=== PATIENT | male | born 1945 | race Caucasian/White ===

== ENCOUNTER 2016-08-31 07:41 | Day surgery (SDC) | payer MEDICARE, MEDICAID ==
[~2016-08-31 07:41] MED LIST: ADVAIR 250/5028 PUFF IN; CELEBREX 200MG200 MG PO; FLEXERIL10 MG PO; FLOMAX 0.4MG C0.4 MG PO; GABAPENTIN300 M1 PO; LISINOPRIL20 MG PO; LORTAB 5/500 501 TAB PO; SPIRIVA HA1 PUFF/INH IH; TRICOR 145 MG145 MG NG; ULTRAM 50 MG TA50 MG PO
[2016-08-31 08:18] LABS: HEMOGLOBIN 15.9 g/dL (14.1-18.0); LYMPH # 2.3 K/mm3 (0.7-4.5); LYMPH % 33.4 % (10-50)
[2016-08-31 08:21] LABS: BUN 31 mg/dL (7-18); GFR (ESTIMATED) 54 ML/MIN (>60)
[2016-08-31 14:17] VITALS: BP 125/64
--- NOTE | 2016-09-03 10:39 | RADIOLOGY REPORT PS360 ---
CARDIAC CATHETERIZATION DATE OF CATHETERIZATION:08/31/2016 10:27 AM PROCEDURES: 1. Left heart catheterization 2. Left ventriculogram 3. Selective coronary angiogram 4. Drug-eluting stent deployment to the mid large circumflex artery INDICATION FOR TEST: 1. Coronary artery disease 2. Abnormal Myoview inferior lateral ischemia 3. Angina pectoris class III and IV Informed consent was obtained prior to the procedure. COMPLICATIONS: None ESTIMATED BLOOD LOSS: Less than 10 ml. TECHNIQUE: One percent lidocaine was used to anesthetize the right groin. The right anterior aspect of the right wrist. The right radial artery was accessed via the central technique and a 6 [place] hydrophilic sheath was placed in the right radial artery. An arterial cocktail using verapamil and nitroglycerin and heparin was administered. Over a 3 J-wire a dexterity catheter was used to perform left heart catheterization left ventriculogram and selective coronary angiography. At the end of the diagnostic angiogram and additional dose of heparin was administered intravenously. An [facility] 3.5 guide catheter was used intubate the left main artery. 60 mg of Effient and 325 mg of aspirin was administered. A BMW wire was used to traverse the stenosis in the circumflex artery and a 2.75 x 26 mm resolute [place] stent was deployed at 20 edith reducing the severe stenosis to 0%. There are excellent angiographic results with BRADEN-3 flow down the vessel before and after the procedure. At the end of the procedure the sheath was removed good hemostasis was achieved using TR band in patient transferred the postop holding area in stable condition. ACT was 255 seconds ANGIOGRAPHIC RESULTS: 1. The left main artery normal 2. The left anterior descending artery has a proximal 10-20% stenosis with mid vessel 30% stenoses. There is a large first diagonal artery which is 2.5 mm in diameter and has proximal eccentric sequential 50% stenoses 3. The ramus intermedius is a large branch and has a mid vessel 60% eccentric stenosis 4. The circumflex artery is a nondominant yet still large vessel and has a 90% stenosis in the proximal large first obtuse marginal artery 5. The right coronary artery is a dominant vessel and has proximal 20% mid vessel 30% stenoses. The very large posterior descending artery has a proximal concentric 40-50% followed by mid vessel 40% stenosis 6. The ALVAREZ ventriculogram reveals normal 65% 7. The left ventricular end-diastolic pressure 10 mmHg IMPRESSION: 1. Severe disease in the first obtuse marginal artery which likely accounts for patient's angina and abnormal Myoview 2. Successful stenting the first obtuse marginal artery severe disease reduced to 0% with 1 drug-eluting stent 3. Persistent moderate to severe disease in a large ramus intermedius and first diagonal artery 4. Normal ejection fraction 5. Normal left ventricular end-diastolic pressure PLAN: 1. Effient and aspirin 2. LDL less than 55 3. Risk factor modification 4. Continue antianginal medications 5. Avoidance of tobacco products 6. Cardiac rehabilitation 7. In 6 weeks I would like patient undergo exercise Myoview to make sure all inducible ischemia has been treated
== END 2016-08-31 14:00 | disposition home or self-care (01) ==
LOC: CATHLAB 07:41
PROVIDERS: Internal Medicine; Internal Medicine Cardiovascular Disease
PROC: B2111ZZ Fluoroscopy of Multiple Coronary Arteries using Low Osmolar Contrast (ICD-10-PCS; 2016-08-31)
PROC: B2151ZZ Fluoroscopy of Left Heart using Low Osmolar Contrast (ICD-10-PCS; 2016-08-31)
PROC: 027034Z Dilation of Coronary Artery, One Artery with Drug-eluting Intraluminal Device, Percutaneous Approach (ICD-10-PCS; 2016-08-31)
PROC: 4A023N7 Measurement of Cardiac Sampling and Pressure, Left Heart, Percutaneous Approach (ICD-10-PCS; principal; 2016-08-31 08:30)
DX: I25.119 Atherosclerotic heart disease of native coronary artery with unspecified angina pectoris (principal); Z72.0 Tobacco use; R94.39 Abnormal result of other cardiovascular function study
CPT/HCPCS: C1725; C1769; C1876; C1894; J1644; Q9967

== ENCOUNTER → 2016-10-26 | Outpatient (CLI) | payer MEDICARE, MEDICAID ==
[2016-10-26 11:55] LABS: BILIRUBIN, INDIRECT 0.25 mg/dL (0-0.9)
== END ==
LOC: LAB 10:19
PROVIDERS: Internal Medicine
DX: I25.10 Atherosclerotic heart disease of native coronary artery without angina pectoris (principal); I10 Essential (primary) hypertension; E78.5 Hyperlipidemia, unspecified

== ENCOUNTER → 2016-11-09 | Outpatient (CLI) | payer MEDICARE, MEDICAID | LOC: SL 12:15 | DX: G47.30 Sleep apnea, unspecified (principal) | CPT/HCPCS: G0399-TC ==

== ENCOUNTER 2016-12-13 12:12 | Emergency (ER) | payer MEDICARE, MEDICAID ==
[~2016-12-13] VITALS: Ht 172.7 cm; Wt 90.4 kg
--- OUTSIDE RECORDS SUMMARY | 2016-12-13 12:25 | External Medical Summary Rpt | CCD ---
Author Author , ОЛЕГ Organization ОЛЕГ Address Unknown Phone [email or web address] Care Team Providers Care Pilot Control Operator Name Role Phone A Dominique CLINE MD [facility], A Unavailable Unavailable Dominique CLINE MD PSC [address]WAL[address] L[address] MD, PSC, Unavailable Unavailable OSWALDO L[address] MD, PSC [facility] Unavailable Unavailable MEDICAL GROUP, [facility] BEINEKE SANTY, BEINEKE Unavailable Unavailable S[facility] Unavailable Unavailable [facility], [facility] CLINTON, CLINTON Unavailable Unavailable CLINTON ALL, CLINTON ALL Unavailable Unavailable BUX, BUX Unavailable Unavailable CROSSFIELD, Unavailable Unavailable CROSSFIELD CROSSFIELD SANTY, Unavailable Unavailable CROSSFIELD SANTY ANIBAL EDA, Unavailable Unavailable ANIBAL EDA [facility], Unavailable Unavailable [facility] [place] [facility] Un[facility] Unavailable [facility], [facility] DUFF, DUFF Unavailable Unavailable DUFF JASON, DUFF JASON Unavailable Unavailable [facility], [facility] Unavailable Unavailable [facility] Unavailable [facility]available [facility], [facility] HEMANTH ROUSE, HEMANTH Unavailable Unavailable NASIM MARELY RON, YAP RON Unavailable Unavailable [facility] Unavailable Unavailable INC, [facility] VARNER WILIAM, VARNER WILIAM Unavailable Unavailable [facility], Unavailable Unavailable [facility] Unavailable Unavailable IM[facility]ING [facility], [facility] Un[facility] Un[facility], [facility] Unavailable [facility]available [facility], [facility] Unavailable Unavailable [facility], [facility] Unavailable Unavailable HOLDINGS, [email or web address], Unavailable Unavailable [email or web address] DEVI CRI, DEVI CRI Unavailable Unavailable [facility], [facility] Unavailable Unavailable [facility] Unavailable Unavailable SERVICES, [facility] MARTIN KESHIA, Unavailable Unavailable MARTIN KESHIA MARTIN KESHIA, Unavailable Unavailable MARTIN KESHIA MARTIN, KESHIA B, Unavailable Unavailable MARTIN, KESHIA B CASA ROS, CASA Unavailable Unavailable ROS MADDEN, MADDEN Unavailable Unavailable MADDEN JAM, Unavailable Unavailable MADDEN JAM BARBARA SURY, BARBARA SURY Unavailable Unavailable [facility], [facility] Unavailable Unavailable [facility] Unavailable Unavailable LAB[facility] Unavailable Unavailable LAB, [facility] TATE GENE, TATE GENE Unavailable Unavailable BRYCE JENNIE, BRYCE JENNIE Unavailable Unavailable ELIAS, III THIERRY, Unavailable Unavailable ELIAS, III THIERRY MEJIA RON, MEJIA RON Unavailable Unavailable [facility], [facility] Unavailable Unavailable INCORPORAT, [facility] Unavailable Unavailable INCORPORAT, [facility], Unavailable Unavailable [facility] SCIFRES ANG, SCIFRES Unavailable Unavailable ANG SHOJAEI-RANDA, Unavailable Unavailable SHOJAEI-RANDA MOON, MOON Unavailable Unavailable [facility] Unavailable Unavailable [facility], [facility] Unavailable Unavailable [facility], [facility] Unavailable Unavailable [facility], [facility] Unavailable Unavailable EQUIPME, [facility], Unavailable Unavailable [facility], Unavailable Unavailable [facility]available Unavailable [address], [facility] [facility] Unavailable Unavailable [address], [facility] [address] [facility] Unavailable Unavailable SERVICES, [facility] WEHRERNIE III TAMARA, Unavailable Unavailable WEHRMAN III TAMARA SON A, CLINE A Unavailable Unavailable CLINE MANA, CLINE Unavailable Unavailable Janna BARAHONA, SON, Unavailable Unavailable A C Purpose Continuity of Care Document - 12-27-2008 through 2016 Problems Code Diagnosis DOS Provider Status J449 CHRONIC 11-20-2016 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 R262 DIFFICULTY 11-17-2016 [facility] IN WALKING L REHAB NOT ASSOC PSC ELSEWHERE CLASSIFIED J441 CHRONIC 11-16-2016 [facility] OB[facility]CTIVE SERV PULMONARY FOUNDATION DZ W/EXACERBAT ION J9610 CHRONIC 11-16-2016 [facility] RESPIRATORY SERV FAIL UNS FOUNDATION HYPOXIA/HYP ERCAPNIA G8929 OTHER 11-05-2016 [facility] CHRONIC HEALTH PAIN MEDICAL GROUP 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 M545 LOW BACK 11-05-2016 [facility] PAIN HEALTH MEDICAL GROUP E785 HYPERLIPIDE 11-04-2016 [facility] JASON PHYSICIANS UNSPECIFIED GROUP I10 ESSENTIAL 11-04-2016 [facility] PRIMARY PHYSICIANS HYPERTENSIO GROUP N R0609 OTHER FORMS 11-04-2016 [facility] OF DYSPNEA PHYSICIANS GROUP M461 SACROILIITI 10-29-2016 [facility] S NOT [facility] ELSEWHERE S PSC CLASSIFIED R079 CHEST PAIN 10-20-2016 [facility] 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 I208 OTHER FORMS 09-03-2016 [facility] OF ANGINA PHYSICIANS PECTORIS GROUP W55756 [place] TRIBE 09-03-2016 [facility] COR ART PHYSICIANS W/OTH FORMS GROUP ANGINA PECTORIS R9439 ABNORMAL 09-03-2016 [facility] RESULT OT PHYSICIANS CARDIOVASCU GROUP LR FUNCTION STUDY T03765 [facility] TRIBE 08-31-2016 [facility] COR ARTREY [facility] W/UNS INC ANGINA PECTORIS Z720 TOBACCO USE 08-31-2016 [facility] INC R188 OTHER 08-19-2016 [facility] ASCITES [facility] INC R0600 DYSPNEA 08-05-2016 [facility] UNSPECIFIED [facility] INC R0602 SHORTNESS 08-05-2016 [facility] OF BREATH PHYSICIANS GROUP R918 OTHER 07-29-2016 [facility] [place] NONSPECIFIC MEDICAL ABNORMAL IMAGING ASS FINDING OF LUNG FIELD 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 [facility] DIABETES PH[facility]AC[facility] MELLITUS #591 WITH HYPERGLYCEM IA I63494 OTHER LONG 06-29-2016 [facility] TERM [facility] CURRENT INC DRUG THERAPY M5126 OT 05-19-2016 [place] INTERVERTEB MEDICAL RAL DISC IMAGING ASS DISPLACEMEN T LUMBAR RGN M5127 OT 05-19-2016 [facility] INTERVERTEB MEDICAL RAL DISC IMAGING ASS DISPLACEMEN T LS REGION M5137 OT 05-19-2016 [place] 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 [id number] SPONDYLOSIS 04-20-[address], W/O , PSC MYELOPATH/R ADICULOPATH Y CERV RGN M4802 SPINAL 04-20-[address] STENOSIS , PSC CERVICAL REGION M5010 CERVICAL 04-20-[address], DISC D/O , [facility] W/RADICULOP ATHY UNS CERV RGN M5030 OTH 04-14-2016 [facility] CERVICAL L REHAB DISC ASSOC PSC DEGENERATIO N UNS CERV REGION M542 CERVICALGIA 04-05-2016 [facility] PHYSICIANS GROUP E876 HYPOKALEMIA 03-18-2016 [facility] E782 MIXED 01-21-2016 [facility]PERL[facility]IDE [facility]ON INC R252 CRAMP AND 01-21-2016 [facility] SPASM [facility] INC K22224 PAIN IN 12-12-2015 [facility] [place] RIGHT HIP MEDICAL [facility]ING ASS J73172 PAIN IN 12-12-2015 [facility] [place] LEFT HIP MEDICAL [facility]ING ASS H2513 AGE-RELATED 11-25-2015 [facility] NUC[facility] CATARACT CENTER BILATERAL M5032 OT CERV 11-14-2015 [facility] DISC [facility] DEGENERATIO INC N MID-CERVICA L REGION M791 MYALGIA 11-11-[address] MD, [facility] M797 FIBROMYALGI 10-14-2015 [facility] A [facility] INC M4722 OT 08-26-2015 [facility] SPONDYLOSIS [facility] INC W/RADICULOP ATHY CERVICAL REGION M1612 UNILATERAL 08-12-2015 [facility] PRIMARY MEDICAL OSTEOARTHRI IMAGING ASS TIS LEFT HIP E538 DEFICIENCY 07-02-2015 [facility] OF OTHER [facility] SPECIFIED B INC GROUP VITAMINS D508 OTHER IRON 06-11-2015 A Dominique CLINE DEFICIENCY [facility] ANEMIAS V87672 OTHER 06-02-2015 [facility] MUSCLE [facility] SPASM INC R1013 EPIGASTRIC 06-02-2015 [facility] PAIN [facility] INC R202 PARESTHESIA 06-02-2015 [facility] OF SKIN [facility] INC R5383 OTHER 06-02-2015 [facility] FATIGUE [facility] INC Z125 ENCOUNTER 06-02-2015 [facility] SCREENING [facility] MALIGNANT INC NEOPLASM PROSTATE R05 COUGH 05-28-2015 [facility] H6980 OTHER SPEC 05-13-2015 A Dominique CLINE DISORDERS PSC EUSTACHIAN TUBE UNS EAR J0100 ACUTE 05-13-2015 A Dominique CLINE MAXILLARY PSC SINUSITIS UNSPECIFIED M4692 UNS 03-26-2015 A Dominique CLINE INFLAMMATOR PSC Y SPONDYLOPAT HY CERVICAL REGION M5090 CERVICAL 02-11-2015 Janna MARRERO MD PSC DISORDER UNS UNS CERVICAL REGION M2578 OSTEOPHYTE 02-07-2015 [facility] J439 EMPHYSEMA 01-22-2015 [place] UNSPECIFIED MEDICAL IMAGING ASS I6523 OCCLUSION & 11-21-2014 [place] STENOSIS MEDICAL BILATERAL IMAGING ASS CAROTID ARTERIES R42 DIZZINESS 11-21-2014 [facility] AND [facility] GIDDINESS INC 496 CHRONIC 11-20-2014 [facility] OBSTRUCTION MEDICAL NEC EQUIPME 46234 OTHER&UNSPE 11-13-2014 Janna PUTNAMFIED JANES SWIFT PSC DISORDER CERVICAL REGION 7804 DIZZINESS 11-13-2014 Janna MCCURDY PSC GIDDINESS 71156 CHRONIC 10-23-2014 [facility]STRUCTIVE SERV ASTHMA FOUNDATION UNSPECIFIED 31213 CHRONIC 10-23-2014 [facility] RESPIRATORY SERV FAILURE FOUNDATION 24679 DIAB W/O 08-05-2014 [facility] COMP TYPE PHARMACY II/UNS NOT #591 STATED UNCNTRL 44210 DIAB W/O 07-23-2014 [facility] MENTION [facility] COMP TYPE INC II/UNS TYPE UNCNTRL 2724 OTHER AND 07-23-2014 [facility] UNSPECIFIED [facility] INC HYPERLIPIDE JASON 4011 ESSENTIAL 07-23-2014 [facility] HYPERTENSIO [facility] N, BENIGN INC V7644 SPECIAL 07-23-2014 [facility] SCREENING [facility] MALIGNANT INC NEOPLASM OF PROSTATE 43106 DEGEN 06-12-2014 [facility] LUMBAR/LUMB MEDICAL OSACRAL IMAGING ASS INTERVERTEB RAL DISC 7242 LUMBAGO 06-12-2014 Janna CLINE MD PSC 7245 UNSPECIFIED 06-12-2014 [facility] [place] BACKACHE MEDICAL IM[facility]ING ASS 05114 SCOLIOSIS , 06-12-2014 [facility] [place] IDIOPATHIC MEDICAL IMAGING ASS 77038 UNSPECIFIED 06-03-2014 [facility] V[facility] DEFECT [facility] 92982 UNSPECIFIED 06-03-2014 [facility] [place] [address] OTHER 04-19-2014 [facility] NONSPECIFIC SERV ABNORMAL FOUNDATION FINDING OF LUNG FIELD 96797 PAIN IN 02-27-2014 [place] JOINT MEDICAL PELVIC IMAGING ASS REGION AND THIGH 70750 URINARY 02-27-2014 Janna RIOJAS MD PSC 64813 UNSPECIFIED 11-15-2013 [facility] TEMPOROMAND INC IBULAR JOINT DISORDERS 28955 INTERSTITIA 11-01-2013 [facility] MYOSITIS TERESITA ELIASC 7840 HEADACHE 10-09-2013 [facility] INC 7906 OTHER 05-28-2013 [facility] ABNORMAL [facility] BLOOD INC CHEMISTRY 486 PNEUMONIA, 03-13-2013 [facility] ORGANISM [facility] UNSPECIFIED INC 66213 OBSTRUCTIVE 03-13-2013 Janna MCCARTHY MD PSC BRONCHITIS WITH EXACERBATIO N 5183 PULMONARY 03-13-2013 [facility] EOSINOPHILI MEDICAL A IMAGING ASS 33029 ABDOMINAL 02-01-2013 [facility] PAIN, PHYSICIANS EPIGASTRIC GROUP 72368 ABDOMINAL 01-31-2013 [place] PAIN RIGHT MEDICAL UPPER IMAGING ASS QUADRANT 5718 OTHER 01-09-2013 [place] CHRONIC MEDICAL NONALCOHOLI IMAGING ASS C LIVER DISEASE 5758 OTHER 01-09-2013 [place] SPECIFIED MEDICAL DISORDER OF IMAGING ASS GALLBLADDER 06289 ABDOMINAL 01-09-2013 [facility] PAIN, LEFT [facility]OS[facility] UPPER INC QUADRANT 2722 MIXED 11-20-2012 [facility] HYPERLIPIDE [facility] JASON INC 4928 OTHER 11-20-2012 [facility] EMPHYSEMA [facility] INC V571 OTHER 11-20-2012 [facility] PHYSICAL [facility] THERAPY INC V5869 LONG-TERM 11-20-2012 [facility] (CURRENT) [facility] USE OF INC OTHER MEDICATIONS 44471 OTHER 10-30-2012 [place] DISEASES OF MEDICAL LUNG NOT IMAGING ASS ELSEWHERE CLASSIFIED 7841 THROAT PAIN 10-30-2012 [facility] INC 14006 SHORTNESS 10-30-2012 [facility] OF BREATH [facility] INC 7821 RASH AND 10-25-2012 [place] [facility] OTHER SERV NONSPECIFIC FOUNDATIO SKIN ERUPTION 52553 GEN 08-28-2012 [facility] OSTEOARTHRO L REHAB SIS ASSOC PSC INVOLVING MULTIPLE SITES 7220 DISPLCMT 08-28-2012 [facility] CERV L REHAB INTERVERT ASSOC PSC DISC WITHOUT MYELOPATHY 7224 DEGENERATIO 08-28-2012 [facility] N OF L REHAB CERVICAL ASSOC PSC INTERVERTEB RAL DISC 90284 CHEST PAIN 05-04-2012 [place] UNSPECIFIED MEDICAL IMAGING ASS 03028 IDIOPATH 04-20-2012 [facility] REL HOME NONOBST MEDICAL ALVEOLAR EQUIPME HYPOVENT 7230 SPINAL 04-17-2012 [facility] STENOSIS IN L REHAB CERVICAL ASSOC PSC REGION 7234 BRACHIAL 04-17-2012 [facility] NEURITIS OR L REHAB ASSOC PSC RADICULITIS NOS 4660 ACUTE 02-08-2012 A Dominique CLINE BRONCHITIS PSC 37708 OTHER&UNSPE 02-08-2012 A Dominique Fox DISC PSC DISORDER UNSPEC REGION V0382 NEED PROPH 02-08-2012 A Dominique CLINE VACCINATION PSC AGAINST STREP PNEUMONE 7210 CERVICAL 12-23-2011 [place] SPONDYLOSIS MEDICAL WITHOUT IMAGING ASS MYELOPATHY 7231 CERVICALGIA 12-23-2011 [facility] INC 7292 UNSPECIFIED 12-21-2011 A Dominique CLINE NEURALGIA PSC NEURITIS AND RADICULITIS 62921 EXTRINSIC 12-15-2011 [facility] ASTHMA WITH PHARMACY STATUS #591 ASTHMATICUS 4019 UNSPECIFIED 10-01-2011 [facility] ESSENTIAL [facility] HYPERTENSIO INC N 34870 ASTHMA, 10-01-2011 [facility] UNSPECIFIED [facility] , INC UNSPECIFIED STATUS 39110 ING ADAMS 10-01-2011 [facility] W/O MENTION [facility]OS[facility] INC OBST/GANGRE N UNILAT/[place] [address] SPASM OF 07-07-2011 A Dominique CLINE MUSCLE PSC 58874 CHRONIC 05-24-2011 MARTIN OBSTRUCTIVE KESHIA ASTHMA W/STATUS ASTHMATICUS 4778 ALLERGIC 03-29-2011 MARTIN RHINITIS KESHIA DUE TO OTHER ALLERGEN 4780 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MARTIN OF NASAL KESHIA TURBINATES 94986 CHRONIC 03-29-2011 MARTIN OBSTRUCTIVE KESHIA ASTHMA WITH EXACERBATIO N 2720 PURE 12-21-2010 [facility] HYPERCHOLES [facility] TEROLEMIA INC 7810 ABNORMAL 12-21-2010 [facility] INVOLUNTARY [facility] MOVEMENTS INC 50121 MUSCLE 12-15-2010 A Dominique CLINE WEAKNESS PSC (GENERALIZE D) 85564 EXTRINSIC 07-26-2010 [facility] ASTHMA, PHARMACY UNSPECIFIED #591 8472 LUMBAR 06-11-2010 A Dominique CLINE SPRAIN AND PSC STRAIN 8488 OTHER 06-11-2010 A Dominique CLINE SPECIFIED PSC SITES OF SPRAINS AND STRAINS V180 FAMILY 02-26-2010 [facility] HISTORY OF MEM HOSP DIABETES INC MELLITUS 7391 NONALLOPATH 02-25-2010 [place] IC LESION CHIROPRACTI OF CERVICAL C CENTE REGION NEC 7392 NONALLOPATH 02-25-2010 [place] IC LESION CHIROPRACTI OF THORACIC C CENTE REGION NEC 7393 NONALLOPATH 02-25-2010 [place] IC LESION CHIROPRACTI OF LUMBAR C CENTE REGION NEC 470 DEVIATED 02-02-2010 MARTIN NASAL KESHIA SEPTUM 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 79625 DIVERTICULO 12-22-2009 [place] [facility] SIS OF SERV COLON FOUNDATIO 5693 HEMORRHAGE 12-22-2009 [facility] MEDICAL OF RECTUM SERV AND ANUS FOUNDATIO 7934 NONSPECIFIC 12-22-2009 [facility] ABN SERV FINDING RAD FOUNDATIO & OTH EXAM GI TRACT 5551 REGIONAL 11-18-2009 A Dominique CLINE ENTERITIS PSC OF LARGE INTESTINE V0481 NEED 11-18-2009 A Dominique CLINE PROPHYLACTI PSC C VACCINATION &INOCULATIO N FLU 5569 UNSPECIFIED 11-17-2009 [facility] ULCERATIVE [facility] COLITIS INC 5589 OTH&UNSPEC 11-17-2009 [facility] NONINFECTIO EMERGENCY US SERVICES GASTROENTER ITIS&COLITI S V642 SURG/OTH 11-17-2009 [facility] PROC NOT EMERGENCY CARRIED OUT SERVICES BECAUSE PTS DECN 4720 CHRONIC 09-01-2009 MARTIN, RHINITIS KESHIA B 32352 INTRINSIC 09-01-2009 MARTIN, ASTHMA, KESHIA B UNSPECIFIED 4619 ACUTE 06-16-2009 MARTIN, SINUSITIS, KESHIA B UNSPECIFIED 40518 OTHER 06-11-2009 [facility]AISE [facility] FATIGUE HOLDING V1585 PERSONAL HX 04-21-2009 [facility] CONTACT & [facility] EXPOSUR INC HAZARDOUS BODY FLD Allergies, Adverse Reactions, Alerts Clinical Alert Notifications Alert Diabetes: no eye exam in the last 365 days Diabetes: no influenza vaccine in the last 365 days Diabetes: no urine protein screening in the last 365 days Immunization Name Date Rout CVX Reac Dose Comm Prov Is Faci e tion ent ider Refu lity Give sed n PPSV 12-1 33 WRIG No A C 23 8-20 HT A WRIG VACC 12 HT INE 2 PSC YRS OR OLDE R FOR SUBQ /IM USE IIV 09-2 135 WRIG No A C VACC 8-20 HT A WRIG INE 10 HT PRES ERV PSC FREE INCR EASE D AG CONT ENT IM Results Labs Lab Lab Date Result Refere Interp Status Commen Order Detail nces retati t Range on Liver function panel (12-09-2016 12:40) Protein = 7.4 6.4-8.2 complet total 017 gm/dL ed ser/herlinda 12:40 s ALT 10-19-2 = 51 12-78 complet (SGPT) 017 U/L ed ser/herlinda 12:40 s Serum = 29 15-37 complet or 017 U/L ed plasma 12:40 asparta te aminotr ansfera Serum = 0.4 0.2-1.0 complet or 017 mg/dL ed plasma 12:40 total bilirub in measure m Serum = 0.31 0-0.9 complet or 017 mg/dL ed plasma 12:40 indirec t bilirub in measu Bilirub = 0.09 0.0-0.2 complet in 017 mg/dL ed direct 12:40 Serum = 59 46-116 complet or 017 U/L ed plasma 12:40 alkalin e phospha tase aura Serum = 4.1 3.4-5.0 complet or 017 gm/dL ed plasma 12:40 albumin measure ment ([facility] Lipid profile (12-09-2016 12:40) Serum = 27.8 0-40 complet or 017 ed plasma 12:40 cholest ousmane in VLDL sue Serum = 139 30-200 complet or 017 mg/dL ed plasma 12:40 triglyc eride measure ment Serum = 85.2 0-130 complet or 017 mg/dL ed plasma 12:40 cholest ousmane in LDL measu Serum = 32.0 40-60 complet or 017 MG/DL ed plasma 12:40 cholest ousmane in HDL measu Total = 145 < 200 complet cholest 017 mg/dL ed ousmane 12:40 measure ment Basic metabolic panel (12-09-2016 12:40) Serum = 139 136-145 complet sodium 017 mmoL/L ed measure 12:40 ment Serum = 4.3 3.5-5.1 complet potassi 017 mmoL/L ed um 12:40 measure ment Serum = 131 74-106 complet or 017 mg/dL ed plasma 12:40 glucose measure ment ([facility] Estimat = 59 >60 complet ed 017 ML/MIN ed glomeru 12:40 lar filtrat ion rate (GF Comment: REFERENCE RANGE: >60 ML/MIN/1.73 SQUARE METERS Comment: If this patient is -[place], then multiply the Comment: result by 1.210. Serum 12-09-2 = 1.2 0.70-1. complet or 017 mg/dL 30 ed plasma 12:40 creatin ine measure ment ( Carbon = 29 21.0-32 complet dioxide 017 mmoL/L .0 ed 12:40 measure ment Serum = 105 98-107 complet or 017 mmoL/L ed plasma 12:40 chlorid e measure ment (mo Serum = 9.6 8.5-10. complet or 017 mg/dL 1 ed plasma 12:40 calcium measure ment (mas Serum = 18 7-18 complet or 017 mg/dL ed plasma 12:40 urea nitroge n measure men CBC w auto diff (12-09-2016 12:40) Blood = 6.3 4.8-10. complet leukocy 017 K/MM3 8 ed dale 12:40 count (number /volume ) Automat = 13.8 11.5-17 complet ed 017 % .5 ed erythro 12:40 cyte distrib ution width Red = 5.60 4.6-6.2 complet blood 017 M/mm3 ed cell 12:40 count Blood = 242 142-424 complet platele 017 K/mm3 ed t count 12:40 Automat = 8.6 7.4-10. complet ed 017 fl 4 ed blood 12:40 platele t mean volume aura [place] % = 7.9 % 1.7-9.3 complet 017 ed 12:40 Absolut = 0.5 0.1-1.0 complet e 017 K/mm3 ed monocyt 12:40 e count Automat = 83.3 82.2-97 complet ed 017 fl .8 ed erythro 12:40 cyte mean corpusc ular v Automat = 32.6 31.8-35 complet ed 017 g/dl .4 ed erythro 12:40 cyte mean corpusc ular h Mean = 27.1 27-31.2 complet corpusc 017 pg ed ular 12:40 hemoglo bin ([facility]) determ Lymphoc = 33.9 10-50 complet yte 017 % ed count, 12:40 blood, automat ed Absolut = 2.1 0.7-4.5 complet e 017 K/mm3 ed lymphoc 12:40 yte count Blood = 15.2 14.1-18 complet hemoglo 017 g/dL .0 ed bin 12:40 measure ment (mass/v olum Blood = 46.7 42.0-52 complet hematoc 017 % .0 ed rit 12:40 (volume fractio n) Granulo = 56.0 37.0-80 complet cyte 017 % .0 ed percent 12:40 age Blood = 3.5 1.3-8.0 complet granulo 017 K/mm3 ed cytes 12:40 automat ed count (numb Automat = 1.3 % 0.1-12. complet ed 017 0 ed blood 12:40 eosinop hils/10 0 leukocy t Automat = 0.1 0.0-0.4 complet ed 017 K/mm3 ed blood 12:40 eosinop hil count Baso % = 0.8 % 0.1-2.0 complet 017 ed 12:40 Automat 2 = 0.1 0-0.2 complet ed 017 K/MM3 ed blood 12:40 basophi l count (count/ vo Procedures Procedure DOS Code Location Performer Comment O2 CONC 1 E1390 [facility] YAO DEL PORT 7 HOME HOME 85%/>02 MEDICAL MEDICAL CONC AT EQUIPME [facility] FLW RATE TUBING A7037 [facility] USED WITH 7 HOME HOME POSITIVE MEDICAL MEDICAL AIRWAY EQUIPME EQUIPME PRESSURE DEVICE FULL FACE A7030 [facility] MASK 7 HOME HOME USED MEDICAL MEDICAL W/POS EQUIPME EQUIPME ARWAY PRESS DEVICE EA FILTER A7038 [facility] DISPBL 7 HOME HOME USED MEDICAL MEDICAL W/POS EQUIPME EQUIPME ARWAY PRESSURE DEVICE FILTER A7039 [facility] NON 7 HOME HOME DISPBL MEDICAL MEDICAL USED EQUIPME EQUIPME W/POS ARWAY PRESS DEVICE CONTINUOU E0601 MAX[facility] YAO S 7 HOME HOME POSITIVE MEDICAL MEDICAL AIRWAY EQUIPME EQUIPME PRESSURE DEVICE HUMDIFIR E0562 [facility] HEATED 7 HOME HOME USED MEDICAL MEDICAL W/POS EQUIPME EQUIPME ARWAY PRESSURE DEVICE HEADGEAR A7035 [facility] USED 7 HOME HOME W/POSITIV MEDICAL MEDICAL E AIRWAY EQUIPME EQUIPME PRESSURE DEVICE PHYSICAL 65329 PROFESSIO CROSSFIEL THERAPY 7 NAL REHAB D EVALUATIO ASSOC N LOW PSC COMPLEX 20 MINS LOCM Q9965 [facility]-199 7 MG/ML ORTHOPAED ORTHOPAED IODINE ICS PSC ICS P[place] IN[place] [address] [facility] LOCKSTADT JOINT 7 ARTHRGRPH ORTHOPAED Y&/ANES/S ICS PSC TEROID W/JUAN LUIS LIPID 54863 [facility] PANEL 7 [facility] INC INC HEPATIC 85782 [facility] FUNCTION 7 [facility] PANEL INC INC COLLECTIO 99009 [facility] FI[facility]DS N VENOUS 7 [facility] BLOOD INC INC VENIPUNCT URE NEBULIZER E0570 MAXIMILIANGARETT YAO WITH 7 HOME HOME COMPRESSO MEDICAL MEDICAL R EQUIPME EQUIPME PRTBLE E0431 MAXIMILIANGARETT YAO GASEOUS 7 HOME HOME O2 SYS MEDICAL MEDICAL RENT; EQUIPME EQUIPME FLWMTR HUMIDFR&M ASK ECG 60530 DIAMOND FIELDS ROUTINE 7 [facility] ECG INC INC W/LEAST 12 LDS TRCG ONLY W/O I&R O2 CONC 1 E1390 MAXIMILIAN YAO DEL PORT 7 HOME HOME 85%/>02 MEDICAL MEDICAL CONC AT EQUIPME EQUIPME PRSC FLW RATE NEBULIZER E0570 MAXIMILIAN YAO WITH 7 HOME HOME COMPRESSO MEDICAL MEDICAL R EQUIPME EQUIPME LUMB L0627 MAXIMILIAN MAXIMILIAN ORTHOSIS 7 HOME HOME SAGIT MEDICAL MEDICAL CNTRL EQUIPME EQUIPME RIGID A&P PANEL PREFAB PRTBLE E0431 MAXIMILIAN YAO GASEOUS 7 HOME HOME O2 SYS MEDICAL MEDICAL RENT; EQUIPME EQUIPME FLWMTR HUMIDFR&M ASK O2 CONC 1 E1390 MAXIMILIAN MOTA PORT 7 HOME HOME 85%/>02 MEDICAL MEDICAL CONC AT EQUIPME EQUIPME PRSC FLW RATE ECG 59002 [facility] ROUTINE 7 PHYSICIAN ECG S GROUP W/LEAST 12 LDS I&R ONLY ECG 24520 [facility] ROUTINE 7 [facility] ECG INC INC W/LEAST 12 LDS TRCG ONLY W/O I&R PRQ 50423 [facility] TRLUML 7 PHYSICIAN CORONARY S GROUP STENT W/ANGIO ONE ART/BRNCH CATH PLMT 21890 [facility] L HRT & 7 PHYSICIAN ARTS S GROUP W/NJX & ANGIO IMG S&I CATH PLMT 83719 DIAM[facility] FIELDS L HRT & 7 [facility] ARTS INC INC W/NJX & ANGIO IMG S&I BASIC 74620 [facility] METABOLIC 7 [facility] PANEL INC INC CALCIUM TOTAL BLOOD 18917 [facility] COUNT 7 [facility] COMPLETE INC INC AUTO&[place] PRQ 06520 [facility] TRLUML 7 [facility] CORONARY INC INC STENT W/ANGIO ONE ART/BRNCH LOCM Q9967 DIAM[facility] FIELDS [phone] 7 [facility] MG/ML INC INC IODINE CONCENTRA TION PER ML CATHETER C1725 [facility] TRANSLUMI 7 [facility] NAL INC INC ANGIOPLAS TY NON-LASER GUIDE C1769 [facility] WIRE 7 [facility] INC INC STENT C1876 DI[facility] FIEL[facility] NON-COATE 7 [facility] [facility] D/NON-COV INC INC ERED W/DELIVER Y SYSTEM COAGULATI 62481 DIAMOND FIELDS ON TIME 7 [facility] ACTIVATED INC INC INJECTION J1644 DIAMOND FIELDS HEPARIN 7 [facility] SODIUM INC INC PER 1000 UNITS INTRDUCR/ C1894 DIAMOND FIELDS SHEATH 7 [facility] NOT GUID INC INC INTRACARD EP NON-LASR NEBULIZER E0570 MAXIMILIAN YAO WITH 7 HOME HOME COMPRESSO MEDICAL MEDICAL R EQUIPME EQUIPME PRTBLE E0431 MAXIMILIAN YAO GASEOUS 7 HOME HOME O2 SYS MEDICAL MEDICAL RENT; EQUIPME EQUIPME FLWMTR HUMIDFR&M ASK O2 CONC 1 E1390 MAXIMILIAN YAO DEL PORT 7 HOME HOME 85%/>02 MEDICAL MEDICAL CONC [place] [address] DIAMOND FIELDS ABDOMINAL 7 [facility] REAL INC INC TIME W/IMAGE DOCUMENTA TION MYOCARDIA 76742 DIAMOND Goetz SPECT 7 [facility] MULTIPLE INC INC STUDIES CV STRS 75930 DIAMOND FIELDS TST 7 [facility] XERS&/OR INC INC RX CONT ECG TRCG ONLY INJECTION J2785 DIAMOND FIELDS 7 [facility] REGADENOS INC INC ON 0.1 MG TECHNETIU A9502 DIAMOND Moreno TC-99M 7 [facility] TETROFOSM INC INC IN DX PER STUDY DOSE ECHO 04343 DIAMOND FIELDS TTHRC R-T 7 [facility] 2D INC INC W/WOM-MOD E COMPL SPEC&COLR D CT THORAX 07876 [facility] W/O 7 MEDICAL CONTRAST IMAGING MATERIAL ASS NEBULIZER E0570 MAXIMILIAN YAO WITH 7 HOME HOME COMPRESSO MEDICAL MEDICAL R EQUIPME EQUIPME ECG 84274 DIAMOND FIELDS ROUTINE 7 [facility] ECG INC INC W/LEAST 12 LDS TRCG ONLY W/O I&R BLD GLU A4253 [facility] TEST/REAG 7 PHARMACY PHARMACY T STRIPS #591 #591 HOME BLD GLU MON-50 PRTBLE E0431 MAXIMILIAN YAO GASEOUS 7 HOME HOME O2 SYS MEDICAL MEDICAL RENT; EQUIPME EQUIPME FLWMTR HUMIDFR&M ASK O2 CONC 1 E1390 MAXIMILIAN MOTA PORT 7 HOME HOME 85%/>02 MEDICAL MEDICAL CONC AT EQUIPME EQUIPME PRSC FLW RATE LIPID 05-09-201 97183 DIAMOND FIELDS PANEL 7 [facility] INC INC HEMOGLOBI 99597 DIAMOND FIELDS N 7 [facility] GLYCOSYLA INC INC JUMANA A1C BLOOD 03403 DIAMOND FIELDS COUNT 7 [facility] COMPLETE INC INC AUTO&AUTO DIFRNTL WBC COLLECTIO 69525 DIAMOND FIELDS N VENOUS 7 [facility] BLOOD INC INC VENIPUNCT URE BILIRUBIN 04879 DIAMOND FIELDS DIRECT 7 [facility] INC INC COMPREHEN 60109 DIAMOND FIELDS SIVE 7 [facility] METABOLIC INC INC PANEL NEBULIZER E0570 MAXIMILIAN JOHNSONRELL WITH 7 HOME HOME COMPRESSO MEDICAL MEDICAL R EQUIPME EQUIPME PRTBLE E0431 MAXIMILIAN YOA GASEOUS 7 HOME HOME O2 SYS MEDICAL MEDICAL RENT; EQUIPME EQUIPME FLWMTR HUMIDFR&M ASK O2 CONC 1 E1390 MAXIMILIAN JOHNSONRELL DEL PORT 7 HOME HOME 85%/>02 MEDICAL MEDICAL CONC AT EQUIPME EQUIPME [facility] [place] NEBULIZER E0570 MAXIMILIAN YAO WITH 7 HOME HOME COMPRESSO MEDICAL MEDICAL R EQUIPME EQUIPME ADMN SET A7003 MAXIMILIAN YAO SM VOL 7 HOME HOME NONFILTR MEDICAL MEDICAL PNEUMAT EQUIPME EQUIPME NEBULIZR DISPBL O2 CONC 1 E1390 MAXIMILIAN YAO DEL PORT 7 HOME HOME 85%/>02 MEDICAL MEDICAL CONC AT EQUIPME EQUIPME [facility] FLW RATE MRI 61675 [facility] [place] [facility] SPINAL 7 MEDICAL CANAL IMAGING LUMBAR ASS W/O CONTRAST MATERIAL 3D 59963 [facility] [place] [facility] RENDERING 7 MEDICAL W/INTERP IMAGING & ASS POSTPROCE SS SUPERVISI ON PRTBLE E0431 MAXIMILIAN MAXIMILIAN GASEOUS 7 HOME HOME O2 SYS MEDICAL MEDICAL RENT; EQUIPME EQUIPME FLWMTR HUMIDFR&M ASK O2 CONC 1 E1390 MAXIMILIAN YAO DEL PORT 7 HOME HOME 85%/>02 MEDICAL MEDICAL CONC AT EQUIPME EQUIPME [facility] [place] PHYSICAL 83535 PROFESSIO CROSSFIEL THERAPY 7 NAL REHAB D RE-EVAL ASSOC EST PLAN PSC CARE 20 MINS MANUAL 25351 PROFESSIO CROSSFIEL THERAPY 7 NAL REHAB D TQS 1/> ASSOC REGIONS PSC EACH 15 MINUTES BLD GLU A4253 [facility] TEST/REAG 7 PHARMACY PHARMACY T STRIPS #591 #591 HOME BLD GLU MON-50 PRTBLE E0431 MAXIMILIAN MAXIMILIAN GASEOUS 7 HOME HOME O2 SYS MEDICAL MEDICAL RENT; EQUIPME EQUIPME FLWMTR HUMIDFR&M ASK O2 CONC 1 E1390 MAXIMILIAN YAO DEL PORT 7 HOME HOME 85%/>02 MEDICAL MEDICAL CONC [facility] POTASSIUM 17425 [facility] SERUM 7 DIAGNOSTI DIAGNOSTI PLASMA/WH CS CS OLE BLOOD INCORPORA INCORPORA T T MANUAL 68289 PROFESSIO CROSSFIEL THERAPY 7 NAL REHAB D TQS 1/> ASSOC REGIONS PSC EACH 15 MINUTES PHYSICAL 64429 PROFESSIO CROSSFIEL THERAPY 7 NAL REHAB D EVALUATIO ASSOC N HIGH PSC COMPLEX 45 MINS PRTBLE E0431 MAXIMILIAN MAXIMILIAN GASEOUS 6 HOME HOME O2 SYS MEDICAL MEDICAL RENT; EQUIPME EQUIPME FLWMTR HUMIDFR&M ASK O2 CONC 1 E1390 MAXIMILIAN JOHNSONRELL DEL PORT 6 HOME HOME 85%/>02 MEDICAL MEDICAL CONC [facility] [place] BRNCDILAT 29239 DIAMOND FIELDS RSPSE 6 [facility] SPMTRY INC INC PRE&POST- BRNCDILAT ADMN PRESSURIZ 82087 DIAMOND FIELDS ED/NONPRE 6 [facility] SSURIZED [place] [address] DIAMOND FIELDS DIFFUSING 6 [facility] CAPACITY INC INC NONINVASI 66748 DIAMOND FIELDS VE 6 [facility] EAR/PULSE INC INC OXIMETRY MULTIPLE DETER GAS 56452 DIAMOND FIELDS DILUT/WAS 6 [facility] HOUT LUNG INC INC VOL W/WO DISTRIB VENT&V BASIC 11731 [facility] METABOLIC 6 DIAGNOSTI DIAGNOSTI PANEL CS CS CALCIUM INCORPORA INCORPORA TOTAL T T LIPID 50401 DIAMOND FIELDS PANEL 6 [facility] INC INC HEPATITIS 20363 DIAMOND FIELDS C 6 [facility] ANTIBODY INC INC O2 CONC 1 E1390 MAXIMILIAN YAO DEL PORT 6 HOME HOME 85%/>02 MEDICAL MEDICAL CONC AT EQUIPME EQUIPME PRS FLW RATE HEMOGLOBI 92856 DIAMONDENRIQUE GREENON N 6 [facility] GLYCOSYLA INC INC JUMANA A1C COLLECTIO 85733 DIAMOND FIELDS N VENOUS 6 [facility] [place] [address] DIAMOND FIELDS MAGNESIUM 6 [facility] INC INC COMPREHEN 53703 DIAMONDENRIQUE FIELDS SIVE 6 [facility] METABOLIC INC INC PANEL HEPATITIS 89727 DIAMOND FIELDS A 6 [facility] ANTIBODY INC INC HAAB PRTBLE E0431 MAXIMILIAN YAO GASEOUS 6 HOME HOME O2 SYS MEDICAL MEDICAL RENT; EQUIPME EQUIPME FLWMTR HUMIDFR&M ASK HEPATITIS 79438 DIAMOND Hernandez CORE 6 [facility] ANTIBODY INC INC HBCAB TOTAL HEPATITIS 89848 DIAMOND Hernandez SURF 6 [facility] [address] DIAMOND FIELDS HEPATITIS 6 [facility] B INC INC SURFACE ANTIGEN LOCM Q9966 DIAMOND FIELDS 200-299 6 [facility] MG/ML INC INC IODINE CONCENTRA TION PER ML INJECTION J1040 DIAMOND GREENON 6 [facility] METHYLPRE INC INC DNISOLONE ACETATE 80 [place]X [address] OSWALDO TERRELL JASON DX/THER 6 MD DOMINGO, SBST PSC EPIDURAL/ SUBRACH CERV/THOR ACIC O2 CONC 1 E1390 MAXIMILIAN YAO DEL PORT 6 HOME HOME 85%/>02 MEDICAL MEDICAL CONC AT EQUIPME EQUIPME PRS FLW RATE PRTBLE E0431 MAXIMILIAN YAO GASEOUS 6 HOME HOME O2 SYS MEDICAL MEDICAL RENT; EQUIPME EQUIPME FLWVAR HUMIDFR&M ASK BLD GLU A4253 [facility] WALKER-CATHERINE TEST/REAG 6 PHARMACY PHARMACY T STRIPS #591 #591 HOME BLD GLU MON-50 L[place]UTE J7614 GENESIS HURTADO ROL INHAL 6 PHARMACY PHARMACY NON-CP #591 #591 THRU DME U DOSE 0.5 MG PHRM Q0513 AARON-CATHERINE WALKER-CATHERINE DISPENSIN 6 PHARMACY PHARMACY G FEE #591 #591 INHALATIO N RX; PER 30 DAYS LOCM Q9966 DIAMOND FIELDS 200-299 6 [facility] MG/ML INC INC IODINE CONCENTRA TION PER ML RADEX 18943 [place] ALL HIPS 6 MEDICAL BILATERAL IMAGING WITH ASS PELVIS 3-4 VIEWS NJX 61329 OSWALDO TERRELL JASON DX/THER 6 MD DOMINGO, SBST PSC EPIDURAL/ SUBRACH CERV/THOR ACIC INJECTION J1040 DIAMOND FIELDS 6 [facility] METHYLPRE INC INC DNISOLONE ACETATE 80 MG RADEX HIP 12505 DIAMOND FIELDS 6 [facility] UNILATERA INC INC L WITH PELVIS 2-3 VIEWS RADIOLOGI 51319 DIAMOND FIELDS C EXAM 6 [facility] CHEST 2 INC INC VIEWS FRONTAL&L ATERAL O2 CONC 1 E1390 MAXIMILIAN YAO DEL PORT 6 HOME HOME 85%/>02 MEDICAL MEDICAL CONC AT EQUIPME EQUIPME PRS FLW RATE PRTBLE E0431 MAXIMILIAN YAO GASEOUS 6 HOME HOME O2 SYS MEDICAL MEDICAL RENT; EQUIPME EQUIPME FLWMTR HUMIDFR&M ASK LOCM Q9966 DIAMOND FIELDS 200-299 6 [facility] MG/ML INC INC IODINE CONCENTRA TION PER ML NJX 45374 OSWALDO TERRELL JASON DX/THER 6 MD DOMINGO, SBST PSC EPIDURAL/ SUBRACH CERV/THOR ACIC INJECTION J1040 DIAMOND FIELDS 6 [facility] METHYLPRE INC INC DNISOLONE ACETATE 80 MG O2 CONC 1 E1390 MAXIMILIAN YAO DEL PORT 6 HOME HOME 85%/>02 MEDICAL MEDICAL CONC AT EQUIPME EQUIPME [facility] FLW RATE PRTBLE E0431 MAXIMILIAN YAO GASEOUS 6 HOME HOME O2 SYS MEDICAL MEDICAL RENT; EQUIPME EQUIPME [facility] HUMID[facility]&M ASK INJECTION J1040 DIAMOND FIELDS 6 [facility] METHYLPRE INC INC DNISOLONE ACETATE [address] MD, SINGLE/ML PSC T TRIGGER POINT 02/22 MUSCLES PHRM Q0513 [facility] DISPENSIN 6 PHARMACY PHARMACY G FEE #591 #591 INHALATIO N RX; PER 30 DAYS LEVALBUTE J7614 [facility] ROL INHAL 6 PHARMACY PHARMACY NON-CP #591 #591 THRU DME U DOSE 0.5 MG PRTBLE E0431 MAXIMILIAN YAO GASEOUS 6 HOME HOME O2 SYS MEDICAL MEDICAL RENT; EQUIPME EQUIPME [facility] HUMIDFR&M ASK O2 CONC 1 E1390 MAXIMILIAN YAO DEL PORT 6 HOME HOME 85%/>02 MEDICAL MEDICAL CONC AT EQUIPME EQUIPME [facility] FLW RATE INJECTION J1030 DIAMOND FIELDS 6 [facility] METHYLPRE INC INC DNISOLONE ACETATE 40 MG DSTR [address] L[address] MD, AGNT PSC PARVERTEB FCT SNGL CRVCL/THO RA DSTR [address] L[address] MD, AGNT PSC PARVERTEB FCT ADDL CRVCL/THO RA DSTR [address] MD, AGNT PSC PARVERTEB FCT ADDL CRVCL/THO RA INJECTION J1030 DIAMOND FIELDS 6 [facility] METHYLPRE INC INC DNISOLONE ACETATE 40 MG DSTR 91467 OSWALDO GOMEZ NROLYTC 6 MD DOMINGO, AGNT PSC PARVERTEB FCT SNGL CRVCL/THO RA O2 CONC 1 E1390 MAXIMILIAN YAO DEL PORT 6 HOME HOME 85%/>02 MEDICAL MEDICAL CONC AT EQUIPME EQUIPME PRSC FLW RATE PRTBLE E0431 MAXIMILIAN MAXIMILIAN GASEOUS 6 HOME HOME O2 SYS MEDICAL MEDICAL RENT; EQUIPME EQUIPME FLWMTR HUMIDFR&M ASK RADEX 50771 DIAMOND FIELDS SPINE 6 [facility] LUMBOSACR INC INC AL MINIMUM 4 VIEWS RADEX HIP 78399 DAMARIS CARLIN 6 MEDICAL [place]ANT[place] UNILATERA IMAGING L WITH ASS PELVIS 1 VIEW RADEX HIP 75780 DIAMOND FIELDS 6 [facility] UN[place]ATERA INC INC L WITH PELVIS 2-3 VIEWS O2 CONC 1 E1390 MAXIMILIAN YAO DEL PORT 6 HOME HOME 85%/>02 MEDICAL MEDICAL CONC AT EQUIPME EQUIPME PRSC FLW RATE PRTBLE E0431 MAXIMILIAN MAXIMILIAN GASEOUS 6 HOME HOME O2 SYS MEDICAL MEDICAL RENT; EQUIPME EQUIPME FLWMTR HUMIDFR&M ASK BLD GLU A4253 [facility] TEST/REAG 6 PHARMACY PHARMACY T STRIPS #591 #591 HOME BLD GLU MON-50 NJX 33862 OSWALDO TERRELL JASON DX/THER 6 MD DOMINGO, AGT PVRT PSC FACET JT CRV/THRC 1 LEVEL INJECTION J1030 DIAMOND FIELDS 6 [facility] METHYLPRE INC INC DNISOLONE ACETATE 40 MG NJX 68250 OSWALDO TERRELL JASON DX/THER 6 MD DOMINGO, AGT PVRT PSC FACET JT CRV/THRC 2ND LEVEL CYANOCOBA 29763 DIAMOND FIELDS VALERIA 6 [facility] VITAMIN INC INC B-12 COLLECTIO 33442 DIAMOND FIELDS N VENOUS 6 [facility] BLOOD INC INC VENIPUNCT URE DETERMINA 12912 [place] [facility] 6 [facility] [address] [place] [facility] 6 [facility] XM&EVAL CENTER COMPRHNSV ESTAB PT 1/> PRTBLE E0431 MAXIMILIAN YAO GASEOUS 6 HOME HOME O2 SYS MEDICAL MEDICAL RENT; EQUIPME EQUIPME FLWMTR HUMIDFR&M ASK O2 CONC 1 E1390 MAXIMILIAN YAO DEL PORT 6 HOME HOME 85%/>02 MEDICAL MEDICAL CONC AT EQUIPME EQUIPME PRSC FLW RATE INJECTION J3420 A Dominique CLINE VIT B-12 6 SON ADAIR PSC CYANOCOBA VALERIA TO 1000 MCG THERAPEUT 82209 A Dominique CLINE IC 6 SON ADAIR PROPHYLAC PSC TIC/DX INJECTION SUBQ/IM INJECTION J3420 Janna CLINE VIT B-12 6 SON ADAIR PSC CYANOCOBA VALERIA TO 1000 MCG THERAPEUT 35090 A Dominique CLINE IC 6 SON ADAIR PROPHYLAC PSC TIC/DX INJECTION SUBQ/IM BRNCDILAT 41662 Janna SAXENA RSPSE 6 SON SWIFT NASIM SPMTRY PSC PRE&POST- BRNCDILAT ADMN BLOOD 35878 DIAMOND FIELDS COUNT 6 [facility] COMPLETE INC INC AUTO&AUTO DIFRNTL WBC CYAN[place]OBA 59406 DIAMOND FIELDS VALERIA 6 [facility] VITAMIN INC INC B-12 [place] [address] DIAMOND FIELDS LIPASE 6 [place] [address] DIAMOND FIELDS MAGNESIUM 6 [facility] INC INC PROSTATE G0103 DIAMOND FIELDS CANCER 6 [facility] SCREENING INC INC ; PSA TEST COLLECTIO 54397 DIAMOND FIELDS N VENOUS 6 [facility] BLOOD INC INC VENIPUNCT URE LIPID 63571 DIAMOND FIELDS PANEL 6 [place] [address] DIAMOND FIELDS AMYLASE 6 [place] [address] DIAMOND FIELDS THYROID 6 [facility] STIMULATI INC INC NG HORMONE TSH COMPREHEN 37098 DIAMOND FIELDS SIVE 6 [facility] METABOLIC INC INC PANEL RADIOLOGI 80894 [facility] EXAM 6 MEDICAL EDA CHEST 2 IMAGING VIEWS ASS FRONTAL&L ATERAL INJECTION J1040 DIAMOND FIELDS 6 [facility] METHYLPRE INC INC DNISOLONE ACETATE 80 [place] NJX 22174 OSWALDOJULIANA TERRELL JASON DX/THER 6 MD DOMINGO, AGT PVRT PSC FACET JT CRV/THRC 2ND LEVEL NJX 54928 OSWALDOJULIANA TERRELL JASON DX/THER 6 MD DOMINGO, AGT PVRT PSC FACET JT CRV/THRC 1 LEVEL PRTBLE E0431 MAXIMILIAN YAO GASEOUS 6 HOME HOME O2 SYS MEDICAL MEDICAL RENT; EQUIPME EQUIPME FLWMTR HUMIDFR&M ASK O2 CONC 1 E1390 MAXIMILIAN YAO DEL PORT 6 HOME HOME 85%/>02 MEDICAL MEDICAL CONC AT EQUIPME EQUIPME [facility] FLW RATE O2 CONC 1 E1390 MAXIMILIAN MOTA PORT 6 HOME HOME 85%/>02 MEDICAL MEDICAL CONC AT EQUIPME EQUIPME PRSC FLW RATE PRTBLE E0431 MAXIMILIAN YAO GASEOUS 6 HOME HOME O2 SYS MEDICAL MEDICAL RENT; EQUIPME EQUIPME FLWMTR HUMIDFR&M ASK PRTBLE E0431 MAXIMILIAN YAO GASEOUS 6 HOME HOME O2 SYS MEDICAL MEDICAL RENT; EQUIPME EQUIPME FLWMTR HUMIDFR&M ASK O2 CONC 1 E1390 MAXIMILIAN YAO DEL PORT 6 HOME HOME 85%/>02 MEDICAL MEDICAL CONC AT EQUIPME EQUIPME [facility] FLW RATE BLD GLU A4253 [facility] TEST/REAG 6 PHARMACY PHARMACY T STRIPS #591 #591 HOME BLD GLU MON-50 PRTBLE E0431 MAXIMILIAN YAO GASEOUS 5 HOME HOME O2 SYS MEDICAL MEDICAL RENT; EQUIPME EQUIPME FLWMTR HUMIDFR&M ASK O2 CONC 1 E1390 MAXIMILIAN [place] PORT 5 HOME HOME 85%/>02 MEDICAL MEDICAL CONC AT EQUIPME EQUIPME [facility] FLW RATE [place] J7614 [facility] ROL INHAL 5 PHARMACY PHARMACY NON-CP #591 #591 THRU DME U DOSE 0.5 MG [facility] G0463 [facility] 5 Y Y T [facility] VISIT ASSESS & MGMT PT [place] J7614 [facility] ROL INHAL 5 PHARMACY PHARMACY NON-CP #591 #591 THRU DME U DOSE 0.5 MG PHR Q0513 [facility] DISPENSIN 5 PHARMACY PHARMACY G FEE #591 #591 INHALATIO N RX; PER 30 DAYS LIPID 68992 DIAMOND FIELDS PANEL 5 [facility] INC INC BASIC 63420 DIAMOND FIELDS METABOLIC 5 [facility] PANEL INC INC CALCIUM TOTAL COLLECTIO 99962 DIAMOND FIELDS N VENOUS 5 [facility] BLOOD INC INC VENIPUNCT URE CT THORAX 51459 DIAMOND FIELDS W/O 5 [facility] CONTRAST INC INC MATERIAL O2 CONC 1 E1390 MAXIMILIAN MAXIMILIAN DEL PORT 5 HOME HOME 85%/>02 MEDICAL MEDICAL CONC AT EQUIPME EQUIPME PRSC FLW RATE PRTBLE E0431 MAXIMILIAN MAXIMILIAN GASEOUS 5 HOME HOME O2 SYS MEDICAL MEDICAL RENT; EQUIPME EQUIPME FLWMTR HUMIDFR&M ASK MRI 96069 NEURODIAG MEJIA RON SPINAL 5 NOSTICS CANAL INC CERVICAL W/O CONTRAST MATRL PHR Q0513 [facility] DISPENSIN 5 PHARMACY PHARMACY G FEE #591 #591 INHALATIO N RX; PER 30 DAYS LEVALBUTE J7614 [facility] ROL INHAL 5 PHARMACY PHARMACY NON-CP #591 #591 THRU DME U DOSE 0.5 MG PRTBLE E0431 MAXIMILIAN MAXIMILIAN GASEOUS 5 HOME HOME O2 SYS MEDICAL MEDICAL RENT; EQUIPME EQUIPME FLWMTR HUMIDFR&M ASK O2 CONC 1 E1390 MAXIMILIAN MAXIMILIAN DEL PORT 5 HOME HOME 85%/>02 MEDICAL MEDICAL CONC AT EQUIPME EQUIPME PRSC FLW RATE DUPLEX 83675 DIAMOND FIELDS SCAN 5 [facility] EXTRACRAN INC INC IAL ART COMPL BI STUDY PRTBLE E0431 MAXIMILIANGARETT YAO GASEOUS 5 HOME HOME O2 SYS MEDICAL MEDICAL RENT; EQUIPME EQUIPME FLWMTR HUMIDFR&M ASK O2 CONC 1 E1390 MAXIMILIAN [place] 5 HOME HOME 85%/>02 MEDICAL MEDICAL CONC AT EQUIPME EQUIPME PRS FLW RATE PHRM Q0513 [facility] DISPENSIN 5 PHARMACY PHARMACY G FEE #591 #591 INHALATIO N RX; PER 30 DAYS LEVALBUTE J7614 [facility] ROL INHAL 5 PHARMACY PHARMACY NON-CP #591 #591 THRU DME U DOSE 0.5 MG PRTBLE E0431 MAXIMILIANGARETT YAO GASEOUS 5 HOME HOME O2 SYS MEDICAL MEDICAL RENT; EQUIPME EQUIPME FLWMTR HUMIDFR&M ASK O2 CONC 1 E1390 MAXIMILIAN [place] 5 HOME HOME 85%/>02 MEDICAL MEDICAL CONC AT EQUIPME EQUIPME [facility] FLW RATE BRNCDILAT 73082 DIAMOND FIELDS RSPSE 5 [facility] SPMTRY INC INC PRE&POST- BRNCDILAT ADMN GAS 99743 DIAMOND FIELDS DILUT/WAS 5 [facility] HOUT LUNG INC INC VOL W/[place] DISTRI[place] V[place] [address] DIAMOND FIELDS DIFFUSING 5 [facility] CAPACITY INC INC PRTBLE E0431 MAXIMILIAN JOHNSONRELL GASEOUS 5 HOME HOME O2 SYS MEDICAL MEDICAL RENT; EQUIPME EQUIPME FLWMTR HUMIDFR&M ASK O2 CONC 1 E1390 MAXIMILIAN [place] 5 HOME HOME 85%/>02 MEDICAL MEDICAL CONC AT EQUIPME EQUIPME PRS FLW RATE O2 CONC 1 E1390 MAXIMILIAN [place] PORT 5 HOME HOME 85%/>02 MEDICAL MEDICAL CONC AT EQUIPME EQUIPME PRSC FLW RATE PRTBLE E0431 MAXIMILIANGARETT YAO GASEOUS 5 HOME HOME O2 SYS MEDICAL MEDICAL RENT; EQUIPME EQUIPME FLWMTR HUMIDFR&M ASK BLD GLU A4253 [facility] TEST/REAG 5 PHARMACY PHARMACY T STRIPS #591 #591 HOME BLD GLU MON-50 BASIC 59157 DIAMOND FIELDS METABOLIC 5 [facility] PANEL INC INC CALCIUM TOTAL LIPID 84745 DIAMOND FIELDS PANEL 5 [facility] INC INC HEMOGLOBI 87056 DIAMOND FIELDS N 5 [facility] GLYCOSYLA INC INC JUMANA A1C COLLECTIO 92814 DIAMOND FIELDS N VENOUS 5 [facility] BLOOD INC INC VENIPUNCT URE O2 CONC 1 E1390 MAXIMILIANGARETT JOHNSONRELL DEL PORT 5 HOME HOME 85%/>02 MEDICAL MEDICAL CONC AT EQUIPME EQUIPME PRSC FLW RATE PRTBLE E0431 MAXIMILIAN MAXIMILIAN GASEOUS 5 HOME HOME O2 SYS MEDICAL MEDICAL RENT; EQUIPME EQUIPME FLWMTR HUMIDFR&M ASK PRTBLE E0431 MAXIMILIAN MAXIMILIAN GASEOUS 5 HOME HOME O2 SYS MEDICAL MEDICAL RENT; EQUIPME EQUIPME FLWMTR HUMIDFR&M ASK O2 CONC 1 E1390 MAXMIILIAN MAXIMILIAN DEL PORT 5 HOME HOME 85%/>02 MEDICAL MEDICAL CONC AT EQUIPME EQUIPME PRSC FLW RATE RADEX 89060 [facility] SPINE 5 MEDICAL EDA LUMBOSACR IMAGING AL ASS MINIMUM 4 VIEWS OPHTH 37441 [facility] 5 VISION VISION XM&EVAL CENTER CENTER COMPRHNSV ESTAB PT 1/> DETERMINA 50035 [facility] TION 5 VISION REFRACTIV CENTER E STATE O2 CONC 1 E1390 MAXIMILIAN MAXIMILIAN DEL PORT 5 HOME HOME 85%/>02 MEDICAL MEDICAL CONC AT EQUIPME EQUIPME PRSC FLW RATE PRTBLE E0431 MAXIMILIAN MAXIMILIAN GASEOUS 5 HOME HOME O2 SYS MEDICAL MEDICAL RENT; EQUIPME EQUIPME FLWMTR HUMIDFR&M ASK RADIOLOGI 11629 DIAMOND DIAMOND C EXAM 5 [facility] CHEST 2 INC INC VIEWS FRONTAL&L ATERAL PRTBLE E0431 MAXIMILIAN MAXIMILIAN GASEOUS 5 HOME HOME O2 SYS MEDICAL MEDICAL RENT; EQUIPME EQUIPME FLWMTR HUMIDFR&M ASK BLD GLU A4253 [facility] TEST/REAG 5 PHARMACY PHARMACY T STRIPS #591 #591 HOME BLD GLU MON-50 O2 CONC 1 E1390 MAXIMILIAN YAO DEL PORT 5 HOME HOME 85%/>02 MEDICAL MEDICAL CONC AT EQUIPME EQUIPME PRSC FLW RATE PRTBLE E0431 MAXIMILIAN YAO GASEOUS 5 HOME HOME O2 SYS MEDICAL MEDICAL RENT; EQUIPME EQUIPME FLWMTR HUMIDFR&M ASK PHRM Q0513 [facility] DISPENSIN 5 PHARMACY PHARMACY G FEE #591 #591 INHALATIO N RX; PER 30 DAYS IPRATROPI J7644 [facility] UM 5 PHARMACY PHARMACY BROMIDE #591 #591 INHAL NON-CP U DOSE PER MG PROSTATE G0103 DIAMOND FIELDS CANCER 5 [facility] SCREEN[facility] INC ; PSA TEST COLLECTIO 81663 DIAMOND FIELDS N VENOUS 5 [facility] BLOOD INC INC VENIPUNCT URE RADEX HIP 31745 [facility] 5 MEDICAL EDA UNILATERA IMAGING L ASS COMPLETE MINIMUM 2 VIEWS HEMOGLOBI 41447 DIAM[facility] FIELDS N 5 [facility] GLYCOSYLA INC INC JUMANA A1C GLUCOSE 76370 DIAMOND FIELDS QUANTITAT 5 [facility] CHALINO BLOOD INC INC XCPT REAGENT STRIP BLOOD 60966 DIAMOND FIELDS COUNT 5 [facility] COMPLETE INC INC AUTO&AUTO DIFRNTL WBC LIPID 96625 [facility] PANEL 5 [facility] INC INC HEPATIC 46242 DIAM[facility] FIELDS FUNCTION 5 [facility] PANEL INC INC PRTBLE E0431 MAXIMILIAN YAO GASEOUS 4 HOME HOME O2 SYS MEDICAL MEDICAL RENT; EQUIPME EQUIPME FLWMTR HUMIDFR&M ASK PHRM Q0513 [facility] 4 PHARMACY PHARMACY G FEE #591 #591 INHALATIO N RX; PER 30 DAYS IPRATROPI J7644 [facility] 4 PHARMACY PHARMACY BROMIDE #591 #591 INHAL NON-CP U DOSE PER MG PRTBLE E0431 MAXIMILIAN YAO GASEOUS 4 HOME HOME O2 SYS MEDICAL MEDICAL RENT; EQUIPME EQUIPME FLWMTR HUMIDFR&M ASK BLD GLU A4253 [facility] TEST/REAG 4 PHARMACY PHARMACY T STRIPS #591 #591 HOME BLD GLU MON-50 ADMN SET A7003 MAXIMILIAN YAO SM VOL 4 HOME HOME NONFILTR MEDICAL MEDICAL PNEUMAT EQUIPME EQUIPME NEBULIZR DISPBL PRTBLE E0431 MAXIMILIAN YAO GASEOUS 4 HOME HOME O2 SYS [facility] MED[facility] RENT; EQUIPME EQUIPME FLWMTR HUMIDFR&M ASK COLLECTIO 91753 DIAMOND Lopez VENOUS 4 [facility] BLOOD INC INC VENIPUNCT URE BLOOD 29172 DIAMOND FIELDS COUNT 4 [facility] COMPLETE INC INC AUTO&AUTO DIFRNTL WBC HEMOGLOBI 85662 DIAM[facility] FIELDS N 4 [facility] GLYCOSYLA INC INC JUMANA A1C LIPID 28569 DIAMNOD FIELDS PANEL 4 [facility] INC INC HEPATIC 72579 DIAMOND FIELDS FUNCTION 4 [facility] PANEL INC INC BASIC 16609 DIAMOND FIELDS METABOLIC 4 [facility] PANEL INC INC CALCIUM TOTAL PRTBLE E0431 MAXIMILIAN YAO GASEOUS 4 HOME HOME O2 SYS MEDICAL MEDICAL RENT; EQUIPME EQUIPME FLWMTR HUMIDFR&M ASK PHRM Q0513 [facility] DIS[facility] 4 PHARMACY PHARMACY G FEE #591 #591 INHALATIO N RX; PER 30 DAYS IPRATROPI J7644 [facility] UM 4 PHARMACY PHARMACY BROMIDE #591 #591 INHAL NON-CP U DOSE PER MG CREATININ 89533 DIAMOND FIELDS E BLOOD 4 [facility] INC INC COLLECTIO 59687 DIAMOND FIELDS N VENOUS 4 [facility] [place] [address] DIAMOND FIELDS UREA 4 [facility] NITROGEN INC INC QUANTITAT CHALINO BLD GLU A4253 [facility] TEST[facility]REAG 4 PHARMACY PHARMACY T STRIPS #591 #591 HOME BLD GLU MON-50 PHRM Q0513 [facility] DISPENSIN 4 PHARMACY PHARMACY G FEE #591 #591 INHALATIO N RX; PER 30 DAYS IPRATROPI J7644 [facility] UM 4 PHARMACY PHARMACY BROMIDE #591 #591 INHAL NON-CP U DOSE PER MG BLD GLU A4253 [facility] TEST/REAG 4 PHARMACY PHARMACY T STRIPS #591 #591 HOME BLD GLU MON-50 COLLECTIO 05137 DIAMOND FIELDS N VENOUS 4 [facility] BLOOD INC INC VENIPUNCT URE HEMOGLOBI 11065 DIAMOND FIELDS N 4 [facility] GLYCOSYLA INC INC JUMANA A1C LIPID 37800 DIAMOND FIELDS PANEL 4 [facility] INC INC BASIC 09329 DIAMOND FIELDS METABOLIC 4 [facility] PANEL INC INC CALCIUM TOTAL IPRATROPI J7644 [facility] UM 4 PHARMACY PHARMACY BROMIDE #591 #591 INHAL NON-CP U DOSE PER MG PHRM Q0513 [facility] DIS[facility]ENSIN 4 PHARMACY PHARMACY G FEE #591 #591 INHALATIO N RX; PER 30 DAYS PHRM Q0513 [facility] DIS[facility]ENSIN 4 PHARMACY PHARMACY G FEE #591 #591 INHALATIO N RX; PER 30 DAYS IPRATROPI J7644 [facility] UM 4 PHARMACY PHARMACY BROMIDE #591 #591 INHAL NON-CP U DOSE PER MG O2 CONC 1 E1390 MAXIMILIAN MOTA [place] 4 HOME HOME 85%/>02 MEDICAL [facility] CONC AT [facility] FLW RATE BASIC 23457 LAB BRITTANEY LAB BRITTANEY METABOLIC 4 LITO LITO PANEL [employer] CALCIUM TOTAL RADIOLOGI 55142 [facility] C EXAM 4 MEDICAL EDA CHEST 2 IMAGING VIEWS ASS FRONTAL&L ATERAL INJECTION J0696 A Dominique Saldivar 4 SON SWIFT CEFTRIAXO PSC NE SODIUM PER 250 MG INJECTION J1030 A Dominique Saldivar 4 SON SWIFT METHYLPRE PSC DNISOLONE ACETATE 40 MG INJ J0702 A Dominique Saldivar BETAMETHA 4 SON SWIFT SONE PSC ACETATE & PHOSPHATE 3 MG THERAPEUT 92668 A Dominique Saldivar IC 4 SON SWIFT PROPHYLAC PSC TIC/DX INJECTION SUBQ/IM PHRM Q0513 [facility] DIS[facility] 3 [facility]ACY PHARMACY G FEE #591 #591 INHALATIO N RX; PER 30 DAYS IPRATROPI J7644 [facility] UM 3 PHARMACY PHARMACY [facility] #591 #591 INHAL NON-CP U DOSE PER MG INJECTION J2805 [facility] SINCALIDE INC INC 5 MICROGRAM S HEPATOBIL 69811 [facility] SYST 3 MEDICAL EDA IMAG INC IMAGING GB ASS W/PHARMA INTERVENJ TECHNETIU A9537 DIAMOND Moreno TC-99M 3 [facility] MEBROFENI INC INC N DX UP TO 15 MCI BLD GLU A4253 [facility] TEST/REAG 3 PHARMACY PHARMACY T STRIPS #591 #591 HOME [place]LD GLU MON-50 [place] [address] [facility] ABDOMINAL 3 MEDICAL EDA REAL IMAGING TIME ASS W/IMAGE DOCUMENTA TION PULM G0424 [facility] FI[facility]DS REHAB 3 [facility] INCL EXER INC INC 1 HR PER SESS TO 2 PER DAY PULM G0424 [facility] FI[facility]DS REHAB 3 [facility] INCL EXER INC INC 1 HR PER SESS TO 2 PER DAY TRANSFERA 55623 [facility] SE 3 [facility] ASPARTATE INC INC AMINO AST SGOT PROSTATE G0103 [facility] FI[facility] CANCER 3 [facility] SCREENING INC INC ; PSA TEST HEMOGLOBI 86135 DIAM[facility] FIELDS N 3 [facility] GLYCOSYLA INC INC JUMANA A1C GLUCOSE 49126 [facility] FIEL[facility] QUANTITAT 3 [facility] CHALINO BLOOD INC INC XCPT REAGENT STRIP LIPID 56016 [facility] PANEL 3 [facility] INC INC COLLECTIO 10775 DIAM[facility] FIELDS N VENOUS 3 [facility] BLOOD INC INC VENIPUNCT URE HEPATITIS 62647 DI[facility] FIELDS C 3 [facility] ANTIBODY INC INC BASIC 81342 DI[facility] FIELDS METABOLIC 3 [facility] PANEL INC INC CALCIUM TOTAL 3D 41145 DAMARIS CORTEZUTCHER RENDERING 3 MEDICAL EDA IMAGING W/INTERP& ASS POSTPROC DIFF WORK STATION BLOOD 46019 [facility]EL[facility] COUNT 3 [facility] COMPLETE INC INC AUTO&AUTO DIFRNTL WBC CT THORAX 36589 DAMARIS CORTEZUTCHER W/O 3 MEDICAL EDA CONTRAST IMAGING MATERIAL ASS BILIRUBIN 02089 [facility] FIELDS DIRECT 3 [facility] INC INC COLLECTIO 38461 [facility] FIEL[facility] N VENOUS 3 [facility] [place] [address] [facility] THYROID 3 [facility] STIMULAT[place] [address] DI[facility] FIELDS HEPATITIS 3 [facility] B INC INC SURFACE ANTIGEN HEPATITIS 73174 DI[facility] FIELDS B SURF 3 [facility] ANTIBODY INC INC HBSAB HEPATITIS 33762 DIAMOND FIELDS B CORE 3 [facility] ANTIBODY INC INC HBCAB TOTAL COMPREHEN 63725 [facility] FIELDS SIVE 3 [facility] METABOLIC INC INC PANEL HEPATITIS 96298 DIAMOND FIELDS A 3 [facility] ANTIBODY INC INC HAAB SPMTRY 46923 DIAMOND FIELDS W/VC 3 [facility] EXPIRATOR INC INC Y EMY W/WO MXML VOL VNTJ BLD GLU A4253 [facility] TEST/REAG 3 PHARMACY PHARMACY T STRIPS #591 #591 HOME BLD GLU MON-50 PHRM Q0513 [facility] DISPENSIN 3 PHARMACY PHARMACY G FEE #591 #591 INHALATIO N RX; PER 30 DAYS IPRATROPI J7644 [facility] UM 3 PHARMACY PHARMACY BROMIDE #591 #591 INHAL NON-CP U DOSE PER MG E-STIM G0283 PROFESSIO CROSSFIEL 1/> AREAS 3 NAL REHAB D [facility] OTH THAN ASSOC WND CARE PSC PART TX PLAN MANUAL 81733 PROFESSIO CROSSFIEL THERAPY 3 NAL REHAB D [facility]ANT[facility] TQS 1/> ASSOC REGIONS PSC EACH 15 MINUTES MANUAL 59580 PROFESSIO CROSSFIEL THERAPY 3 NAL REHAB D SANTY TQS 1/> ASSOC REGIONS PSC EACH 15 MINUTES E-STIM G0283 PROFESSIO CROSSFIEL 1/> AREAS 3 NAL REHAB D [facility] OTH THAN ASSOC WND CARE PSC PART TX PLAN E-STIM G0283 PROFESSIO CROSSFIEL 1/> AREAS 3 NAL REHAB D [facility]ANT[facility] OTH THAN ASSOC WND CARE PSC PART TX PLAN MANUAL 46232 PROFESSIO CROSSFIEL THERAPY 3 NAL REHAB D SANTY TQS 1/> ASSOC REGIONS PSC EACH 15 MINUTES MANUAL 12752 PROFESSIO CROSSFIEL THERAPY 3 NAL REHAB D SANTY TQS 1/> ASSOC REGIONS PSC EACH 15 MINUTES E-STIM G0283 PROFESSIO CROSSFIEL 1/> AREAS 3 NAL REHAB D SANT[facility] OTH THAN ASSOC WND CARE PSC PART TX PLAN E-STIM G0283 PROFESSIO CROSSFIEL 1/> AREAS 3 NAL REHAB D [facility]ANT[facility] OTH THAN ASSOC WND CARE PSC PART TX PLAN MANUAL 97470 PROFESSIO CROSSFIEL THERAPY 3 NAL REHAB D SANTY TQS 1/> ASSOC REGIONS PSC EACH 15 MINUTES [facility] Q0513 [facility] DIS[facility]ENSIN 3 PHARMACY PHARMACY G FEE #591 #591 INHALATIO N RX; PER 30 DAYS IPRATROPI J7644 [facility] UM 3 PHARMACY PHARMACY BROMIDE #591 #591 INHAL NON-CP U DOSE PER MG E-STIM G0283 PROFESSIO CROSSFIEL 1/> AREAS 3 NAL REHAB D [facility] O[facility] THAN ASSOC WND CARE PSC PART TX PLAN MANUAL 16186 PROFESSIO CROSSFIEL THERAPY 3 NAL REHAB D SANTY TQS 1/> ASSOC REGIONS PSC EACH 15 MINUTES MANUAL 42772 PROFESSIO CROSSFIEL THERAPY 3 NAL REHAB D SANTY TQS 1/> ASSOC REGIONS PSC EACH 15 MINUTES E-STIM G0283 PROFESSIO CROSSFIEL 1/> AREAS 3 NAL REHAB D [facility] OTH THAN ASSOC WND CARE PSC PART TX PLAN E-STIM G0283 PROFESSIO CROSSFIEL 1/> AREAS 3 NAL REHAB D SANTY OTH THAN ASSOC WND CARE PSC PART TX PLAN MANUAL 07471 PROFESSIO CROSSFIEL THERAPY 3 NAL REHAB D SANTY TQS 1/> ASSOC REGIONS PSC EACH 15 MINUTES MANUAL 82133 PROFESSIO CROSSFIEL THERAPY 3 NAL REHAB D SANTY TQS 1/> ASSOC REGIONS PSC EACH 15 MINUTES E-STIM G0283 PROFESSIO CROSSFIEL 1/> AREAS 3 NAL REHAB D SANT[facility] OTH THAN ASSOC WND CARE PSC PART TX PLAN E-STIM G0283 PROFESSIO CROSSFIEL 1/> AREAS 3 NAL REHAB D SANTY OTH THAN ASSOC WND CARE PSC PART TX PLAN PHYSICAL 67661 PROFESSIO CROSSFIEL THERAPY 3 NAL REHAB D SANTY EVALUATIO ASSOC N PSC MANUAL 98321 PROFESSIO CROSSFIEL THERAPY 3 NAL REHAB D SANTY TQS 1/> ASSOC REGIONS PSC EACH 15 MINUTES BLD GLU A4253 [facility] TEST/REAG 3 PHARMACY PHARMACY T STRIPS #591 #591 HOME BLD GLU RADIOLOGI 83020 DIAMOND FIELDS C EXAM 3 [facility] CHEST 2 INC INC VIEWS FRONTAL&L ATERAL TENS E0730 EMPI INC EMPI INC DEVICE 3 4/MORE LEADS MULTI NERVE STIMULATI ON O2 CONC 1 E1390 [facility]IAN [place] [place] 3 HOME HOME 85%/>02 MEDICAL MEDICAL CONC AT [facility] FLW RATE MANUAL 17516 PROFESSIO CROSSFIEL THERAPY 3 NAL REHAB D SANTY TQS 1/> ASSOC REGIONS PSC EACH 15 MINUTES THERAPEUT 74768 PROFESSIO CROSSFIEL IC PX 1/> 3 NAL REHAB D [facility]ANTY AREAS ASSOC EACH 15 PSC MIN EXERCISES E-STIM G0283 PROFESSIO CROSSFIEL 1/> AREAS 3 NAL REHAB D SANTY OTH THAN ASSOC WND CARE PSC PART TX PLAN E-STIM G0283 PROFESSIO CROSSFIEL 1/> AREAS 3 NAL REHAB D SANTY OTH THAN ASSOC WND CARE PSC PART TX PLAN THERAPEUT 37882 PROFESSIO CROSSFIEL IC PX 1/> 3 NAL REHAB D SANTY AREAS ASSOC EACH 15 PSC MIN EXERCISES MANUAL 91711 PROFESSIO CROSSFIEL THERAPY 3 NAL REHAB D SANTY TQS 1/> ASSOC REGIONS PSC EACH 15 MINUTES O2 CONC 1 E1390 [facility] HOME 85%/>02 [facility] [place] [place] MANUAL 46971 PROFESSIO CROSSFIEL THERAPY 3 NAL REHAB D SANTY TQS 1/> ASSOC REGIONS PSC EACH 15 MINUTES THERAPEUT 65398 PROFESSIO CROSSFIEL IC PX 1/> 3 NAL REHAB D SANTY AREAS ASSOC EACH 15 PSC MIN EXERCISES TENS E0730 EMPI INC EMPI INC DEVICE 3 4/MORE LEADS MULTI NERVE STIMULATI ON MANUAL 90480 PROFESSIO CROSSFIEL THERAPY 3 NAL REHAB D SANTY TQS 1/> ASSOC REGIONS PSC EACH 15 MINUTES APPLICATI 57253 PROFESSIO CROSSFIEL ON 3 NAL REHAB D [facility]ANTY SURFACE ASSOC NEUROSTIM PSC ULATOR E-STIM G0283 PROFESSIO CROSSFIEL 1/> AREAS 3 NAL REHAB D SANTY OTH THAN ASSOC WND CARE PSC PART TX PLAN MANUAL 13280 PROFESSIO CROSSFIEL THERAPY 3 NAL REHAB D SANTY TQS 1/> ASSOC REGIONS PSC EACH 15 MINUTES MANUAL 56446 PROFESSIO CROSSFIEL THERAPY 3 NAL REHAB D SANTY TQS 1/> ASSOC REGIONS PSC EACH 15 MINUTES E-STIM G0283 PROFESSIO CROSSFIEL 1/> AREAS 3 NAL REHAB D SANTY OTH THAN ASSOC WND CARE PSC PART TX PLAN E-STIM G0283 PROFESSIO CROSSFIEL 1/> AREAS 3 NAL REHAB D SANTY OTH THAN ASSOC WND CARE PSC PART TX PLAN MANUAL 04416 PROFESSIO CROSSFIEL THERAPY 3 NAL REHAB D SANTY TQS 1/> ASSOC REGIONS PSC EACH 15 MINUTES MANUAL 09754 PROFESSIO CROSSFIEL THERAPY 3 NAL REHAB D SATNY TQS 1/> ASSOC REGIONS PSC EACH 15 MINUTES PHYSICAL 25563 PROFESSIO CROSSFIEL THERAPY 3 NAL REHAB D SANTY EVALUATIO ASSOC N PSC E-STIM G0283 PROFESSIO CROSSFIEL 1/> AREAS 3 NAL REHAB D SANTY OTH THAN ASSOC WND CARE PSC PART TX PLAN E-STIM G0283 PROFESSIO CROSSFIEL 1/> AREAS 2 NAL REHAB D SANTY OTH THAN ASSOC WND CARE PSC PART TX PLAN MANUAL 91879 PROFESSIO CROSSFIEL THERAPY 2 NAL REHAB D SANTY TQS 1/> ASSOC REGIONS PSC EACH 15 MINUTES O2 CONC [address] [facility] 2 HOME HOME 85%/>02 MEDICAL MEDICAL [facility] AT [facility] FLW R[place] MANUAL 87280 PROFESSIO CROSSFIEL THERAPY 2 NAL REHAB D SANTY TQS 1/> ASSOC REGIONS PSC EACH 15 MINUTES E-STIM G0283 PROFESSIO CROSSFIEL 1/> AREAS 2 NAL REHAB D SANTY OTH THAN ASSOC WND CARE PSC PART TX PLAN APPL 86940 PROFESSIO CROSSFIEL MODALITY 2 NAL REHAB D SANTY 1/> AREAS ASSOC TRACTION PSC MECHANICA L MANUAL 53764 PROFESSIO CROSSFIEL THERAPY 2 NAL REHAB D SANTY TQS 1/> ASSOC REGIONS PSC EACH 15 MINUTES LIPID 14926 DIAMOND FIELDS PANEL 2 [facility] INC INC HEPATIC 59336 DIAMOND FIELDS FUNCTION 2 [facility] PANEL INC INC BASIC 30664 DIAMOND FIELDS METABOLIC 2 [facility] PANEL INC INC CALCIUM TOTAL HEMOGLOBI 77197 DIAMOND FIELDS N 2 [facility] GLYCOSYLA INC INC JUMANA A1C BLOOD 21942 DIAMOND FIELDS COUNT 2 [facility] COMPLETE INC INC AUTO&AUTO DIFRNTL WBC COLLECTIO 10827 DIAMOND FIELDS N VENOUS 2 [facility] BLOOD INC INC VENIPUNCT URE APPL 37396 PROFESSIO CROSSFIEL MODALITY 2 NAL REHAB D SANTY 1/> AREAS ASSOC TRACTION PSC MECHANICA L THERAPEUT 41273 Janna Saldivar IC 2 SON SWIFT PROPHYLAC PSC TIC/DX INJECTION SUBQ/IM ADMINISTR G0009 Janna Saldivar ATION OF 2 SON SWIFT PNEUMOCOC PSC SUBHASH VACCINE PPSV23 58490 Janna Saldivar VACCINE 2 2 SON SWIFT YRS OR PSC OLDER FOR SUBQ/IM USE INJ J0702 A Dominique Saldivar BETAMETHA 2 SON SWIFT SONE PSC ACETATE & PHOSPHATE 3 MG APPL 51114 PROFESSIO CROSSFIEL MODALITY 2 NAL REHAB D SANTY 1/> AREAS ASSOC TRACTION PSC MECHANICA L THERAPEUT 00520 PROFESSIO CROSSFIEL IC PX 1/> 2 NAL REHAB D SANTY AREAS ASSOC EACH 15 PSC MIN EXERCISES THERAPEUT 62228 PROFESSIO CROSSFIEL IC PX 1/> 2 NAL REHAB D SANTY AREAS ASSOC EACH 15 PSC MIN EXERCISES APPL 34615 PROFESSIO CROSSFIEL MODALITY 2 NAL REHAB D SANTY 1/> AREAS ASSOC TRACTION PSC MECHANICA L THERAPEUT 29556 PROFESSIO CROSSFIEL IC PX 1/> 2 NAL REHAB D SANTY AREAS ASSOC EACH 15 PSC MIN EXERCISES PHYSICAL 30119 PROFESSIO CROSSFIEL THERAPY 2 NAL REHAB D SANTY EVALUATIO ASSOC N PSC MANUAL 53972 PROFESSIO CROSSFIEL THERAPY 2 NAL REHAB D SANTY TQS 1/> ASSOC REGIONS PSC EACH 15 MINUTES O2 CONC 1 E1390 [facility] [place] 2 HOME HOME 85%/>02 [facility] IN[facility] J0702 Janna Saldivar BETAMETHA 2 SON SWIFT SONE PSC ACETATE & PHOSPHATE 3 MG THERAPEUT 23045 Janna Saldivar C IC 2 SON CLINE MD PROPHYLAC PSC PSC TIC/DX INJECTION SUBQ/IM 3D 61478 DIAMOND FIELDS RENDERING 2 [facility] W/INTERP INC INC & POSTPROCE SS SUPERVISI ON MRI 39453 DIAMOND FIELDS SPINAL 2 [facility] CANAL INC INC CERVICAL W/O CONTRAST MATRL INJECTION J1030 Janna Saldivar 2 SON SWIFT METHYLPRE PSC DNISOLONE ACETATE 40 MG THERAPEUT 44319 Janna Saldivar IC 2 SON SWIFT PROPHYLAC PSC TIC/DX INJECTION SUBQ/IM O2 CONC 1 E1390 MAX[facility]ILIAN [facility] [place] 2 HOME HOME 85%/>02 [facility] IPRATROPI J7644 [facility] UM 2 PHARMACY PHARMACY [place] #591 #591 INHAL NON-CP U DOSE PER MG BLD GLU A4253 [facility] TEST/REAG 2 PHARMACY PHARMACY T STRIPS #591 #591 HOME BLD GLU MON-50 PHRM Q0513 [facility] DISPENSIN 2 PHARMACY PHARMACY G FEE #591 #591 INHALATIO N RX; PER 30 DAYS LANCETS A4259 [facility] PER BOX 2 [facility]ARMACY PHARMACY OF [facility] #591 #591 O2 CONC 1 E1390 [facility] [place] 2 HOME HOME 85%/>02 [facility] O2 CONC 1 E1390 [facility] [place] 2 HOME HOME 85%/>02 [facility] [address] DIAMOND IFELDS INFUSION 2 [facility] THERAPY INC INC PROPHYLAX IS/DX EA HOUR ANESTHESI 75786 [facility] A HERNIA 2 ANESTH REPAIR OF THE LOWER BLUE ABDOMEN NOS THERAPEUT 87111 DIAMOND FIELDS IC 2 [facility] INJECTION INC INC IV PUSH EACH NEW DRUG RPR 1ST 20958 C ELBA SOFIA INGUN 2 KIMBERLYN WILEY JAMES AGE PSC 5 YRS/> [place] [address] DIAMOND FIELDS INFUSION 2 [facility] THERAPY/P INC INC ROPHYLAXI S /DX 1ST TO 1 HR ECG 85211 DIAMOND FIELDS ROUTINE 2 [facility] ECG INC INC W/LEAST 12 LDS TRCG ONLY W/O I&R INJECTION J2405 DIAMOND FIELDS 2 [facility] ONDANSETR INC INC ON HCL PER 1 MG BLOOD 10572 DIAMOND FIELDS COUNT 2 [facility] COMPLETE INC INC AUTO&AUTO DIFRNTL WBC COLLECTIO 13213 DIAMOND Lopez VENOUS 2 [facility] BLOOD INC INC VENIPUNCT URE BASIC 91834 DIAMOND FIELDS METABOLIC 2 [facility] PANEL INC INC CALCIUM TOTAL IPRATROPI J7644 [facility] UM 2 PHARMACY PHARMACY BR[place] #591 #591 INHAL NON-CP U DOSE PER MG PHRM Q0513 [facility] DISPENSIN 2 PHARMACY PHARMACY G FEE #591 #591 INHALATIO N RX; PER 30 DAYS O2 CONC 1 E1390 MAXIMILIAN MOTA [facility] 2 HOME HOME 85%/>02 [facility] BASIC 75020 DIAMOND FIELDS METABOLIC 2 [facility] PANEL INC INC CALCIUM TOTAL LIPID 30432 DIAMOND FIELDS PANEL 2 [facility] INC INC PROSTATE G0103 DIAMOND FIELDS CANCER 2 [facility] SCREENING INC INC ; PSA TEST COLLECTIO 64847 DIAMOND FIELDS N VENOUS 2 [facility] BLOOD INC INC VENIPUNCT URE HEMOGLOBI 51859 DIAMOND FIELDS N 2 [facility] GLYCOSYLA INC INC JUMANA A1C GLUCOSE 82405 DIAMOND FIELDS QUANTITAT 2 [facility] CHALINO BLOOD INC INC XCPT REAGENT STRIP RADEX 23106 DIAMOND FIELDS SPINE 2 [facility] CERVICAL INC INC 6 OR MORE VIEWS RADEX 67808 DAMARIS BARNETT SPINE 2 MEDICAL EDA CERVICAL IMAGING 2 OR 3 ASS VIEWS O2 CONC 1 E1390 [facility] [place] 2 HOME HOME 85%/>02 MEDICAL MEDICAL CONC AT [facility] R[facility] LIPID 14717 DIAMOND FIELDS PANEL 2 [facility] INC INC HEPATIC 09427 DIAMOND FIELDS FUNCTION 2 [facility] PANEL INC INC BASIC 59890 DIAMOND FIELDS METABOLIC 2 [facility] PANEL INC INC CALCIUM TOTAL COLLECTIO 59388 DIAMOND FIELDS N VENOUS 2 [facility] BLOOD INC INC VENIPUNCT URE O2 CONC 1 E1390 [facility] HOME HOME 85%/>02 [facility] LANCETS A4259 [facility] PER BOX 2 PHARMACY PHARMACY OF 100 #591 #591 THERAPEUT 18168 MARTIN SALAZAR IC 2 KESHIA KESHIA PROPHYLAC TIC/DX INJECTION SUBQ/IM PHRM Q0513 [facility] DISPENSIN 2 PHARMACY PHARMACY G FEE #591 #591 INHALATIO N RX; PER 30 DAYS INJECTION J2010 MARTIN MERCADO 2 KESHIA INFUSION [employer] N HCL UP TO 300 MG INJECTION J1040 MARTIN MARTIN 2 KESHIA KESHIA METHYLPRE DNISOLONE ACETATE 80 MG IPRATROPI J7644 [facility] UM 2 PHARMACY PHARMACY [place] #591 #591 INHAL NON-CP U DOSE PER MG PRESSURIZ 31914 MARTIN SALAZAR ED/NONPRE 2 KESHIA KESHIA SSURIZED INHALATIO N TREATMENT SPMTRY 14526 MARTIN MARTIN W/VC 2 KESHIA KESHIA EXPIRATOR Y EMY W/WO MXML VOL VNTJ O2 CONC [address] [facility] 2 HOME HOME 85%/>02 MEDICAL MEDICAL CONC AT [facility] O2 CONC 1 E1390 [facility] HOME HOME 85%/>02 [facility] BRNCDILAT 64588 MARTIN MARTIN RSPSE 2 KESHIA KESHIA SPMTRY PRE&POST- BRNCDILAT ADMN O2 CONC 1 E1390 [facility] 2 HOME HOME 85%/>02 MEDICAL MEDICAL CONC AT [facility] O2 CONC 1 E1390 [facility] HOME HOME 85%/>02 [facility] FUNDUS 05491 ELOJanna COWANA PHOTOGRAP 1 VISION VISION HY W/INTERPR ETATION & REPORT O2 CONC 1 E1390 [facility] HOME HOME 85%/>02 [facility] LEVALBUTE J7614 [facility] ROL INHAL 1 PHARMACY PHARMACY NON-CP #591 #591 THRU DME U DOSE 0.5 MG LANCETS A4259 [facility] PER BOX 1 PHARMACY PHARMACY OF [facility] #591 #591 BLD GLU A4253 [facility] TEST/REAG 1 PHARMACY PHARMACY T STRIPS #591 #591 HOME BLD GLU MON-50 PHRM Q0513 [facility] DISPENSIN 1 PHARMACY PHARMACY G FEE #591 #591 INHALATIO N RX; PER 30 DAYS BASIC 16757 DIAMOND FIELDS METABOLIC 1 [facility] PANEL INC INC CALCIUM TOTAL HEPATIC 15322 DIAMOND FIELDS FUNCTION 1 [facility] PANEL INC INC LIPID 66708 DIAMOND FIELDS PANEL 1 [facility] INC INC COLLECTIO 46277 DIAMOND FIELDS N VENOUS 1 [facility] BLOOD INC INC VENIPUNCT URE O2 CONC 1 E1390 MAXIMILIAN [facility] [place] 1 HOME HOME 85%/>02 MEDICAL MEDICAL CONC AT [facility] [place] PHRM Q0513 [facility] DISPENSIN 1 PHARMACY PHARMACY G FEE #591 #591 INHALATIO N RX; PER 30 DAYS LEVALBUTE J7614 [facility] ROL INHAL 1 PHARMACY PHARMACY NON-CP #591 #591 THRU DME U DOSE 0.5 MG O2 CONC 1 E1390 [facility] [place] 1 HOME HOME 85%/>02 MEDICAL MEDICAL CONC AT [facility] [place] O2 CONC 1 E1390 [facility] [place] 1 HOME HOME 85%/>02 [facility] MEDICAL 10983 DIAMOND FIELDS NUTRITION 1 [facility] INC INC ASSMT&IVN TJ INDIV EACH 15 NH SPMTRY 32316 MARTIN MARTIN W/VC 1 KESHIA KESHIA EXPIRATOR Y EMY W/WO MXML VOL VNTJ LANCETS A4259 [facility] PER BOX 1 PHARMACY PHARMACY OF 100 #591 #591 BLD GLU A4253 [facility] TEST/REAG 1 PHARMACY PHARMACY T STRIPS #591 #591 HOME BLD GLU MON-50 O2 CONC 1 E1390 MAXIMILIAN MOTA [facility] 1 HOME HOME 85%/>02 [facility] BASIC 21598 DIAMOND FIELDS METABOLIC 1 [facility] PANEL INC INC CALCIUM TOTAL LIPID 05418 DIAMOND FIELDS PANEL 1 [facility] INC INC COLLECTIO 31585 DIAMOND FIELDS N VENOUS 1 [facility] [place] [address] DIAMOND FIELDS PROSTATE 1 [facility] SPECIFIC INC INC ANTIGEN TOTAL O2 CONC 1 E1390 [facility] [place] 1 HOME MED HOME MED 85%/>02 EQUIP. L EQUIP. L CONC AT [facility] FLW RATE PHRM Q0513 [facility] DISPENSIN 1 PHARMACY PHARMACY G FEE #591 #591 INHALATIO N RX; PER 30 DAYS LEVALBUTE J7614 [facility] ROL INHAL 1 PHARMACY PHARMACY NON-CP #591 #591 THRU DME U DOSE 0.5 MG O2 CONC 1 E1390 [place] [address] HOME HOME 85%/>02 MEDICAL MEDICAL CONC AT [facility] [place] [place] O2 CONC 1 E1390 [place] [address] HOME MED HOME MED 85%/>02 EQUIP. L EQUIP. L CONC AT [facility] [place] [place] BLD GLU A4253 [facility] TEST/REAG 1 PHARMACY PHARMACY T STRIPS #591 #591 HOME BLD GLU MON-50 O2 CONC 1 E1390 [place] [address] HOME MED HOME MED 85%/>02 EQUIP. L EQUIP. L CONC AT [facility] [place] [place] O2 CONC 1 E1390 [place] [address] HOME MED HOME MED 85%/>02 EQUIP. L [facility]QUIP. L CONC AT [facility] [place] [place] INJ J2930 A Dominique GA METHYLPRD 1 SON SWIFT NISOLONE PSC SODIUM SUCCNAT TO 125 MG IM ADM 77180 A Dominique GA PRQ ID 1 SON SWIFT SUBQ/IM PSC NJXS 1 VACCINE LEVALBUTE J7614 [facility] ROL INHAL 1 PHARMACY PHARMACY NON- #591 #591 THRU DME U DOSE 0.5 MG PHRM Q0513 [facility] DISPENSIN 1 PHARMACY PHARMACY G FEE #591 #591 INHALATIO N RX; PER 30 DAYS SPMTRY 68926 MARTIN MARTIN W/VC 1 KESHIA KESHIA EXPIRATOR Y EMY W/WO MXML VOL VNTJ O2 CONC 1 E1390 [place] [address] HOME MED HOME MED 85%/>02 EQUIP. L EQUIP. L CONC AT [facility] FLW RATE LANCETS A4259 [facility] PER BOX 1 PHARMACY PHARMACY [facility] #591 #591 BLD GLU A4253 [facility] TEST/REAG 1 PHARMACY PHARMACY T STRIPS #591 #591 HOME BLD GLU MON-50 [facility]AC 10932 [place] TIC 1 ROS MANIPULAT CHIROPRAC [place] TX TIC CENTE SPINAL 3-4 REGIONS TRANSFERA 20971 [facility] SE 1 [facility] ASPARTATE INC INC AMINO AST SGOT LIPID 79308 [facility] PANEL 1 [facility] INC INC GLUCOSE 02837 [facility] QUANTITAT 1 [facility] [place]INO BLOOD INC INC XCPT REAGENT STRIP HEMOGLOBI 14570 [facility] N 1 [facility] GLYCOSYLA INC INC JUMNAA A1C COLLECTIO 66833 [facility] N VENOUS 1 [facility] BLOOD INC INC VENIPUNCT URE CHIROPRAC 08457 [place] TIC 1 ROS MANIPULAT CHIROPRAC [place] TX TIC CENTE SPINAL 3-4 REGIONS CHIROPRAC 93713 [place] TIC 1 ROS MANIPULAT CHIROPRAC [place] TX TIC CENTE SPINAL 3-4 REGIONS CHIROPRAC 21849 [place] TIC 0 ROS MANIPULAT CHIROPRAC [place] TX TIC CENTE SPINAL 3-4 REGIONS APPL 01958 [place] MODALITY 0 ROS 1/> AREAS CHIROPRAC TRACTION TIC CENTE MECHANICA L RADEX 04455 [place] CSAA SPINE 0 ROS LUMBOSACR CHIROPRAC AL 2/3 TIC CENTE VIEWS RADEX 10997 [place] SPINE 0 ROS CERVICAL CHIROPRAC 2 OR 3 TIC CENTE VIEWS PHRM Q0513 [facility] DISPENSIN 0 PHARMACY PHARMACY G FEE #591 #591 INHALATIO N RX; PER 30 DAYS LEVALBUTE J7614 [facility] ROL INHAL 0 PHARMACY PHARMACY NON-CP #591 #591 THRU DME U DOSE 0.5 MG OPH 92641 [facility] 0 XM&EVAL COMPRE NEW PT 1/> VST O2 CONC 1 E1390 [place]IMILIAN YAO DEL [place] 0 HOME MED HOME MED 85%/>02 EQUIP. L EQUIP. L CONC AT [facility] FLW RATE NEBULIZER E0570 MAXIMILIAN YAO WITH 0 HOME MED HOME MED COMPRESSO [place]. [place] [address] PATHOLOGY PATHOLOGY SURG 0 & & PATHOLOGY CYTOLOGY CYTOLOGY LAB LAB GROSS&[place] [address] [facility] INFUSION 0 [facility] THERAPY INC INC PROPHYLAX IS/DX EA HOUR COLONOSCO 24859 [place] TATE GENE PY 0 MEDICAL W/BIOPSY SERV SING[place] [address] [facility] INFUSION 0 [facility] THERAPY/P INC INC ROPHYLAXI S /DX 1ST TO 1 HR O2 CONC 1 E1390 [place]IAN Y[place] 0 HOME MED HOME MED 85%/>02 EQUIP. L EQUIP. L CONC AT [facility] FLW RATE LEVALBUTE J7614 [facility] ROL INHAL 0 PHARMACY PHARMACY NON-CP #591 #591 THRU DME U DOSE 0.5 MG PHRM Q0513 [facility] DISPENSIN 0 PHARMACY PHARMACY G FEE #591 #591 INHALATIO N RX; PER 30 DAYS NEBULIZER E0570 MAXIMILIAN YAO WITH 0 HOME MED HOME MED COMPRESSO EQUIP. L EQUIP. L R O2 CONC 1 E1390 [place]IAN [place] 0 HOME MED HOME MED 85%/>02 EQUIP. L EQUIP. L CONC AT [facility] FLW RATE ADMINISTR G0008 A Dominique Saldivar ATION OF 0 SON SWIFT INFLUENZA PSC VIRUS VACCINE IIV 02777 Janna Saldivar VACCINE 0 SON SWIFT PRESERV PSC FREE INCREASED AG CONTENT IM CT PELVIS 76239 [facility] EDA W/[place] [address] [facility] AMYLASE 0 [facility] INC INC CUL BACT 98573 [facility] STOOL 0 [facility] AEROBIC INC INC ISOL SALMONELL A&SHIGELL PROTHROMB 64534 [facility] IN TIME 0 [facility] INC INC COMPREHEN 86517 [facility] SIVE 0 [facility] METABOLIC INC INC PANEL OVA&JOSE RAMON 78287 [facility] ITES 0 [facility] DIRECT INC INC SMEARS CONCENTRA TION & ID 3D 15794 [facility] RENDERING 0 [facility] INC INC W/INTERP& POSTPROC DIFF WORK STATION PRESSURIZ 28101 [facility] ED/NONPRE 0 [facility] SSURIZED INC INC INHALATIO N TREATMENT BLOOD 00716 [facility] COUNT 0 [facility] COMPLETE INC INC AUTO&AUTO DIFRNTL WBC BLOOD 02351 [facility] OCCULT 0 [facility] [facility] [facility] E ACTV QUAL FECES 1-3 [place] [address] [facility] FIELDS LIPASE 0 [place] [address] [place] ANIBAL ABDOMEN 0 MEDICAL EDA W/CONTRAS IMAGING T ASS MATERIAL INJECTION J1040 MARTIN MARTIN 0 KESHIA KESHIA METHYLPRE DNISOLONE ACETATE 80 MG PRESSURIZ 21747 MARTIN MARTIN ED/NONPRE 0 KESHIA KESHIA SSURIZED INHALATIO N TREATMENT BRNCDILAT 03708 MARTIN MARTIN RSPSE 0 KESHIA KESHIA SPMTRY PRE&POST- BRNCDILAT ADMN LEVALBUTE J7614 MARTIN MARTIN ROL INHAL 0 KESHIA KESHIA NON-CP THRU DME U DOSE 0.5 MG INJECTION J3301 MARTIN LABONE OF 0 KESHIA [place] TRIAMCINO LONE ACETONIDE NOS 10 MG BUDESONID J7626 MARTIN MARTIN E INHAL 0 KESHIA KESHIA NON-CP UNIT DOSE UP TO 0.5 MG THERAPEUT 48804 MARTIN MARTIN IC 0 KESHIA KESHIA PROPHYLAC TIC/DX INJECTION SUBQ/IM NEBULIZER E0570 MAXIMILIAN YAO WITH 0 HOME MED HOME MED COMPRESSO EQUIP. L EQUIP. L R O2 CONC 1 E1390 MAXIMILIAN YAO DEL PORT 0 HOME MED HOME MED 85%/>02 EQUIP. L EQUIP. L CONC AT [facility] FLW RATE BASIC 22637 [facility] FI[facility]DS METABOLIC 0 [facility] PANEL INC INC CALCIUM TOTAL LIPID 28182 [facility] PANEL 0 [facility] PROSTATE G0103 [facility] CANCER 0 [facility] SCREENING INC INC ; PSA TEST COLLECTIO 43593 [facility] FIELDS N VENOUS 0 [facility] BLOOD INC INC VENIPUNCT URE NEBULIZER E0570 MAXIMILIAN YAO WITH 0 HOME MED HOME MED COMPRESSO EQUIP. L EQUIP. L R O2 CONC 1 E1390 MAXIMILIAN YAO DEL PORT 0 HOME MED HOME MED 85%/>02 EQUIP. L EQUIP. L CONC AT [facility] FLW RATE SPMTRY 87139 MARTIN SALAZAR, W/VC 0 KESHIA B KESHIA B EXPIRATOR Y EMY W/WO MXML VOL VNTJ NEBULIZER E0570 MAXIMILIAN YAO WITH 0 HOME MED HOME MED COMPRESSO EQUIP. EQUIP. R [facility] BLD GLU A4253 [facility] TEST/REAG 0 PHARMACY PHARMACY T STRIPS #591 #591 HOME BLD GLU MON-50 LANCETS A4259 [facility] PER BOX 0 PHARMACY PHARMACY [facility] #591 #591 O2 CONC 1 E1390 MAXIMILIAN YAO DEL PORT 0 HOME MED HOME MED 85%/>02 EQUIP. EQUIP. CONC AT [employer] [facility] FLW RATE PHRM Q0513 [facility] DISPENSIN 0 PHARMACY PHARMACY G FEE #591 #591 INHALATIO N RX; PER 30 DAYS LEVALBUTE J7614 [facility] ROL INHAL 0 PHARMACY PHARMACY NON-CP #591 #591 THRU DME U DOSE 0.5 MG INJECTION J3301 MARTIN SALAZAR, 0 KESIHA B KESHIA B TRIAMCINO LONE ACETONIDE NOS 10 MG INJECTION J2010 MARTIN, MARTIN, 0 KESHIA B KESHIA B LINCOMYCI N HCL UP TO 300 MG IM ADM 23439 MARTIN, MARTIN, PRQ ID 0 KESHIA B KESHIA B SUBQ/IM NJXS 1 VACCINE IM ADM 34667 MARTIN, MARTIN, PRQ ID 0 KESHIA B KESHIA B SUBQ/IM NJXS EA VACCINE SPMTRY 45995 MARTIN, MARTIN, W/VC 0 KESHIA B KESHIA B EXPIRATOR Y EMY W/WO MXML VOL VNTJ PRESSURIZ 99537 MARTIN, MARTIN, ED/NONPRE 0 KESHIA B KESHIA B SSURIZED INHALATIO N TREATMENT INJECTION J1020 MARTIN, MARTIN, 0 KESHIA B KESHIA B METHYLPRE DNISOLONE ACETATE 20 MG NEBULIZER E0570 MAXIMILIAN YAO WITH 0 HOME MED HOME MED COMPRESSO EQUIP. EQUIP. R [facility] O2 CONC 1 E1390 MAXIMILIAN MAXIMILIAN DEL PORT 0 HOME MED HOME MED 85%/>02 EQUIP. EQUIP. CONC [facility] FLW RATE NEBULIZER E0570 MAXIMILIAN YAO WITH 0 HOME MED HOME MED COMPRESSO EQUIP. EQUIP. R [facility] O2 CONC 1 E1390 MAXIMILIAN MAXIMILIAN DEL PORT 0 HOME MED HOME MED 85%/>02 EQUIP. EQUIP. CONC [facility] FLW RATE INJECTION J1020 MARTIN, MARTIN, 0 KESHIA B KESHIA B METHYLPRE DNISOLONE ACETATE 20 MG PRESSURIZ 54929 MARTIN, MARTIN, ED/NONPRE 0 KESHIA B KESHIA B SSURIZED INHALATIO N TREATMENT BRNCDILAT 47720 MARTIN, MARTIN, RSPSE 0 KESHIA B KESHIA B SPMTRY PRE&POST- BRNCDILAT ADMN IM ADM 75694 MARTIN, MARTIN, PRQ ID 0 KESHIA B KESHIA B SUBQ/IM NJXS 1 VACCINE INJECTION J3301 MARTIN, MARTIN, 0 KESHIA B KESHIA B TRIAMCINO LONE ACETONIDE NOS 10 MG COLLECTIO 71941 Janna PERRY N VENOUS 0 SON Fox BLOOD PSC VENIPUNCT URE BLOOD 54222 Janna PERRY COUNT 0 SON Fox COMPLETE PSC AUTO&AUTO DIFRNTL WBC BASIC 13143 LAB [facility] LAB BRTITANEY METABOLIC 0 [employer] CALCIUM TOTAL SPMTRY 19442 MARTIN SALAZAR, W/VC 0 KESHIA B KESHIA B EXPIRATOR Y EMY W/WO MXML VOL VNTJ NEBULIZER E0570 MAXIMILIAN YAO WITH 0 HOME MED HOME MED COMPRESSO EQUIP. EQUIP. R [facility] O2 CONC 1 E1390 MAXIMILIAN YAO DEL PORT 0 HOME MED HOME MED 85%/>02 EQUIP. EQUIP. CONC AT [facility] PRSC FLW RATE BRNCDILAT 12966 MARTIN SALAZAR, RSPSE 0 KESHIA B KESHIA B SPMTRY PRE&POST- BRNCDILAT ADMN DEMO&/SARAY 33387 MARTIN SALAZAR, L OF PT 0 KESHIA B KESHIA B UTILIZ AERSL GEN/NEB/I NHLR/IP ADMN SET A7005 MAXIMILIAN YAO W/SM VOL 0 HOME MED HOME MED NONFILTR EQUIP. EQUIP. NEBULIZR [facility] NON-DISPB L NEBULIZER E0570 MAXIMILIAN YAO WITH 0 HOME MED HOME MED COMPRESSO EQUIP. EQUIP. R [facility] HEPATITIS 77130 [facility] A [facility] ANTIBODY INC INC HAAB COMPREHEN 04333 [facility] SIVE 0 [facility] METABOLIC INC INC PANEL HEPATITIS 00655 [facility] FI[facility] B CORE 0 [facility] ANTIBODY INC INC HBCAB TOTAL COLLECTIO 74915 [facility] FI[facility] N VENOUS 0 [facility] BLOOD INC INC VENIPUNCT URE HEPATITIS 14701 [facility] FI[facility] B SURF 0 [facility] [place] [address] [facility]DS HEPATITIS 0 [facility] B INC INC SURFACE ANTIGEN BLOOD 94939 [facility] COUNT 0 [facility] COMPLETE INC INC AUTO&[place] [address] DI[facility] FIELDS TESTOSTER 0 [facility] ONE TOTAL INC INC HEMOGLOBI 81324 DI[facility] FIELDS N 0 [facility] GLYCOSYLA INC INC JUMANA A1C HEPATITIS 51766 [facility] C 0 [facility] ANTIBODY INC INC LIPID 29313 [facility] FI[facility] PANEL 0 [facility] INC INC NEBULIZER E0570 MAXIMILIAN YAO WITH 0 HOME MED HOME MED COMPRESSO EQUIP. EQUIP. R [employer] LLC NEBULIZER E0570 MAXIMILIAN YAO WITH 0 HOME MED HOME MED COMPRESSO EQUIP. EQUIP. R [employer] [facility] NEBULIZER E0570 MAXIMILIAN YAO WITH 9 HOME MED HOME MED COMPRESSO EQUIP. EQUIP. R [employer] LLC ADMN SET A7003 MAXIMILIAN YAO SM VOL 9 HOME MED HOME MED NONFILTR EQUIP. EQUIP. PNEUMAT [facility] NEBULIZR DISPBL NEBULIZER E0570 MAXIMILIAN YAO WITH 9 HOME MED HOME MED COMPRESSO EQUIP. EQUIP. R [employer] [facility] AREO MASK A7015 MAXIMILIAN YAO USED W/ 9 HOME MED HOME MED DME NEB EQUIP. EQUIP. LLC LLC Encounters Encounter Start End Date Code Location Performer Type Date OFFICE 15287 [place] MARYANNE OUTPATIEN 7 7 MEDICAL T VISIT SERV 25 FOUNDATIO MINUTES N OFFICE 90220 [facility]UISMESTELLA SMALLS OUTPATIEN 7 7 HEALTH T NEW 45 MEDICAL MINUTES GROUP OFFICE 65812 [facility] OUT[facility] 7 7 PHYSICIAN A T VISIT S GROUP 25 MINUTES [facility] - 7 7 [facility] T [facility] - 7 7 [facility] INC T OFFICE 77684 [facility] OUTPATIEN 7 7 PHYSICIAN T VISIT S GROUP 25 MINUTES [facility] - 7 7 [facility] T [facility] - 7 7 [facility] - 7 7 [facility] - 7 7 [facility]PATIEN INC T [facility] - 7 7 [facility] OUTPATIEN INC T [facility] - 7 7 [facility] OUTPATIEN INC T [facility] - 7 7 [facility] OUTPATIEN INC T [facility] - 7 7 [facility] OUTPATIEN INC T OFFICE 71478 OSWALDO RIVASPATIEN 7 7 MD DOMINGO, T VISIT [facility] 15 MINUTES OFFICE 36914 [facility] 45 S GROUP MINUTES [facility] DIAMOND - 6 6 [facility] OUTPATIEN INC T OFFICE [address] OUTPATIEN 6 6 MD DOMINGO, T VISIT [facility] 10 MINUTES [facility] DIAMOND - OTHER 6 6 [facility] DIAMOND - 6 6 [facility] OUTPATIEN INC T OFFICE 79934 OSWALDO GOMEZ OUTPATIEN 6 6 MD DOMINGO, T VISIT [facility] 15 MINUTES [facility] - 6 6 [facility]IEN INC T [facility] - 6 6 [facility] OUTPATIEN INC T OFFICE 78921 OSWALDO RIVASPATITHIAGO 6 6 MD DOMINGO, T VISIT [facility] 15 MINUTES OFFICE 59161 [facility] OUTPATIEN 6 6 [facility] 10 MINUTES [facility] DIAMOND - 6 6 MEM [facility] OUTPATIEN [facility] T OFFICE 46332 OSWALDO GOMEZ OUTPATIEN 6 6 MD DOMINGO, T VISIT [facility] 15 MINUTES [facility] - 6 6 [facility]PATIEN [facility] T OFFICE 82252 OSWALDO GOMEZ OUTPATIEN 6 6 MD DOMINGO, T VISIT [facility] 15 MINUTES [facility] - 6 6 [facility]IEN [facility] T [facility]OSPITAL DI[facility] - 6 6 [facility] OUTPATIEN [facility] T OFFICE 83013 OSWALDO MIX OUTPATIEN 6 6 MD DOMINGO, T VISIT PSC 15 MINUTES HOSPITAL DI[facility]OND - 6 6 [facility] OUTPATIEN [facility] T OFFICE 48734 A Dominique RIVASPATITHIAGO 6 6 SON ADAIR T VISIT PSC 15 MINUTES HOSPITAL [facility] - 6 6 [facility] OUTPATIEN [facility] DIAMOND - OTHER 6 6 [facility] OFFICE 38871 OSWALDO GOMEZ OUTPATIEN 6 6 MD DOMINGO, T VISIT PSC 15 MINUTES OFFICE 21340 A Dominique RIVASPATITHIAGO 6 6 SON ROUSE T VISIT PSC 15 MINUTES HOSPITAL [facility] - OTHER 6 6 [facility] DIAMOND - 6 6 [facility] OUTPATIEN [facility] T OFFICE 20160 A Dominique STEWART 6 6 SON ROUSE T VISIT PSC 15 MINUTES HOSPITAL DI[facility]OND - 6 6 [facility] OUTPATIEN [facility] T OFFICE 16721 A Dominique STEWART 6 6 SON ROUSE T VISIT PSC 15 MINUTES OFFICE 78365 OSWALDO QUINONEZ MARIA DEL ROSARIO OUTPATIEN 6 6 MD DOMINGO, T NEW 45 PSC MINUTES OFFICE 19145 A Dominique CLINE OUTPATIEN 6 6 SON GREGGD T VISIT PSC 15 MINUTES OFFICE 38180 A C SON OUTPATIEN 5 5 SON ADAIR T VISIT PSC 15 MINUTES HOSPITAL UNIVERSIT - 5 5 [facility] DIAMOND - 5 5 [facility] OUTPATIEN INC T OFFICE 58178 A C SON OUTPATIEN 5 5 SON ADAIR T VISIT PSC 15 MINUTES [facility]OSPITAL [facility] - 5 5 [facility] OUTPATIEN INC T OFFICE 18403 [place] MARYANNE OUTPATIEN 5 5 MEDICAL JAM T VISIT SERV 15 FOUNDATIO MINUTES N OFFICE 39848 A Dominique CLINE OUTPATIEN 5 5 SON ADAIR T VISIT PSC 15 MINUTES OFFICE 03602 A Dominique CLINE OUTPATIEN 5 5 SON ADAIR T VISIT PSC 15 MINUTES [facility]OSPITAL [facility] - 5 5 [facility] OUTPATIEN INC T OFFICE 37973 A Dominique CLINE OUTPATIEN 5 5 SON ADAIR T VISIT PSC 15 MINUTES OFFICE 53708 [place] MARYANNE OUTPATIEN 5 5 MEDICAL JAM T VISIT SERV 25 FOUNDATIO MINUTES HOSPITAL [facility] - 5 5 [facility] OUTPATIEN [facility] DIAMOND - 5 5 [facility] OUTPATIEN INC T OFFICE 54234 [place] MADDEN OUTPATIEN 5 5 MEDICAL JAM T VISIT SERV 15 FOUNDATIO MINUTES [facility] DIAMOND - 5 5 [facility] OUTPATIEN INC T OFFICE 63538 A Dominique Saldivar OUTPATIEN 5 5 SON SWIFT T VISIT PSC 15 MINUTES OFFICE 45579 A Dominique Saldivar OUTPATIEN 5 5 SON SWIFT T VISIT PSC 15 MINUTES OFFICE 92854 FRANTZ MADDEN OUTPATIEN 5 5 MEDICAL JAM T VISIT SERV 15 FOUNDATIO MINUTES [facility] DIAMOND - 5 5 [facility] OUTPATIEN INC T OFFICE 30386 A Dominique CLINE OUTPATIEN 5 5 SON ADAIR T VISIT PSC 15 MINUTES [facility]OSPITAL [facility] - 5 5 [facility] OUTPATIEN INC T OFFICE 69815 FRANTZ MADDEN OUTPATIEN 4 4 MEDICAL JAM T VISIT SERV 15 FOUNDATIO MINUTES [facility] DIAMOND - 4 4 [facility] OUTPATIEN INC T OFFICE 22390 DANIA PEDROEN 4 4 KANDI ELIAS T VISIT PLLC 10 MINUTES OFFICE 89502 PAT PEDRO 4 4 KANDI ELIAS T NEW 10 PLLC MINUTES HOSPITAL [facility] - OTHER 4 4 [facility] INC OFFICE 74931 FRANTZ MADDEN OUTPATIEN 4 4 MEDICAL JAM T VISIT SERV 15 FOUNDATIO MINUTES HOSPITAL [facility] - OTHER 4 4 [facility] INC OFFICE 81482 A Dominique RIVASPATITHIAGO 4 4 SON SWIFT T VISIT PSC 15 MINUTES HOSPITAL [facility] - 4 4 [facility] OUTPATIEN INC T OFFICE 26807 A Dominique RIVASPATITHIAGO 4 4 SON SWIFT T VISIT PSC 15 MINUTES OFFICE 29981 [facility] KIMBERLYN STEWART 3 3 PHYSICIAN INEZ T VISIT S GROUP 10 MINUTES [facility]OSPITAL [facility] - 3 3 [facility] OUTPATIEN INC T OFFICE 02902 [facility] KIMBERLYN STEWART 3 3 PHYSICIAN INEZ T VISIT S GROUP 25 MINUTES OFFICE 01039 [place]ADD[place] OUTPATIEN 3 3 MEDICAL JAM T VISIT SERV 15 FOUNDATIO [facility] DIAMOND - 3 3 [facility] OUTPATIEN [facility] DI[facility]OND - 3 3 [facility] OUTPATIEN [facility] DIAMOND - 3 3 [facility] OUTPATIEN [facility] T OFF[facility] 26860 [place] MADDEN OUTPATIEN 3 3 MEDICAL JAM T NEW 60 SERV MINUTES [facility] DI[facility]OND - 3 3 [facility] OUTPATIEN [facility] DI[facility]OND - 3 3 [facility] DIAMOND - 2 2 [facility] OUTPATIEN [facility] T OFFICE 23777 A C CLINE A OUTPATIEN 2 2 SON SWIFT T VISIT PSC 15 MINUTES OFFICE 96279 A C CLINE A OUTPATIEN 2 2 SON SWIFT T VISIT PSC 15 MINUTES HOSPITAL [facility] - 2 2 [facility] OUTPATIEN INC T OFFICE 20737 A C CLINE A OUTPATIEN 2 2 SON SWIFT T VISIT [facility] 15 MINUTES HOSPITAL [facility] - 2 2 [facility] OUTPATIEN [facility] T OFFICE 33051 Dominique SOFIA OUTPATITHIAGO 2 2 KIMBERLYN Smith MD [facility] MINUTES [facility] - 2 2 [facility] OUTPATIEN INC [facility] - 2 2 [facility] OUTPATIEN [facility] DIAMOND - 2 2 [facility] OUTPATIEN INC T OFFICE 33600 A C CLINE A OUTPATIEN 2 2 SON SWIFT T VISIT [facility] 15 MINUTES [facility]PITAL [facility] - 2 2 [facility] OUTPATIEN INC T OFFICE 90543 A Dominique Saldivar OUTPATIEN 2 2 SON SWIFT T VISIT PSC 15 MINUTES OFFICE 91452 MARTIN SALAZAR OUTPATIEN 2 2 KESHIA SCHMITT T VISIT 40 MINUTES OFFICE 52036 MARTIN MARTIN OUTPATIEN 2 2 KESHIA SCHMITT T VISIT 25 MINUTES [facility]PITAL [facility] - 1 1 [facility] OUTPATIEN INC T OFFICE 63582 A Dominique Saldivar OUTPATIEN 1 1 SON SWIFT T VISIT PSC 15 MINUTES [facility]OSPITAL [facility] - 1 1 [facility] OUTPATIEN INC T OFFICE 03840 MARTIN MARTIN OUTPATIEN 1 1 KESHIA SCHMITT T VISIT 15 MINUTES [facility]OSPITAL [facility] - 1 1 [facility] OUTPATIEN INC T OFFICE 75659 A Dominique [place] OUTPATIEN 1 1 SON SWIFT T VISIT PSC 15 MINUTES EMERGENCY 61873 HECTOR YAP RON 1 1 EMERGENCY [facility] SERVICES T VISIT HIGH/URGE NT SEVERITY OFFICE 64537 A Dominique [place] OUTPATIEN 1 1 SON SWIFT T VISIT PSC 15 MINUTES OFFICE 45996 MARTIN SALAZAR OUTPATIEN 1 1 KESHIA SCHMITT T VISIT 15 MINUTES [facility]OSPITAL [facility] - 1 1 [facility] OUTPATIEN INC T OFFICE 96288 CYNTHIANA CASA OUTPATIEN 0 0 ROS T NEW 30 CHIROPRAC MINUTES [facility] OFFICE 41517 A Dominique Saldivar OUTPATIEN 0 0 SON SWIFT T VISIT PSC 15 MINUTES [facility]OSPITAL [facility] - 0 0 [facility] OUTPATIEN INC T OFFICE 12600 A Dominique Saldivar OUTPATIEN 0 0 SON SWIFT T VISIT PSC 15 MINUTES EMERGENCY 42812 HECTOR LEHMAN DEPT 0 0 EMERGENCY III [facility]AMARA VISIT SERVICES HIGH SEVERITY& THREAT [facility] DIAMOND - 0 0 [facility] OUTPATIEN INC T EMERGENCY 84227 [facility] 0 0 [facility] DEPARTMEN INC T VISIT HIGH/URGE NT SEVERITY OFFICE 38778 MARTINDENNIS BEYURN OUTPATIEN 0 0 KESHIA KESHIA T VISIT 40 MINUTES [facility]OSPITAL [facility] - 0 0 [facility] OUTPATIEN INC T OFFICE 74914 MARTIN SALAZAR, OUTPATIEN 0 0 KESHIA B KESHIA B T VISIT 15 MINUTES OFFICE 75362 MICHOACANO SALAZARHBURN, OUTPATIEN 0 0 KESHIA B KESHIA B T VISIT 25 MINUTES OFFICE 19853 MARTIN SALAZAR, OUTPATIEN 0 0 KESHIA B KESHIA B T VISIT 25 MINUTES OFFICE 56576 Janna PERRY OUTPATIEN 0 0 SON Fox T VISIT PSC 15 MINUTES OFFICE 87692 MARTIN SALAZAR, OUTPATIEN 0 0 KESHIA B KESHIA B T VISIT 15 MINUTES OFFICE 39796 MICHOACANO SALAZARHBURN, OUTPATIEN 0 0 KESHIA B KESHIA B T NEW 45 MINUTES [facility] - 0 0 [facility] OUTPATIEN INC T
--- OUTSIDE RECORDS SUMMARY | 2016-12-13 12:25 | External Medical Summary Rpt | CCD ---
Author Author , ОЛЕГ Organization ОЛЕГ Address Unknown Phone [email or web address] Team Providers Care Fiction Writer Name Role Phone A Dominique CLINE MD P[facility], A Unavailable Unavailable Dominique CLINE MD PSC OSWALDO L[address] MD, PSC, Unavailable Unavailable OSWALDO L[address] MD, PSC [facility] Unavailable Unavailable MEDICAL GROUP, [facility] BEINEKE SANTY, BEINEKE Unavailable Unavailable [facility] Unavailable Unavailable [facility]EDICS [facility], [facility] [place], [place] Unavailable Unavailable [...] INC VARNER WILIAM, VARNER WILIAM Unavailable Unavailable [facility], Unavailable Unavailable [facility] Unavailable Unavailable [facility], [facility] Un[facility] Un[facility], [facility] Unavailable [facility]available [facility], [facility] Unavailable Unavailable [facility]ING, [facility] Unavailable Unavailable HOLDINGS, [facility], Unavailable Unavailable [facility] DEVI CRI, DEVI CRI Unavailable Unavailable [facility], [facility] Unavailable Unavailable [facility] Unavailable Unavailable SERVICES, [facility] MARTIN KESHIA, Unavailable Unavailable MARTIN [...] Unavailable Unavailable EQUIPME, [facility], Unavailable Unavailable [facility], Unavailable Unavailable [facility]available Unavailable [address]591, [facility] [facility] Unavailable Unavailable [address]591, [facility] [address] [facility] Unavailable Unavailable SERVICES, [facility] WEHRERNIE III TAMARA, Unavailable Unavailable WEHRMAN III TAMARA SON A, CLINE A Unavailable Unavailable CLINE MANA, CLINE Unavailable Unavailable Janna BARAHONA, SON, Unavailable Unavailable A C Purpose Continuity of Care Document - 12-27-2008 through 2016 Problems Code Diagnosis DOS Provider Status J449 CHRONIC 11-20-2016 [facility] 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 UNS EQUIPME [...] UNS FOUNDATION HYPOXIA/HYP ERCAPNIA G8929 OTHER 11-05-2016 [facility] I2510 ASHD [place] 11-05-2016 [facility] CORONARY HEALTH ARTERY W/O MEDICAL ANGINA GROUP PECTORIS M545 LOW BACK 11-05-2016 [facility] E785 HYPERLIPIDE 11-04-2016 [facility] JASON PHYSICIANS UNSPECIFIED GROUP I10 ESSENTIAL 11-04-2016 [facility] PRIMARY PHYSICIANS HYPERTENSIO GROUP N R0609 OTHER FORMS 11-04-2016 [facility] OF DYSPNEA PHYSICIANS GROUP M461 SACROILIITI 10-29-2016 [facility] NOT ORTHOPAEDIC ELSEWHERE S PSC CLASSIFIED R079 CHEST PAIN 10-20-2016 [facility]NSPECIFIED [facility] INC 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 I208 OTHER FORMS 09-03-2016 [facility] OF ANGINA PHYSICIANS PECTORIS GROUP L27478 SUSSEXD [place] 09-03-2016 [facility] COR ART PHYSICIANS W/OTH FORMS GROUP ANGINA PECTORIS R9439 ABNORMAL 09-03-2016 [facility] RESULT OT PHYSICIANS CARDIOVASCU GROUP LR FUNCTION STUDY I65314 [facility] [place] 08-31-2016 [facility] COR ARTREY [facility] W/UNS INC ANGINA PECTORIS Z720 TOBACCO USE 08-31-2016 [facility] INC R188 OTHER 08-19-2016 [facility] ASCITES [facility] INC R0600 DYSPNEA 08-05-2016 [facility] UNSPECIFIED [facility] INC R0602 SHORTNESS 08-05-2016 [facility] OF BREATH PHYSICIANS GROUP R918 OTHER 07-29-2016 [place] NONSPECIFIC MEDICAL ABNORMAL IMAGING ASS FINDING OF LUNG FIELD 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 [facility] DIABETES PH[facility]AC[facility] MELLITUS #591 [place] HY[place]YCEM [place] O44418 OTHER LONG 06-29-2016 [facility] TERM [facility] CURRENT INC DRUG THERAPY M5126 OT 05-19-2016 [place] INTERVERTEB MEDICAL RAL DISC IMAGING ASS DISPLACEMEN T LUMBAR RGN M5127 OT 05-19-2016 [place] INTER[facility]TEB MEDICAL RAL DISC IMAGING ASS DISPLACEMEN T LS REGION M5137 OT 05-19-2016 [place] 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 F64991 SPONDYLOSIS 04-20-[address], W/O , PSC MYELOPATH/R ADICULOPATH Y CERV RGN M4802 SPINAL 04-20-[address] STENOSIS , PSC CERVICAL REGION M5010 CERVICAL 04-20-[address], DISC D/O , [facility] W/RADICULOP ATHY UNS CERV RGN M5030 OTH 04-14-2016 [facility] PSC DEGENERATIO N UNS CERV REGION M542 CERVICALGIA 04-05-2016 [facility]ANS GROUP E876 HYPOKALEMIA 03-18-2016 [facility] E782 MIXED 01-21-2016 [facility] HYPERLIPIDE [facility] JASON INC R252 CRAMP AND 01-21-2016 [facility] SPASM [facility] INC Y23891 PAIN IN 12-12-2015 [place] RIGHT HIP MEDICAL IM[facility]ING ASS F03098 PAIN IN 12-12-2015 [place] LEFT HIP MEDICAL IMAGING ASS H2513 AGE-RELATED 11-25-2015 [facility] N[facility] BILATERAL M5032 OT CERV 11-14-2015 [facility] DISC [facility] DEGENERATIO INC N MID-CERVICA L REGION M791 MYALGIA 11-11-[address] MD, [facility] M797 FIBROMYALGI 10-14-2015 [facility] A [facility] INC M4722 OT 08-26-2015 [facility] SPONDYLOSIS [facility] INC W/RADICULOP ATHY CERVICAL REGION M1612 UNILATERAL 08-12-2015 [place] PRIMARY MEDICAL OSTEOARTHRI IMAGING ASS TIS LEFT HIP E538 DEFICIENCY 07-02-2015 [facility] OF OTHER [facility] SPECIFIED B INC GROUP VITAMINS D508 OTHER IRON 06-11-2015 A Dominique CLIEN DEFICIENCY [facility] ANEMIAS K11277 OTHER 06-02-2015 [facility] MUSCLE [facility] SPASM INC R1013 EPIGASTRIC 06-02-2015 [facility] PAIN [facility] INC R202 PARESTHESIA 06-02-2015 [facility] OF SKIN [facility] INC R5383 OTHER 06-02-2015 [facility] FATIGUE [facility] INC Z125 ENCOUNTER 06-02-2015 [facility] SCREENING [facility] MALIGNANT INC NEOPLASM PROSTATE R05 COUGH 05-28-2015 [place] [facility] H6980 OTHER SPEC 05-13-2015 A Dominique CLINE DISORDERS PSC EUSTACHIAN TUBE UNS EAR J0100 ACUTE 05-13-2015 A Dominique CLINE MAXILLARY PSC SINUSITIS UNSPECIFIED M4692 UNS 03-26-2015 A Dominique CLINE INFLAMMATOR PSC Y SPONDYLOPAT HY CERVICAL REGION M5090 CERVICAL 02-11-2015 Janna MARRERO MD PSC DISORDER UNS UNS CERVICAL REGION M2578 OSTEOPHYTE 02-07-2015 [facility] J439 EMPHYSEMA 01-22-2015 [place] UNSPECIFIED MEDICAL IMAGING ASS I6523 OCCLUSION & 11-21-2014 [place] STENOSIS MEDICAL BILATERAL IMAGING ASS CAROTID ARTERIES R42 DIZZINESS 11-21-2014 [facility] AND [facility] GIDDINESS INC 496 CHRONIC 11-20-2014 [facility] OBSTRUCTION MEDICAL NEC EQUIPME 93914 OTHER&UNSPE 11-13-2014 Janna PUTNAMFIED JANES SWIFT PSC DISORDER CERVICAL REGION 7804 DIZZINESS 11-13-2014 Janna MCCURDY PSC GIDDINESS 12826 CHRONIC 10-23-2014 [place] [facility] OBSTRUCTIVE SERV ASTHMA FOUNDATION UNSPECIFIED 96686 CHRONIC 10-23-2014 [place] [facility] RESPIRATORY SERV FAILURE FOUNDATION 22107 DIAB W/O 08-05-2014 [facility] COMP TYPE PHARMACY II/UNS NOT #591 STATED UNCNTRL 41740 DIAB W/O 07-23-2014 [facility] MENTION [facility] COMP TYPE INC II/UNS TYPE UNCNTRL 2724 OTHER AND 07-23-2014 [facility] UNSPECIFIED [facility] INC HYPERLIPIDE JASON 4011 ESSENTIAL 07-23-2014 [facility] HYPERTENSIO [facility] N, BENIGN INC V7644 SPECIAL 07-23-2014 [facility] SCREENING [facility] MALIGNANT INC NEOPLASM OF PROSTATE 95045 DEGEN 06-12-2014 [place] LUMBAR/LUMB MEDICAL OSACRAL IMAGING ASS INTERVERTEB RAL DISC 7242 LUMBAGO 06-12-2014 Janna CLINE MD PSC 7245 UNSPECIFIED 06-12-2014 [place] BACKACHE MEDICAL IM[facility]ING ASS 74807 SCOLIOSIS , 06-12-2014 [place] IDIOPATHIC [facility]ICAL IMAGING ASS 98009 UNSPECIFIED 06-03-2014 [facility] 97658 UNSPECIFIED 06-03-2014 [facility] [place] [address] OTHER 04-19-2014 [place] [facility] NONSPECIFIC SERV ABNORMAL FOUNDATION FINDING OF LUNG FIELD 12184 PAIN IN 02-27-2014 [place] JOINT MEDICAL PELVIC IMAGING ASS REGION AND THIGH 29477 URINARY 02-27-2014 Janna RIOJAS MD PSC 53046 UNSPECIFIED 11-15-2013 [facility] TEMPOROMAND INC IBULAR JOINT DISORDERS 18317 INTERSTITIA 11-01-2013 ERENA & L MYOSITIS TERESITA ELIASC 7840 HEADACHE 10-09-2013 [facility] INC 7906 OTHER 05-28-2013 [facility] ABNORMAL [facility] BLOOD INC CHEMISTRY 486 PNEUMONIA, 03-13-2013 [facility] ORGANISM [facility] UNSPECIFIED INC 40016 OBSTRUCTIVE 03-13-2013 Janna CMCARTHY MD PSC BRONCHITIS WITH EXACERBATIO N 5183 PULMONARY 03-13-2013 [place] EOSINOPHILI MEDICAL A IMAGING ASS 60896 ABDOMINAL 02-01-2013 [facility] PAIN, PHYSICIANS EPIGASTRIC GROUP 60049 ABDOMINAL 01-31-2013 [place] PAIN RIGHT MEDICAL UPPER IMAGING ASS QUADRANT 5718 OTHER 01-09-2013 [place] CHRONIC MEDICAL NONALCOHOLI IMAGING ASS C LIVER DISEASE 5758 OTHER 01-09-2013 [place] SPECIFIED MEDICAL DISORDER OF IMAGING ASS GALLBLADDER 40466 ABDOMINAL 01-09-2013 [facility] PAIN, LEFT [facility] UPPER INC QUADRANT 2722 MIXED 11-20-2012 [facility] HYPERLIPIDE [facility] JASON INC 4928 OTHER 11-20-2012 [facility] EMPHYSEMA [facility] INC V571 OTHER 11-20-2012 [facility] PHYSICAL [facility] THERAPY INC V5869 LONG-TERM 11-20-2012 [facility] (CURRENT) [facility] USE OF INC OTHER MEDICATIONS 82721 OTHER 10-30-2012 [place] DISEASES OF MEDICAL LUNG NOT IMAGING ASS ELSEWHERE CLASSIFIED 7841 THROAT PAIN 10-30-2012 [facility] INC 83448 SHORTNESS 10-30-2012 [facility] OF BREATH [facility] INC 7821 RASH AND 10-25-2012 [place] [facility] OTHER SERV NONSPECIFIC FOUNDATIO SKIN ERUPTION 18938 GEN 08-28-2012 [facility] OSTEOARTHRO L REHAB SIS ASSOC PSC INVOLVING MULTIPLE SITES 7220 DISPLCMT 08-28-2012 [facility] CERV L REH[facility] INTERVERT ASSOC PSC DISC WITHOUT MYELOPATHY 7224 DEGENERATIO 08-28-2012 [facility] N OF L REHAB CERVICAL ASSOC PSC INTERVERTEB RAL DISC 30091 CHEST PAIN 05-04-2012 [place] UNSPECIFIED MEDICAL IMAGING ASS 58260 IDIOPATH 04-20-2012 [facility] SLEEP REL HOME NONOBST MEDICAL ALVEOLAR EQUIPME HYPOVENT 7230 SPINAL 04-17-2012 [facility] STENOSIS IN L REHAB CERVICAL ASSOC PSC REGION 7234 BRACHIAL 04-17-2012 [facility] NEURITIS OR L REHAB ASSOC PSC RADICULITIS NOS 4660 ACUTE 02-08-2012 A Dominique CLINE BRONCHITIS PSC 12791 OTHER&UNSPE 02-08-2012 A Dominique Fox DISC PSC DISORDER UNSPEC REGION V0382 NEED PROPH 02-08-2012 A Dominique CLINE VACCINATION PSC AGAINST STREP PNEUMONE 7210 CERVICAL 12-23-2011 [place] SPONDYLOSIS MEDICAL WITHOUT IMAGING ASS MYELOPATHY 7231 CERVICALGIA 12-23-2011 [facility] INC 7292 UNSPECIFIED 12-21-2011 A Dominique CLINE NEURALGIA PSC NEURITIS AND RADICULITIS 47349 EXTRINSIC 12-15-2011 [facility] ASTHMA WITH PHARMACY STATUS #591 ASTHMATICUS 4019 UNSPECIFIED 10-01-2011 [facility] ESSENTIAL [facility] HYPERTENSIO INC N 06707 ASTHMA, 10-01-2011 [facility] UNSPECIFIED [facility] , INC UNSPECIFIED STATUS 01342 ING ADAMS 10-01-2011 [facility] W/O MENTION [facility] INC OBST/GANG[place] N UNILAT/[place] [address] SPASM OF 07-07-2011 A Dominique CLINE MUSCLE PSC 51853 CHRONIC 05-24-2011 MARTIN OBSTRUCTIVE KESHIA ASTHMA W/STATUS ASTHMATICUS 4778 ALLERGIC 03-29-2011 [facility] RHINITIS KESHIA DUE TO OTHER ALLERGEN 4780 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[facility] OF NASAL KESHIA TURBINATES 10084 CHRONIC 03-29-2011 [facility] OBSTRUCTIVE KESHIA ASTHMA WITH EXACERBATIO N 2720 PURE 12-21-2010 [facility] HYPERCHOLES [facility] TEROLEMIA INC 7810 ABNORMAL 12-21-2010 [facility] INVOLUNTARY [facility] MOVEMENTS INC 54061 MUSCLE 12-15-2010 A Dominique CLINE WEAKNESS PSC (GENERALIZE D) 95594 EXTRINSIC 07-26-2010 [facility] ASTHMA, PHARMACY UNSPECIFIED #591 [...] 470 DEVIATED 02-02-2010 MARTIN NASAL KESHIA SEPTUM 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 92468 DIVERTICULO 12-22-2009 [place] [facility] SIS OF SERV [...] 4720 CHRONIC 09-01-2009 MARTIN, RHINITIS KESHIA B 88907 INTRINSIC 09-01-2009 MARTIN, ASTHMA, KESHIA B UNSPECIFIED 4619 ACUTE 06-16-2009 MARTIN, SINUSITIS, KESHIA B UNSPECIFIED 06786 OTHER 06-11-2009 [facility] [...] gm/dL ed plasma 12:40 albumin measure ment ([facility] Lipid profile (12-09-2016 12:40) Serum = [...] mg/dL ed plasma 12:40 glucose measure ment ([facility] Estimat = 59 >60 complet ed 017 ML/MIN ed glomeru 12:40 lar filtrat ion rate (GF Comment: REFERENCE RANGE: >60 ML/MIN/1.73 SQUARE METERS Comment: If this patient is -[place], then multiply the Comment: result by 1.210. [...] blood 12:40 platele t mean volume aura Monona % = 7.9 % 1.7-9.3 complet 017 [...] 85%/>02 MEDICAL MEDICAL CONC AT EQUIPME EQUIPME [facility] FLW RATE TUBING A7037 MAX[facility]IAN YAO USED [...] E AIRWAY EQUIPME EQUIPME PRESSURE DEVICE PHYSICAL 01694 [facility] CROSSFIEL THERAPY 7 NAL REHAB D EVALUATIO ASSOC N LOW PSC COMPLEX 20 MINS LOCM Q9965 [facility] 100-199 7 MG/ML ORTHOPAED ORTHOPAED IODINE ICS PSC ICS PSC [place] IN[place] [address] [facility] JOINT 7 ARTHRGRPH ORTHOPAED Y&/ANES/S ICS PSC TEROID W/JUAN LUIS LIPID 45574 [facility] PANEL 7 [facility] INC INC HEPATIC 22921 [facility] FUNCTION 7 [facility] PANEL INC INC COLLECTIO 93798 [facility] N VENOUS 7 [facility] BLOOD INC INC VENIPUNCT URE NEBULIZER E0570 [facility]IM[facility]IANGARETT YAO WITH 7 HOME HOME COMPRESSO MEDICAL MEDICAL R EQUIPME EQUIPME PRTBLE E0431 MAXIMILIANGARETT YAO GASEOUS 7 HOME HOME O2 SYS MEDICAL MEDICAL RENT; EQUIPME EQUIPME FLWMTR HUMIDFR&M ASK ECG 55913 [facility] ROUTINE 7 [facility] ECG INC INC W/LEAST 12 LDS TRCG [...] AT EQUIPME EQUIPME PRSC FLW RATE ECG 09668 [facility] MOON ROUTINE 7 PHYSICIAN ECG S GROUP W/LEAST 12 LDS I&R ONLY ECG 19463 [facility] ROUTINE 7 [facility] ECG INC INC W/LEAST 12 LDS TRCG ONLY W/O I&R PRQ 30815 [facility] MOON TRLUML 7 PHYSICIAN CORONARY S GROUP STENT W/ANGIO ONE ART/BRNCH CATH PLMT 69174 [facility] MOON L HRT & 7 PHYSICIAN ARTS S GROUP W/NJX & ANGIO IMG S&I CATH PLMT 29793 [facility] L HRT & 7 [facility] ARTS INC INC W/NJX & ANGIO IMG S&I BASIC 70201 [facility] METABOLIC 7 [facility] PANEL INC INC CALCIUM TOTAL BLOOD 84794 [facility] COUNT 7 [facility]OS[facility] COMPLETE INC INC AUTO&AUTO DIFRNTL WBC PRQ 47759 [facility] TRLUML 7 [facility] CORONARY INC INC STENT W/ANGIO ONE ART/BRNCH LOCM Q9967 [facility] 300-399 7 [facility] MG/ML INC INC IODINE CONCENTRA TION PER ML CATHETER C1725 [facility] TRANSLUMI 7 [facility] NAL INC INC ANGIOPLAS TY NON-LASER GUIDE C1769 [facility] WIRE 7 [facility] INC INC STENT C1876 [facility] NON-COATE 7 [facility] D/NON-COV INC INC ERED W/DELIVER Y SYSTEM COAGULATI 79268 [facility] ON TIME 7 [facility] ACTIVATED INC INC INJECTION J1644 [facility] HEPARIN 7 [facility] SODIUM INC INC PER 1000 UNITS INTRDUCR/ C1894 [facility] SHEATH 7 [facility] NOT GUID INC INC INTRACARD EP NON-LASR NEBULIZER E0570 MAX[facility]IAN YAO WITH 7 HOME HOME COMPRESSO MEDICAL MEDICAL R EQUIPME EQUIPME PRTBLE E0431 MAXIM[facility]IAN YAO GASEOUS 7 HOME HOME O2 SYS MEDICAL MEDICAL RENT; EQUIPME EQUIPME FLWMTR HUMIDFR&M ASK O2 CONC 1 E1390 MAXIMILIAN YAO DEL PORT 7 HOME HOME 85%/>02 MEDICAL MEDICAL CONC [place] [address] [facility] ABDOMINAL 7 [facility] REAL INC INC TIME W/IMAGE DOCUMENTA TION MYOCARDIA 06819 [facility] Goetz SPECT 7 [facility] HOSP MULTIPLE INC INC STUDIES CV STRS 12993 [facility] TST 7 [facility]OS[facility] XERS&/OR INC INC RX CONT ECG TRCG ONLY INJECTION J2785 [facility] FI[facility]DS 7 [facility] HOSP REGADENOS INC INC ON 0.1 MG TECHNETIU A9502 [facility] Moreno TC-99M 7 [facility] HOSP TETROFOSM INC INC IN DX PER STUDY DOSE ECHO 54491 [facility] TTHRC R-T 7 [facility] HOSP 2D INC INC W/WOM-MOD E COMPL SPEC&COLR D CT THORAX 13803 [facility] W/O 7 MEDICAL CONTRAST IMAGING MATERIAL ASS NEBULIZER E0570 MAXIMILIAN YAO WITH 7 HOME HOME COMPRESSO MEDICAL MEDICAL R EQUIPME EQUIPME ECG 23225 [facility] ROUTINE 7 [facility] ECG INC INC W/LEAST 12 LDS [...] EQUIPME EQUIPME PRSC FLW RATE LIPID 05-09-201 12371 [facility] PANEL 7 [facility] INC INC HEMOGLOBI 34643 [facility] N 7 [facility] HOS[facility] GLYCOSYLA INC INC JUMANA A1C BLOOD 46424 [facility] COUNT 7 [facility] COMPLETE INC INC AUTO&AUTO DIFRNTL WBC COLLECTIO 01566 [facility] N VENOUS 7 [facility] H[facility] BLOOD INC INC VENIPUNCT URE BILIRUBIN 82435 [facility] DIRECT 7 [facility] INC INC COMPREHEN 92234 [facility] SIVE 7 [facility] H[facility] METABOLIC INC INC PANEL NEBULIZER E0570 MAXIMILIAN JOHNSONRELL WITH 7 HOME HOME COMPRESSO MEDICAL MEDICAL R EQUIPME EQUIPME PRTBLE E0431 MAXIMILIAN YAO GASEOUS 7 HOME HOME O2 SYS MEDICAL MEDICAL RENT; EQUIPME EQUIPME FLWMTR HUMIDFR&M ASK O2 CONC 1 E1390 MAXIMILIAN JOHNSONRELL DEL PORT 7 HOME HOME 85%/>02 MEDICAL MEDICAL CONC AT EQUIPME EQUIPME [facility] FLW RATE NEBULIZER E0570 MAXIMILIAN YAO WITH 7 HOME HOME COMPRESSO MEDICAL MEDICAL R EQUIPME EQUIPME ADMN SET A7003 MAXIMILIAN YAO SM VOL 7 HOME HOME NONFILTR MEDICAL MEDICAL PNEUMAT EQUIPME EQUIPME NEBULIZR DISPBL O2 CONC 1 E1390 MAXIMILIAN YAO DEL PORT 7 HOME HOME 85%/>02 MEDICAL MEDICAL CONC AT EQUIPME EQUIPME [facility] FLW RATE MRI 45722 [place] SPINAL 7 MEDICAL CANAL IMAGING LUMBAR ASS W/O CONTRAST MATERIAL 3D 19632 [place] RENDERING 7 MEDICAL W/INTERP IMAGING & ASS POSTPROCE SS SUPERVISI ON PRTBLE E0431 MAXIMILIAN MAXIMILIAN GASEOUS 7 HOME HOME O2 SYS MEDICAL MEDICAL RENT; EQUIPME EQUIPME FLWMTR HUMIDFR&M ASK O2 CONC 1 E1390 MAXIMILIAN YAO DEL PORT 7 HOME HOME 85%/>02 MEDICAL MEDICAL CONC AT EQUIPME EQUIPME [facility] FLW RATE PHYSICAL 45046 PROFESSIO CROSSFIEL THERAPY 7 NAL REHAB D RE-EVAL ASSOC EST PLAN PSC CARE 20 MINS MANUAL 40794 PROFESS[facility] CROSSFIEL THERAPY 7 NAL REHAB D [...] HOME 85%/>02 MEDICAL MEDICAL CONC [facility] POTASSIUM 66417 [facility] SERUM 7 DIAGNOSTI DIAGNOSTI PLASMA/WH CS CS OLE BLOOD INCORPORA INCORPORA T T MANUAL 06985 PROF[facility] CROSSFIEL THERAPY 7 NAL REHAB D TQS 1/> ASSOC REGIONS PSC EACH 15 MINUTES PHYSICAL 65500 PROFESS[facility] CROSSFIEL THERAPY 7 NAL REHAB D EVALUATIO ASSOC N HIGH PSC COMPLEX 45 MINS PRTBLE E0431 MAXIMILIAN MAXIMILIAN GASEOUS 6 HOME HOME O2 SYS MEDICAL MEDICAL RENT; EQUIPME EQUIPME FLWMTR HUMIDFR&M ASK O2 CONC 1 E1390 MAXIMILIAN JOHNSONRELL DEL PORT 6 HOME HOME 85%/>02 MEDICAL MEDICAL CONC [facility] E[facility] BRNCDILAT 01008 [facility] RSPSE 6 [facility] H[facility]OS[facility] SPMTRY INC INC PRE&POST- BRNCDILAT ADMN PRESSURIZ 90761 [facility] FI[facility] ED/NONPRE 6 [facility] SSURIZ[place] [address] [facility] DIFFUSING 6 [facility] CAPACITY INC INC NONINVASI 18768 [facility] VE 6 [facility] EAR/PULSE INC INC OXIMETRY MULTIPLE DETER GAS 16743 [facility] DILUT/WAS 6 [facility]OS[facility] HOUT LUNG INC INC VOL W/WO DISTRIB VENT&V BASIC 76127 [facility] METABOLIC 6 DIAGNOSTI DIAGNOSTI PANEL CS CS CALCIUM INCORPORA INCORPORA TOTAL T T LIPID 06254 [facility] PANEL 6 [facility]OS[facility] INC INC HEPATITIS 98854 [facility]AM[facility] C 6 [facility]OS[facility] ANTIBODY INC INC O2 CONC 1 E1390 MAXIMILIAN YAO DEL PORT 6 HOME HOME 85%/>02 MEDICAL MEDICAL CONC AT EQUIPME EQUIPME PRS FLW RATE HEMOGLOBI 93908 DIAMONDENRIQUE GREENON N 6 MEM HOS[facility] MEM HOS[facility] GLYCOSYLA INC INC JUMANA A1C COLLECTIO 81925 [facility]AM[facility] N VENOUS 6 [facility] H[facility]OS[facility] [place] [address] [facility]AM[facility] FI[facility] MAGNESIUM 6 [facility] INC INC COMPREHEN 65178 DIAMONDENRIQUE FIELDS SIVE 6 [facility] H[facility]OS[facility] METABOLIC INC INC PANEL HEPATITIS 68840 [facility]AM[facility] A 6 [facility]OS[facility] ANTIBODY INC INC HAAB PRTBLE E0431 MAXIMILIAN YAO GASEOUS 6 HOME HOME O2 SYS MEDICAL MEDICAL RENT; EQUIPME EQUIPME FLWMTR HUMIDFR&M ASK HEPATITIS 42504 [facility] Hernandez CORE 6 [facility] ANTIBODY INC INC HBCAB TOTAL HEPATITIS 15663 DIAMOND Hernandez SURF 6 [facility] [place] [address] DIAMOND FIELDS HEPATITIS 6 [facility] B INC INC SURFACE ANTIGEN LOCM Q9966 DIAMOND FIELDS 200-299 6 [facility] MG/ML INC INC IODINE CONCENTRA TION PER ML INJECTION J1040 [facility]OND GREENON 6 [facility] METHYLPRE INC INC DNISOLONE ACETATE 80 [place] NJX [address]125 OSW[address] TERRELL JASON DX/THER 6 MD DOMINGO, SBST PSC EPIDURAL/ SUBRACH CERV/THOR ACIC O2 CONC 1 E1390 MAXIMILIAN YAO DEL PORT 6 HOME HOME 85%/>02 MEDICAL MEDICAL CONC AT EQUIPME EQUIPME PRS FLW RATE PRTBLE E0431 MAXIMILIAN YAO GASEOUS 6 HOME HOME O2 SYS MEDICAL MEDICAL RENT; EQUIPME EQUIPME FLWAZR HUMIDFR&M ASK BLD GLU A4253 GENESIS WALKER-CATHERINE [...] INC IODINE CONCENTRA TION PER ML RADEX 40850 [place] ALL HIPS 6 MEDICAL BILATERAL IMAGING WITH ASS PELVIS 3-4 VIEWS NJX [address]88 OSW[address]DO TERRELL JASON DX/THER 6 MD DOMINGO, SBST PSC EPIDURAL/ SUBRACH CERV/THOR ACIC INJECTION J1040 DIAMOND FIELDS 6 [facility] METHYLPRE INC INC DNISOLONE ACETATE 80 MG RADEX HIP 18050 DIAMOND FIELDS 6 [facility] [place] INC INC L WITH PELVIS 2-3 VIEWS RADIOLOGI 35978 DIAMOND FIELDS C EXAM 6 [facility] [...] INC IODINE CONCENTRA TION [place] NJX 8[address]78 OSWALDO TERRELL JASON DX/THER 6 MD DOMINGO, SBST PSC EPIDURAL/ SUBRACH CERV/THOR ACIC INJECTION J1040 DIAMOND FIELDS 6 [facility] METHYLPRE INC INC DNISOLONE ACETATE 80 MG O2 CONC 1 E1390 MAXIMILIAN YAO DEL PORT 6 HOME HOME 85%/>02 MEDICAL MEDICAL CONC AT EQUIPME EQUIPME [facility] FLW RATE PRTBLE E0431 MAXIMILIAN YAO GASEOUS 6 HOME HOME O2 SYS MEDICAL MEDICAL RENT; [facility] HUMID[facility]&M ASK INJECTION J1040 DIAMOND FIELDS 6 [facility] METHYLPRE INC INC DNISOLONE ACETATE [address] MD, SINGLE/ML PSC T TRIGGER POINT 02/22 [place] PHRM Q0513 [facility] [facility] DISPENSIN 6 PHARMACY PHARMACY G FEE #591 #591 INHALATIO N RX; PER 30 DAYS LEVALBUTE J7614 [facility] ROL INHAL 6 PHARMACY PHARMACY NON-CP #591 #591 THRU DME U DOSE 0.5 MG PRTBLE E0431 MAXIMILIAN YAO GASEOUS 6 HOME HOME O2 SYS MEDICAL MEDICAL RENT; EQUIPME EQUIPME [facility] HUMIDFR&M ASK O2 CONC 1 E1390 MAXIMILIAN YAO DEL PORT 6 HOME HOME 85%/>02 MEDICAL MEDICAL CONC AT EQUIPME EQUIPME [facility] FLW RATE INJECTION J1030 DIAMOND FIELDS 6 [facility] METHYLPRE INC INC DNISOLONE ACETATE 40 MG DSTR [address] L[address] MD, AGNT PSC PARVERTEB FCT SNGL CRVCL/THO RA DSTR [address] MD, AGNT PSC PARVERTEB FCT ADDL CRVCL/THO RA DSTR [address] MD, AGNT PSC PARVERTEB FCT ADDL CRVCL/THO RA INJECTION J1030 DIAMNOD FIELDS 6 [facility] METHYLPRE INC INC DNISOLONE ACETATE 40 MG DSTR 64791 OSWALDO GOMEZ NROLYTC 6 MD DOMINGO, AGNT PSC PARVERTEB FCT SNGL CRVCL/THO RA O2 CONC 1 E1390 MAXIMILIAN YAO DEL PORT 6 HOME HOME 85%/>02 MEDICAL MEDICAL CONC AT EQUIPME EQUIPME PRSC FLW RATE PRTBLE E0431 MAXIMILIAN MAXIMILIAN GASEOUS 6 HOME HOME O2 SYS MEDICAL MEDICAL RENT; EQUIPME EQUIPME FLWMTR HUMIDFR&M ASK RADEX 67985 DIAMOND FIELDS SPINE 6 [facility] LUMBOSACR INC INC AL MINIMUM 4 VIEWS RADEX HIP 47014 DAMARIS CARLIN 6 MEDICAL SANTY [place]A IMAGING L WITH ASS PELVIS 1 VIEW RADEX HIP 11633 DIAMOND FIELDS 6 [facility] [...] #591 #591 HOME BLD GLU MON-50 NJX 34724 OSWALDO TERRELL JASON DX/THER 6 MD DOMINGO, AGT PVRT PSC FACET JT CRV/THRC 1 LEVEL INJECTION J1030 DI[facility]OND FIELDS 6 [facility] METHYLPRE INC INC DNISOLONE ACETATE 40 MG NJX 03249 OSWALDO TERRELL JASON DX/THER 6 MD DOMINGO, AGT PVRT PSC FACET JT CRV/THRC 2ND LEVEL CYANOCOBA 20820 DIAMOND FIELDS VALERIA 6 [facility] VITAMIN INC INC B-12 COLLECTIO 88064 DIAMOND FIELDS N VENOUS 6 [facility] BLOOD INC INC VENIPUNCT URE DETERMINA 25031 [place] [facility] 6 [facility] 04859 [place] [facility] 6 VISION ANG XM&EVAL CENTER COMPRHNSV [...] PSC CYANOCOBA VALERIA TO 1000 MCG THERAPEUT 02673 A Dominique CLINE IC 6 SON ADAIR PROPHYLAC PSC TIC/DX INJECTION SUBQ/IM INJECTION J3420 Janna CLINE VIT B-12 6 SON ADAIR PSC CYANOCOBA VALERIA TO 1000 MCG THERAPEUT 94324 A Dominique CLINE IC 6 SON ADAIR PROPHYLAC PSC TIC/DX INJECTION SUBQ/IM BRNCDILAT 31438 Janna SAXENA RSPSE 6 SON SWIFT NASIM SPMTRY PSC PRE&POST- BRNCDILAT ADMN BLOOD 58649 DIAMOND FIELDS COUNT 6 [facility] COMPLETE INC INC AUTO&AUTO DIFRNTL WBC CYAN[place]BA 41454 DIAMOND FIELDS VALERIA 6 [facility] VITAMIN INC INC B-12 [place] [address] DIAMOND FIELDS LIPASE 6 [place] [address] DIAMOND FIELDS MAGNESIUM 6 [facility] INC INC PROSTATE G0103 DIAMOND FIELDS CANCER 6 [facility] SCREENING INC INC ; PSA TEST COLLECTIO 39865 DIAMOND FIELDS N VENOUS 6 [facility] BLOOD INC INC VENIPUNCT URE LIPID 55349 DIAMOND FIELDS PANEL 6 [place] [address] DIAMOND FIELDS AMYLASE 6 [place] [address] DIAMOND FIELDS THYROID 6 [facility] STIMULATI INC INC NG HORMONE TSH COMPREHEN 18206 DIAMOND FIELDS SIVE 6 [facility] METABOLIC INC INC PANEL RADIOLOGI 77244 [facility] MAHMOODANIBAL C EXAM 6 MEDICAL EDA CHEST 2 IMAGING VIEWS ASS FRONTAL&L ATERAL INJECTION J1040 DIAMOND FIELDS 6 [facility] METHYLPRE INC INC DNISOLONE ACETATE 80 MG NJX 47712 OSWALDOJULIANA TERRELL JASON DX/THER 6 MD DOMINGO, AGT PVRT PSC FACET JT CRV/THRC 2ND LEVEL NJX 40790 OSWALDOJULIANA TERRELL JASON DX/THER 6 MD DOMINGO, AGT PVRT PSC FACET JT CRV/THRC 1 LEVEL PRTBLE E0431 MAXIMILIAN YAO GASEOUS 6 HOME HOME O2 SYS MEDICAL MEDICAL RENT; EQUIPME EQUIPME FLWMTR HUMIDFR&M ASK O2 CONC 1 E1390 MAXIMILIAN YAO DEL PORT 6 HOME HOME 85%/>02 MEDICAL MEDICAL CONC AT EQUIPME EQUIPME [facility] FLW RATE O2 CONC 1 E1390 MAXIMILIAN [...] 85%/>02 MEDICAL MEDICAL CONC AT EQUIPME EQUIPME [facility] FLW RATE BLD GLU A4253 [facility] TEST/REAG 6 PHARMACY PHARMACY T STRIPS #591 #591 HOME BLD GLU MON-50 PRTBLE E0431 MAXIMILIAN YAO GASEOUS 5 HOME HOME O2 SYS MEDICAL MEDICAL RENT; EQUIPME EQUIPME FLWMTR HUMIDFR&M ASK O2 CONC 1 E1390 MAXIMILIAN MOTA PORT 5 HOME HOME 85%/>02 MEDICAL MEDICAL CONC AT EQUIPME EQUIPME [facility] FLW RATE [place] J7614 [facility] ROL INHAL 5 PHARMACY PHARMACY NON-CP #591 #591 THRU DME U DOSE 0.5 MG [facility] G0463 [facility] 5 Y Y T [facility] VISIT ASSESS & MGMT PT [place] J7614 [facility] ROL INHAL 5 PHARMACY PHARMACY NON-CP #591 #591 THRU DME U DOSE 0.5 MG PHR Q0513 [facility] DISPENSIN 5 PHARMACY PHARMACY G FEE #591 #591 INHALATIO N RX; PER 30 DAYS LIPID 15928 DIAMOND FIELDS PANEL 5 [facility] INC INC BASIC 98189 DIAMOND FIELDS METABOLIC 5 [facility] PANEL INC INC CALCIUM TOTAL COLLECTIO 76640 DIAMOND FIELDS N VENOUS 5 [facility] BLOOD INC INC VENIPUNCT URE CT THORAX 36431 DIAMOND FIELDS W/O 5 [facility] CONTRAST INC INC MATERIAL O2 CONC 1 E1390 MAXIMILIAN MAXIMILIAN DEL PORT 5 HOME HOME 85%/>02 MEDICAL MEDICAL CONC AT EQUIPME EQUIPME PRSC FLW RATE PRTBLE E0431 MAXIMILIAN MAXIMILIAN GASEOUS 5 HOME HOME O2 SYS MEDICAL MEDICAL RENT; EQUIPME EQUIPME FLWMTR HUMIDFR&M ASK MRI 30567 NEURODIAG MEJIA RON SPINAL 5 NOSTICS CANAL [...] AT EQUIPME EQUIPME PRSC FLW RATE DUPLEX 11715 DIAMOND FIELDS SCAN 5 [facility] EXTRACRAN INC INC IAL ART COMPL BI STUDY PRTBLE E0431 MAXIMILIANGARETT YAO GASEOUS 5 HOME HOME O2 SYS MEDICAL MEDICAL RENT; EQUIPME EQUIPME FLWMTR HUMIDFR&M ASK O2 CONC 1 E1390 MAXIMILIAN [place] PORT 5 HOME HOME 85%/>02 MEDICAL MEDICAL CONC AT EQUIPME EQUIPME PRS FLW RATE PHRM Q0513 [employer] DISPENSIN 5 PHARMACY PHARMACY G FEE #591 #591 INHALATIO N RX; PER 30 DAYS LEVALBUTE J7614 [employer] ROL INHAL 5 PHARMACY PHARMACY NON-CP #591 #591 THRU DME U DOSE 0.5 MG PRTBLE E0431 MAXIMILIANGARETT YAO GASEOUS 5 HOME HOME O2 SYS MEDICAL MEDICAL RENT; EQUIPME EQUIPME FLWMTR HUMIDFR&M ASK O2 CONC 1 E1390 MAXIMILIAN [place] PORT 5 HOME HOME 85%/>02 MEDICAL MEDICAL CONC AT EQUIPME EQUIPME [facility] FLW RATE BRNCDILAT 02962 DIAMOND FIELDS RSPSE 5 [facility] SPMTRY INC INC PRE&POST- BRNCDILAT ADMN GAS 78718 DIAMOND FIELDS DILUT/WAS 5 [facility] HOUT LUNG INC INC VOL W/[place] DISTRI[place] [address] DIAMOND FIELDS DIFFUSING 5 [facility] CAPACITY INC INC PRTBLE E0431 MAXIMILIAN [...] #591 #591 HOME BLD GLU MON-50 BASIC 10504 DIAMOND FIELDS METABOLIC 5 [facility] PANEL INC INC CALCIUM TOTAL LIPID 75805 DIAOMND FIELDS PANEL 5 [facility] INC INC HEMOGLOBI 34654 DIAMOND FIELDS N 5 [facility] GLYCOSYLA INC INC JUMANA A1C COLLECTIO 77429 DIAMOND FIELDS N VENOUS 5 [facility] BLOOD INC INC VENIPUNCT URE O2 [...] AT EQUIPME EQUIPME PRSC FLW RATE RADEX 71071 [facility] SPINE 5 MEDICAL EDA LUMBOSACR IMAGING AL ASS MINIMUM 4 VIEWS OPHTH 88249 [facility] 5 VISION VISION XM&EVAL CENTER CENTER COMPRHNSV ESTAB PT 1/> DETERMINA 22571 [facility] TION 5 VISION REFRACTIV CENTER E STATE O2 CONC 1 E1390 MAXIMILIAN MAXIMILIAN DEL PORT 5 HOME HOME 85%/>02 MEDICAL MEDICAL CONC AT EQUIPME EQUIPME PRSC FLW RATE PRTBLE E0431 MAXIMILIAN MAXIMILIAN GASEOUS 5 HOME HOME O2 SYS MEDICAL MEDICAL RENT; EQUIPME EQUIPME FLWMTR HUMIDFR&M ASK RADIOLOGI 49971 DIAMOND DIAMOND C EXAM 5 [facility] [...] MG PROSTATE G0103 DIAMOND FIELDS CANCER 5 [facility] SCREENING INC INC ; PSA TEST COLLECTIO 87108 DIAMOND FIELDS N VENOUS 5 [facility] BLOOD INC INC VENIPUNCT URE RADEX HIP 35486 [facility] 5 MEDICAL EAD UNILATERA IMAGING L ASS COMPLETE MINIMUM 2 VIEWS HEMOGLOBI 93935 DIAMOND FIELDS N 5 [facility] GLYCOSYLA INC INC JUMANA A1C GLUCOSE 63569 DIAMOND FIELDS QUANTITAT 5 [facility] CHALINO BLOOD INC INC XCPT REAGENT STRIP BLOOD 10129 DIAMOND FIELDS COUNT 5 [facility] COMPLETE INC INC AUTO&AUTO DIFRNTL WBC LIPID 68282 DIAMOND FIELDS PANEL 5 [facility] INC INC HEPATIC 12850 DIAMOND FIELDS FUNCTION 5 [facility] MEM [...] RENT; EQUIPME EQUIPME FLWMTR HUMIDFR&M ASK COLLECTIO 32170 DIAMOND Lopez VENOUS 4 [facility] BLOOD INC INC VENIPUNCT URE BLOOD 88464 DIAMOND FIELDS COUNT 4 [facility] COMPLETE INC INC AUTO&AUTO DIFRNTL WBC HEMOGLOBI 07076 DIAMOND FIELDS N 4 [facility] GLYCOSYLA INC INC JUMANA A1C LIPID 59350 DIAMOND FIELDS PANEL 4 [facility] INC INC HEPATIC 44254 DIAMOND FIELDS FUNCTION 4 [facility] PANEL INC INC BASIC 81478 DIAMOND FIELDS METABOLIC 4 [facility] MEM [...] INHAL NON-CP U DOSE PER MG CREATININ 31578 DIAMOND FIELDS E BLOOD 4 [facility] INC INC COLLECTIO 59853 DIAMOND FIELDS N VENOUS 4 [facility] [place] [address] DIAMOND FIELDS UREA 4 [facility] MEM [...] #591 #591 HOME BLD GLU MON-50 COLLECTIO 73119 DIAMOND FIELDS N VENOUS 4 [facility] BLOOD INC INC VENIPUNCT URE HEMOGLOBI 98262 DIAMOND FIELDS N 4 [facility] GLYCOSYLA INC INC JUMANA A1C LIPID 12602 DIAMOND FIELDS PANEL 4 [facility] INC INC BASIC 36183 DIAMOND FIELDS METABOLIC 4 [facility] MEM [...] CONC AT [facility] FLW RATE BASIC 65817 LAB BRITTANEY LAB BRITTANEY METABOLIC 4 LITO LITO PANEL [employer] CALCIUM TOTAL RADIOLOGI 05450 [facility] C EXAM 4 MEDICAL EDA CHEST 2 IMAGING VIEWS ASS FRONTAL&L ATERAL INJECTION J0696 A Dominique Saldivar 4 SON SWIFT CEFTRIAXO PSC NE SODIUM PER 250 MG INJECTION J1030 A Dominique Saldivar 4 SON SWIFT METHYLPRE PSC DNISOLONE ACETATE 40 MG INJ J0702 A Dominique Saldivar BETAMETHA 4 SON SWIFT SONE PSC ACETATE & PHOSPHATE 3 MG THERAPEUT 66818 A Dominique Saldivar IC 4 SON SWIFT PROPHYLAC PSC TIC/DX INJECTION SUBQ/IM PHRM Q0513 [facility] DISPENSIN 3 PHARMACY PHARMACY G FEE #591 #591 INHALATIO N RX; PER 30 DAYS IPRATROPI J7644 [facility] UM 3 PHARMACY PHARMACY BROMIDE #591 #591 INHAL NON-CP U DOSE PER MG INJECTION J2805 DIAMOND FIELDS 3 [facility] SINCALIDE INC INC 5 MICROGRAM S HEPATOBIL 73261 [facility] SYST 3 MEDICAL EDA IMAG INC IMAGING GB ASS W/PHARMA INTERVENJ TECHNETIU A9537 DIAMOND Moreno TC-99M 3 [facility] MEBROFENI INC INC N DX UP TO 15 MCI BLD GLU A4253 [facility] TEST/REAG 3 PHARMACY PHARMACY T STRIPS #591 #591 [place] GLU MON-50 [place] [address] [facility] ABDOMINAL 3 MEDICAL EDA REAL IMAGING TIME ASS W/IMAGE DOCUMENTA TION PULM G0424 DIAMOND FIELDS REHAB 3 [facility] INCL EXER INC INC 1 HR PER SESS TO 2 PER DAY PULM G0424 DIAMOND FIELDS REHAB 3 [facility] INCL EXER INC INC 1 HR PER SESS TO 2 PER DAY TRANSFERA 77923 DIAMOND FIELDS SE 3 [facility] ASPARTATE INC INC AMINO AST SGOT PROSTATE G0103 DIAMOND FIELDS CANCER 3 [facility] SCREENING INC INC ; PSA TEST HEMOGLOBI 45035 DIAMOND FIELDS N 3 [facility] GLYCOSYLA INC INC JUMANA A1C GLUCOSE 05442 DIAMOND FIELDS QUANTITAT 3 [facility] CHALINO BLOOD INC INC XCPT REAGENT STRIP LIPID 06407 DIAMOND FIELDS PANEL 3 [facility] INC INC COLLECTIO 16187 DIAMOND FIELDS N VENOUS 3 [facility] BLOOD INC INC VENIPUNCT URE HEPATITIS 78549 DIAMOND FIELDS C 3 [facility] ANTIBODY INC INC BASIC 32078 DIAMOND FIELDS METABOLIC 3 [facility] PANEL INC INC CALCIUM TOTAL 3D 84025 DAMARIS CORTEZUTCHER RENDERING 3 MEDICAL EDA IMAGING W/INTERP& ASS POSTPROC DIFF WORK STATION BLOOD 61989 DIAMOND FIELDS COUNT 3 [facility] COMPLETE INC INC AUTO&AUTO DIFRNTL WBC CT THORAX 29004 DAMARIS CORTEZUTCHER W/O 3 MEDICAL EDA CONTRAST IMAGING MATERIAL ASS BILIRUBIN 49328 DIAMOND FIELDS DIRECT 3 [facility] INC INC COLLECTIO 17221 DIAMOND FIELDS N VENOUS 3 [facility] [place] [address] DIAMOND FIELDS THYROID 3 [facility] ST[place]ULAT[place] [address] DIAMOND FIELDS HEPATITIS 3 [facility] B INC INC SURFACE ANTIGEN HEPATITIS 86188 DIAMOND FIELDS B SURF 3 [facility] ANTIBODY INC INC HBSAB HEPATITIS 12455 DIAMOND FIELDS B CORE 3 [facility] ANTIBODY INC INC HBCAB TOTAL COMPREHEN 10222 DIAMOND FIELDS SIVE 3 [facility] METABOLIC INC INC PANEL HEPATITIS 39065 DIAMOND FIELDS A 3 [facility] ANTIBODY INC INC HAAB SPMTRY 77521 DIAMOND FIELDS W/VC 3 [facility] MEM [...] WND CARE PSC PART TX PLAN MANUAL 19579 PROFESSIO CROSSFIEL THERAPY 3 NAL REHAB D SANTY TQS 1/> ASSOC REGIONS PSC EACH 15 MINUTES MANUAL 67587 PROFESSIO CROSSFIEL THERAPY 3 NAL REHAB D SANTY TQS 1/> ASSOC REGIONS PSC EACH 15 MINUTES E-STIM G0283 PROFESSIO CROSSFIEL 1/> AREAS 3 NAL REHAB D SANTY OTH THAN ASSOC WND CARE PSC PART TX PLAN E-STIM G0283 PROFESSIO CROSSFIEL 1/> AREAS 3 NAL REHAB D SANTY OTH THAN ASSOC WND CARE PSC PART TX PLAN MANUAL 04930 PROFESSIO CROSSFIEL THERAPY 3 NAL REHAB D SANTY TQS 1/> ASSOC REGIONS PSC EACH 15 MINUTES MANUAL 97922 PROFESSIO CROSSFIEL THERAPY 3 NAL REHAB D SANTY TQS 1/> ASSOC REGIONS PSC EACH 15 MINUTES E-STIM G0283 PROFESSIO CROSSFIEL 1/> AREAS 3 NAL REHAB D SANTY OTH THAN ASSOC WND CARE PSC PART TX PLAN E-STIM G0283 PROFESSIO CROSSFIEL 1/> AREAS 3 NAL REHAB D SANTY OTH THAN ASSOC WND CARE PSC PART TX PLAN MANUAL 39114 PROFESSIO CROSSFIEL THERAPY 3 NAL REHAB D SANTY TQS 1/> ASSOC REGIONS PSC EACH 15 MINUTES [facility] Q0513 [facility] DISPENSIN 3 PHARMACY PHARMACY G FEE #591 #591 INHALATIO N RX; PER 30 DAYS IPRATROPI J7644 [facility] UM 3 PHARMACY PHARMACY BROMIDE #591 #591 INHAL NON-CP U DOSE PER MG E-STIM G0283 PROFESSIO CROSSFIEL 1/> AREAS 3 NAL REHAB D SANTY OTH THAN ASSOC WND CARE PSC PART TX PLAN MANUAL 46214 PROFESSIO CROSSFIEL THERAPY 3 NAL REHAB D SANTY TQS 1/> ASSOC REGIONS PSC EACH 15 MINUTES MANUAL 30857 PROFESSIO CROSSFIEL THERAPY 3 NAL REHAB D SANTY TQS 1/> ASSOC REGIONS PSC EACH 15 MINUTES E-STIM G0283 PROFESSIO CROSSFIEL 1/> AREAS 3 NAL REHAB D SANTY OTH THAN ASSOC WND CARE PSC PART TX PLAN E-STIM G0283 PROFESSIO CROSSFIEL 1/> AREAS 3 NAL REHAB D SANTY OTH THAN ASSOC WND CARE PSC PART TX PLAN MANUAL 65841 PROFESSIO CROSSFIEL THERAPY 3 NAL REHAB D SANTY TQS 1/> ASSOC REGIONS PSC EACH 15 MINUTES MANUAL 29341 PROFESSIO CROSSFIEL THERAPY 3 NAL REHAB D SANTY TQS 1/> ASSOC REGIONS PSC EACH 15 MINUTES E-STIM G0283 PROFESSIO CROSSFIEL 1/> AREAS 3 NAL REHAB D SANTY OTH THAN ASSOC WND CARE PSC PART TX PLAN E-STIM G0283 PROFESSIO CROSSFIEL 1/> AREAS 3 NAL REHAB D SANTY OTH THAN ASSOC WND CARE PSC PART TX PLAN PHYSICAL 63587 PROFESSIO CROSSFIEL THERAPY 3 NAL REHAB D SANTY EVALUATIO ASSOC N PSC MANUAL 77392 PROFESSIO CROSSFIEL THERAPY 3 NAL REHAB D SANTY TQS 1/> ASSOC REGIONS PSC EACH 15 MINUTES BLD GLU A4253 [facility] TEST/REAG 3 PHARMACY PHARMACY T STRIPS #591 #591 HOME BLD GLU RADIOLOGI 57316 DIAMOND FIELDS C EXAM 3 [facility] CHEST 2 INC INC VIEWS FRONTAL&L ATERAL TENS E0730 EMPI INC EMPI INC DEVICE 3 4/MORE LEADS MULTI NERVE STIMULATI ON O2 CONC 1 E1390 MAXIMILIAN YAO DEL PORT 3 HOME HOME 85%/>02 MEDICAL MEDICAL CONC AT [facility] FLW RATE MANUAL 35615 PROFESSIO CROSSFIEL THERAPY 3 NAL REHAB D SANTY TQS 1/> ASSOC REGIONS PSC EACH 15 MINUTES THERAPEUT 68908 PROFESSIO CROSSFIEL IC PX 1/> 3 NAL REHAB D SANTY AREAS ASSOC EACH 15 PSC MIN EXERCISES E-STIM G0283 PROFESSIO CROSSFIEL 1/> AREAS 3 NAL REHAB D SANTY OTH THAN ASSOC WND CARE PSC PART TX PLAN E-STIM G0283 PROFESSIO CROSSFIEL 1/> AREAS 3 NAL REHAB D SANTY OTH THAN ASSOC WND CARE PSC PART TX PLAN THERAPEUT 74711 PROFESSIO CROSSFIEL IC PX 1/> 3 NAL REHAB D SANTY AREAS ASSOC EACH 15 PSC MIN EXERCISES MANUAL 13663 PROFESSIO CROSSFIEL THERAPY 3 NAL REHAB D SANTY TQS 1/> ASSOC REGIONS PSC EACH 15 MINUTES O2 CONC 1 E1390 [facility] 3 HOME HOME 85%/>02 MEDICAL MEDICAL CONC AT [facility] FLW RATE MANUAL 00330 PROFESSIO CROSSFIEL THERAPY 3 NAL REHAB D SANTY TQS 1/> ASSOC REGIONS PSC EACH 15 MINUTES THERAPEUT 56276 PROFESSIO CROSSFIEL IC PX 1/> 3 NAL REHAB D SANTY AREAS ASSOC EACH 15 PSC MIN EXERCISES TENS E0730 EMPI INC EMPI INC DEVICE 3 4/MORE LEADS MULTI NERVE STIMULATI ON MANUAL 70833 PROFESSIO CROSSFIEL THERAPY 3 NAL REHAB D SANTY TQS 1/> ASSOC REGIONS PSC EACH 15 MINUTES APPLICATI 62824 PROFESSIO CROSSFIEL ON 3 NAL REHAB D SANTY SURFACE ASSOC NEUROSTIM PSC ULATOR E-STIM G0283 PROFESSIO CROSSFIEL 1/> AREAS 3 NAL REHAB D SANTY OTH THAN ASSOC WND CARE PSC PART TX PLAN MANUAL 63959 PROFESSIO CROSSFIEL THERAPY 3 NAL REHAB D SANTY TQS 1/> ASSOC REGIONS PSC EACH 15 MINUTES MANUAL 30641 PROFESSIO CROSSFIEL THERAPY 3 NAL REHAB D SANTY TQS 1/> ASSOC REGIONS PSC EACH 15 MINUTES E-STIM G0283 PROFESSIO CROSSFIEL 1/> AREAS 3 NAL REHAB D SANTY OTH THAN ASSOC WND CARE PSC PART TX PLAN E-STIM G0283 PROFESSIO CROSSFIEL 1/> AREAS 3 NAL REHAB D SANTY OTH THAN ASSOC WND CARE PSC PART TX PLAN MANUAL 20884 PROFESSIO CROSSFIEL THERAPY 3 NAL REHAB D SANTY TQS 1/> ASSOC REGIONS PSC EACH 15 MINUTES MANUAL 72553 PROFESSIO CROSSFIEL THERAPY 3 NAL REHAB D SANTY TQS 1/> ASSOC REGIONS PSC EACH 15 MINUTES PHYSICAL 27073 PROFESSIO CROSSFIEL THERAPY 3 NAL REHAB D SANTY EVALUATIO ASSOC N PSC E-STIM G0283 PROFESSIO CROSSFIEL 1/> AREAS 3 NAL REHAB D SANTY OTH THAN ASSOC WND CARE PSC PART TX PLAN E-STIM G0283 PROFESSIO CROSSFIEL 1/> AREAS 2 NAL REHAB D SANTY OTH THAN ASSOC WND CARE PSC PART TX PLAN MANUAL 70363 PROFESSIO CROSSFIEL THERAPY 2 NAL REHAB D SANTY TQS 1/> ASSOC REGIONS PSC EACH 15 MINUTES O2 CONC 1 E1390 MAXIMILIAN YAO [facility] 2 HOME HOME 85%/>02 MEDICAL MEDICAL CONC AT [facility] FLW RATE MANUAL 16418 PROFESSIO CROSSFIEL THERAPY 2 NAL REHAB D SANTY TQS 1/> ASSOC REGIONS PSC EACH 15 MINUTES E-STIM G0283 PROFESSIO CROSSFIEL 1/> AREAS 2 NAL REHAB D SANTY OTH THAN ASSOC WND CARE PSC PART TX PLAN APPL 26505 PROFESSIO CROSSFIEL MODALITY 2 NAL REHAB D SANTY 1/> AREAS ASSOC TRACTION PSC MECHANICA L MANUAL 51144 PROFESSIO CROSSFIEL THERAPY 2 NAL REHAB D SANTY TQS 1/> ASSOC REGIONS PSC EACH 15 MINUTES LIPID 61161 DIAMOND FIELDS PANEL 2 [facility] INC INC HEPATIC 83132 DIAMOND FIELDS FUNCTION 2 [facility] PANEL INC INC BASIC 81410 DIAMOND FIELDS METABOLIC 2 [facility] PANEL INC INC CALCIUM TOTAL HEMOGLOBI 25915 DIAMOND FIELDS N 2 [facility] GLYCOSYLA INC INC JUMANA A1C BLOOD 61903 DIAMOND FIELDS COUNT 2 [facility] COMPLETE INC INC AUTO&AUTO DIFRNTL WBC COLLECTIO 78466 DIAMOND FIELDS N VENOUS 2 [facility] BLOOD INC INC VENIPUNCT URE APPL 99224 PROFESSIO CROSSFIEL MODALITY 2 NAL REHAB D SANTY 1/> AREAS ASSOC TRACTION PSC MECHANICA L THERAPEUT 17577 Janna Saldivar IC 2 SON SWIFT PROPHYLAC PSC TIC/DX INJECTION SUBQ/IM ADMINISTR G0009 Janna Saldivar ATION OF 2 SON SWIFT PNEUMOCOC PSC SUBHASH VACCINE PPSV23 13749 Janna Saldivar VACCINE 2 2 SON SWIFT YRS OR PSC OLDER FOR SUBQ/IM USE INJ J0702 A Dominique Saldivar BETAMETHA 2 SON SWIFT SONE PSC ACETATE & PHOSPHATE 3 MG APPL 79328 PROFESSIO CROSSFIEL MODALITY 2 NAL REHAB D SANTY 1/> AREAS ASSOC TRACTION PSC MECHANICA L THERAPEUT 64422 PROFESSIO CROSSFIEL IC PX 1/> 2 NAL REHAB D SANTY AREAS ASSOC EACH 15 PSC MIN EXERCISES THERAPEUT 21892 PROFESSIO CROSSFIEL IC PX 1/> 2 NAL REHAB D SANTY AREAS ASSOC EACH 15 PSC MIN EXERCISES APPL 92322 PROFESSIO CROSSFIEL MODALITY 2 NAL REHAB D SANTY 1/> AREAS ASSOC TRACTION PSC MECHANICA L THERAPEUT 08293 PROFESSIO CROSSFIEL IC PX 1/> 2 NAL REHAB D SANTY AREAS ASSOC EACH 15 PSC MIN EXERCISES PHYSICAL 91547 PROFESSIO CROSSFIEL THERAPY 2 NAL REHAB D SANTY EVALUATIO ASSOC N PSC MANUAL 04036 PROFESSIO CROSSFIEL THERAPY 2 NAL REHAB D SANTY TQS 1/> ASSOC REGIONS PSC EACH 15 MINUTES O2 CONC 1 E1390 MAXIMILIAN [place] 2 HOME HOME 85%/>02 [facility] IN[facility] J0702 Janna Saldivar BETAMETHA 2 SON SWIFT SONE PSC ACETATE & PHOSPHATE 3 MG THERAPEUT 07058 Janna Saldivar C IC 2 SON CLINE MD PROPHYLAC PSC PSC TIC/DX INJECTION SUBQ/IM 3D 79851 DIAMOND FIELDS RENDERING 2 [facility] W/INTERP INC INC & POSTPROCE SS SUPERVISI ON MRI 16338 DIAMOND FIELDS SPINAL 2 [facility] CANAL INC INC CERVICAL W/O CONTRAST MATRL INJECTION J1030 Janna Saldivar 2 SON SWIFT METHYLPRE PSC DNISOLONE ACETATE 40 MG THERAPEUT 68799 Janna Saldivar IC 2 SON SWIFT PROPHYLAC PSC TIC/DX INJECTION SUBQ/IM O2 CONC 1 E1390 MAXIMILIAN MAXIMILIAN [place] 2 HOME HOME 85%/>[facility] IPRAT[facility]OPI J7644 [facility] UM [...] [facility] PER BOX 2 [facility] #591 #591 O2 CONC 1 E1390 MAXIM[facility]IAN [place] 2 HOME HOME 85%/>02 [facility] O2 CONC 1 E1390 MAXIM[facility]IAN [place] 2 HOME HOME 85%/>02 [facility] [place] [address] DIAMOND FIELDS INFUSION 2 [facility] THERAPY INC INC PROPHYLAX IS/DX EA HOUR ANESTHESI 84953 [facility] A HERNIA 2 ANESTH REPAIR OF THE LOWER BLUE ABDOMEN NOS THERAPEUT 88075 DIAMOND FIELDS IC 2 [facility] INJECTION INC INC IV PUSH EACH NEW DRUG RPR 1ST 61390 C ELBA SOFIA INGUN 2 KIMBERLYN WILEY JAMES AGE PSC 3 YRS/> [place] [address] DIAMOND FIELDS INFUSION 2 [facility] THERAPY/P INC INC ROPHYLAXI S /DX 1ST TO 1 HR ECG 75433 DIAMOND FIELDS ROUTINE 2 [facility] ECG INC INC W/LEAST 12 LDS TRCG ONLY W/O I&R INJECTION J2405 DIAMOND FIELDS 2 [facility] ONDANSETR INC INC ON HCL PER 1 MG BLOOD 99728 DIAMOND FIELDS COUNT 2 [facility] COMPLETE INC INC AUTO&AUTO DIFRNTL WBC COLLECTIO 32438 DIAMOND Lopez VENOUS 2 [facility] BLOOD INC INC VENIPUNCT URE BASIC 11693 DIAMOND FIELDS METABOLIC 2 [facility] PANEL INC INC CALCIUM TOTAL IPRATROPI J7644 [facility] UM 2 PHARMACY PHARMACY [place] #591 #591 INHAL NON-CP U DOSE PER MG PHRM Q0513 [facility] DISPENSIN 2 PHARMACY PHARMACY G FEE #591 #591 INHALATIO N RX; PER 30 DAYS O2 CONC 1 E1390 [facility] HOME HOME 85%/>02 [facility] BASIC 65334 DIAMOND FIELDS METABOLIC 2 [facility] PANEL INC INC CALCIUM TOTAL LIPID 17968 DIAMOND FIELDS PANEL 2 [facility] INC INC PROSTATE G0103 DIAMOND FIELDS CANCER 2 [facility] SCREENING INC INC ; PSA TEST COLLECTIO 35734 IDAMOND FIELDS N VENOUS 2 [facility] BLOOD INC INC VENIPUNCT URE HEMOGLOBI 90156 DIAMOND FIELDS N 2 [facility] GLYCOSYLA INC INC JUMANA A1C GLUCOSE 46832 DIAMOND FIELDS QUANTITAT 2 [facility] CHALINO BLOOD INC INC XCPT REAGENT STRIP RADEX 52910 DIAMOND FIELDS SPINE 2 [facility] CERVICAL INC INC 6 OR MORE VIEWS RADEX 92608 DAMARIS BARNETT SPINE 2 MEDICAL EDA CERVICAL IMAGING 2 OR 3 ASS VIEWS O2 CONC 1 E1390 MAXIMILIAN YAO [place] 2 HOME HOME 85%/>02 MEDICAL MEDICAL CONC AT [facility] FLW RATE LIPID 92950 DIAMOND FIELDS PANEL 2 [facility] INC INC HEPATIC 91632 DIAMOND FIELDS FUNCTION 2 [facility] PANEL INC INC BASIC 70129 DIAMOND FIELDS METABOLIC 2 [facility] PANEL INC INC CALCIUM TOTAL COLLECTIO 96940 DIAMOND FIELDS N VENOUS 2 [facility] BLOOD INC INC VENIPUNCT URE O2 CONC 1 E1390 [facility] 2 HOME HOME 85%/>02 MEDICAL MEDICAL CONC AT [facility] FLW RATE LANCETS A4259 [facility] PER BOX 2 PH[facility]ACY PHARMACY OF 100 #591 #591 THERAPEUT 20677 MARTIN SALAZAR IC 2 KESHIA KESHIA PROPHYLAC [...] INHAL NON-CP U DOSE PER MG PRESSURIZ 00115 MARTIN SALAZAR ED/NONPRE 2 KESHIA KESHIA SSURIZED INHALATIO N TREATMENT SPMTRY 87891 MARTIN MARTIN W/VC 2 KESHIA KESHIA EXPIRATOR Y EMY W/WO MXML VOL VNTJ O2 CONC 1 E1390 MAXIMILIAN [place] [facility] 2 HOME HOME 85%/>02 MEDICAL MEDICAL CONC AT EQUIPME EQUIPME [facility] FLW RATE O2 CONC 1 E1390 [facility] HOME HOME 85%/>[facility] BRNCDILAT 70258 MARTIN MARTIN RSPSE 2 KESHIA KESHIA SPMTRY PRE&POST- BRNCDILAT ADMN O2 CONC 1 E1390 [facility] 2 HOME HOME 85%/>02 MEDICAL MEDICAL CONC AT EQUIPME EQUIPME [facility] FLW RATE O2 CONC 1 E1390 [facility] 1 HOME HOME 85%/>02 [facility] FUNDUS 94778 ELOJanna COWANA PHOTOGRAP 1 VISION VISION HY W/INTERPR ETATION & REPORT O2 CONC 1 E1390 [facility] 1 HOME HOME 85%/>02 MEDICAL MEDICAL [facility] E[facility] LEVALBUTE J7614 [facility] ROL INHAL 1 PHARMACY PHARMACY NON-CP #591 #591 THRU DME U DOSE 0.5 MG LANCETS A4259 [facility] PER BOX 1 PHARMACY [facility] OF [facility] #591 #591 BLD GLU A4253 [facility] TEST/REAG 1 PHARMACY PHARMACY T STRIPS #591 #591 HOME BLD GLU MON-50 PHRM Q0513 [facility] DISPENSIN 1 PHARMACY PHARMACY G FEE #591 #591 INHALATIO N RX; PER 30 DAYS BASIC 41562 [facility] METABOLIC 1 [facility] PANEL INC INC CALCIUM TOTAL HEPATIC 93736 [facility] FUNCTION 1 [facility] PANEL INC INC LIPID 84543 [facility] FI[facility] PANEL 1 [facility] INC INC COLLECTIO 87635 [facility] FI[facility] N VENOUS 1 [facility] BLOOD INC INC VENIPUNCT URE O2 CONC 1 E1390 MAXIMILIAN [place] 1 HOME HOME 85%/>02 MEDICAL MEDICAL CONC AT EQUIPME EQUIPME [facility] FLW RATE PHRM Q0513 [facility] DISPENSIN 1 PHARMACY PHARMACY G FEE #591 #591 INHALATIO N RX; PER 30 DAYS LEVALBUTE J7614 [facility] ROL INHAL 1 PHARMACY PHARMACY NON-CP #591 #591 THRU DME U DOSE 0.5 MG O2 CONC 1 E1390 MAXIM[place]IAN [place] HOME HOME 85%/>02 MEDICAL MEDICAL CONC AT EQUIPME EQUIPME [facility] FLW RATE O2 CONC 1 E1390 [place] 1 HOME HOME 85%/>02 [facility] 74995 [facility] NUTRITION 1 [facility] INC INC ASSMT&IVN TJ INDIV EACH 15 AR SPMTRY 17324 MARTIN MARTIN W/VC 1 KESHIA KESHIA EXPIRATOR Y EMY W/WO MXML VOL VNTJ LANCETS A4259 [facility] PER BOX 1 PHARMACY PHARMACY OF 100 #591 #591 BLD GLU A4253 [facility] TEST/REAG 1 PHARMACY PHARMACY T STRIPS #591 #591 HOME BLD GLU MON-50 O2 CONC 1 E1390 MAXIMILIAN MOTA [facility] 1 HOME HOME 85%/>02 MEDICAL MEDICAL [facility] E[facility] BASIC 38284 [facility] FI[facility] METABOLIC 1 [facility] PANEL INC INC CALCIUM TOTAL LIPID 36870 [facility] FI[facility] PANEL 1 [facility] INC INC COLLECTIO 78708 [facility] FIELDS N VENOUS 1 [facility] [place]LOOD [place] [address] DI[facility] FIELDS PROSTATE 1 [facility] SPECIFIC INC INC ANTIGEN TOTAL O2 CONC 1 E1390 MAXIMILIAN [place] 1 HOME MED HOME MED 85%/>02 EQUIP. L EQUIP. L CONC AT [facility] FLW RATE PHRM Q0513 [facility] DISPENSIN 1 PHARMACY PHARMACY G FEE #591 #591 INHALATIO N RX; PER 30 DAYS LEVALBUTE J7614 [facility] ROL INHAL 1 PHARMACY PHARMACY NON-CP #591 #591 THRU DME U DOSE 0.5 MG O2 CONC 1 E1390 [place] [address] HOME HOME 85%/>02 MEDICAL MEDICAL CONC AT EQUIPME EQUIPME [facility] FLW RATE O2 CONC 1 E1390 [place] [address] HOME MED HOME MED 85%/>02 EQUIP. L EQUIP. L CONC AT [facility] FLW RATE BLD GLU A4253 [facility] TEST/REAG 1 PHARMACY PHARMACY T STRIPS #591 #591 HOME BLD GLU MON-50 O2 CONC 1 E1390 [place] [address] HOME MED HOME MED 85%/>02 EQUIP. L EQUIP. L CONC AT [facility] FLW RATE O2 CONC 1 E1390 [place] [address] HOME MED HOME MED 85%/>02 EQUIP. L EQUIP. L CONC AT [facility] FLW RATE INJ J2930 A Dominique GA METHYLPRD 1 SON SWIFT NISOLONE PSC SODIUM SUCCNAT TO 125 MG IM ADM 93734 A Dominique GA PRQ ID 1 SON SWIFT SUBQ/IM PSC NJXS 1 VACCINE LEVALBUTE J7614 [facility] ROL INHAL 1 PHARMACY PHARMACY NON- #591 #591 THRU DME U DOSE 0.5 MG PHRM Q0513 [facility] DISPENSIN 1 PHARMACY PHARMACY G FEE #591 #591 INHALATIO N RX; PER 30 DAYS SPMTRY 92797 MARTIN MARTIN W/VC 1 KESHIA KESHIA EXPIRATOR Y EMY W/WO MXML VOL VNTJ O2 CONC 1 E1390 [place] [address] HOME MED HOME MED 85%/>02 EQUIP. L EQUIP. L CONC AT [facility] FLW RATE LANCETS A4259 [facility] PER BOX 1 PHARMACY PHARMACY [facility] #591 #591 BLD GLU A4253 [facility] TEST/REAG 1 PHARMACY PHARMACY T STRIPS #591 #591 HOME BLD GLU MON-50 CHIROPRAC 90509 [place] TIC 1 ROS MANIPULAT CHIROPRAC [place] TX TIC CENTE SPINAL 3-4 REGIONS TRANSFERA 12667 [facility] SE 1 [facility] ASPARTATE INC INC AMINO AST SGOT LIPID 84047 [facility] PANEL 1 [facility] INC INC GLUCOSE 93954 [facility] QUANTITAT 1 [facility] CHALINO BLOOD INC INC XCPT REAGENT STRIP HEMOGLOBI 24043 [facility] FIELDS N 1 [facility] GLYCOSYLA INC INC JUMANA A1C COLLECTIO 03057 [facility] FI[facility] N VENOUS 1 [facility] BLOOD INC INC VENIPUNCT URE CHIROPRAC 53847 [place] TIC 1 ROS MANIPULAT CHIROPRAC [place] TX TIC CENTE SPINAL 3-4 REGIONS CHIROPRAC 43706 [place] TIC 1 ROS MANIPULAT CHIROPRAC [place] TX TIC CENTE SPINAL 3-4 REGIONS CHIROPRAC 52420 [place] TIC 0 ROS MANIPULAT CHIROPRAC [place] TX TIC CENTE SPINAL 3-4 REGIONS APPL 16245 [place] MODALITY 0 ROS 1/> AREAS CHIROPRAC TRACTION TIC CENTE MECHANICA L RADEX 22535 [place] SPINE 0 ROS LUMBOSACR CHIROPRAC AL 2/3 TIC CENTE VIEWS RADEX 23224 [place] SPINE 0 ROS CERVICAL CHIROPRAC 2 OR 3 TIC CENTE VIEWS PHRM Q0513 [facility] DISPENSIN 0 PHARMACY PHARMACY G FEE #591 #591 INHALATIO N RX; PER 30 DAYS LEVALBUTE J7614 [facility] ROL INHAL 0 PHARMACY PHARMACY NON-CP #591 #591 THRU DME U DOSE 0.5 MG OPH 08258 [facility] XM&EVAL COMPRE NEW PT 1/> VST O2 CONC 1 E1390 MAXIMILIAN [place] HOME MED HOME MED 85%/>02 EQUIP. L EQUIP. L CONC AT [facility] FLW RATE NEBULIZER E0570 MAXIMILIAN YAO WITH 0 HOME MED HOME MED COMPRESSO [place]. [place] [address] PATHOLOGY PATHOLOGY SURG 0 & & PATHOLOGY CYTOLOGY CYTOLOGY LAB LAB GROSS&[place] [address] [facility] INFUSION 0 [facility] THERAPY INC INC PROPHYLAX IS/DX EA HOUR COLONOSCO 66621 [place] TATE GENE PY 0 MEDICAL W/BIOPSY SERV SINGLE/[place] [address] [facility] INFUSION 0 [facility] THERAPY/P INC INC ROPHYLAXI S /DX 1ST TO 1 HR O2 CONC 1 E1390 MAXIMILIAN YAO [place] 0 HOME MED HOME MED 85%/>02 EQUIP. L EQUIP. L CONC AT [facility] FLW RATE LEVALBUTE J7614 [employer] ROL INHAL 0 PHARMACY PHARMACY NON-CP #591 #591 THRU DME U DOSE 0.5 MG PHRM Q0513 [employer] DISPENSIN 0 PHARMACY PHARMACY G FEE #591 #591 INHALATIO N RX; PER 30 DAYS NEBULIZER E0570 MAXIMILIAN YAO WITH 0 HOME MED HOME MED COMPRESSO EQUIP. L EQUIP. L R O2 CONC 1 E1390 MAXIMILIAN YAO [place] 0 HOME MED HOME MED 85%/>02 EQUIP. L EQUIP. L CONC AT [facility] FLW RATE ADMINISTR G0008 A Dominique Saldivar ATION OF 0 SON SWIFT INFLUENZA PSC VIRUS VACCINE IIV 88264 Janna Saldivar VACCINE 0 SON SWIFT PRESERV PSC FREE INCREASED AG CONTENT IM CT PELVIS 09445 [facility] EDA W/[place] [address] DIAMOND GREENON AMYLASE 0 [facility] INC INC CUL BACT 93831 [facility] STOOL 0 [facility] AEROBIC INC INC ISOL SALMONELL A&SHIGELL PROTHROMB 92557 [facility] IN TIME 0 [facility] INC INC COMPREHEN 06670 [facility] SIVE 0 [facility] METABOLIC INC INC PANEL OVA&JOSE RAMON 67984 [facility] FI[facility] ITES 0 [facility] DIRECT INC INC SMEARS CONCENTRA TION & ID 3D 66933 [facility] RENDERING 0 [facility] INC INC W/INTERP& POSTPROC DIFF WORK STATION PRESSURIZ 12779 [facility] ED/NONPRE 0 [facility] SSURIZED INC INC INHALATIO N TREATMENT BLOOD 60879 [facility] COUNT 0 [facility] COMPLETE INC INC AUTO&AUTO DIFRNTL WBC BLOOD 57033 [facility] OCCULT 0 [facility] PEROXIDAS INC INC E ACTV QUAL FECES 1-3 [place] [address] [facility] LIPASE 0 [place] [address] [place] ANIBAL ABDOMEN 0 MEDICAL EDA W/CONTRAS IMAGING T ASS MATERIAL INJECTION J1040 MARTIN MARTIN 0 KESHIA KESHIA METHYLPRE DNISOLONE ACETATE 80 MG PRESSURIZ 32569 MARTIN MARTIN ED/NONPRE 0 KESHIA KESHIA SSURIZED INHALATIO N TREATMENT BRNCDILAT 56794 MARTIN MARTIN RSPSE 0 KESHIA KESHIA SPMTRY PRE&POST- BRNCDILAT ADMN LEVALBUTE J7614 MARTIN MARTIN ROL INHAL 0 KESHIA KESHIA NON-CP THRU DME U DOSE 0.5 MG INJECTION J3301 MARTIN LABONE OF 0 KESHIA [place] INC TRIAMCINO LONE ACETONIDE NOS 10 MG BUDESONID J7626 MARTIN MARTIN E INHAL 0 KESHIA KESHIA NON-CP UNIT DOSE UP TO 0.5 MG THERAPEUT 89332 MARTIN MARTIN IC 0 KESHIA KESHIA PROPHYLAC TIC/DX INJECTION SUBQ/IM NEBULIZER E0570 MAXIMILIAN YAO WITH 0 HOME MED HOME MED COMPRESSO EQUIP. L EQUIP. L R O2 CONC 1 E1390 MAXIMILIAN [place]AO [place] 0 HOME MED HOME MED 85%/>02 EQUIP. L EQUIP. L CONC AT [facility] FLW RATE BASIC 89539 DI[facility] FIELDS METABOLIC 0 [facility] PANEL INC INC CALCIUM TOTAL LIPID 73369 [facility] FI[facility] PANEL 0 [facility] INC INC PROSTATE G0103 [facility] CANCER 0 [facility] SCREENING INC INC ; PSA TEST COLLECTIO 18496 DI[facility] FIELDS N VENOUS 0 [facility] BLOOD INC INC VENIPUNCT URE NEBULIZER E0570 MAXIMILIAN YAO WITH 0 HOME MED HOME MED COMPRESSO EQUIP. L EQUIP. L R O2 CONC 1 E1390 MAXIMILIAN YAO [place] 0 HOME MED HOME MED 85%/>02 EQUIP. L EQUIP. L CONC AT [facility] FLW RATE SPMTRY 47853 MARTIN SALAZAR, W/VC 0 KESHIA B KESHIA B EXPIRATOR Y EMY W/WO MXML VOL VNTJ NEBULIZER E0570 MAXIMILIAN YAO WITH 0 HOME MED HOME MED COMPRESSO EQUIP. EQUIP. R [facility] BLD GLU A4253 [facility] TEST/REAG 0 PHARMACY PHARMACY T STRIPS #591 #591 HOME BLD GLU MON-50 LANCETS A4259 [facility] PER BOX 0 PHARMACY PHARMACY [facility] #591 #591 O2 CONC 1 E1390 MAXIMILIAN YAO [place] 0 HOME MED HOME MED 85%/>02 EQUIP. EQUIP. CONC AT [employer] [facility] FLW RATE PHRM Q0513 [facility] DISPENSIN 0 PHARMACY PHARMACY G FEE #591 #591 INHALATIO N RX; PER 30 DAYS LEVALBUTE J7614 [facility] ROL INHAL 0 PHARMACY PHARMACY NON-CP #591 #591 THRU DME U DOSE 0.5 MG INJECTION J3301 MARTIN SALAZAR, 0 KESHIA B KESHIA B TRIAMCINO LONE ACETONIDE NOS 10 MG INJECTION J2010 MARTIN, MARTIN, 0 KESHIA B KESHIA B LINCOMYCI N HCL UP TO 300 MG IM ADM 18324 MARTIN, MARTIN, PRQ ID 0 KESHIA B KESHIA B SUBQ/IM NJXS 1 VACCINE IM ADM 71001 MARTIN, MARTIN, PRQ ID 0 KESHIA B KESHIA B SUBQ/IM NJXS EA VACCINE SPMTRY 71332 MARTIN, MARTIN, W/VC 0 KESHIA B KESHIA B EXPIRATOR Y EMY W/WO MXML VOL VNTJ PRESSURIZ 40005 MARTIN, MARTIN, ED/NONPRE 0 KESHIA B KESHIA B SSURIZED INHALATIO N TREATMENT INJECTION J1020 MARTIN, MARTIN, 0 KESHIA B KESHIA B METHYLPRE DNISOLONE ACETATE 20 MG NEBULIZER E0570 MAXIMILIAN YAO WITH 0 HOME MED HOME MED COMPRESSO EQUIP. EQUIP. R [facility] O2 CONC 1 E1390 MAXIMILIAN MAXIMILIAN [place] 0 HOME MED HOME MED 85%/>02 EQUIP. EQUIP. CONC [facility] FLW RATE NEBULIZER E0570 MAXIMILIAN YAO WITH 0 HOME MED HOME MED COMPRESSO EQUIP. EQUIP. R [facility] O2 CONC 1 E1390 MAXIMILIAN MAXIMILIAN [place] 0 HOME MED HOME MED 85%/>02 EQUIP. EQUIP. CONC [facility] FLW RATE INJECTION J1020 MARTIN, MARTIN, 0 KESHIA B KSEHIA B METHYLPRE DNISOLONE ACETATE 20 MG PRESSURIZ 99761 MARTIN, MARTIN, ED/NONPRE 0 KESHIA B KESHIA B SSURIZED INHALATIO N TREATMENT BRNCDILAT 00975 MARTIN, MARTIN, RSPSE 0 KESHIA B KESHIA B SPMTRY PRE&POST- BRNCDILAT ADMN IM ADM 06868 MARTIN, MARTIN, PRQ ID 0 KESHIA B KESHIA B SUBQ/IM NJXS 1 VACCINE INJECTION J3301 MARTIN, MARTIN, 0 KESHIA B KESHIA B TRIAMCINO LONE ACETONIDE NOS 10 MG COLLECTIO 59260 Janna PERRY N VENOUS 0 SON Fox BLOOD PSC VENIPUNCT URE BLOOD 10452 Janna PERRY COUNT 0 SON Fox COMPLETE PSC AUTO&AUTO DIFRNTL WBC BASIC 94817 LAB BRITTANEY LAB BRITTANEY METABOLIC 0 [employer]ING CALCIUM TOTAL SPMTRY 50927 MARTIN SALAZAR, W/VC 0 KESHIA B KESHIA B EXPIRATOR Y EMY W/WO MXML VOL VNTJ NEBULIZER E0570 MAXIMILIAN YAO WITH 0 HOME MED HOME MED COMPRESSO EQUIP. EQUIP. R [facility] O2 CONC 1 E1390 MAXIMILIAN YAO [place] 0 HOME MED HOME MED 85%/>02 EQUIP. EQUIP. CONC AT [facility] PRSC FLW RATE BRNCDILAT 13357 MARTIN SALAZAR, RSPSE 0 KESHIA B KESHIA B SPMTRY PRE&POST- BRNCDILAT ADMN DEMO&/SARAY 50494 MARTIN SALAZAR, L OF PT 0 KESHIA B KESHIA B UTILIZ AERSL GEN/NEB/I NHLR/IP ADMN SET A7005 MAXIMILIAN YAO W/SM VOL 0 HOME MED HOME MED NONFILTR EQUIP. EQUIP. NEBULIZR [facility] NON-DISPB L NEBULIZER E0570 MAXIMILIAN YAO WITH 0 HOME MED HOME MED COMPRESSO EQUIP. EQUIP. R [facility] HEPATITIS 71795 [facility] A 0 [facility] ANTIBODY INC INC HAAB COMPREHEN 00157 [facility] FI[facility] SIVE 0 [facility] METABOLIC INC INC PANEL HEPATITIS 38252 [facility] FIEL[facility] B CORE 0 [facility] ANTIBODY INC INC HBCAB TOTAL COLLECTIO 05008 [facility] FIELDS N VENOUS 0 [facility] BLOOD INC INC VENIPUNCT URE HEPATITIS 22510 [facility] FI[facility]DS B SURF 0 [facility] [address] [facility] HEPATITIS 0 [facility] B INC INC SURFACE ANTIGEN BLOOD 42775 [facility] COUNT 0 [facility] COMPLETE INC INC AUTO&[place] [address] DIAMOND FIELDS TESTOSTER 0 [facility] ONE TOTAL INC INC HEMOGLOBI 92813 DIAMOND FIELDS N 0 [facility] GLYCOSYLA INC INC JUMANA A1C HEPATITIS 55524 [facility] FIELDS C 0 [facility] ANTIBODY INC INC LIPID 95949 [facility] FI[facility] PANEL 0 [facility] INC INC NEBULIZER E0570 MAXIMILIAN YAO WITH 0 HOME MED HOME MED COMPRESSO EQUIP. [employer] NEBULIZER E0570 MAXIMILIAN YAO WITH 0 HOME MED HOME MED COMPRESSO EQUIP. EQUIP. R [employer] [facility] NEBULIZER E0570 MAXIMILIAN YAO WITH 9 HOME MED HOME MED COMPRESSO EQUIP. EQUIP. R [employer] ADMN SET A7003 MAXIMILIAN YAO SM VOL 9 HOME MED HOME MED NONFILTR EQUIP. EQUIP. PNEUMAT [facility] NEBULIZR DISPBL NEBULIZER E0570 MAXIMILIAN YAO WITH 9 HOME MED HOME MED COMPRESSO EQUIP. EQUIP. R [employer] [facility] AREO MASK A7015 MAXIMILIAN YAO USED W/ 9 HOME MED HOME MED DME NEB EQUIP. EQU[employer] [facility] Encounters Encounter Start End Date Code Location Performer Type Date OFFICE 99313 [place] MARYANNE OUTPATIEN 7 7 MEDICAL T VISIT SERV 25 FOUNDATIO MINUTES N OFFICE 82846 AMISHESTELLA SMALLS OUTPATIEN 7 7 HEALTH T [place] 45 MEDICAL MINUTES GROUP OFFICE 67836 [facility] OUTPATIEN 7 7 PHYSICIAN A T VISIT S GROUP 25 MINUTES [facility] - 7 7 [facility]PAT[facility] T [facility] - 7 7 [facility] OUTPATIEN INC T OFFICE 82962 [facility] MOON OUTPATIEN 7 7 PHYSICIAN T VISIT [...] 7 [facility] OUTPATIEN INC T OFFICE 01509 OSWALDO RIVASPATIEN 7 7 MD DOMINGO, T VISIT [facility] 15 MINUTES OFFICE 22127 [facility] 7 PHYSICIAN ISAEL [facility] 45 S GROUP MINUT[facility] DIAMOND - 6 6 [facility] OUTPATIEN INC T OFFICE [address] OUTPATIEN 6 6 MD DOMINGO, T VISIT [facility] 10 MINUTES [facility] DIAMOND - OTHER 6 6 [facility] DIAMOND - 6 6 [facility] OUTPATIEN INC T OFFICE 85980 OSWALDO GOMEZ OUTPATIEN 6 6 MD DOMINGO, T VISIT [facility] 15 MINUTES HOSPITAL [facility] - 6 6 [facility] OUTPATIEN INC T [facility]OSPITAL [facility] - 6 6 [facility] OUTPATIEN INC T OFFICE 38107 OSWALDO RIVASPATITHIAGO 6 6 MD DOMINGO, T VISIT [facility] 15 MINUTES OFFICE 65262 [facility] OUTPATIEN 6 6 [facility] 10 MINUTES [facility] DIAMOND - 6 6 [facility] OUTPATIEN [facility] T OFFICE 70717 OSWALDO GOMEZ OUTPATIEN 6 6 MD DOMINGO, T VISIT PSC 15 MINUTES HOSPITAL DI[facility]OND - 6 6 [facility] OUTPATIEN [facility] T OFFICE 05984 OSWALDO GOMEZ OUTPATIEN 6 6 MD [place]O, T VISIT PSC 15 MINUTES [facility] - 6 6 [facility] OUTPATIEN [facility] T HOSPITAL DI[facility]OND - 6 6 [facility] OUTPATIEN [facility] T OFFICE 43741 OSWALDO MIX OUTPATIEN 6 6 MD DOMINGO, T VISIT PSC 15 MINUTES HOSPITAL [facility]OND - 6 6 [facility] OUTPATIEN [facility] T OFFICE 64121 A Dominique RIVASPATITHIAGO 6 6 SON ADAIR T VISIT PSC 15 MINUTES HOSPITAL DI[facility]OND - 6 6 [facility] OUTPATIEN [facility] DIAMOND - OTHER 6 6 [facility] OFFICE 22508 OSWALDO GOMEZ OUTPATIEN 6 6 MD DOMINGO, T VISIT PSC 15 MINUTES OFFICE 81849 A Dominique RIVASPATITHIAGO 6 6 [place]ON [place] T VISIT PSC 15 MINUTES HOSPITAL DIAMOND - OTHER 6 6 [facility] DIAMOND - 6 6 [facility] OUTPATIEN [facility] T OFFICE 00071 A Dominique STEWART 6 6 SON [place]OU[place] T VISIT PSC 15 MINUTES HOSPITAL DIAMOND - 6 6 [facility] OUTPATIEN [facility] T OFFICE 61020 A Dominique STEWART 6 6 SON ROUSE T VISIT PSC 15 MINUTES OFFICE 40336 OSWALDO QUINONEZ MARIA DEL ROSARIO OUTPATIEN 6 6 MD DOMINGO, T NEW 45 PSC MINUTES OFFICE 17740 A Dominique CLINE OUTPATIEN 6 6 SON GREGGD T VISIT PSC 15 MINUTES OFFICE 33038 A C SON OUTPATIEN 5 5 SON ADAIR T VISIT PSC 15 MINUTES [facility]OSP[facility] [address] [facility] DIAMOND - 5 5 [facility] OUTPATIEN INC T OFFICE 67891 A C SON OUTPATIEN 5 5 SON ADAIR T VISIT PSC 15 MINUTES HOSPITAL [facility] - 5 5 [facility] OUTPATIEN INC T OFFICE 67419 [place] MARYANNE OUTPATIEN 5 5 MEDICAL JAM T VISIT SERV 15 FOUNDATIO MINUTES N OFFICE 54675 A Dominique CLINE OUTPATIEN 5 5 SON ADAIR T VISIT PSC 15 MINUTES OFFICE 52636 A Dominique CLINE OUTPATIEN 5 5 SON ADAIR T VISIT PSC 15 MINUTES [facility]OSPITAL [facility] - 5 5 [facility] OUTPATIEN INC T OFFICE 74457 A Dominique CLINE OUTPATIEN 5 5 SON ADAIR T VISIT PSC 15 MINUTES OFFICE 24610 [place] MARYANNE OUTPATIEN 5 5 MEDICAL JAM T VISIT SERV 25 FOUNDATIO MINUTES HOSPITAL DI[facility] - 5 5 [facility] OUTPATIEN [facility] DIAMOND - 5 5 [facility] OUTPATIEN INC T OFFICE 10605 [place] MADDEN OUTPATIEN 5 5 MEDICAL JAM T VISIT SERV 15 FOUNDATIO MINUTES [facility] DIAMOND - 5 5 [facility] OUTPATIEN INC T OFFICE 35064 A Dominique Saldivar OUTPATIEN 5 5 SON SWIFT T VISIT PSC 15 MINUTES OFFICE 26570 A Dominique Saldivar OUTPATIEN 5 5 SON SWIFT T VISIT PSC 15 MINUTES OFFICE 46890 FRANTZ MADDEN OUTPATIEN 5 5 MEDICAL JAM T VISIT SERV 15 FOUNDATIO MINUTES [facility] DIAMOND - 5 5 [facility] OUTPATIEN INC T OFFICE 64756 A Dominique CLINE OUTPATIEN 5 5 SON ADAIR T VISIT PSC 15 MINUTES [facility]OSPITAL [facility] - 5 5 [facility] OUTPATIEN INC T OFFICE 38583 FRANTZ MADDEN OUTPATIEN 4 4 MEDICAL JAM T VISIT SERV 15 FOUNDATIO MINUTES [facility] DIAMOND - 4 4 [facility] OUTPATIEN INC T OFFICE 18534 DANIA PEDROEN 4 4 KANDI ELIAS T VISIT PLLC 10 MINUTES OFFICE 07712 PAT PEDRO 4 4 KANDI ELIAS T NEW 10 PLLC MINUTES [facility] - OTHER 4 4 [facility] OFFICE 23093 FRANTZ MADDEN OUTPATIEN 4 4 MEDICAL JAM T VISIT SERV 15 FOUNDATIO MINUTES [facility] - OTHER 4 4 [facility] OFFICE 56203 A Dominique RIVASPATITHIAGO 4 4 SON SWIFT T VISIT PSC 15 MINUTES [facility] - [facility] 4 [facility] T OFFICE 43958 A Dominique RIVASPATITHIAGO 4 4 SON SWIFT T VISIT PSC 15 MINUTES OFFICE 78426 [facility] KIMBERLYN STEWART 3 3 PHYSICIAN INEZ T VISIT S GROUP 10 MINUTES [facility] - 3 3 [facility] T OFFICE 30579 [facility] KIMBERLYN STEWART 3 3 PHYSICIAN INEZ T VISIT S GROUP 25 MINUTES OFFICE 99801 [place] OUTPATIEN 3 3 MEDICAL JAM T VISIT SERV 15 FOUNDATIO [facility] DIAMOND - 3 3 [facility] DIAMOND - 3 3 [facility] DIAMOND [facility] 3 3 [facility] OUTPAT[facility]EN [facility] T OFFICE 98957 [place]ADD[place] OUTPATIEN 3 3 MEDICAL JAM T NEW 60 SERV MINUTES [facility] DIAMOND [facility] 3 3 [facility] OUTPAT[facility]EN [facility] DIAMOND [facility] 3 3 [facility] DIAMOND - 2 2 [facility] OUT[facility]EN [facility] T OFFICE 80804 A C CLINE A OUTPATIEN 2 2 SON SWIFT T VISIT PSC 15 MINUTES OFFICE 82710 A C CLINE A OUTPATIEN 2 2 SON SWIFT T VISIT PSC 15 MINUTES [facility]PITAL [facility] - 2 2 [facility] INC T OFFICE 53312 A C CLINE A OUTPATIEN 2 2 SON SWIFT T VISIT [facility] 15 MINUTES [facility]OSPITAL DI[facility]OND - 2 2 [facility] OUTPAT[facility]EN [facility] T [facility] 35387 Dominique SOFIA OUTPATITHIAGO 2 2 KIMBERLYN Smith MD [facility] MINUTES [facility]OSPITAL DI[facility]OND - 2 2 [facility] - 2 2 [facility] DI[facility] - 2 2 [facility] T OFFICE 97557 A C CLINE A OUTPATIEN 2 2 SON SWIFT T VISIT [facility] 15 MINUTES [facility]OSPITAL DIAMOND [facility] 2 2 [facility] T OFFICE 94746 A Dominique Saldivar OUTPATIEN 2 2 SON SWIFT T VISIT PSC 15 MINUTES OFFICE 36848 MARTIN SALAZAR OUTPATIEN 2 2 KESHIA SCHMITT T VISIT 40 MINUTES OFFICE 06310 MARTIN MARTIN OUTPATIEN 2 2 KESHIA SCHMITT T VISIT 25 MINUTES [facility] - 1 1 [facility] T OFFICE 74296 A Dominique Saldivar OUTPATIEN 1 1 SON SWIFT T VISIT PSC 15 MINUTES [facility]PITAL [facility] - 1 1 [facility] INC T OFFICE 54391 MARTIN MARTIN OUTPATIEN 1 1 KESHIA SCHMITT T VISIT 15 MINUTES [facility]PITAL [facility] - 1 1 [facility] INC T OFFICE 24398 A Dominique GA OUTPATIEN 1 1 SON SWIFT T VISIT PSC 15 MINUTES EMERGENCY 34494 HECTOR YAP RON [address] [facility] SERVICES T VISIT HIGH/URGE NT SEVERITY OFFICE 45489 A Dominique GA OUTPATIEN 1 1 SON SWIFT T VISIT PSC 15 MINUTES OFFICE 10960 MARTIN SALAZAR OUTPATIEN 1 1 KESHIA SCHMITT T VISIT 15 MINUTES [facility]PITAL [facility] - 1 1 [facility] OUT[facility] INC T OFFICE 37735 CYNTHIANA CASA OUTPATIEN 0 0 ROS T NEW 30 CHIROPRAC MINUTES [facility] OFFICE 89001 A Dominique Saldivar OUTPATIEN 0 0 SON SWIFT T VISIT PSC 15 MINUTES [facility] - 0 0 [facility] T OFFICE 09926 A Dominique Saldivar OUTPATIEN 0 0 SON SWIFT T VISIT PSC 15 MINUTES EMERGENCY 15093 HECTOR LEHMAN DEPT 0 0 EMERGENCY III [facility] VISIT SERVICES HIGH SEVERITY& THREAT [facility] DIAMOND - 0 0 [facility] T EMERGENCY 78189 [facility] 0 0 [facility] DEPART[facility] T VISIT HIGH/URGE NT SEVERITY OFFICE 25524 MARTINDENNIS BEYURN OUTPATIEN 0 0 KESHIA KESHIA T VISIT 40 MINUTES [facility] - 0 0 [facility] T OFFICE 90682 MARTIN SALAZAR, OUTPATIEN 0 0 KESHIA B KESHIA B T VISIT 15 MINUTES OFFICE 34658 MICHOACANO SALAZARHBURN, OUTPATIEN 0 0 KESHIA B KESHIA B T VISIT 25 MINUTES OFFICE 47025 MARTIN SALAZAR, OUTPATIEN 0 0 KESHIA B KESHIA B T VISIT 25 MINUTES OFFICE [id number] Janna PERRY OUTPATIEN 0 0 SON Fox T VISIT PSC 15 MINUTES OFFICE [id number] MARTIN SALAZAR, OUTPATIEN 0 0 KESHIA B KESHIA B T VISIT 15 MINUTES OFFICE [id number] MICHOACANO SALAZARHBURN, OUTPATIEN 0 0 KESHIA B KESHIA B T NEW 45 MINUTES [facility]
--- OUTSIDE RECORDS SUMMARY | 2016-12-13 12:35 | External Medical Summary Rpt | CCD ---
Author Author , ОЛЕГ Manrique ОЛЕГ Address Unknown Phone [email or web address] Care Team Providers Care Seismic Engineer Name Role Phone A Dominique CLINE MD [facility], A Unavailable Unavailable Dominique CLINE MD PSC [address]W[facility] L[address] MD, PSC, Unavailable Unavailable OSWALDO L[address] MD, PSC [facility] Unavailable Unavailable MEDICAL GROUP, [facility] BEINEKE SANTY, BEINEKE Unavailable Unavailable [facility] Unavailable Unavailable [facility], [facility] [place] [place] Unavailable Unavailable [facility] [...] [facility] HEMANTH ROUSE, HEMANTH Unavailable Unavailable NASIM VELASQUEZ, MARELY RON Unavailable Unavailable [facility] Unavailable Unavailable INC, [facility] VARNER WILIAM, VARNER WILIAM Unavailable Unavailable [facility], Unavailable Unavailable [facility] Unavailable Unavailable [facility], [facility] Un[facility] Un[facility], [facility] Unavailable Unavailable [facility], [facility] Unavailable Unavailable HOLDING, [facility] Unavailable Unavailable HOLDINGS, [facility], Unavailable Unavailable [facility] DEVI CRI, DEVI CRI Unavailable Unavailable [facility], [facility] Unavailable Unavailable [facility] Unavailable Unavailable SERVICES, [facility] MARTIN KESHIA, Unavailable Unavailable MARTIN [...] Unavailable Unavailable EQUIPME, [facility], Unavailable Unavailable [facility], Unavailable Unavailable [facility] Unavailable [facility]available [facility]591, [facility] Unavailable Unavailable [facility], [facility] Unavailable Unavailable SERVICES, [facility] WEHRMAN III TAMARA, Unavailable Unavailable WEHRMAN III TAMARA CLINE A, CLINE A Unavailable Unavailable CLINE MANA, CLINE Unavailable Unavailable Janna BARAHONA C, SON, Unavailable Unavailable A C Purpose Continuity of Care Document - 12-27-2008 through 2016 Problems Code Diagnosis DOS Provider Status J449 CHRONIC 11-20-2016 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 UNS EQUIPME G4733 OBSTRUCTIVE 11-19-2016 [facility] SLEEP HOME APNEA ADULT MEDICAL PEDIATRIC EQUIPME M5136 OTH 11-17-2016 [facility] INTERVERTEB L [facility] RAL DISC ASSOC PSC DEGEN LUMBAR REGION R262 DIFFICULTY 11-17-2016 [facility] IN WALKING L REHAB NOT ASSOC PSC ELSEWHERE CLASSIFIED J441 CHRONIC 11-16-2016 [facility] DZ W/EXACERBAT ION J9610 CHRONIC 11-16-2016 [place] [facility] FAIL [facility] [place] HYPOXIA/HYP ERCAPNIA G8929 OTHER 11-05-2016 [facility]RONIC [facility] PAIN MEDICAL GROUP I2510 [facility] [place] 11-05-2016 [facility] CORONARY HEALTH ARTERY W/O MEDICAL ANGINA GROUP PECTORIS M545 LOW BACK 11-05-2016 [facility] PAIN HEALTH MEDICAL GROUP E785 HYPERLIPIDE 11-04-2016 [facility] JASON PHYSICIANS UNSPECIFIED GROUP I10 ESSENTIAL 11-04-2016 [facility] PRIMARY PHYSICIANS HYPERTENSIO GROUP N R0609 OTHER FORMS 11-04-2016 [facility] OF DYSPNEA PHYSICIANS GROUP M461 SACROILIITI 10-29-2016 [facility] NOT ORTHOPAEDIC ELSEWHERE S PSC CLASSIFIED R079 CHEST PAIN 10-20-2016 [facility] [id number] PERSONAL 09-07-2016 [facility] HISTORY OF PHYSICIANS NICOTINE GROUP DEPENDENCE I208 OTHER FORMS 09-03-2016 [facility] OF ANGINA PHYSICIANS PECTORIS GROUP [id number] [place] 09-03-2016 [facility] COR ART PHYSICIANS W/OTH FORMS GROUP ANGINA PECTORIS R9439 ABNORMAL 09-03-2016 [facility] RESULT OT PHYSICIANS CARDIOVASCU GROUP LR FUNCTION STUDY O44379 [facility] [place]ME[place]VI 08-31-2016 [facility]Y [facility] W/UNS INC ANGINA PECTORIS Z720 TOBACCO USE 08-31-2016 [facility] INC R188 OTHER 08-19-2016 [facility] ASCITES [facility] INC R0600 DYSPNEA 08-05-2016 [facility] INC R0602 SHORTNESS 08-05-2016 [facility] OF BREATH PHYSICIANS GROUP R918 OTHER 07-29-2016 [place] NONSPECIFIC MEDICAL ABNORMAL IMAGING ASS FINDING OF LUNG FIELD 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 [facility] DI[facility]ETES PH[facility]AC[facility] MELLITUS #591 WITH HYPERGLYCEM IA A38505 OTHER LONG 06-29-2016 [facility] TERM [facility] CURRENT INC DRUG THERAPY M5126 OT 05-19-2016 [place] INTER[facility]TEB MEDICAL RAL DISC IMAGING ASS DISPLACEMEN T LUMBAR RGN M5127 OT 05-19-2016 [place] INTER[facility]TE[facility]ICAL RAL DISC IMAGING ASS DISPLACEMEN T LS REGION M5137 OT 05-19-2016 [place] 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 D37183 SPONDYLOSIS 04-20-[address], W/O MD, PSC MYELOPATH/R ADICULOPATH Y CERV RGN M4802 SPINAL 04-20-[address] STENOSIS , PSC CERVICAL REGION M5010 CERVICAL 04-20-[address], DISC D/O , PSC W/RADICULOP ATHY UNS CERV RGN M5030 OT 04-14-2016 [facility] CERVICAL L RE[facility]AB DISC [facility] PSC DEGENERATIO N UNS CERV REGION M542 CERVICALGIA 04-05-2016 [facility] E876 HYPOKALEMIA 03-18-2016 [facility] E782 MIXED 01-21-2016 [facility]IDE [facility] J[facility]ON INC R252 CRAMP AND 01-21-2016 [facility] SPASM [facility] INC A72593 PAIN IN 12-12-2015 [place] [facility] A43052 PAIN IN 12-12-2015 [place] LEFT [facility]IP [facility] H2513 AGE-RELATED 11-25-2015 [facility] NUC[facility]ISION [facility]ACT CENTER BILATERAL M5032 OT CERV 11-14-2015 [facility] DISC [facility] DEGENERATIO INC N MID-CERVICA L REGION M791 MYALGIA 11-11-[address] MD, [facility] M797 FIBROMYALGI 10-14-2015 [facility] A [facility] INC M4722 OTH 08-26-2015 [facility] SPONDYLOSIS [facility] INC W/RADICULOP ATHY CERVICAL REGION 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 UNILATERAL 08-12-2015 [place] [facility]IMARY [facility] OSTEOARTHRI IMAGING ASS TIS LEFT HIP E538 DEFICIENCY 07-02-2015 [facility] OF OTHER [facility] SPECIFIED B INC GROUP VITAMINS D508 OTHER IRON 06-11-2015 A Dominique CLINE DEFICIENCY [facility] ANEMIAS U53111 OTHER 06-02-2015 [facility] MUSCLE [facility] SPASM INC R1013 EPIGASTRIC 06-02-2015 [facility] PAIN [facility] INC R202 PARESTHESIA 06-02-2015 [facility] OF SKIN [facility] INC R5383 OTHER 06-02-2015 [facility] FATIGUE [facility] INC Z125 ENCOUNTER 06-02-2015 [facility] SCREENING [facility] MALIGNANT INC NEOPLASM PROSTATE R05 COUGH 05-28-2015 [facility] H6980 OTHER SPEC 05-13-2015 A Dominique CLINE DISORDERS [facility] EUSTACHIAN TUBE UNS EAR J0100 ACUTE 05-13-2015 A Dominique CLINE MAXILLARY [facility] SINUSITIS UNSPECIFIED M4692 UNS 03-26-2015 A Dominique CLINE INFLAMMATOR PSC Y SPONDYLOPAT HY CERVICAL REGION M5090 CERVICAL 02-11-2015 Janna MARRERO MD PSC DISORDER UNS UNS CERVICAL REGION M2578 OSTEOPHYTE 02-07-2015 [facility] J439 EMPHYSEMA 01-22-2015 [place] UNSPECIFIED [facility]ICAL IMAGING ASS I6523 OCCLUSION & 11-21-2014 [place] STENOSIS MEDICAL BILATERAL IMAGING ASS CAROTID ARTERIES R42 DIZZINESS 11-21-2014 [facility] GIDDINESS INC 496 CHRONIC 11-20-2014 [facility] HOME OBSTRUCTION MEDICAL NEC EQUIPME 18583 OTHER&UNSPE 11-13-2014 A Dominique MARRERO MD PSC DISORDER CERVICAL REGION 7804 DIZZINESS 11-13-2014 Janna MCCURDY [facility] GIDDINESS 33088 CHRONIC 10-23-2014 [place] [facility] ASTHMA [facility]OUNDATION UNSPECIFIED 26054 CHRONIC 10-23-2014 [place] [facility] SERV FAILURE FOUNDATION 83734 DIAB W/O 08-05-2014 [facility] COMP TYPE PHARMACY II/UNS NOT #591 STATED UNCNTRL 25662 DIAB W/O 07-23-2014 [facility] MENTION [facility] COMP TYPE INC II/UNS TYPE UNCNTRL 2724 OTHER AND 07-23-2014 [facility] UNSPECIFIED [facility] INC HYPERLIPIDE JASON 4011 ESSENTIAL 07-23-2014 [facility] HYPERTENSIO [facility] N, BENIGN INC V7644 SPECIAL 07-23-2014 [facility] SCREENING [facility] MALIGNANT INC NEOPLASM OF PROSTATE 07408 DEGEN 06-12-2014 [place] LUMBAR/LUMB MEDICAL OSACRAL IMAGING ASS INTERVERTEB RAL DISC 7242 LUMBAGO 06-12-2014 Janna CLINE MD PSC 7245 UNSPECIFIED 06-12-2014 [place] BACKACHE [facility] 19967 SCOLIOSIS , 06-12-2014 [place] IDIOPATHIC [facility] 17350 UNSPECIFIED 06-03-2014 [facility] 05531 UNSPECIFIED 06-03-2014 [facility] [place] [address] OTHER 04-19-2014 [place] [facility] NONSPECIFIC SERV ABNORMAL FOUNDATION FINDING OF LUNG FIELD 03949 PAIN IN 02-27-2014 [place] JOINT MEDICAL PELVIC IMAGING ASS REGION AND THIGH 68542 URINARY 02-27-2014 Janna RIOJAS MD PSC 69362 UNSPECIFIED 11-15-2013 [facility] TEMPOROMAND INC IBULAR JOINT DISORDERS 33617 INTERSTITIA 11-01-2013 ERENA & L MYOSITIS [facility] 7840 HEADACHE 10-09-2013 [facility] INC 7906 OTHER 05-28-2013 [facility] ABNORMAL [facility] BLOOD INC CHEMISTRY 486 PNEUMONIA, 03-13-2013 [facility] ORGANISM [facility] UNSPECIFIED INC 78507 OBSTRUCTIVE 03-13-2013 Janna MCCARTHY MD [facility] BRONCHITIS WITH EXACERBATIO N 5183 PULMONARY 03-13-2013 [place] EOSINOPHILI MEDICAL A IMAGING ASS 46004 ABDOMINAL 02-01-2013 [facility] PAIN, PHYSICIANS EPIGASTRIC GROUP 91144 ABDOMINAL 01-31-2013 [place] PAIN RIGHT MEDICAL UPPER IMAGING ASS QUADRANT 5718 OTHER 01-09-2013 [place] CHRONIC MEDICAL NONALCOHOLI IMAGING ASS C LIVER DISEASE 5758 OTHER 01-09-2013 [place] SPECIFIED MEDICAL DISORDER OF IMAGING ASS GALLBLADDER 16633 ABDOMINAL 01-09-2013 [facility] PAIN, LEFT [facility] UPPER INC QUADRANT 2722 MIXED 11-20-2012 [facility] HYPERLIPIDE [facility] JASON INC 4928 OTHER 11-20-2012 [facility] EMPHYSEMA [facility] INC V571 OTHER 11-20-2012 [facility] PHYSICAL [facility] THERAPY INC V5869 LONG-TERM 11-20-2012 [facility] (CURRENT) [facility] USE OF INC OTHER MEDICATIONS 61718 OTHER 10-30-2012 [place] DISEASES OF MEDICAL LUNG NOT IMAGING ASS ELSEWHERE CLASSIFIED 7841 THROAT PAIN 10-30-2012 [facility] INC 88146 SHORTNESS 10-30-2012 [facility] OF BREATH [facility] INC 7821 RASH AND 10-25-2012 [place] [facility] OTHER SERV NONSPECIFIC FOUNDATIO SKIN ERUPTION 29882 GEN 08-28-2012 [facility] OSTEOARTHRO L REHAB SIS ASSOC PSC INVOLVING MULTIPLE SITES 7220 DISPLCMT 08-28-2012 [facility] CERV L REHAB INTERVERT ASSOC PSC DISC WITHOUT MYELOPATHY 7224 DEGENERATIO 08-28-2012 [facility] N OF L REHAB CERVICAL ASSOC PSC INTERVERTEB RAL DISC 37716 CHEST PAIN 05-04-2012 [place] UNSPECIFIED MEDICAL IMAGING ASS 45120 IDIOPATH 04-20-2012 [facility] SLEEP REL HOME NONOBST MEDICAL ALVEOLAR EQUIPME HYPOVENT 7230 SPINAL 04-17-2012 [facility] STENOSIS IN L REHAB CERVICAL ASSOC PSC REGION 7234 BRACHIAL 04-17-2012 [facility] NEURITIS OR L REHAB ASSOC PSC RADICULITIS NOS 4660 ACUTE 02-08-2012 Janna CLINE BRONCHITIS [facility] 84669 OTHER&UNSPE 02-08-2012 Janan MARRERO MD PSC DISORDER UNSPEC REGION V0382 NEED PROPH 02-08-2012 A Dominique CLINE VACCINATION PSC AGAINST STREP PNEUMONE 7210 CERVICAL 12-23-2011 [place] SPONDYLOSIS MEDICAL WITHOUT IMAGING ASS MYELOPATHY 7231 CERVICALGIA 12-23-2011 [facility] INC 7292 UNSPECIFIED 12-21-2011 A Dominique CLINE NEURALGIA PSC NEURITIS AND RADICULITIS 82664 EXTRINSIC 12-15-2011 [facility] ASTHMA WITH PHARMACY STATUS #591 ASTHMATICUS 4019 UNSPECIFIED 10-01-2011 [facility] ESSENTIAL [facility] HYPERTENSIO INC N 24394 ASTHMA, 10-01-2011 [facility] UNSPECIFIED [facility] , INC UNSPECIFIED STATUS 13928 ING ADAMS 10-01-2011 [facility] W/O MENTION [facility] INC OBST/GANGRE N UNILAT/[place] [address] SPASM OF 07-07-2011 A Dominique CLINE MUSCLE PSC 73764 CHRONIC 05-24-2011 [facility] OBSTRUCTIVE KESHIA ASTHMA W/STATUS ASTHMATICUS 4778 ALLERGIC 03-29-2011 [facility] RHINITIS KESHIA DUE TO OTHER ALLERGEN 4780 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[facility] OF NASAL KESHIA TURBINATES 22777 CHRONIC 03-29-2011 [facility] OBSTRUCTIVE KESHIA ASTHMA WITH EXACERBATIO N 2720 PURE 12-21-2010 [facility] HYPERCHOLES [facility] TEROLEMIA INC 7810 ABNORMAL 12-21-2010 [facility] INVOLUNTARY [facility] MOVEMENTS INC 20307 MUSCLE 12-15-2010 A Dominique CLINE WEAKNESS PSC (GENERALIZE D) 84078 EXTRINSIC 07-26-2010 [facility] ASTHMA, PHARMACY UNSPECIFIED #591 [...] 470 DEVIATED 02-02-2010 M[facility]IN NASAL KESHIA SEPTUM 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 A Dominique CLINE 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 02242 DIVERTICULO 12-22-2009 [place] [facility] S[facility] OF SERV COLON FOUNDATIO 5693 HEMORRHAGE 12-22-2009 [place] [facility] OF RECTUM SERV AND ANUS FOUNDATIO 7934 NONSPECIFIC 12-22-2009 [place] [facility] ABN SERV FINDING RAD FOUNDATIO & [...] 4720 CHRONIC 09-01-2009 MARTIN, RHINITIS KESHIA B 19407 INTRINSIC 09-01-2009 MARTIN, ASTHMA, KESHIA B UNSPECIFIED 4619 ACUTE 06-16-2009 [facility], SINUSITIS, KESHIA B UNSPECIFIED 41558 OTHER 06-11-2009 [facility] V1585 PERSONAL HX 04-21-2009 [facility] EXPOSUR INC HAZARDOUS BODY FLD Immunization Name Date Rout CVX Reac Dose Comm Prov Is Faci e tion ent ider Refu lity Give sed n PPSV 12-1 33 WRIG No A C 23 8-20 HT A WRIG VACC 12 HT INE MD 2 PSC YRS OR OLDE R FOR SUBQ /IM USE IIV 09-2 135 WRIG No A C VACC 8-20 HT A WRIG INE 10 HT PRES ERV PSC FREE INCR EASE D AG CONT ENT IM Procedures Procedure DOS Code Location Performer Comment O2 CONC 1 E1390 [facility] YAO DEL PORT 7 HOME HOME 85%/>02 MEDICAL MEDICAL CONC AT EQUIPME EQUIPME PRSC FLW RATE FULL FACE A7030 [facility] YAO MASK 7 [...] MEDICAL MEDICAL AIRWAY EQUIPME EQUIPME PRESSURE DEVICE TUBING A7037 MAXIM[facility]IAN YAO USED WITH 7 HOME HOME POSITIVE MEDICAL MEDICAL AIRWAY EQUIPME EQUIPME PRESSURE DEVICE HUMDIFIR E0562 MAXIM[facility]IAN YAO HEATED 7 HOME HOME USED MEDICAL MEDICAL W/POS EQUIPME EQUIPME ARWAY PRESSURE DEVICE HEADGEAR A7035 [facility] YAO USED 7 HOME HOME W/POSITIV MEDICAL MEDICAL E AIRWAY EQUIPME EQUIPME PRESSURE DEVICE PHYSICAL 54250 [facility] CROSSFIEL THERAPY 7 NAL REHAB D EVALUATIO ASSOC N LOW PSC COMPLE[place] 20 [place] IN[place] [address] [facility] JOINT 7 ARTHRGRPH ORTHOPAED Y&/ANES/S ICS PSC TEROID W/JUAN LUIS LOCM Q9965 [facility] 100-199 7 MG/ML ORTHOPAED ORTHOPAED IODINE ICS PSC ICS PSC CONCENTRA TION PER ML COLLECTIO 53001 [facility] N VENOUS 7 [facility] BLOOD INC INC VENIPUNCT URE LIPID 97479 [facility] PANEL 7 [facility] INC INC HEPATIC 14836 [facility] FUNCTION 7 [facility] PANEL INC INC NEBULIZER E0570 MAXIM[facility]IAN YAO WITH 7 HOME HOME COMPRESSO MEDICAL MEDICAL R EQUIPME EQUIPME ECG 84612 [facility] ROUTINE 7 [facility] ECG INC INC W/LEAST 12 LDS TRCG ONLY W/O I&R PRTBLE E0431 MAXIM[facility]IAN YAO GASEOUS 7 HOME HOME O2 SYS MEDICAL MEDICAL RENT; EQUIPME EQUIPME FLWMTR HUMIDFR&M ASK O2 CONC 1 E1390 MAXIMILIAN YAO DEL PORT 7 HOME HOME 85%/>02 MEDICAL MEDICAL CONC AT EQUIPME EQUIPME PRSC FLW RATE NEBULIZER E0570 MAXIM[facility]IAN YAO WITH 7 HOME HOME COMPRESSO MEDICAL MEDICAL R EQUIPME EQUIPME LUMB L0627 MAXIMILIAN YAO ORTHOSIS 7 HOME HOME SAGIT MEDICAL MEDICAL CNTRL EQUIPME EQUIPME RIGID A&P PANEL PREFAB O2 CONC 1 E1390 MAXIMILIAN YAO DEL PORT 7 HOME HOME 85%/>02 MEDICAL MEDICAL CONC AT EQUIPME EQUIPME PRSC FLW RATE PRTBLE E0431 MAXIM[facility]IAN YAO GASEOUS 7 HOME HOME O2 SYS MEDICAL MEDICAL RENT; EQUIPME EQUIPME FLWMTR HUMIDFR&M ASK ECG 52819 [facility] ROUTINE 7 [facility] ECG INC INC W/LEAST 12 LDS TRCG ONLY W/O I&R ECG 38335 [facility] MOON ROUTINE 7 PHYSICIAN ECG S GROUP W/LEAST 12 LDS I&R ONLY PRQ 07160 [facility] MOON TRLUML 7 PHYSICIAN CORONARY S GROUP STENT W/ANGIO ONE ART/BRNCH CATH PLMT 56060 [facility] L HRT & 7 PHYSICIAN ARTS S GROUP W/NJX & ANGIO IMG S&I CATH PLMT 82422 [facility] L HRT & 7 [facility] ARTS INC INC W/NJX & ANGIO IMG S&I CATHETER C1725 [facility] TRANSLUMI 7 [facility] NAL INC INC ANGIOPLAS TY NON-LASER GUIDE C1769 [facility] WIRE 7 [facility] INC INC STENT C1876 [facility] NON-COATE 7 [facility] D/NON-COV INC INC ERED W/DELIVER Y SYSTEM BLOOD 72664 [facility] COUNT 7 [facility] COMPLETE INC INC AUTO&AUTO DIFRNTL WBC INTRDUCR/ C1894 [facility] SHEATH 7 [facility] NOT GUID INC INC INTRACARD EP NON-LASR BASIC 34381 [facility] METABOLIC 7 [facility] PANEL INC INC CALCIUM TOTAL PRQ 86266 [facility] TRLUML 7 [facility] CORONARY INC INC STENT W/ANGIO ONE ART/BRNCH COAGULATI 77888 [facility] ON TIME 7 [facility] ACTIVATED INC INC INJECTION J1644 [facility] HEPARIN 7 [facility] SODIUM INC INC PER 1000 UNITS LOCM Q9967 [facility] 300-399 7 [facility] MG/ML INC INC IODINE CONCENTRA TION PER ML NEBULIZER E0570 MAXIMILIAN YAO WITH 7 HOME HOME COMPRESSO MEDICAL MEDICAL R EQUIPME EQUIPME PRTBLE E0431 MAXIMILIAN YAO GASEOUS 7 HOME HOME O2 SYS MEDICAL MEDICAL RENT; EQUIPME EQUIPME FLWMTR HUMIDFR&M ASK O2 CONC 1 E1390 MAXIMILIAN YAO DEL PORT 7 HOME HOME 85%/>02 MEDICAL MEDICAL CONC [place] [address] [facility] GREENON ABDOMINAL 7 [facility] REAL INC INC TIME W/IMAGE DOCUMENTA TION MYOCARDIA 27641 [facility] L SPECT 7 [facility] MULTIPLE INC INC STUDIES TECHNETIU A9502 [facility] Moreno TC-99M 7 [facility] TETROFOSM INC INC IN DX PER STUDY DOSE CV STRS 14971 [facility] TST 7 [facility] XERS&/OR INC INC RX CONT ECG TRCG ONLY INJECTION J2785 [facility] FI[facility]DS 7 [facility] REGADENOS INC INC ON 0.1 MG ECHO 97135 [facility] FI[facility] TTHRC R-T 7 [facility] 2D INC INC W/WOM-MOD E COMPL SPEC&COLR D CT THORAX 55541 [place] W/O 7 MEDICAL CONTRAST IMAGING MATERIAL ASS ECG 16936 [facility] FI[facility]DS ROUTINE 7 [facility] ECG INC INC W/LEAST 12 LDS TRCG ONLY W/O I&R NEBULIZER E0570 MAXIMILIAN YAO WITH 7 HOME HOME COMPRESSO MEDICAL MEDICAL R EQUIPME EQUIPME BLD GLU A4253 [facility] TEST/REAG 7 PHARMACY PHARMACY T STRIPS #591 #591 HOME BLD GLU MON-50 PRTBLE E0431 MAXIMILIAN YAO GASEOUS 7 HOME HOME O2 SYS MEDICAL MEDICAL RENT; EQUIPME EQUIPME FLWMTR HUMIDFR&M ASK O2 CONC 1 E1390 MAXIMILIAN YAO DEL PORT 7 HOME HOME 85%/>02 MEDICAL MEDICAL CONC AT EQUIPME EQUIPME PRSC FLW RATE COLLECTIO 56435 [facility] N VENOUS 7 [facility] BLOOD INC INC VENIPUNCT URE COMPREHEN 83369 [facility] SIVE 7 [facility] METABOLIC INC INC PANEL LIPID 10189 [facility] PANEL 7 [facility] INC INC BILIRUBIN 32901 [facility] DIRECT 7 [facility] INC INC BLOOD 83545 [facility] FI[facility] COUNT 7 [facility] COMPLETE INC INC AUTO&AUTO DIFRNTL WBC HEMOGLOBI 14137 [facility] FI[facility]DS N 7 [facility] GLYCOSYLA INC INC JUMANA A1C NEBULIZER E0570 MAXIMILIAN YAO WITH 7 HOME [...] NEBULIZR DISPBL O2 CONC 1 E1390 MAXIMILIAN MOTA PORT 7 HOME HOME 85%/>02 MEDICAL MEDICAL CONC AT EQUIPME EQUIPME PRSC FLW RATE MRI 27789 [place] [facility] SPINAL 7 MEDICAL CANAL IMAGING LUMBAR ASS W/O CONTRAST MATERIAL 3D 54385 [place] [facility] RENDERING 7 MEDICAL W/INTERP IMAGING & ASS POSTPROCE SS SUPERVISI ON PRTBLE E0431 MAXIMILIAN YAO GASEOUS 7 HOME HOME O2 SYS MEDICAL MEDICAL RENT; EQUIPME EQUIPME FLWMTR HUMIDFR&M ASK O2 CONC 1 E1390 MAXIMILIAN YAO DEL PORT 7 HOME HOME 85%/>02 MEDICAL MEDICAL CONC AT [facility]QUIPME [facility] FLW RATE PHYSICAL 24134 PROFESSIO CROSSFIEL THERAPY 7 NAL REHAB D RE-EVAL ASSOC EST PLAN PSC CARE 20 MINS MANUAL 08738 PROFESSIO CROSSFIEL THERAPY 7 NAL REHAB D TQS 1/> ASSOC REGIONS PSC EACH 15 MINUTES BLD GLU A4253 [facility] TEST/REAG 7 PHARMACY PHARMACY T STRIPS #591 #591 HOME BLD GLU MON-50 PRTBLE E0431 MAXIMILIAN YAO GASEOUS 7 HOME HOME O2 SYS MEDICAL MEDICAL RENT; EQUIPME EQUIPME FLWMTR HUMIDFR&M ASK O2 CONC 1 E1390 MAXIMILIAN [place] 7 HOME HOME 85%/>02 MEDICAL MEDICAL CONC AT [facility] FLW RATE POTASSIUM 10715 [facility] SERUM 7 DIAGNOSTI DIAGNOSTI PLASMA/WH CS CS OLE BLOOD INCORPORA INCORPORA T T MANUAL 65696 PROFESSIO CROSSFIEL THERAPY 7 NAL REHAB D TQS 1/> ASSOC REGIONS PSC EACH 15 MINUTES PHYSICAL 32681 PROFESSIO CROSSFIEL THERAPY 7 NAL REHAB D EVALUATIO ASSOC N HIGH PSC COMPLEX 45 MINS PRTBLE E0431 MAXIMILIANGARETT YAO GASEOUS 6 HOME HOME O2 SYS MEDICAL MEDICAL RENT; EQUIPME EQUIPME FLWMTR HUMIDFR&M ASK O2 CONC 1 E1390 MAXIMILIAN [place] 6 HOME HOME 85%/>02 [facility] FLW RATE GAS 25480 DIAMOND FIELDS DILUT/WAS 6 [facility] HOUT LUNG INC INC VOL W/WO DISTRIB VENT&[place] [address] DIAMOND FIELDS DIFFUSING 6 [facility] CAPACITY INC INC NONINVASI 74258 DIAMOND FIELDS VE 6 [facility] EAR/PULSE INC INC OXIMETRY MULTIPLE DETER BRNCDILAT 57700 DIAMOND FIELDS RSPSE 6 [facility] SPMTRY INC INC PRE&POST- BRNCDILAT ADMN PRESSURIZ 58339 DIAMOND FIELDS ED/NONPRE 6 [facility] SSURIZED INC INC INHALATIO N TREATMENT BASIC 34047 [facility]ST METABOLIC 6 DIAGNOSTI DIAGNOSTI PANEL CS CS CALCIUM INCORPORA INCORPORA TOTAL T T PRTBLE E0431 MAXIMILIAN YAO GASEOUS 6 HOME HOME O2 SYS MEDICAL MEDICAL RENT; [facility] FLWGAR HUMIDFR&M ASK LIPID 09030 DIAMOND FIELDS PANEL 6 [place] [address] DIAMOND FIELDS MAGNESIUM 6 [facility] INC INC HEMOGLOBI 42737 DIAMOND GREENON N 6 [facility] GLYCOSYLA INC INC JUMANA A1C COMPREHEN 59479 DIAMOND FIELDS SIVE 6 [facility] METABOLIC INC INC PANEL HEPATITIS 94796 DIAMOND FIELDS B CORE 6 [facility] ANTIBODY INC INC HBCAB TOTAL O2 CONC 1 E1390 MAXIMILIAN YAO DEL [place] 6 HOME HOME 85%/>02 MEDICAL MEDICAL CONC AT [facility] PRSC FLW RATE HEPATITIS 28894 DIAMOND FIELDS A 6 [facility] ANTIBODY INC INC HAAB COLLECTIO 65055 DIAMOND FIELDS N VENOUS 6 [facility] BLOOD INC INC VENIPUNCT URE HEPATITIS 49894 DIAMOND FIELDS C 6 [facility] ANTIBODY INC INC HEPATITIS 69669 DIAMOND Hernandez SURF 6 [facility] [place] [address] DIAMOND FIELDS HEPATITIS 6 [facility] B INC INC SURFACE ANTIGEN LOCM Q9966 DIAMOND FIELDS [phone] 6 [facility] MG/ML INC INC IODINE [place]CENTRA [place] NJX [address] OSWALDO TERRELL JASON DX/THER 6 MD DOMINGO, SBST PSC EPIDURAL/ SUBRACH CERV/THOR ACIC INJECTION J1040 DIAMOND FIELDS 6 [facility] METHYLPRE INC INC DNISOLONE ACETATE 80 MG O2 CONC 1 E1390 MAXIMILIAN YAO DEL [place] 6 HOME HOME 85%/>02 MEDICAL MEDICAL CONC AT [facility] FLW RATE PRTBLE E0431 MAXIMILIAN YAO GASEOUS 6 HOME HOME O2 SYS MEDICAL MEDICAL RENT; [facility] FLWMTR HUMIDFR&M ASK BLD GLU A4253 GENESIS HURTADO TEST/REAG 6 PHARMACY PHARMACY T STRIPS #591 #591 HOME BLD GLU MON-50 PHRM Q0513 GENESIS WALKER-CATHERINE DISPENSIN 6 PHARMACY PHARMACY G FEE #591 #591 INHALATIO N RX; PER 30 DAYS LEVALBUTE J7614 AARON-CATHERINE WALKER-CATHERINE ROL INHAL 6 PHARMACY PHARMACY NON-CP #591 #591 THRU DME U DOSE 0.5 MG LOCM Q9966 DIAMOND FIELDS 200-299 6 [facility] MG/ML INC INC IODINE CONCENTRA TION [place] NJX 83609 OSWALDO TERRELL JASON DX/THER 6 MD DOMINGO, SBST PSC EPIDURAL/ SUBRACH CERV/THOR ACIC INJECTION J1040 DIAMOND FIELDS 6 [facility] METHYLPRE INC INC DNISOLONE ACETATE 80 MG RADEX HIP 30258 DIAMOND FIELDS 6 [facility] UNILATERA INC INC L WITH PELVIS 2-3 VIEWS RADEX 97029 [place] [facility] HIPS 6 MEDICAL BILATERAL IMAGING WITH ASS PELVIS 3-4 VIEWS RADIOLOGI 48351 DIAMOND FIELDS C EXAM 6 [facility] CHEST 2 INC INC VIEWS FRONTAL&L ATERAL O2 CONC 1 E1390 MAXIMILIAN YAO DEL PORT 6 HOME HOME 85%/>02 MEDICAL MEDICAL CONC AT EQUIPME [facility] FLW RATE PRTBLE E0431 MAXIMILIAN MAXIMILIAN GASEOUS 6 HOME HOME O2 SYS MEDICAL MEDICAL RENT; [facility] FLWMTR HUMIDFR&M ASK NJX 98826 OSWALDO TERRELL JASON DX/THER 6 MD DOMINGO, SBST PSC EPIDURAL/ SUBRACH CERV/THOR ACIC LOCM Q9966 DIAMOND FIELDS 200-299 6 [facility] MG/ML INC INC IODINE CONCENTRA TION PER ML INJECTION J1040 DIAMOND DIAMOND 6 [facility] METHYLPRE INC INC DNISOLONE ACETATE 80 MG PRTBLE E0431 MAXIMILIAN YAO GASEOUS 6 HOME HOME O2 SYS MEDICAL MEDICAL RENT; [facility] H[facility]&M ASK O2 CONC 1 E1390 MAXIMILIAN YAO DEL PORT 6 HOME HOME 85%/>02 MEDICAL MEDICAL CONC AT [facility] FLW RATE INJECTION 27934 OSWALDO GOMEZ 6 MD DOMINGO, SINGLE/ML PSC T TRIGGER POINT 1/2 MUSCLES INJECTION J1040 DIAMOND DIAMOND 6 [facility] METHYLPRE INC INC DNISOLONE ACETATE 80 MG PHRM Q0513 [email or web address] DISPENSIN 6 PHARMACY PHARMACY G FEE #591 #591 INHALATIO N RX; PER 30 DAYS LEVALBUTE J7614 [email or web address] ROL INHAL 6 PHARMACY PHARMACY NON-CP #591 #591 THRU DME U DOSE 0.5 MG PRTBLE E0431 MAXIMILIANGARETT YAO GASEOUS 6 HOME HOME O2 SYS MEDICAL MEDICAL RENT; [facility] HUMIDFR&M ASK O2 CONC 1 E1390 MAXIMILIAN YAO DEL PORT 6 HOME HOME 85%/>02 MEDICAL MEDICAL CONC AT [facility] FLW RATE DSTR 87053 OSWALDO GOMEZ NROLYTC 6 MD [place], AGNT PSC PARVERTEB FCT ADDL CRVCL/THO RA INJECTION J1030 DIAMOND FIELSD 6 [facility] METHYLPRE INC INC DNISOLONE ACETATE 40 MG DSTR [address] L[address] MD, AGNT PSC PARVERTEB FCT SNGL CRVCL/THO RA DSTR 88773 OSWALDO GOMEZ NROLYTC 6 MD DOM[place], AGNT PSC PARVERTEB FCT SNGL CRVCL/THO RA INJECTION J1030 DIAMOND FIELDS 6 [facility] METHYLPRE INC INC DNISOLONE ACETATE 40 MG DSTR 81926 OSWALDO TERRELL JASON NROLYTC 6 MD DOM[place], AGNT PSC PARVERTEB FCT ADDL CRVCL/THO RA PRTBLE E0431 MAXIMILIAN JOHNSONRELL GASEOUS 6 HOME HOME O2 SYS MEDICAL MEDICAL RENT; EQUIPME EQUIPME FLWMTR HUMIDFR&M ASK O2 CONC 1 E1390 MAXIMILIAN JOHNSONRELL DEL PORT 6 HOME HOME 85%/>02 MEDICAL MEDICAL CONC AT EQUIPME EQUIPME PRSC FLW RATE RADEX HIP 88700 [facility] 6 MEDICAL [place]ANT[place] UNILATERA IMAGING L WITH ASS PELVIS 1 VIEW RADEX HIP 89728 DIAMOND FIELDS 6 [facility] UNILATERA INC INC L WITH PELVIS 2-3 VIEWS RADEX 00091 [facility] SPINE 6 MEDICAL SANTY LUMBOSACR IMAGING AL ASS MINIMUM 4 VIEWS PRTBLE E0431 MAXIMILIAN JOHNSONRELL GASEOUS 6 HOME HOME O2 SYS MEDICAL MEDICAL RENT; EQUIPME EQUIPME FLWMTR HUMIDFR&M ASK O2 CONC 1 E1390 MAXIMILIAN JOHNSONRELL DEL PORT 6 HOME HOME 85%/>02 MEDICAL MEDICAL CONC AT EQUIPME EQUIPME PRSC FLW RATE BLD GLU A4253 [facility] TEST/REAG 6 PHARMACY PHARMACY T STRIPS #591 #591 HOME BLD GLU MON-50 NJX 60637 OSWALDO TERERLL JASON DX/THER 6 MD DOM[place], AGT PVRT PSC FACET JT CRV/THRC 1 LEVEL NJX 73246 OSWALDO TERRELL JASON DX/THER 6 MD [place], AGT PVRT PSC FACET JT CRV/THRC 2ND LEVEL INJECTION J1030 DIAMOND DIAMOND 6 [facility] METHYLPRE INC INC DNISOLONE ACETATE 40 MG COLLECTIO 51055 DIAMOND FIELDS N VENOUS 6 [facility] BLOOD INC INC VENIPUNCT URE OPHTH 16288 [facility] 6 VISION ANG XM&EVAL CENTER COMPRHNSV ESTAB PT 1/> DETERMINA 17792 WENDY SCIFRES TION 6 VISION ANG REFRACTIV CENTER E STATE CYANOCOBA 13535 DIAMOND FIELDS VALERIA 6 [facility] VITAMIN INC INC B-12 PRTBLE E0431 MAXIMILIAN MAXIMILIAN GASEOUS 6 HOME HOME O2 SYS MEDICAL MEDICAL RENT; EQUIPME EQUIPME FLWMTR HUMIDFR&M ASK O2 CONC 1 E1390 MAXIMILIAN YAO DEL PORT 6 HOME HOME 85%/>02 MEDICAL MEDICAL CONC AT EQUIPME EQUIPME PRSC FLW RATE THERAPEUT 95069 A Dominique CLINE IC 6 SON ADAIR PROPHYLAC PSC TIC/DX INJECTION SUBQ/IM INJECTION J3420 Janna CLINE VIT B-12 6 SON SWIFT MANA PSC CYANOCOBA VALERIA TO 1000 MCG INJECTION J3420 Janna CLINE VIT B-12 6 SON SWIFT MANA PSC CYANOCOBA VALERIA TO 1000 MCG THERAPEUT 96686 Janna CLINE IC 6 SON SWIFT MANA PROPHYLAC PSC TIC/DX INJECTION SUBQ/IM BRNCDILAT 77835 Janna SAXENA RSPSE 6 SON SWIFT NASIM SPMTRY PSC PRE&POST- BRNCDILAT ADMN COMPREHEN 14363 DIAMOND FIELDS SIVE 6 [facility] [place] [address] DIAMOND FIELDS AMYLASE 6 [place] [address] DIAMOND FIELDS THYROID 6 [facility] STIMULATI INC INC NG HORMONE TSH COLLECTIO 31969 DIAMOND FIELDS N VENOUS 6 [facility] BLOOD INC INC VENIPUNCT URE PROSTATE G0103 DIAMOND FIELDS CANCER 6 [facility] SCREENING INC INC ; PSA TEST BLOOD 11263 DIAMOND FIELDS COUNT 6 [facility] COMPLETE INC INC AUTO&[place] [address] DIAMOND FIELDS LIPASE 6 [place] [address] DIAMOND FIELDS MAGNESIUM 6 [facility] INC INC CYANOCOBA 30779 DIAMOND FIELDS VALERIA 6 [facility] VITAMIN INC INC B-12 LIPID 84996 DIAMOND FIELDS PANEL 6 [facility] INC INC RADIOLOGI 41055 [place] AN[place] C EXAM 6 MEDICAL EDA CHEST 2 IMAGING VIEWS ASS FRONTAL&L ATERAL INJECTION J1040 DIAMOND FIELDS 6 [facility] METHYLPRE INC INC DNISOLONE ACETATE 80 MG NJX 96338 OSWALDO TERRELL JASON DX/THER 6 MD DOM[place], AGT PVRT PSC FACET JT CRV/THRC 2ND LEVEL NJX 36777 OSWALDOJULIANA TERRELL JASON DX/THER 6 MD [place], AGT PVRT PSC FACET JT CRV/THRC 1 LEVEL O2 CONC 1 E1390 MAXIMILIAN [place] PORT 6 HOME HOME 85%/>02 MEDICAL MEDICAL CONC AT EQUIPME EQUIPME PRSC FLW RATE PRTBLE E0431 MAXIMILIAN YAO GASEOUS 6 HOME HOME O2 SYS MEDICAL MEDICAL RENT; EQUIPME EQUIPME FLWMTR HUMIDFR&M ASK PRTBLE E0431 MAXIMILIAN YAO GASEOUS 6 HOME HOME O2 SYS MEDICAL MEDICAL RENT; EQUIPME EQUIPME FLWMTR HUMIDFR&M ASK O2 CONC 1 E1390 MAXIMILIAN MOAT PORT 6 HOME HOME 85%/>02 MEDICAL MEDICAL CONC AT EQUIPME EQUIPME PRSC FLW RATE O2 CONC 1 E1390 MAXIMILIAN [place] PORT 6 HOME HOME 85%/>02 MEDICAL MEDICAL CONC AT EQUIPME EQUIPME PRSC FLW RATE PRTBLE E0431 MAXIMILIAN JOHNSONRELL GASEOUS 6 HOME HOME O2 SYS MEDICAL MEDICAL RENT; EQUIPME EQUIPME FLWMTR HUMIDFR&M ASK BLD GLU A4253 [employer] AARON-MART TEST/REAG 6 PHARMACY PHARMACY T STRIPS #591 #591 HOME BLD GLU MON-50 PRTBLE E0431 MAXIMILIANGARETT YAO GASEOUS 5 HOME HOME O2 SYS MEDICAL MEDICAL RENT; EQUIPME EQUIPME FLWMTR HUMIDFR&M ASK O2 CONC 1 E1390 MAXIMILIAN [place] PORT 5 HOME HOME 85%/>02 [facility] FLW [facility]ATE LEVALBUTE J7614 [facility] ROL INHAL 5 PHARMACY PHARMACY NON-CP #591 #591 THRU DME U DOSE 0.5 MG [facility] G0463 [facility] 5 Y Y T [facility] VISIT ASSESS & MGMT PT LEVALBUTE J7614 [facility] ROL INHAL 5 PHARMACY PHARMACY NON-CP #591 #591 THRU DME U DOSE 0.5 MG PHRM Q0513 [facility] DISPENSIN 5 PHARMACY PHARMACY G FEE #591 #591 INHALATIO N RX; PER 30 DAYS COLLECTIO 01507 DIAMOND FIELDS N VENOUS 5 [facility] BLOOD INC INC VENIPUNCT URE BASIC 95729 DIAMOND FIELDS METABOLIC 5 [facility] PANEL INC INC CALCIUM TOTAL LIPID 34934 DIAMOND FIELDS PANEL 5 [facility] INC INC CT THORAX 82411 DIAMOND FIELDS W/O 5 [facility] CONTRAST INC INC MATERIAL PRTBLE E0431 MAXIMILIAN JOHNSONRELL GASEOUS 5 HOME HOME O2 SYS MEDICAL MEDICAL RENT; EQUIPME EQUIPME FLWMTR HUMIDFR&M ASK O2 CONC 1 E1390 MAXIMILIANGARETT [facility] 5 HOME HOME 85%/>02 MEDICAL MEDICAL CONC AT [facility] FLW RATE MRI 38429 NEURODIAG MEJIA RON SPINAL 5 NOSTICS CANAL INC CERVICAL W/O CONTRAST MATRL LEVALBUTE J7614 [facility] ROL INHAL 5 PHARMACY PHARMACY NON-CP #591 #591 THRU DME U DOSE 0.5 MG PHRM Q0513 [facility] DISPENSIN 5 PHARMACY PHARMACY G FEE #591 #591 INHALATIO N RX; PER 30 DAYS PRTBLE E0431 MAXIMILIAN MAXIMILIAN GASEOUS 5 HOME HOME O2 SYS MEDICAL MEDICAL RENT; EQUIPME EQUIPME FLWMTR HUMIDFR&M ASK O2 CONC 1 E1390 MAXIMILIAN MAXIMILIAN DEL PORT 5 HOME HOME 85%/>02 MEDICAL MEDICAL CONC AT EQUIPME EQUIPME PRS FLW RATE DUPLEX 39152 DIAMOND FIELDS SCAN 5 [facility] EXTRACRAN INC INC IAL ART COMPL BI STUDY PRTBLE E0431 MAXIMILIAN YAO GASEOUS 5 HOME HOME O2 SYS MEDICAL MEDICAL RENT; EQUIPME EQUIPME FLWMTR HUMIDFR&M ASK O2 CONC 1 E1390 MAXIMILIAN [place] PORT 5 HOME HOME 85%/>02 MEDICAL MEDICAL CONC AT EQUIPME EQUIPME PRS FLW RATE PHRM Q0513 [employer]-MART DISPENSIN 5 PHARMACY PHARMACY G FEE #591 #591 INHALATIO N RX; PER 30 DAYS LEVALBUTE J7614 [employer] [facility] ROL INHAL 5 PHARMACY PHARMACY NON-CP #591 #591 THRU DME U DOSE 0.5 MG PRTBLE E0431 MAXIMILIAN YAO GASEOUS 5 HOME HOME O2 SYS MEDICAL MEDICAL RENT; EQUIPME EQUIPME FLWMTR HUMIDFR&M ASK O2 CONC 1 E1390 MAXIMILIAN [place] 5 HOME HOME 85%/>02 MEDICAL MEDICAL CONC AT EQUIPME EQUIPME [facility] FLW RATE GAS 49660 DIAMOND FIELDS DILUT/WAS 5 [facility] HOUT LUNG INC INC VOL W/WO DISTRIB VENT&[place] [address] DIAMOND FIELDS DIFFUSING 5 [facility] CAPACITY INC INC BRNCDILAT 60591 DIAMOND FIELDS RSPSE 5 [facility] SPMTRY INC INC PRE&POST- BRNCDILAT ADMN PRTBLE E0431 MAXIMILIAN YAO GASEOUS 5 HOME HOME O2 SYS MEDICAL MEDICAL RENT; EQUIPME EQUIPME FLWMTR HUMIDFR&M ASK O2 CONC 1 E1390 MAXIMILIAN [place] 5 HOME HOME 85%/>02 MEDICAL MEDICAL CONC AT EQUIPME EQUIPME PRS FLW RATE O2 CONC 1 E1390 MAXIMILIAN [place] 5 HOME HOME 85%/>02 MEDICAL MEDICAL CONC AT EQUIPME EQUIPME PRSC FLW RATE PRTBLE E0431 MAXIMILIAN JOHNSONRELL GASEOUS 5 HOME HOME O2 SYS MEDICAL MEDICAL RENT; EQUIPME EQUIPME FLWMTR HUMIDFR&M ASK BLD GLU A4253 [facility] TEST/REAG 5 PHARMACY PHARMACY T STRIPS #591 #591 HOME BLD GLU MON-50 LIPID 51018 DIAMOND FIELDS PANEL 5 [facility] INC INC BASIC 90829 DIAMOND FIELDS METABOLIC 5 [facility] PANEL INC INC CALCIUM TOTAL HEMOGLOBI 00380 DIAMOND FIELDS N 5 [facility] GLYCOSYLA INC INC JUMANA A1C COLLECTIO 42043 DIAMOND FIELDS N VENOUS 5 [facility] BLOOD INC INC VENIPUNCT URE PRTBLE E0431 MAXIMILIAN YAO GASEOUS 5 HOME HOME O2 SYS MEDICAL MEDICAL RENT; EQUIPME EQUIPME FLWMTR HUMIDFR&M ASK O2 CONC 1 E1390 MAXIMILIAN YAO DEL PORT 5 HOME HOME 85%/>02 MEDICAL MEDICAL CONC AT EQUIPME EQUIPME PRSC FLW RATE O2 CONC 1 E1390 MAXIMILIAN YAO DEL PORT 5 HOME HOME 85%/>02 MEDICAL MEDICAL CONC AT EQUIPME EQUIPME PRSC FLW RATE PRTBLE E0431 MAXIMILIAN YAO GASEOUS 5 HOME HOME O2 SYS MEDICAL MEDICAL RENT; EQUIPME EQUIPME FLWMTR HUMIDFR&M ASK RADEX 86134 [facility] SPINE 5 MEDICAL EDA LUMBOSACR IMAGING AL ASS MINIMUM 4 VIEWS OPHTH 92730 [facility] MED[facility] 5 VISION VISION XM&EVAL CENTER CENTER COMPRHNSV ESTAB PT 1/> DETERMINA 49620 [facility] TION 5 VISION REFRACTIV CENTER E STATE O2 CONC 1 E1390 MAXIMILIAN YAO DEL PORT 5 HOME HOME 85%/>02 MEDICAL MEDICAL CONC AT EQUIPME EQUIPME PRSC FLW RATE PRTBLE E0431 MAXIMILIAN YAO GASEOUS 5 HOME HOME O2 SYS MEDICAL MEDICAL RENT; EQUIPME EQUIPME FLWMTR HUMIDFR&M ASK RADIOLOGI 97136 [facility] MEDICAL EDA CHEST 2 IMAGING VIEWS ASS FRONTAL&L ATERAL PRTBLE E0431 MAXIMILIANGARETT YAO GASEOUS 5 HOME HOME O2 SYS MEDICAL MEDICAL RENT; EQUIPME EQUIPME FLWMTR HUMIDFR&M ASK BLD GLU A4253 [facility] TEST/REAG 5 PHARMACY PHARMACY T STRIPS #591 #591 HOME BLD GLU MON-50 O2 CONC 1 E1390 MAXIMILIAN MAXIMILIAN DEL PORT 5 HOME HOME 85%/>02 MEDICAL MEDICAL CONC AT EQUIPME EQUIPME PRSC FLW RATE PRTBLE E0431 MAXIMILIANGARETT YAO GASEOUS 5 HOME HOME O2 SYS MEDICAL MEDICAL RENT; EQUIPME EQUIPME FLWMTR HUMIDFR&M ASK IPRATROPI J7644 [facility] UM 5 PHARMACY PHARMACY BROMIDE #591 #591 INHAL NON-CP U DOSE PER MG PHRM Q0513 [facility] DISPENSIN 5 PHARMACY PHARMACY G FEE #591 #591 INHALATIO N RX; PER 30 DAYS PROSTATE G0103 DIAMOND FIELDS CANCER 5 [facility] SCREENING INC INC ; PSA TEST COLLECTIO 98589 DIAMOND FIELDS N VENOUS 5 [facility] BLOOD INC INC VENIPUNCT URE HEPATIC 54516 DIAMOND FIELDS FUNCTION 5 [facility] PANEL INC INC LIPID 51168 DIAMOND FIELDS PANEL 5 [facility] INC INC GLUCOSE 77709 DIAMOND FIELDS QUANTITAT 5 [facility] CHALINO BLOOD INC INC XCPT REAGENT STRIP HEMOGLOBI 05775 DIAMOND FIELDS N 5 [facility]OS[facility] GLYCOSYLA INC INC JUMANA A1C BLOOD 40026 DIAMOND FIELDS COUNT 5 [facility] COMPLETE INC INC AUTO&AUTO DIFRNTL WBC RADEX HIP 81285 DIAMOND FILEDS 5 [facility] UNILATERA INC INC L COMPLETE MINIMUM 2 VIEWS PRTBLE E0431 MAXIMILIAN MAXIMILIAN GASEOUS 4 HOME HOME O2 SYS MEDICAL MEDICAL RENT; EQUIPME EQUIPME FLWMTR HUMIDFR&M ASK IPRATROPI J7644 [facility] UM 4 PHARMACY PHARMACY BROMIDE #591 #591 INHAL NON-CP U DOSE PER MG PHRM Q0513 [facility] DISPENSIN 4 PHARMACY PHARMACY G FEE #591 #591 INHALATIO N RX; PER 30 DAYS PRTBLE E0431 MAXIMILIAN MAXIMILIAN GASEOUS 4 HOME HOME O2 SYS MEDICAL MEDICAL RENT; EQUIPME EQUIPME FLWMTR HUMIDFR&M ASK BLD GLU A4253 [facility] TEST/REAG 4 PHARMACY PHARMACY T STRIPS #591 #591 HOME BLD GLU MON-50 ADMN SET A7003 MAXIMIILAN JOHNSONRELL SM VOL 4 HOME HOME NONFILTR MEDICAL MEDICAL PNEUMAT EQUIPME EQUIPME NEBULIZR DISPBL PRTBLE E0431 MAXIMILIAN MAXIMILIAN GASEOUS 4 HOME HOME O2 SYS MEDICAL MEDICAL RENT; EQUIPME EQUIPME FLWMTR HUMIDFR&M ASK LIPID 82865 DIAMOND FIELDS PANEL 4 [facility] INC INC HEPATIC 83181 DIAMOND FIELDS FUNCTION 4 [facility] PANEL INC INC BASIC 78175 DIAMOND FIELDS METABOLIC 4 [facility] PANEL INC INC CALCIUM TOTAL BLOOD 85134 DIAMOND FIELDS COUNT 4 [facility] COMPLETE INC INC AUTO&AUTO DIFRNTL WBC HEMOGLOBI 76775 DIAMOND FIELDS N 4 [facility] GLYCOSYLA INC INC JUMANA A1C COLLECTIO 64978 DIAMOND FIELDS N VENOUS 4 [facility] BLOOD INC INC VENIPUNCT URE PRTBLE E0431 MAXIMILIAN YAO GASEOUS 4 HOME HOME O2 SYS MEDICAL MEDICAL RENT; EQUIPME EQUIPME FLWMTR HUMIDFR&M ASK IPRATROPI J7644 [facility] UM 4 PHARMACY PHARMACY BROMIDE #591 #591 INHAL NON-CP U DOSE PER MG PHRM Q0513 [facility] DISPENSIN 4 PHARMACY PHARMACY G FEE #591 #591 INHALATIO N RX; PER 30 DAYS COLLECTIO 18204 DIAMOND FIELDS N VENOUS 4 [facility] [place] [address] DIAMOND FIELDS UREA 4 [facility] NITROGEN INC INC QUANTITAT CH[place] CREATININ 90927 DIAMOND FIELDS E BLOOD 4 [facility] INC INC BLD GLU A4253 [facility] TEST/REAG 4 PHARMACY PHARMACY T STRIPS #591 #591 HOME BLD GLU MON-50 IPRATROPI J7644 [facility] UM 4 PHARMACY PHARMACY BROMIDE #591 #591 INHAL NON-CP U DOSE PER MG PHRM Q0513 [facility] DISPENSIN 4 PHARMACY PHARMACY G FEE #591 #591 INHALATIO N RX; PER 30 DAYS BLD GLU A4253 [facility] TEST/REAG 4 PHARMACY PHARMACY T STRIPS #591 #591 HOME BLD GLU MON-50 LIPID 18739 DIAMOND FIELDS PANEL 4 [facility] INC INC BASIC 35194 DIAMOND FIELDS METABOLIC 4 [facility] PANEL INC INC CALCIUM TOTAL HEMOGLOBI 50547 DIAMOND FIEDLS N 4 [facility] GLYCOSYLA INC INC JUMANA A1C COLLECTIO 11547 DIAMOND FIELDS N VENOUS 4 [facility] BLOOD INC INC VENIPUNCT URE PHRM Q0513 [facility] DISPENSIN 4 PHARMACY PHARMACY G FEE #591 #591 INHALATIO N RX; PER 30 DAYS IPRATROPI J7644 [facility] UM 4 PHARMACY PHARMACY BROMIDE #591 #591 INHAL NON-CP U DOSE PER MG IPRATROPI J7644 [facility] UM 4 PHARMACY PHARMACY BROMIDE #591 #591 INHAL NON-CP U DOSE PER MG PHRM Q0513 [facility] DISPENSIN 4 PHARMACY PHARMACY G FEE #591 #591 INHALATIO N RX; PER 30 DAYS O2 CONC 1 E1390 MAXIMILIAN [place] 4 HOME HOME 85%/>02 MEDICAL MEDICAL CONC AT EQUIPME EQUIPME PRSC FLW RATE BASIC 19008 [facility] LAB BRITTANEY METABOLIC 4 LITO LITO PANEL [employer] CALCIUM TOTAL RADIOLOGI 08573 [place] AN[place]AL C EXAM 4 MEDICAL EDA CHEST 2 IMAGING VIEWS ASS FRONTAL&L ATERAL INJECTION J0696 A Dominique Saldivar 4 SON SWIFT CEFTRIAXO PSC NE SODIUM PER 250 MG THERAPEUT 19681 A Dominique Saldivar IC 4 SON SWIFT PROPHYLAC PSC TIC/DX INJECTION SUBQ/IM INJ J0702 Janna Saldivar BETAMETHA 4 SON SWIFT SONE PSC ACETATE & PHOSPHATE 3 MG INJECTION J1030 A Dominique Saldivar 4 SON SWIFT METHYLPRE PSC DNISOLONE ACETATE 40 MG PHRM Q0513 [facility] DISPENSIN 3 PHARMACY PHARMACY G FEE #591 #591 INHALATIO N RX; PER 30 DAYS IPRATROPI J7644 [facility] UM 3 PHARMACY PHARMACY BROMIDE #591 #591 INHAL NON-CP U DOSE PER MG INJECTION J2805 DIAMOND FIELDS 3 [facility] SINCALIDE INC INC 5 MICROGRAM S HEPATOBIL 80428 [place] AN[place] SYST 3 MEDICAL EDA IMAG INC IMAGING GB ASS W/PHARMA INTERVENJ TECHNETIU A9537 DIAMOND Moreno TC-99M 3 [facility] MEBROFENI INC INC N DX UP TO 15 MCI BLD GLU A4253 [facility] TEST/REAG 3 PHARMACY PHARMACY T STRIPS #591 #591 [place] [address] [place] ANIBAL ABDOMINAL 3 MEDICAL EDA REAL IMAGING TIME ASS W/IMAGE DOCUMENTA TION PULM G0424 DIAMOND FIELDS REHAB 3 [facility] INCL EXER INC INC 1 HR PER SESS TO 2 PER DAY PULM G0424 DIAMOND FIELDS REHAB 3 [facility] INCL EXER INC INC 1 HR PER SESS TO 2 PER DAY HEMOGLOBI 67557 DIAMOND FIELDS N 3 [facility] GLYCOSYLA INC INC JUMANA A1C GLUCOSE 29498 DIAMOND FIELDS QUANTITAT 3 [facility] CHALINO BLOOD INC INC XCPT REAGENT STRIP LIPID 90771 DIAMOND FIELDS PANEL 3 [facility] INC INC TRANSFERA 99997 DIAMOND FIELDS SE 3 [facility] ASPARTATE INC INC AMINO AST SGOT COLLECTIO 83506 DIAMOND FIELDS N VENOUS 3 [facility] BLOOD INC INC VENIPUNCT URE PROSTATE G0103 DIAMOND FIELDS CANCER 3 [facility] SCREENING INC INC ; PSA TEST COLLECTIO 43274 DIAMOND FIELDS N VENOUS 3 [facility] BLOOD INC INC VENIPUNCT URE HEPATITIS 93026 DIAMOND FIELDS A 3 [facility] ANTIBODY INC INC HAAB HEPATITIS 05621 DIAMOND FIELDS C 3 [facility] [place] [address] DIAMOND FIELDS HEPATITIS 3 [facility] [place] [address] DIAMOND FIELDS THYROID 3 [facility] STIMULATI INC INC NG HORMONE TSH HEPATITIS 02459 DIAMOND Hernandez SURF 3 [facility] ANTIBODY INC INC HBSAB COMPREHEN 51907 DIAMOND FIELDS SIVE 3 [facility] METABOLIC INC INC PANEL HEPATITIS 50014 DIAMOND FIELDS B CORE 3 [facility] ANTIBODY INC INC HBCAB TOTAL CT THORAX 71645 [place] AN[place] W/O 3 MEDICAL EDA CONTRAST IMAGING MATERIAL ASS 3D 23582 [place] AN[place] RENDERING 3 MEDICAL EDA IMAGING W/INTERP& ASS POSTPROC DIFF WORK STATION BASIC 93814 DIAMOND FIELDS METABOLIC 3 [facility] PANEL INC INC CALCIUM TOTAL BLOOD 95852 [facility] COUNT 3 [facility] COMPLETE INC INC AUTO&AUTO DIFRNTL WBC BILIRUBIN 55186 [facility] DIRECT [facility] INC SPMTRY 86907 FRANTZ MADDEN W/VC 3 MEDICAL JAM EXPIRATOR SERV Y EMY FOUNDATIO W/WO MXML VOL VNTJ BLD GLU A4253 [facility] TEST/REAG 3 PHARMACY PHARMACY T STRIPS #591 #591 HOME BLD GLU MON-50 IPRATROPI J7644 [facility] UM 3 PHARMACY PHARMACY BROMIDE #591 #591 INHAL NON-CP U DOSE PER MG PHRM Q0513 [facility] DISPENSIN 3 PHARMACY PHARMACY G FEE #591 #591 INHALATIO N RX; PER 30 DAYS MANUAL 37264 [facility] CROSSFIEL THERAPY 3 [facility] TQS 1/> ASSOC REGIONS PSC EACH 15 MINUTES E-STIM G0283 PROFESSIO CROSSFIEL 1/> AREAS 3 [facility] OTH THAN ASSOC WND CARE PSC PART TX PLAN E-STIM G0283 PROFESSIO CROSSFIEL 1/> AREAS 3 [facility] OTH THAN ASSOC WND CARE PSC PART TX PLAN MANUAL 15106 PROFESSIO CROSSFIEL THERAPY 3 [facility] TQS 1/> ASSOC REGIONS PSC EACH 15 MINUTES MANUAL 71385 PROFESSIO CROSSFIEL THERAPY 3 [facility] TQS 1/> ASSOC REGIONS PSC EACH 15 MINUTES E-STIM G0283 PROFESSIO CROSSFIEL 1/> AREAS 3 [facility] OTH THAN ASSOC WND CARE PSC PART TX PLAN E-STIM G0283 PROFESSIO CROSSFIEL 1/> AREAS 3 [facility] OTH THAN ASSOC WND CARE PSC PART TX PLAN MANUAL 19669 PROFESSIO CROSSFIEL THERAPY 3 [facility] RE[facility] TQS 1/> ASSOC REGIONS PSC EACH 15 MINUTES MANUAL 43658 PROFESSIO CROSSFIEL THERAPY 3 [facility] TQS 1/> ASSOC REGIONS PSC EACH 15 MINUTES E-STIM G0283 PROFESSIO CROSSFIEL 1/> AREAS 3 [facility] OTH THAN ASSOC WND CARE PSC PART TX PLAN PHRM Q0513 [facility] DISPENSIN 3 PHARMACY PHARMACY G FEE #591 #591 INHALATIO N RX; PER 30 DAYS IPRATROPI J7644 [facility] UM 3 PHARMACY PHARMACY BROMIDE #591 #591 INHAL NON-CP U DOSE PER MG E-STIM G0283 PROFESSIO CROSSFIEL 1/> AREAS 3 [facility] OTH THAN ASSOC WND CARE PSC PART TX PLAN MANUAL 15912 PROFESSIO CROSSFIEL THERAPY 3 N[facility] RE[facility] TQS 1/> ASSOC REGIONS PSC EACH 15 MINUTES MANUAL 68604 PROFESSIO CROSSFIEL THERAPY 3 NAL RE[facility] TQS 1/> ASSOC REGIONS PSC EACH 15 MINUTES E-STIM G0283 PROFESSIO CROSSFIEL 1/> AREAS 3 [facility] OTH THAN ASSOC WND CARE PSC PART TX PLAN E-STIM G0283 PROFESSIO CROSSFIEL 1/> AREAS 3 [facility] OTH THAN ASSOC WND CARE PSC PART TX PLAN MANUAL 25591 PROFESSIO CROSSFIEL THERAPY 3 NAL RE[facility] TQS 1/> ASSOC REGIONS PSC EACH 15 MINUTES MANUAL 90293 PROFESSIO CROSSFIEL THERAPY 3 NAL RE[facility] TQS 1/> ASSOC REGIONS PSC EACH 15 MINUTES E-STIM G0283 PROFESSIO CROSSFIEL 1/> AREAS 3 [facility] OTH THAN ASSOC WND CARE PSC PART TX PLAN E-STIM G0283 PROFESSIO CROSSFIEL 1/> AREAS 3 [facility] OTH THAN ASSOC WND CARE PSC PART TX PLAN MANUAL 33969 PROFESSIO CROSSFIEL THERAPY 3 [facility] RE[facility] TQS 1/> ASSOC REGIONS PSC EACH 15 MINUTES PHYSICAL 76775 PROFESSIO CROSSFIEL THERAPY 3 [facility] EVALUATIO ASSOC N PSC BLD GLU A4253 [facility] TEST/REAG 3 PHARMACY PHARMACY T STRIPS #591 #591 HOME BLD GLU MON-50 RADIOLOGI 82528 [facility] Fox EXAM [facility] CHEST 2 INC INC VIEWS FRONTAL&L ATERAL TENS E0730 EMPI INC EMPI INC DEVICE 3 4/MORE LEADS MULTI NERVE STIMULATI ON O2 CONC 1 E1390 [facility] HOME 85%/>02 MEDICAL MEDICAL CONC AT [facility] FLW RATE THERAPEUT 56774 PROFESSIO CROSSFIEL IC PX 1/> 3 [facility] AREAS ASSOC EACH 15 PSC MIN EXERCISES E-STIM G0283 PROFESSIO CROSSFIEL 1/> AREAS 3 [facility] OTH THAN ASSOC WND CARE PSC PART TX PLAN MANUAL 76661 PROFESSIO CROSSFIEL THERAPY 3 NAL REHAB D [facility] TQS 1/> ASSOC REGIONS PSC EACH 15 MINUTES MANUAL 09524 PROFESSIO CROSSFIEL THERAPY 3 NAL REHAB D [facility] TQS 1/> ASSOC REGIONS PSC EACH 15 MINUTES E-STIM G0283 PROFESSIO CROSSFIEL 1/> AREAS 3 [facility] OTH THAN ASSOC WND CARE PSC PART TX PLAN THERAPEUT 30452 PROFESSIO CROSSFIEL IC PX 1/> 3 [facility] AREAS ASSOC EACH 15 PSC MIN EXERCISES O2 CONC 1 E1390 [facility] 85%/>02 [facility] FL[facility] 50790 PROFESSIO CROSSFIEL IC PX 1/> 3 NAL RE[facility] AREAS ASSOC EACH 15 PSC MIN EXERCISES MANUAL 42122 PROFESSIO CROSSFIEL THERAPY 3 NAL REHAB D [facility]ANTY TQS 1/> ASSOC REGIONS PSC EACH 15 MINUTES MANUAL 38084 PROFESSIO CROSSFIEL THERAPY 3 NAL REHAB D SANTY TQS 1/> ASSOC REGIONS PSC EACH 15 MINUTES TENS E0730 [employer] INC EMPI INC DEVICE 3 4/MORE LEADS MULTI NERVE STIMULATI ON APPLICATI 04112 PROFESSIO CROSSFIEL ON 3 [facility] SURFACE ASSOC NEUROSTIM PSC ULATOR E-STIM G0283 PROFESSIO CROSSFIEL 1/> AREAS 3 [facility] OTH THAN ASSOC WND CARE PSC PART TX PLAN MANUAL 59047 PROFESSIO CROSSFIEL THERAPY 3 NAL REHAB D [facility]ANTY TQS 1/> ASSOC REGIONS PSC EACH 15 MINUTES MANUAL 27572 PROFESSIO CROSSFIEL THERAPY 3 NAL REHAB D [facility]ANTY TQS 1/> ASSOC REGIONS PSC EACH 15 MINUTES E-STIM G0283 PROFESSIO CROSSFIEL 1/> AREAS 3 [facility] OTH THAN ASSOC WND CARE PSC PART TX PLAN E-STIM G0283 PROFESSIO CROSSFIEL 1/> AREAS 3 [facility] OTH THAN ASSOC WND CARE PSC PART TX PLAN MANUAL 85196 PROFESSIO CROSSFIEL THERAPY 3 NAL REHAB D [facility]ANTY TQS 1/> ASSOC REGIONS PSC EACH 15 MINUTES MANUAL 91213 PROFESSIO CROSSFIEL THERAPY 3 NAL REHAB D SANTY TQS 1/> ASSOC REGIONS PSC EACH 15 MINUTES PHYSICAL 15159 PROFESSIO CROSSFIEL THERAPY 3 [facility] EVALUATIO ASSOC N PSC E-STIM G0283 PROFESSIO CROSSFIEL 1/> AREAS 3 [facility] OTH THAN ASSOC WND CARE PSC PART TX PLAN E-STIM G0283 PROFESSIO CROSSFIEL 1/> AREAS 2 N[facility] OTH THAN ASSOC WND CARE PSC PART TX PLAN MANUAL 90781 PROFESSIO CROSSFIEL THERAPY 2 NAL REHAB D SANTY TQS 1/> ASSOC REGIONS PSC EACH 15 MINUTES O2 CONC 1 E1390 MAXIMILIAN [place]AO [place] 2 HOME HOME 85%/>02 MEDICAL MEDICAL CONC AT [facility] FLW RATE MANUAL 31536 PROFESSIO CROSSFIEL THERAPY 2 NAL REHAB D SANTY TQS 1/> ASSOC REGIONS PSC EACH 15 MINUTES E-STIM G0283 PROFESSIO CROSSFIEL 1/> AREAS 2 NAL [facility] OTH THAN ASSOC WND CARE PSC PART TX PLAN MANUAL 24105 PROFESSIO CROSSFIEL THERAPY 2 NAL REHAB D SANTY TQS 1/> ASSOC REGIONS PSC EACH 15 MINUTES APPL 99451 PROFESSIO CROSSFIEL MODALITY 2 NAL REHAB D SANTY 1/> AREAS ASSOC TRACTION PSC MECHANICA L APPL 07396 PROFESSIO CROSSFIEL MODALITY 2 NAL REHAB D SANTY 1/> AREAS ASSOC TRACTION PSC MECHANICA L COLLECTIO 67981 DIAMOND DIAMOND N VENOUS 2 [facility] BLOOD INC INC VENIPUNCT URE BASIC 96975 DIAMOND DIAMOND METABOLIC 2 [facility] PANEL INC INC CALCIUM TOTAL LIPID 05025 DIAMOND FIELDS PANEL 2 [facility] INC INC HEPATIC 18284 DIAMOND FIELDS FUNCTION 2 [facility] PANEL INC INC BLOOD 29985 DIAMOND DIAMOND COUNT 2 [facility] COMPLETE INC INC AUTO&AUTO DIFRNTL WBC HEMOGLOBI 92759 DIAMOND DIAMOND N 2 [facility] GLYCOSYLA INC INC JUMANA A1C ADMINISTR G0009 A Dominique Saldivar ATION OF 2 SON SWIFT PNEUMOCOC PSC SUBHASH VACCINE INJ J0702 A Dominique Saldivar BETAMETHA 2 SON SWIFT SONE PSC ACETATE & PHOSPHATE 3 MG THERAPEUT 95893 A Dominique Saldivar IC 2 SON SWIFT PROPHYLAC PSC TIC/DX INJECTION SUBQ/IM PPSV23 16847 A Dominique Saldivar VACCINE 2 2 SON SWIFT YRS OR PSC OLDER FOR SUBQ/IM USE APPL 36049 PROFESSIO CROSSFIEL MODALITY 2 NAL REHAB D SANTY 1/> AREAS ASSOC TRACTION PSC MECHANICA L THERAPEUT 46387 PROFESSIO CROSSFIEL IC PX 1/> 2 NAL RE[facility]ANT[facility] AREAS ASSOC EACH 15 PSC MIN EXERCISES THERAPEUT 43949 PROFESSIO CROSSFIEL IC PX 1/> 2 NAL REHAB [facility]ANT[facility] AREAS ASSOC EACH 15 PSC MIN EXERCISES APPL 37274 PROFESSIO CROSSFIEL MODALITY 2 NAL REHAB D SANTY 1/> AREAS ASSOC TRACTION PSC MECHANICA L THERAPEUT 40673 PROFESSIO CROSSFIEL IC PX 1/> 2 NAL REHAB D [facility]ANT[facility] AREAS ASSOC EACH 15 PSC MIN EXERCISES MANUAL 39572 PROFESSIO CROSSFIEL THERAPY 2 NAL REHAB D SANTY TQS 1/> ASSOC REGIONS PSC EACH 15 MINUTES PHYSICAL 93179 PROFESSIO CROSSFIEL THERAPY 2 NAL REHAB [facility] EVALUATIO ASSOC N PSC O2 CONC 1 E1390 MAXIMILIAN YAO [place] 2 HOME HOME 85%/>02 MEDICAL MEDICAL CONC AT [facility] FLW RATE THERAPEUT 10378 Janna Saldivar C IC 2 SON CLINE MD PROPHYLAC PSC PSC TIC/DX INJECTION SUBQ/IM INJ J0702 Janna Saldivar BETAMETHA 2 SON SWIFT SONMaster PSC ACETATE & PHOSPHATE 3 MG MRI 75946 [place] ANIBAL SPINAL 2 MEDICAL EDA CANAL IMAGING CERVICAL ASS W/O CONTRAST MATRL 3D 66006 DIAMOND FIELDS RENDERING 2 [facility] W/INTERP INC INC & POSTPROCE SS SUPERVISI ON THERAPEUT 68727 Janna Saldivar IC 2 SON SWIFT PROPHYLAC PSC TIC/DX INJECTION SUBQ/IM INJECTION J1030 Janna Saldivar 2 SON SWIFT METHYLPRE PSC DNISOLONE ACETATE 40 MG O2 CONC 1 E1390 MAXIMILIAN MAXIMILIAN [facility] PORT 2 HOME HOME 85%/>02 MEDICAL MEDICAL CONC AT [facility] FLW RATE PHRM Q0513 [facility] 2 [facility]ARMACY PHARMACY G FEE #591 #591 INHALATIO N RX; PER 30 DAYS IPRATROPI J7644 [facility] UM 2 PHARMACY PHARMACY BROMIDE #591 #591 INHAL NON-CP U DOSE PER MG BLD GLU A4253 [facility] TEST/REAG 2 PHARMACY PHARMACY T STRIPS #591 #591 HOME BLD GLU MON-50 LANCETS A4259 [facility] PER BOX 2 PHARMACY PHARMACY OF 100 #591 #591 O2 CONC 1 E1390 MAXIMILIAN YAO [facility] PORT 2 HOME HOME 85%/>02 MEDICAL MEDICAL CONC AT [facility] FLW RATE O2 CONC 1 E1390 MAXIMILIAN MOTA PORT 2 HOME HOME 85%/>02 MEDICAL MEDICAL CONC AT [facility] FLW RATE RPR 1ST 58291 C ELBA KIMBERLYN INGUN 2 KIMBERLYN LEDESMA MD PSC 5 YRS/> REDUCIBLE ANESTHESI 64261 [facility] JENNIE A HERNIA 2 ANESTH REPAIR OF THE LOWER BLUE ABDOMEN NOS ECG 60391 DIAMOND FIELDS ROUTINE 2 [facility] ECG INC INC W/LEAST 12 LDS TRCG ONLY W/O I&[place] [address] DIAMOND FIELDS INFUSION 2 [facility] THERAPY/P INC INC ROPHYLAXI S /DX 1ST TO 1 HR THERAPEUT 51809 DIAMOND FIELDS IC 2 [facility] INJECTION INC INC IV PUSH EACH NEW DRUG INJECTION J2405 DIAMOND FIELDS 2 [facility] ONDANSETR INC INC ON HCL PER 1 [place] [address] DIAMOND FIELDS INFUSION 2 [facility] THERAPY INC INC PROPHYLAX IS/DX EA HOUR COLLECTIO 04995 DIAMOND FIELDS N VENOUS 2 [facility] BLOOD INC INC VENIPUNCT URE BLOOD 55256 DIAMOND FIELDS COUNT 2 [facility] COMPLETE INC INC AUTO&AUTO DIFRNTL WBC BASIC 63819 DIAMOND FIELDS METABOLIC 2 [facility] PANEL INC INC CALCIUM TOTAL PHRM Q0513 [facility] DIS[facility]ENSIN 2 PHARMACY PHARMACY G FEE #591 #591 INHALATIO N RX; PER 30 DAYS IPRATROPI J7644 [facility] UM 2 PHARMACY PHARMACY BROMIDE #591 #591 INHAL NON-CP U DOSE PER MG O2 CONC 1 E1390 MAXIMILIAN MOTA PORT 2 HOME HOME 85%/>02 MEDICAL MEDICAL CONC AT [facility] FLW RATE COLLECTIO 75157 DIAMOND FIELDS N VENOUS 2 [facility] BLOOD INC INC VENIPUNCT URE PROSTATE G0103 DIAMOND FIELDS CANCER 2 [facility] SCREENING INC INC ; PSA TEST BASIC 70340 DIAMOND FIELDS METABOLIC 2 [facility] PANEL INC INC CALCIUM TOTAL LIPID 29948 DIAMOND FIELDS PANEL 2 [facility] INC INC GLUCOSE 44294 DIAMOND FIELDS QUANTITAT 2 [facility] CHALINO BLOOD INC INC XCPT REAGENT STRIP HEMOGLOBI 55046 DIAMOND FIELDS N 2 [facility] GLYCOSYLA INC INC JUMANA A1C RADEX 92948 DIAMOND FIELDS SPINE 2 [facility] CERVICAL INC INC 6 OR MORE VIEWS RADEX 31990 [place] ANIBAL SPINE 2 MEDICAL EDA CERVICAL IMAGING 2 OR 3 ASS VIEWS O2 CONC 1 E1390 MAXIMILIAN JOHNSONRELL DEL PORT 2 HOME HOME 85%/>02 MEDICAL MEDICAL CONC AT [facility] FLW RATE LIPID 64520 DIAMOND FIELDS PANEL 2 [facility] INC INC HEPATIC 35407 DIAMOND FIELDS FUNCTION 2 [facility] PANEL INC INC BASIC 22153 DIAMOND FIELDS METABOLIC 2 [facility] PANEL INC INC CALCIUM TOTAL COLLECTIO 57109 DIAMOND FIELDS N VENOUS 2 [facility] BLOOD INC INC VENIPUNCT URE O2 CONC 1 E1390 MAXIMILIAN MAXIMILIAN DEL PORT 2 HOME HOME 85%/>02 MEDICAL MEDICAL CONC AT [facility] FLW RATE LANCETS A4259 [facility] PER BOX 2 [facility]ARMACY PHARMACY OF 100 #591 #591 PHR Q0513 [facility] DISPENSIN 2 PHARMACY PHARMACY G FEE #591 #591 INHALATIO N RX; PER 30 DAYS IPRATROPI J7644 [facility] UM 2 PHARMACY PHARMACY BROMIDE #591 #591 INHAL NON-CP U DOSE PER MG THERAPEUT 00690 MARTIN MARTIN IC 2 KESHIA KESHIA PROPHYLAC TIC/DX INJECTION SUBQ/IM PRESSURIZ 98000 MARTIN MARTIN ED/NONPRE 2 KESHIA KESHIA SSURIZED INHALATIO N TREATMENT INJECTION J1040 MARTIN MARTIN 2 KESHIA KESHIA METHYLPRE DNISOLONE ACETATE 80 MG SPMTRY 36665 MARTIN MARTIN W/VC 2 KESHIA KESHIA EXPIRATOR Y EMY W/WO MXML VOL VNTJ INJECTION J2010 MARTIN [facility] 2 KESHIA INFUSION [facility] N HCL UP TO 300 MG O2 CONC 1 E1390 MAXIMILIAN MAXIMILIAN DEL PORT 2 HOME HOME 85%/>02 MEDICAL MEDICAL CONC AT [facility] FLW RATE O2 CONC 1 E1390 MAXIMILIAN MAXIMILIAN DEL PORT 2 HOME HOME 85%/>02 MEDICAL MEDICAL CONC AT [facility] FLW RATE BRNCDILAT 15536 MARTIN MARTIN RSPSE 2 KESHIA KESHIA SPMTRY PRE&POST- BRNCDILAT ADMN O2 CONC 1 E1390 MAXIMILIAN MAXIMILIAN DEL PORT 2 HOME HOME 85%/>02 MEDICAL MEDICAL CONC [facility] O2 CONC 1 E1390 MAXIMILIAN MAXIMILIAN DEL PORT 1 HOME HOME 85%/>02 [facility] FL[facility] FUNDUS 32282 ELO ELO PHOTOGRAP 1 VISION VISION HY W/INTERPR ETATION & REPORT O2 CONC 1 E1390 [facility] HOME HOME 85%/>02 [facility] MED[facility] PHRM Q0513 [facility] DISPENSIN 1 PHARMACY PHARMACY G FEE #591 #591 INHALATIO N RX; PER 30 DAYS LEVALBUTE J7614 [facility] ROL INHAL 1 PHARMACY PHARMACY NON-CP #591 #591 THRU DME U DOSE 0.5 MG LANCETS A4259 [facility] PER BOX 1 [facility]ACY [facility] #591 #591 BLD GLU A4253 [facility] TEST/REAG 1 PHARMACY PHARMACY T STRIPS #591 #591 HOME BLD GLU MON-50 HEPATIC 88756 DIAMOND FIELDS FUNCTION 1 [facility] PANEL INC INC LIPID 25076 DIAMOND FIELDS PANEL 1 [facility] INC INC BASIC 49959 DIAMOND FIELDS METABOLIC 1 [facility] PANEL INC INC CALCIUM TOTAL COLLECTIO 75840 DIAMOND FIELDS N VENOUS 1 [facility] BLOOD INC INC VENIPUNCT URE O2 CONC 1 E1390 MAXIMILIANGARETT YAO DEL PORT 1 HOME HOME 85%/>02 MEDICAL MEDICAL CONC AT [facility] LEVALBUTE J7614 [facility] ROL INHAL 1 PHARMACY PHARMACY NON-CP #591 #591 THRU DME U DOSE 0.5 MG PHRM Q0513 [facility] DISPENSIN 1 PHARMACY PHARMACY G FEE #591 #591 INHALATIO N RX; PER 30 DAYS O2 CONC 1 E1390 MAXIMILIANGARETT YAO DEL PORT 1 HOME HOME 85%/>02 MEDICAL MEDICAL CONC AT [facility] O2 CONC 1 E1390 MAXIMILIANGARETT YAO DEL PORT 1 HOME HOME 85%/>02 [facility] MEDICAL 69231 DIAMOND FIELDS NUTRITION 1 [facility] INC INC ASSMT&IVN TJ INDIV EACH 15 ID SPMTRY 50421 MARTIN MARTIN W/VC 1 KESHIA KESHIA EXPIRATOR Y EMY W/WO MXML VOL VNTJ LANCETS A4259 [facility] PER BOX 1 PHARMACY PHARMACY OF 100 #591 #591 BLD GLU A4253 [facility] TEST/REAG 1 PHARMACY PHARMACY T STRIPS #591 #591 HOME BLD GLU MON-50 O2 CONC 1 E1390 MAXIMILIAN MOTA PORT 1 HOME HOME 85%/>02 MEDICAL MEDICAL CONC AT [facility] LIPID 41425 DIAMOND DIAMOND PANEL 1 [facility] INC INC BASIC 71873 DIAMOND GREENON METABOLIC 1 [facility] [place] [address] DIAMOND FIELDS PROSTATE 1 [facility] SPECIFIC INC INC ANTIGEN TOTAL COLLECTIO 41901 DIAMOND FIELDS N VENOUS 1 [facility] BLOOD INC INC VENIPUNCT URE O2 CONC 1 E1390 MAXIMILIANGARETT YAO DEL PORT 1 HOME MED HOME MED 85%/>02 EQUIP. L EQUIP. L CONC AT [facility] FLW RATE LEVALBUTE J7614 [facility] ROL INHAL 1 PHARMACY PHARMACY NON-CP #591 #591 THRU DME U DOSE 0.5 MG PHRM Q0513 [facility] DISPENSIN 1 PHARMACY PHARMACY G FEE #591 #591 INHALATIO N RX; PER 30 DAYS O2 CONC 1 E1390 [facility] HOME 85%/>02 MEDICAL MEDICAL CONC AT [facility] FLW RATE O2 CONC 1 E1390 [facility] HOME MED HOME MED 85%/>02 EQUIP. L EQUIP. L CONC AT [facility] FLW RATE BLD GLU A4253 [facility] TEST/REAG 1 PHARMACY PHARMACY T STRIPS #591 #591 HOME BLD GLU MON-50 O2 CONC 1 E1390 [facility] HOME MED HOME MED 85%/>02 EQUIP. L EQUIP. L CONC AT [facility] [place] O2 CONC 1 E1390 [facility] HOME MED 85%/>02 EQUIP. L EQUIP. L CONC AT [facility] FLW RATE IM ADM 27256 A Dominique GA PRQ ID 1 SON SWIFT SUBQ/IM PSC NJXS 1 VACCINE INJ J2930 A Dominique GA METHYLPRD 1 SON SWIFT NISOLONE PSC SODIUM SUCCNAT TO 125 MG LEVALBUTE J7614 [facility] ROL INHAL 1 PHARMACY PHARMACY NON-CP #591 #591 THRU DME U DOSE 0.5 MG PHRM Q0513 [facility] DISPENSIN 1 PHARMACY PHARMACY G FEE #591 #591 INHALATIO N RX; PER 30 DAYS SPMTRY 37193 MARTIN MARTIN W/VC 1 KESHIA KESHIA EXPIRATOR Y EMY W/WO MXML VOL VNTJ O2 CONC 1 E1390 [facility]IM[facility]IAN [facility] 1 HOME MED HOME MED 85%/>02 EQUIP. L EQUIP. L CONC AT [facility] FLW [facility] LANCETS A4259 [facility] PER BOX 1 PHARMACY PHARMACY OF 100 #591 #591 BLD GLU A4253 [facility] TEST/REAG 1 PHARMACY PHARMACY T STRIPS #591 #591 HOME BLD GLU MON-50 CHIROPRAC 91523 [place] TIC 1 ROS MANIPULAT CHIROPRAC [place] TX TIC CENTE SPINAL 3-4 REGIONS LIPID 12452 DIAMOND FIELDS PANEL 1 [facility] INC INC HEMOGLOBI 74482 DIAMOND FIELDS N 1 [facility] GLYCOSYLA INC INC JUMANA A1C GLUCOSE 17986 DIAMOND FIELDS QUANTITAT 1 [facility] CHALINO BLOOD INC INC XCPT REAGENT STRIP TRANSFERA 26485 DIAMOND FIELDS SE 1 [facility] ASPARTATE INC INC AMINO AST SGOT COLLECTIO 77584 DIAMOND FIELDS N VENOUS 1 [facility] BLOOD INC INC VENIPUNCT URE CHIROPRAC 60958 [place] TIC 1 ROS MANIPULAT CHIROPRAC [place] TX TIC CENTE SPINAL 3-4 REGIONS CHIROPRAC 35430 [place] TIC 1 ROS MANIPULAT CHIROPRAC CH[place] TX TIC CENTE SPINAL 3-4 REGIONS CHIROPRAC 95042 [place] TIC 0 ROS MANIPULAT CHIROPRAC CHALINO TX TIC CENTE SPINAL 3-4 REGIONS RADEX 32432 [place] SPINE 0 ROS CERVICAL CHIROPRAC 2 OR 3 TIC CENTE VIEWS RADEX 48291 [place] SPINE 0 ROS LUMBOSACR CHIROPRAC AL 2/3 TIC CENTE VIEWS APPL 67738 [place] MODALITY 0 ROS 1/> AREAS CHIROPRAC TRACTION TIC CENTE MECHANICA L LEVALBUTE J7614 [facility] ROL INHAL 0 PHARMACY PHARMACY NON-CP #591 #591 THRU DME U DOSE 0.5 MG PHRM Q0513 [facility] DISPENSIN 0 PHARMACY PHARMACY G FEE #591 #591 INHALATIO N RX; PER 30 DAYS OPHTH 55718 [facility] 0 XM&EVAL COMPRE NEW PT 1/> VST O2 CONC 1 E1390 MAXIMILIAN YAO DEL [place] 0 HOME MED HOME MED 85%/>02 EQUIP. L EQUIP. L CONC AT [facility] FLW RATE NEBULIZER E0570 MAXIMILIAN YAO WITH 0 HOME MED HOME MED COMPRESS[place] [address] DIAMOND FIELDS INFUSION 0 [facility] THERAPY INC INC PROPHYLAX IS/DX EA HOUR COLONOSCO 85846 [place] TATE GENE PY 0 MEDICAL W/BIOPSY SERV SINGLE/[place] [address] PATHOLOGY PATHOLOGY SURG 0 & & PATHOLOGY CYTOLOGY CYTOLOGY LAB LAB GROSS&[place] [address] DIAM[facility] FIELDS INFUSION 0 [facility] THERAPY/P INC INC ROPHYLAXI S /DX 1ST TO 1 HR O2 CONC 1 E1390 MAXIMILIAN YAO DEL PORT 0 HOME MED HOME MED 85%/>02 EQUIP. L EQUIP. L CONC AT [facility] FLW RATE LEVALBUTE J7614 [facility] ROL INHAL 0 PHARMACY PHARMACY NON-CP #591 #591 THRU DME U DOSE 0.5 MG PHRM Q0513 [facility] DISPENSIN 0 PHARMACY PHARMACY G FEE #591 #591 INHALATIO N RX; PER 30 DAYS NEBULIZER E0570 MAXIMILIAN YAO WITH 0 HOME MED HOME MED COMPRESSO EQUIP. L EQUIP. L R O2 CONC 1 E1390 MAXIMILIAN YAO DEL PORT 0 HOME MED HOME MED 85%/>02 EQUIP. L EQUIP. L CONC AT [facility] FLW RATE ADMINISTR G0008 Janna Saldivar ATION OF 0 SON SWIFT INFLUENZA PSC VIRUS VACCINE IIV 72460 Janna Saldivar VACCINE 0 SON SWIFT PRESERV PSC FREE INCREASED AG CONTENT IM CT PELVIS 04066 [facility] EDA W/CONTRAS IMAGING T ASS MATERIAL COMPREHEN 15946 DIAMOND FIELDS SIVE 0 [facility] [place] [address] DIAMOND FIELDS AMYLASE 0 [facility] INC INC PROTHROMB 03575 DIAMOND FIELDS IN TIME 0 [facility] INC INC PRESSURIZ 20361 DIAMOND FIELDS ED/NONPRE 0 [facility] SSURIZED INC INC INHALATIO N TREATMENT CUL BACT 09365 DIAMOND FIELDS STOOL 0 [facility] AEROBIC INC INC ISOL SALMONELL A&SHIGELL OVA&JOSE RAMON 75748 DIAMOND FIELDS ITES 0 [facility] DIRECT INC INC SMEARS CONCENTRA TION & [place] [address] DIAMOND FIELDS LIPASE 0 [facility] [place] [address] [place] ANIBAL ABDOMEN 0 MEDICAL EDA W/CONTRAS IMAGING T ASS MATERIAL BLOOD 92429 DIAMOND FIELDS OCCULT 0 [facility] PEROXIDAS INC INC E ACTV QUAL FECES 1-3 SPEC BLOOD 12226 DIAMOND FIELDS COUNT 0 [facility] COMPLETE INC INC AUTO&AUTO DIFRNTL WBC 3D 56925 DIAMOND FIELDS RENDERING 0 [facility] INC INC W/INTERP& POSTPROC DIFF WORK STATION THERAPEUT 78227 MARTIN MARTIN IC 0 KESHIA KESHIA PROPHYLAC TIC/DX INJECTION SUBQ/IM PRESSURIZ 16142 MARTIN MARTIN ED/NONPRE 0 KESHIA KESHIA SSURIZED INHALATIO N TREATMENT INJECTION J1040 MARTIN MARTIN 0 KESHIA KESHIA METHYLPRE DNISOLONE ACETATE 80 MG BRNCDILAT 55424 MARTIN MARTIN RSPSE 0 KESHIA KESHIA SPMTRY PRE&POST- BRNCDILAT ADMN BUDESONID J7626 MARTIN MARTIN E INHAL 0 KESHIA KESHIA NON-CP UNIT DOSE UP TO 0.5 MG LEVALBUTE J7614 MARTNI MARTIN ROL INHAL 0 KESHIA KESHIA NON-CP THRU DME U DOSE 0.5 MG INJECTION J3301 MARTIN LABONE OF 0 KESHIA [place] TRIAMCINO LONE ACETONIDE NOS 10 MG NEBULIZER E0570 MAXIMILIAN YAO WITH 0 HOME MED HOME MED COMPRESSO EQUIP. L EQUIP. L R O2 CONC 1 E1390 MAXIMILIAN YAO DEL PORT 0 HOME MED HOME MED 85%/>02 EQUIP. L EQUIP. L CONC AT [facility] FLW RATE PROSTATE G0103 DIAM[facility] FIELDS CANCER 0 [facility] SCREENING INC INC ; PSA TEST COLLECTIO 88386 DI[facility]OND FIELDS N VENOUS 0 [facility] BLOOD INC INC VENIPUNCT URE NEBULIZER E0570 MAXIMILIAN YAO WITH 0 HOME MED HOME MED COMPRESSO EQUIP. L EQUIP. L R BASIC 00149 DIAMOND FIELDS METABOLIC 0 [facility] PANEL INC INC CALCIUM TOTAL LIPID 49026 DIAMOND FIELDS PANEL 0 [facility] INC INC O2 CONC 1 E1390 MAXIMILIAN YAO DEL PORT 0 HOME MED HOME MED 85%/>02 EQUIP. L EQUIP. L CONC AT [facility] FLW RATE SPMTRY 41172 MARTIN, MARTIN, W/VC 0 KESHIA B KESHIA B EXPIRATOR Y EMY W/WO MXML VOL VNTJ BLD GLU A4253 [facility] TEST/REAG 0 PHARMACY PHARMACY T STRIPS #591 #591 HOME BLD GLU MON-50 LANCETS A4259 [facility] PER BOX 0 PHARMACY PHARMACY OF 100 #591 #591 NEBULIZER E0570 MAXIMILIAN YAO WITH 0 HOME MED HOME MED COMPRESSO EQUIP. [facility] O2 CONC 1 E1390 MAXIMILIAN YAO DEL PORT 0 HOME MED HOME MED 85%/>02 EQUIP. EQUIP. CONC AT [facility] FLW RATE PHRM Q0513 [facility] DISPENSIN 0 PHARMACY PHARMACY G FEE #591 #591 INHALATIO N RX; PER 30 DAYS LEVALBUTE J7614 [facility] ROL INHAL 0 PHARMACY PHARMACY NON-CP #591 #591 THRU DME U DOSE 0.5 MG INJECTION J3301 MARTIN, MARTIN, 0 KESHIA B KESHIA B TRIAMCINO LONE ACETONIDE NOS 10 MG INJECTION J2010 MARTIN, MARTIN, 0 KESHIA B KESHIA B LINCOMYCI N HCL UP TO 300 MG SPMTRY [id number] MARTIN, MARTIN, W/VC 0 KESHIA B KESHIA B EXPIRATOR Y EMY W/WO MXML VOL VNTJ INJECTION J1020 MARTIN, MARTIN, 0 KESHIA B KESHIA B METHYLPRE DNISOLONE ACETATE 20 MG PRESSURIZ 83701 MARTIN, MARTNI, ED/NONPRE 0 KESHIA B KESHIA B SSURIZED INHALATIO N TREATMENT IM ADM 54054 MARTIN, MARTIN, PRQ ID 0 KESHIA B KESHIA B SUBQ/IM NJXS EA VACCINE IM ADM 37003 MARTIN, MARTIN, PRQ ID 0 KESHIA B KESHIA B SUBQ/IM NJXS 1 VACCINE NEBULIZER E0570 MAXIMILIAN YAO WITH 0 HOME MED HOME MED COMPRESSO EQUIP. EQUIP. R [facility] O2 CONC 1 E1390 MAXIMILIAN MAXIMILIAN DEL PORT 0 HOME MED HOME MED 85%/>02 EQUIP. EQUIP. CONC AT [facility] PRSC FLW RATE NEBULIZER E0570 MAXIMILIAN YAO WITH 0 HOME MED HOME MED COMPRESSO EQUIP. EQUIP. R [facility] O2 CONC 1 E1390 MAXIMILIAN MAXIMILIAN DEL PORT 0 HOME MED HOME MED 85%/>02 EQUIP. EQUIP. CONC [facility] PRSC FLW RATE IM ADM 22648 MARTIN, MARTIN, PRQ ID 0 KESHIA B KESHIA B SUBQ/IM NJXS 1 VACCINE PRESSURIZ 09111 MARTIN, MARTIN, ED/NONPRE 0 KESHIA B KESHIA B SSURIZED INHALATIO N TREATMENT INJECTION J1020 MARTIN, MARTIN, 0 KESHIA B KESHIA B METHYLPRE DNISOLONE ACETATE 20 MG BRNCDILAT 43348 MARTIN, MARTIN, RSPSE 0 KESHIA B KESHIA B SPMTRY PRE&POST- BRNCDILAT ADMN INJECTION J3301 MARTIN, MARTIN, 0 KESHIA B KESHIA B TRIAMCINO LONE ACETONIDE NOS 10 MG COLLECTIO 67006 Janna PERRY N VENOUS 0 SON Fox BLOOD PSC VENIPUNCT URE BLOOD 39630 Janna PERRY COUNT 0 SON Fox COMPLETE PSC AUTO&AUTO DIFRNTL WBC BASIC 50867 LAB BRITTANEY LAB BRITTANEY METABOLIC 0 AMERIC AMERIC PANEL HOLDING HOLDING CALCIUM TOTAL SPMTRY 24317 MARTIN, MARTIN, W/VC 0 KESHIA B KESHIA B EXPIRATOR Y EMY W/WO MXML VOL VNTJ NEBULIZER E0570 MAXIMILIAN YAO WITH 0 HOME MED HOME MED COMPRESSO EQUIP. EQUIP. R [facility] O2 CONC 1 E1390 MAXIMILIAN YAO DEL PORT 0 HOME MED HOME MED 85%/>02 EQUIP. EQUIP. CONC AT [facility] PRSC FLW RATE BRNCDILAT 25232 MARTIN, MARTIN, RSPSE 0 KESHIA B KESHIA B SPMTRY PRE&POST- BRNCDILAT ADMN DEMO&/SARAY 66050 MARTIN SALAZAR, L OF PT 0 KESHIA B KESHIA B UTILIZ AERSL GEN/NEB/I NHLR/IP ADMN SET [id number] MAXIMILIAN YAO W/SM VOL 0 HOME MED HOME MED NONFILTR EQUIP. EQUIP. NEBULIZR [facility] NON-DISPB L NEBULIZER E0570 MAXIMILIAN YAO WITH 0 HOME MED HOME MED COMPRESSO EQUIP. EQUIP. R [facility] HEMOGLOBI 95492 [facility] FIELDS N 0 [facility] [place] [address] [address] DIAMOND FIELDS TESTOSTER 0 [facility] ONE TOTAL INC INC BLOOD 59003 DIAMOND FIELDS COUNT 0 [facility] COMPLETE INC INC AUTO&AUTO DIFRNTL WBC LIPID 46933 [facility] FIELDS PANEL 0 [facility] INC INC HEPATITIS 33211 DIAM[facility] FIELDS B CORE 0 [facility] ANTIBODY INC INC HBCAB TOTAL COMPREHEN 00530 [facility]ELDS SIVE 0 [facility] METABOLIC INC INC PANEL HEPATITIS 44629 DIAMOND Hernandez SURF 0 [facility] ANTIBODY INC INC HBSAB COLLECTIO 60005 DIAM[facility] FIELDS N VENOUS 0 [facility] [place] [address] DIAMOND FIELDS HEPATITIS 0 [facility] B INC INC SURFACE ANTIGEN HEPATITIS 12300 DIAM[facility] FIELDS A 0 [facility] ANTIBODY INC INC HAAB HEPATITIS 65200 DIAMOND FIELDS C 0 [facility] ANTIBODY INC INC NEBULIZER E0570 MAXIMILIAN YAO WITH 0 HOME MED HOME MED COMPRESSO EQUIP. [facility]. [facility] NEBULIZER E0570 MAXIMILIAN YAO WITH 0 HOME MED HOME MED COMPRESSO EQUIP. EQUIP. R [facility] NEBULIZER E0570 MAXIMILIAN YAO WITH 9 HOME MED HOME MED COMPRESSO EQUIP. EQUIP. R [facility] NEBULIZER E0570 MAXIMILIAN YAO WITH 9 HOME MED HOME MED COMPRESSO EQUIP. EQU[employer]. [employer] ADMN SET [id number] MAXIMILIAN YAO SM VOL 9 HOME MED HOME MED NONFILTR EQUIP. EQUIP. [employer] NEBULIZR DISPBL AREO MASK [id number] MAXIMILIAN YAO USED W/ 9 HOME MED HOME MED DME NEB EQUIP. EQU[employer] [facility] Encounters Encounter Start End Date Code Location Performer Type Date OFFICE 36608 FRANTZ MADDEN OUTPATIEN 7 7 MEDICAL T VISIT SERV 25 FOUNDATIO MINUTES N OFFICE 40089 FABIEN SMALLS OUTPATIEN 7 7 HEALTH T NEW 45 MEDICAL MINUTES GROUP OFFICE 75153 [facility] [place] OUT[facility] 7 7 PHYSICIAN A T VISIT S GROUP 25 MINUTES [facility] 7 7 [facility] OFFICE 96499 [facility] OUTPATIEN 7 7 PHYSICIAN T VISIT S [...] 7 [facility] T OFFICE 43568 OSWALDO TERRELL OUTPATIEN 7 7 MD DOMINGO, T VISIT PSC 15 MINUTES OFFICE 06149 [facility] [place] OUTPATIEN 7 7 PHYSICIAN ISAEL T NEW 45 S GROUP MINUTES [facility] 6 [facility] T OFFICE [address] OUTPATIEN 6 6 MD DOMINGO, T VISIT PSC 10 MINUTES [facility] - OTHER 6 6 [facility] - 6 6 [facility]IEN INC T OFFICE 78160 OSWALDO GOMEZ OUTPATIEN 6 6 MD DOMINGO, T VISIT PSC 15 MINUTES [facility] 6 [facility] INC T OFFICE 76537 OSWALDO GOMEZ OUTPATIEN 6 6 MD DOMINGO, T VISIT PSC 15 MINUTES OFFICE 99395 WEND[facility] VARNER WILIAM OUTPATIEN 6 6 [facility] 10 [facility]ES [facility] 6 6 [facility] T OFFICE 35092 OSWALDO GOMEZ OUTPATIEN 6 6 MD DOMINGO, T VISIT PSC 15 MINUTES [facility] 6 6 [facility] T OFFICE 34033 OSWALDO GOMEZ OUTPATIEN 6 6 MD DOMINGO, T VISIT PSC 15 MINUTES [facility] 6 6 [facility] - 6 6 [facility] T OFFICE 65704 OSWALDO MIX OUTPATIEN 6 6 MD DOMINOG, T VISIT PSC 15 MINUTES [facility] 6 6 [facility] T OFFICE 82549 Janna LCINE OUTPATIEN 6 6 SON ADAIR T VISIT PSC 15 MINUTES [facility] 6 6 [facility] - OTHER 6 6 [facility] OFFICE 30134 OSWALDO GOMEZ OUTPATIEN 6 6 MD DOMINGO, T VISIT PSC 15 MINUTES OFFICE 38453 Janna SAXENA OUTPATIEN 6 6 SON ROUSE T VISIT PSC 15 MINUTES [facility] - OTHER 6 6 [facility] - 6 6 [facility] T OFFICE 14533 Janna SAXENA OUTPATITHIAGO 6 6 SON [place]OUSE T VISIT PSC 15 MINUTES [facility] - 6 6 [facility] T OFFICE 98805 A Dominique SAXENA OUTPATIEN 6 6 SON SWIFT NASIM T VISIT PSC 15 MINUTES OFFICE 14160 OSWALDO QUINONEZ MARIA DEL ROSARIO OUTPATIEN 6 6 MD DOMINGO, T NEW 45 PSC MINUTES OFFICE 38095 A Dominique CLINE OUTPATIEN 6 6 SON ADAIR T VISIT PSC 15 MINUTES OFFICE 42490 A Dominique CLINE OUTPATIEN 5 5 SON ADAIR T VISIT PSC 15 MINUTES HOSPITAL UNIVERSIT - 5 5 [facility] T OFFICE 61596 A Dominique CLINE OUTPATIEN 5 5 SON ADAIR T VISIT PSC 15 MINUTES [facility] - 5 5 [facility] OUT[facility]EN [facility] T OFFICE 65061 [place] MADDEN OUTPATIEN 5 5 MEDICAL JAM T VISIT SERV 15 FOUNDATIO MINUTES [facility] - 5 5 [facility] T OFFICE 68217 A Dominique CLINE OUTPATIEN 5 5 SON ADAIR T VISIT PSC 15 MINUTES OFFICE 37037 A Dominique CLINE OUTPATIEN 5 5 SON ADAIR T VISIT PSC 15 MINUTES [facility] - 5 5 [facility] OUT[facility] T OFFICE 91306 A Dominique CLINE OUTPATIEN 5 5 SON ADAIR T VISIT PSC 15 MINUTES OFFICE 90620 [place] MARYAN[place] OUTPATIEN 5 5 MEDICAL JAM T VISIT SERV 25 FOUNDATIO MINUTES [facility] - 5 5 [facility] - 5 5 [facility] T OFFICE 53059 [place] MADD[place] OUTPATIEN 5 5 MEDICAL JAM T VISIT SERV 15 FOUNDATIO MINUTES N OFFICE 76825 A C CLINE A OUTPATIEN 5 5 SON SWIFT T VISIT PSC 15 MINUTES [facility] - 5 5 [facility] T OFFICE 64423 A Dominique Saldivar OUTPATIEN 5 5 SON SWIFT T VISIT PSC 15 MINUTES OFFICE 10114 FRANTZ MADDEN OUTPATIEN 5 5 MEDICAL JAM T VISIT SERV 15 FOUNDATIO MINUTES N [facility] - 5 5 [facility] T OFFICE 90258 A Dominique CLINE OUTPATIEN 5 5 SON ADAIR T VISIT PSC 15 MINUTES [facility] - 5 5 [facility]PATIEN INC T OFFICE 95428 FRANTZ MADDEN OUTPATIEN 4 4 MEDICAL JAM T VISIT SERV 15 FOUNDATIO MINUTES [facility] - 4 4 [facility] OUT[facility] INC T OFFICE 89078 PAT PEDRO 4 4 KANDI ELIAS T VISIT PLLC 10 MINUTES OFFICE 42776 PAT PEDRO 4 4 KANDI ELIAS NEW 10 PLLC MINUTES [facility] OTHER 4 4 [facility] INC OFFICE 18275 FRANTZ RIVASPATITHIAGO 4 4 MEDICAL JAM T VISIT SERV 15 FOUNDATIO MINUTES [facility] OTHER 4 4 [facility] INC OFFICE 84497 A Dominique Saldivar OUTPATIEN 4 4 SON SWIFT T VISIT PSC 15 MINUTES [facility] - 4 4 [facility] INC T OFFICE 87486 A Dominique Saldivar OUTPATIEN 4 4 SON SWIFT T VISIT PSC 15 MINUTES OFFICE 58072 [facility] KIMBERLYN STEWART 3 3 PHYSICIAN WILEY T VISIT S GROUP 10 MINUTES [facility] - 3 3 [facility] INC T OFFICE 32046 [facility] KIMBERLYN OUTPATIEN 3 3 PHYSICIAN INEZ Wilson VISIT S GROUP 25 MINUTES OFFICE 61399 FRANTZ MADDEN OUTPATIEN 3 3 MEDICAL JAM T VISIT SERV 15 FOUNDATIO [facility]OND - 3 3 [facility] 3 3 [facility] 3 3 [facility] INC [facility]OND - 3 3 [facility] OUTPATIEN INC T OFFICE 97906 [place] MARYANNE OUTPATIEN 3 3 MEDICAL JAM T NEW 60 SERV MINUTES [facility] DIAMOND - 3 3 [facility]EN [facility] 2 2 [facility] INC T OFFICE 27839 A C CLINE A OUTPATIEN 2 2 SON SWIFT T VISIT [facility] 15 MINUTES OFFICE 26000 A Dominique CLINE A OUTPATIEN 2 2 SON SWIFT T VISIT [facility] 15 MINUTES [facility] - 2 2 [facility] INC T OFFICE 06492 A Dominique CLINE A OUTPATIEN 2 2 SON SWIFT T VISIT [facility] 15 MINUTES [facility] - 2 2 [facility] 2 2 [facility] T OFFICE 17347 Dominique SOFIA OUTPATITHIAGO 2 2 KIMBERLYN Smith MD [facility] - 2 2 [facility]PATIEN INC [facility] - 2 2 [facility] OUTPATIEN INC T OFFICE 52688 A Dominique Saldivar OUTPATIEN 2 2 SON SWIFT T VISIT PSC 15 MINUTES [facility] 2 2 [facility] INC T OFFICE 58924 A Dominique Saldivar OUTPATIEN 2 2 SON SWIFT T VISIT PSC 15 MINUTES OFFICE 72007 MARTIN SALAZAR OUTPATIEN 2 2 KESHIA SCHMITT T VISIT 40 MINUTES OFFICE 99554 MARTIN MARTIN OUTPATIEN 2 2 KESHIA SCHMITT T VISIT 25 MINUTES [facility] 1 [facility] INC T OFFICE 00167 A Dominique Saldivar OUTPATIEN 1 1 SON SWIFT T VISIT PSC 15 MINUTES [facility] 1 1 [facility] INC T OFFICE 60249 MARTIN RÍOSHBURN OUTPATIEN 1 1 KESHIA SCHMITT T VISIT 15 MINUTES [facility] 1 [facility] INC T OFFICE 91181 A Dominique GA OUTPATIEN 1 1 SON SWIFT T VISIT PSC 15 MINUTES EMERGENCY 69045 HECTOR YAP RON 1 1 EMERGENCY DEPARTMEN SERVICES T VISIT HIGH/URGE NT SEVERITY OFFICE 61308 A Dominique GA OUTPATIEN 1 1 SON SWIFT T VISIT PSC 15 MINUTES OFFICE 26324 MARTIN SALAZAR OUTPATIEN 1 1 KESHIA SCHMITT T VISIT 15 MINUTES [facility] 1 [facility] T OFFICE 66317 CYNTHIANA CASA OUTPATIEN 0 0 ROS T NEW 30 CHIROPRAC MINUTES [facility] OFFICE 42647 A Dominique Saldivar OUTPATIEN 0 0 SON SWIFT T VISIT PSC 15 MINUTES [facility] 0 [facility] INC T OFFICE 05617 Janna Saldivar OUTPATIEN 0 0 SON SWIFT T VISIT PSC 15 MINUTES EMERGENCY 45947 HECTOR LEHMAN DEPT 0 0 EMERGENCY III TAMARA VISIT SERVICES HIGH SEVERITY& THREAT [facility] - 0 0 [facility] OUT[facility]EN INC T EMERGENCY 99781 [facility] 0 0 [facility] INC T VISIT HIGH/URGE NT SEVERITY OFFICE 75108 MARTIN MARTIN OUTPATIEN 0 0 KESHIA KESHIA T VISIT 40 MINUTES [facility] 0 0 [facility] T OFFICE 84470 MICHOACANO SALAZARHBURN, OUTPATIEN 0 0 KESHIA B KESHIA B T VISIT 15 MINUTES OFFICE 22784 MICHOACANO SALAZARHBURN, OUTPATIEN 0 0 KESHIA B KESHIA B T VISIT 25 MINUTES OFFICE 06255 MARTIN, MARTIN, OUTPATIEN 0 0 KESHIA B KESHIA B T VISIT 25 MINUTES OFFICE 78001 Janna PERRY OUTPATIEN 0 0 SON Fox T VISIT PSC 15 MINUTES OFFICE 49937 MICHOACANO SALAZARHBURN, OUTPATIEN 0 0 KESHIA B KESHIA B T VISIT 15 MINUTES OFFICE 53605 MICHOACANO SALAZARHBURN, OUTPATIEN 0 0 KESHIA B KESHIA B T NEW 45 MINUTES [facility] 0 [facility] T
--- OUTSIDE RECORDS SUMMARY | 2016-12-13 12:35 | External Medical Summary Rpt | CCD ---
Author Author , ОЛЕГ Manrique ОЛЕГ Address Unknown Phone [email or web address] Care Team Providers Care Strip Catcher Name Role Phone A Dominique CLINE MD [facility], A Unavailable Unavailable Dominique CLINE MD PSC [address]WALDO L[address] MD, PSC, Unavailable Unavailable OSWALDO L[address] MD, PSC [facility] Unavailable Unavailable MEDICAL GROUP, [facility] BEINEKE SANTY, BEINEKE Unavailable Unavailable [facility] Unavailable Unavailable [facility]TH[facility]ED[facility] P[facility], [facility] [place], [place] Unavailable [...] INC VARNER WILIAM, VARNER WILIAM Unavailable Unavailable [facility], Unavailable Unavailable [facility] Unavailable Unavailable IM[facility], [facility] Un[facility] Un[facility], [facility] Unavailable [facility], [facility] Unavailable Unavailable HOLDING, [facility] Unavailable Unavailable HOLDINGS, [facility], Unavailable Unavailable [facility] DEVI CRI, DEVI CRI Unavailable Unavailable [facility], [facility] Unavailable Unavailable [facility] Unavailable Unavailable SERVICES, [facility] MARTIN KESHIA, Unavailable Unavailable MARTIN [...] Unavailable Unavailable EQUIPME, [facility], Unavailable Unavailable [facility], Unavailable Unavailable [facility] Unavailable [facility]available [facility], [facility] Unavailable Unavailable #[facility], 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 G4733 OBSTRUCTIVE 11-19-2016 [facility] SLEEP HOME APNEA ADULT MEDICAL PEDIATRIC EQUIPME M5136 OTH 11-17-2016 [facility] INTER[facility]TEB [facility] RAL DISC [facility]OC PSC DEGEN LUMBAR REGION R262 DIFFICULTY 11-17-2016 [facility] IN WALKING L REHAB NOT ASSOC PSC ELSEWHERE CLASSIFIED J441 CHRONIC 11-16-2016 [facility] DZ W/EXACERBAT ION J9610 CHRONIC 11-16-2016 [facility] FAIL [facility] HYPOXIA/HYP ERCAPNIA G8929 OTHER 11-05-2016 [facility] I2510 ASHD [place] 11-05-2016 [facility] CORONARY HEALTH ARTERY W/O MEDICAL ANGINA GROUP PECTORIS M545 LOW BACK 11-05-2016 [facility] E785 HYPERLIPIDE 11-04-2016 [facility]ON PHYSICIANS UNSPECIFIED GROUP I10 ESSENTIAL 11-04-2016 [facility] PRIMARY PHYSICIANS HYPERTENSIO GROUP N R0609 OTHER FORMS 11-04-2016 [facility] D[facility]IANS GROUP M461 SACROILIITI 10-29-2016 [facility] NOT ORTHOPAEDIC ELSEWHERE S PSC CLASSIFIED R079 CHEST PAIN 10-20-2016 [facility] UNSPECIFIED [facility] INC 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 I208 OTHER FORMS 09-03-2016 [facility] ANGINA PHYSICIANS PECTORIS GROUP [id number] METZD [place] 09-03-2016 [facility] COR ART PHYSICIANS W/OTH FORMS GROUP ANGINA PECTORIS R9439 ABNORMAL 09-03-2016 [facility] RESULT OT PHYSICIANS CARDIOVASCU GROUP LR FUNCTION STUDY C48256 [facility] LA POSTA 08-31-2016 [facility] COR ARTREY [facility] W/UNS INC ANGINA PECTORIS Z720 TOBACCO USE 08-31-2016 [facility] INC R188 OTHER 08-19-2016 [facility] ASCITES [facility] INC R0600 DYSPNEA 08-05-2016 [facility] UNSPECIFIED [facility] INC R0602 SHORTNESS 08-05-2016 [facility] BREATH PHYSICIANS GROUP R918 OTHER 07-29-2016 [facility] NONSPECIFIC MEDICAL ABNORMAL IMAGING ASS FINDING OF LUNG FIELD 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 [facility] DIABETES PH[facility]ACY MELLITUS #591 WITH HYPERGLYCEM [place] P42683 OTHER LONG 06-29-2016 [facility] TERM [facility] CURRENT INC DRUG THERAPY M5126 OT 05-19-2016 [facility] INTER[facility]TEB MEDICAL RAL DISC IMAGING ASS DISPLACEMEN T LUMBAR RGN M5127 OT 05-19-2016 [facility] MEDICAL RAL DISC IMAGING ASS DISPLACEMEN T LS REGION M5137 OT 05-19-2016 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 R03140 SPONDYLOSIS 04-20-[address], W/O MD, PSC MYELOPATH/R ADICULOPATH Y CERV RGN M4802 SPINAL 04-20-[address] STENOSIS , PSC CERVICAL REGION M5010 CERVICAL 04-20-[address], DISC D/O , PSC W/RADICULOP ATHY UNS CERV RGN M5030 OT 04-14-2016 [facility] CERVICAL L RE[facility] DISC ASSOC PSC DEGENERATIO N UNS CERV REGION M542 CERVICALGIA 04-05-2016 [facility] E876 HYPOKALEMIA 03-18-2016 [facility] E782 MIXED 01-21-2016 [facility] HYPERLIPIDE [facility] JASON INC R252 CRAMP AND 01-21-2016 [facility] SPASM [facility] INC M77525 PAIN IN 12-12-2015 [facility] RIGHT [facility]IP [facility] T02592 PAIN IN 12-12-2015 [facility] LEFT HIP [facility] H2513 AGE-RELATED 11-25-2015 [facility] BILATERAL M5032 OT CERV 11-14-2015 [facility] DISC [facility] DEGENERATIO INC N MID-CERVICA L REGION M791 MYALGIA 11-11-[address] MD, [facility] M797 FIBROMYALGI 10-14-2015 [facility] A [facility] INC M4722 OTH 08-26-2015 [facility] SPONDYLOSIS [facility] INC W/RADICULOP ATHY CERVICAL REGION 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 UNILATERAL 08-12-2015 [facility] PRIMARY [facility] OSTEOARTHRI IMAGING ASS TIS LEFT HIP E538 DEFICIENCY 07-02-2015 [facility] OF OTHER [facility] SPECIFIED B INC GROUP VITAMINS D508 OTHER IRON 06-11-2015 A Dominique CLINE DEFICIENCY [facility] ANEMIAS T09565 OTHER 06-02-2015 [facility] MUSCLE [facility] SPASM INC R1013 EPIGASTRIC 06-02-2015 [facility] PAIN [facility] INC R202 PARESTHESIA 06-02-2015 [facility] OF SKIN [facility] INC R5383 OTHER 06-02-2015 [facility] FATIGUE [facility] INC Z125 ENCOUNTER 06-02-2015 [facility] SCREENING [facility] MALIGNANT INC NEOPLASM PROSTATE R05 COUGH 05-28-2015 [facility] H6980 OTHER SPEC 05-13-2015 A Dominique CLINE DISORDERS [facility] EUSTACHIAN TUBE UNS EAR J0100 ACUTE 05-13-2015 A Dominique CLINE MAXILLARY [facility] SINUSITIS UNSPECIFIED M4692 UNS 03-26-2015 A Dominique CLINE INFLAMMATOR PSC Y SPONDYLOPAT HY CERVICAL REGION M5090 CERVICAL 02-11-2015 Janna MARRERO MD PSC DISORDER UNS UNS CERVICAL REGION M2578 OSTEOPHYTE 02-07-2015 [facility] J439 EMPHYSEMA 01-22-2015 [facility] UNSPECIFIED [facility]ICAL IMAGING ASS I6523 OCCLUSION & 11-21-2014 [facility] STENOSIS MEDICAL BILATERAL IMAGING ASS CAROTID ARTERIES R42 DIZZINESS 11-21-2014 [facility] AND [facility] GIDDINESS INC 496 CHRONIC 11-20-[address] [facility] OBSTRUCTION MEDICAL NEC EQUIPME 19072 OTHER&UNSPE 11-13-2014 A Dominique MARRERO MD PSC DISORDER CERVICAL REGION 7804 DIZZINESS 11-13-2014 Janna MCCURDY [facility] GIDDINESS 98346 CHRONIC 10-23-2014 [facility] UNSPECIFIED 40175 CHRONIC 10-23-2014 [facility] SERV FAILURE FOUNDATION 48382 DIAB W/O 08-05-2014 [facility] COMP TYPE PHARMACY II/UNS NOT #591 STATED UNCNTRL 84110 DIAB W/O 07-23-2014 [facility] MENTION [facility] COMP TYPE INC II/UNS TYPE UNCNTRL 2724 OTHER AND 07-23-2014 [facility] UNSPECIFIED [facility] INC HYPERLIPIDE JASON 4011 ESSENTIAL 07-23-2014 [facility] HYPERTENSIO [facility] N, BENIGN INC V7644 SPECIAL 07-23-2014 [facility] SCREENING [facility] MALIGNANT INC NEOPLASM OF PROSTATE 34761 DEGEN 06-12-2014 [facility] LUMBAR/LUMB MEDICAL OSACRAL IMAGING ASS INTERVERTEB RAL DISC 7242 LUMBAGO 06-12-2014 Janna CLINE MD PSC 7245 UNSPECIFIED 06-12-2014 [facility] BACKACHE [facility] 41690 SCOLIOSIS , 06-12-2014 [facility] IDIOPATHIC [facility] 38349 UNSPECIFIED 06-03-2014 [facility] 89318 UNSPECIFIED 06-03-2014 [facility] [place] [address] OTHER 04-19-2014 [facility] NONSPECIFIC SERV ABNORMAL FOUNDATION FINDING OF LUNG FIELD 59830 PAIN IN 02-27-2014 [facility] JOINT MEDICAL PELVIC IMAGING ASS REGION AND THIGH 00290 URINARY 02-27-2014 Janna RIOJAS MD PSC 15000 UNSPECIFIED 11-15-2013 [facility] TEMPOROMAND INC IBULAR JOINT DISORDERS 76955 INTERSTITIA 11-01-2013 ERENA & L MYOSITIS [facility] 7840 HEADACHE 10-09-2013 [facility] INC 7906 OTHER 05-28-2013 [facility] ABNORMAL [facility] BLOOD INC CHEMISTRY 486 PNEUMONIA, 03-13-2013 [facility] ORGANISM [facility] UNSPECIFIED INC 86735 OBSTRUCTIVE 03-13-2013 Janna MCCARTHY MD [facility] BRONCHITIS WITH EXACERBATIO N 5183 PULMONARY 03-13-2013 [facility] EOSINOPHILI [facility]ICAL A IMAGING ASS 06852 ABDOMINAL 02-01-2013 [facility] PAIN, PHYSICIANS EPIGASTRIC GROUP 66262 ABDOMINAL 01-31-2013 [facility] [place] PAIN RIGHT MEDICAL UPPER IMAGING ASS QUADRANT 5718 OTHER 01-09-2013 [facility] CHRONIC MEDICAL NONALCOHOLI IMAGING ASS C LIVER DISEASE 5758 OTHER 01-09-2013 [facility] [place] SPECIFIED MEDICAL DISORDER OF IMAGING ASS GALLBLADDER 76292 ABDOMINAL 01-09-2013 [facility] PAIN, LEFT [facility] UPPER INC QUADRANT 2722 MIXED 11-20-2012 [facility] HYPERLIPIDE [facility] JASON INC 4928 OTHER 11-20-2012 [facility] EMPHYSEMA [facility] INC V571 OTHER 11-20-2012 [facility] PHYSICAL [facility] THERAPY INC V5869 LONG-TERM 11-20-2012 [facility] (CURRENT) [facility] USE OF INC OTHER MEDICATIONS 29912 OTHER 10-30-2012 [facility] [place] DISEASES OF MEDICAL LUNG NOT IMAGING ASS ELSEWHERE CLASSIFIED 7841 THROAT PAIN 10-30-2012 [facility] INC 01643 SHORTNESS 10-30-2012 [facility] OF BREATH [facility] INC 7821 RASH AND 10-25-2012 [place] [facility] OTHER SERV NONSPECIFIC FOUNDATIO SKIN ERUPTION 69019 GEN 08-28-2012 [facility] OSTEOARTHRO L REHAB SIS ASSOC PSC INVOLVING MULTIPLE SITES 7220 DISPLCMT 08-28-2012 [facility] CERV L REHAB INTERVERT ASSOC PSC DISC WITHOUT MYELOPATHY 7224 DEGENERATIO 08-28-2012 [facility] N OF L REHAB CERVICAL ASSOC PSC INTERVERTEB RAL DISC 31799 CHEST PAIN 05-04-2012 [facility] [place] UNSPECIFIED [facility]ICAL IMAGING ASS 54676 IDIOPATH 04-20-2012 [facility] SLEEP REL HOME NONOBST MEDICAL ALVEOLAR EQUIPME HYPOVENT 7230 SPINAL 04-17-2012 [facility] STENOSIS IN L REHAB CERVICAL ASSOC PSC REGION 7234 BRACHIAL 04-17-2012 [facility] NEURITIS OR L REHAB ASSOC PSC RADICULITIS NOS 4660 ACUTE 02-08-2012 Janna CLINE BRONCHITIS [facility] 52341 OTHER&UNSPE 02-08-2012 Janna MARRERO MD PSC DISORDER UNSPEC REGION V0382 NEED PROPH 02-08-2012 A Dominique CLINE VACCINATION PSC AGAINST STREP PNEUMONE 7210 CERVICAL 12-23-2011 [facility] SPONDYLOSIS MEDICAL WITHOUT IMAGING ASS MYELOPATHY 7231 CERVICALGIA 12-23-2011 [facility] INC 7292 UNSPECIFIED 12-21-2011 A Dominique CLINE NEURALGIA PSC NEURITIS AND RADICULITIS 66520 EXTRINSIC 12-15-2011 [facility] ASTHMA WITH PHARMACY STATUS #591 ASTHMATICUS 4019 UNSPECIFIED 10-01-2011 [facility] ESSENTIAL [facility] HYPERTENSIO INC N 37318 ASTHMA, 10-01-2011 [facility] UNSPECIFIED [facility] , INC UNSPECIFIED STATUS 50268 ING ADAMS 10-01-2011 [facility] W/O MENTION [facility] INC OBST/GANGRE N UNILAT/[place] [address] SPASM OF 07-07-2011 A Dominique CLINE MUSCLE PSC 49601 CHRONIC 05-24-2011 [facility] OBSTRUCTIVE KESHIA ASTHMA W/STATUS ASTHMATICUS 4778 ALLERGIC 03-29-2011 [facility] RHINITIS KESHIA DUE TO OTHER ALLERGEN 4780 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[facility] OF NASAL KESHIA TURBINATES 71972 CHRONIC 03-29-2011 [facility] OBSTRUCTIVE KESHIA ASTHMA WITH EXACERBATIO N 2720 PURE 12-21-2010 [facility] HYPERCHOLES [facility] TEROLEMIA INC 7810 ABNORMAL 12-21-2010 [facility] INVOLUNTARY [facility] MOVEMENTS INC 72551 MUSCLE 12-15-2010 A Dominique CLINE WEAKNESS PSC (GENERALIZE D) 06417 EXTRINSIC 07-26-2010 [facility] ASTHMA, PHARMACY UNSPECIFIED #591 [...] 470 DEVIATED 02-02-2010 [facility] NASAL KESHIA SEPTUM 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 CLINE 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 74439 DIVERTICULO 12-22-2009 [facility] SIS OF SERV [...] 4720 CHRONIC 09-01-2009 MARTIN, RHINITIS KESHIA B 54990 INTRINSIC 09-01-2009 [facility], ASTHMA, KESHIA B UNSPECIFIED 4619 ACUTE 06-16-2009 [facility], SINUSITIS, KESHIA B UNSPECIFIED 91974 OTHER 06-11-2009 [facility] [...] E AIRWAY EQUIPME EQUIPME PRESSURE DEVICE PHYSICAL 34772 [facility] CROSSFIEL THERAPY 7 NAL REHAB D EVALUATIO ASSOC N LOW PSC COMPLE[place] 20 [place] [address] [facility] JOINT 7 ARTHRGRPH ORTHOPAED Y&/ANES/S ICS PSC TEROID W/JUAN LUIS LOCM Q9965 [facility] 100-199 7 MG/ML ORTHOPAED ORTHOPAED IODINE ICS PSC ICS PSC CONCENTRA TION PER ML COLLECTIO 50881 [facility] N VENOUS 7 [facility] BLOOD INC INC VENIPUNCT URE LIPID 87621 [facility] PANEL 7 [facility]OS[facility] INC INC HEPATIC 08153 [facility] FUNCTION 7 [facility] PANEL INC INC NEBULIZER E0570 [facility] YAO WITH 7 HOME HOME COMPRESSO MEDICAL MEDICAL R EQUIPME EQUIPME ECG 43511 [facility] ROUTINE 7 [facility] ECG INC INC W/LEAST 12 LDS TRCG [...] RENT; EQUIPME EQUIPME FLWMTR HUMIDFR&M ASK ECG 25965 [facility] ROUTINE 7 [facility] ECG INC INC W/LEAST 12 LDS TRCG ONLY W/O I&R ECG 34163 [facility] ROUTINE 7 PHYSICIAN ECG S GROUP W/LEAST 12 LDS I&R ONLY PRQ 42185 [facility] TRLUML 7 PHYSICIAN CORONARY S GROUP STENT W/ANGIO ONE ART/BRNCH CATH PLMT 96974 [facility] L HRT & 7 PHYSICIAN ARTS S GROUP W/NJX & ANGIO IMG S&I CATH PLMT 92677 [facility] L HRT & 7 [facility] ARTS INC INC W/NJX & ANGIO IMG S&I CATHETER C1725 [facility] TRANSLUMI 7 [facility] NAL INC INC ANGIOPLAS TY NON-LASER GUIDE C1769 [facility] WIRE 7 [facility] INC INC STENT C1876 [facility] NON-COATE 7 [facility] D/NON-COV INC INC ERED W/DELIVER Y SYSTEM BLOOD 11048 [facility] COUNT 7 [facility] COMPLETE INC INC AUTO&AUTO DIFRNTL WBC INTRDUCR/ C1894 [facility] SHEATH 7 [facility] NOT GUID INC INC INTRACARD EP NON-LASR BASIC 17833 [facility] METABOLIC 7 [facility] PANEL INC [place] CALCIUM TOTAL PRQ 98947 [facility] TRLUML 7 [facility] CORONARY INC INC STENT W/ANGIO ONE ART/BRNCH COAGULATI 02984 [facility] ON TIME 7 [facility] ACTIVATED INC INC INJECTION J1644 [facility] HEPARIN 7 [facility] SODIUM INC INC PER 1000 UNITS LOCM Q9967 [facility] 300-399 7 [facility] MG/ML INC INC IODINE [...] [place] [address] [facility] GREENON ABDOMINAL 7 [facility] REAL INC INC TIME W/IMAGE DOCUMENTA TION MYOCARDIA 44433 [facility] L SPECT 7 [facility] MULTIPLE INC INC STUDIES TECHNETIU A9502 [facility] Moreno TC-99M 7 [facility] TETROFOSM INC INC IN DX PER STUDY DOSE CV STRS 46175 [facility] TST 7 [facility] XERS&/OR INC INC RX CONT ECG TRCG ONLY INJECTION J2785 [facility]DS 7 [facility] REGADENOS INC INC ON 0.1 MG ECHO 43456 [facility] TTHRC R-T 7 [facility] 2D INC INC W/WOM-MOD E COMPL SPEC&COLR D CT THORAX 59044 [facility] [place] W/O 7 MEDICAL CONTRAST IMAGING MATERIAL ASS ECG 29042 [facility] ROUTINE 7 [facility] ECG INC INC W/LEAST [...] AT EQUIPME EQUIPME PRSC FLW RATE COLLECTIO 19982 [facility] N VENOUS 7 [facility] BLOOD INC INC VENIPUNCT URE COMPREHEN 47457 [facility] SIVE 7 [facility] METABOLIC INC INC PANEL LIPID 55131 [facility] PANEL 7 [facility] INC INC BILIRUBIN 55740 [facility] DIRECT 7 [facility] INC INC BLOOD 36325 [facility] COUNT 7 [facility] COMPLETE INC INC AUTO&AUTO DIFRNTL WBC HEMOGLOBI 21253 [facility] N 7 [facility] GLYCOSYLA INC INC JUMANA A1C NEBULIZER [...] AT EQUIPME EQUIPME PRSC FLW RATE MRI 63830 [facility] SPINAL 7 MEDICAL CANAL IMAGING LUMBAR ASS W/O CONTRAST MATERIAL 3D 05470 [facility] RENDERING 7 MEDICAL W/INTERP IMAGING & ASS POSTPROCE SS SUPERVISI ON PRTBLE E0431 [facility] Y[facility] GASEOUS 7 HOME HOME O2 SYS MEDICAL MEDICAL RENT; EQUIPME EQUIPME FLWMTR HUMIDFR&M ASK O2 CONC 1 E1390 [facility] YAO DEL PORT 7 HOME HOME 85%/>02 MEDICAL MEDICAL CONC AT EQUIPME [facility] FLW RATE PHYSICAL 18196 [facility] CROSSFIEL THERAPY 7 NAL REHAB D RE-EVAL ASSOC EST PLAN PSC CARE 20 MINS MANUAL 09886 [facility] CROSSFIEL THERAPY 7 NAL REHAB D [...] HOME HOME 85%/>02 [facility] POTASSIUM 16079 [facility] SERUM 7 DIAGNOSTI DIAGNOSTI PLASMA/WH CS CS OLE BLOOD INCORPORA INCORPORA T T MANUAL 55170 [facility] CROSSFIEL THERAPY 7 NAL REHAB D TQS 1/> ASSOC REGIONS PSC EACH 15 MINUTES PHYSICAL 14428 [facility] CROSSFIEL THERAPY 7 NAL REHAB D EVALUATIO ASSOC N HIGH PSC COMPLEX 45 MINS PRTBLE E0431 [facility]ANGARETT YAO GASEOUS 6 HOME HOME O2 SYS MEDICAL MEDICAL RENT; EQUIPME EQUIPME FLWMTR HUMIDFR&M ASK O2 CONC 1 E1390 [facility] MOTA PORT 6 HOME HOME 85%/>02 [facility] FL[facility] GAS 93816 [facility] DILUT/WAS 6 [facility] HOUT LUNG INC INC VOL W/WO DISTRIB V[place] [address] [facility] DIFFUSING 6 [facility] CAPACITY INC INC NONINVASI 56317 [facility] VE 6 [facility] EAR/PULSE INC INC OXIMETRY MULTIPLE DETER BRNCDILAT 61989 [facility] RSPSE 6 [facility] SPMTRY INC INC PRE&POST- BRNCDILAT ADMN PRESSURIZ 23510 [facility] ED/NONPRE 6 [facility] SSURIZED INC INC INHALATIO N TREATMENT BASIC 95374 [facility] METABOLIC 6 DIAGNOSTI DIAGNOSTI PANEL CS CS CALCIUM INCORPORA INCORPORA TOTAL T T PRTBLE E0431 [facility] YAO GASEOUS 6 HOME HOME O2 SYS MEDICAL MEDICAL RENT; [facility] FLWHIR HUMIDFR&M ASK LIPID 02906 [facility] PANEL 6 [place] [address] [facility] MAGNESIUM 6 [facility] INC INC HEMOGLOBI 39340 [facility] GREENON N 6 [facility] GLYCOSYLA INC INC JUMANA A1C COMPREHEN 14964 [facility]AM[facility] SIVE 6 [facility] METABOLIC INC INC PANEL HEPATITIS 17464 [facility]AM[facility] B CORE 6 [facility] ANTIBODY INC INC HBCAB TOTAL O2 CONC 1 E1390 MAXIM[facility]IAN YAO DEL PORT 6 HOME HOME 85%/>02 MEDICAL MEDICAL CONC AT [facility] PRSC FLW RATE HEPATITIS 58767 [facility]AM[facility] A 6 [facility] ANTIBODY INC INC HAAB COLLECTIO 24649 [facility] N VENOUS 6 [facility] BLOOD INC INC VENIPUNCT URE HEPATITIS 46811 [facility]AM[facility] C 6 [facility] ANTIBODY INC INC HEPATITIS 25599 [facility] Hernandez SURF 6 [facility] [address] [facility] HEPATITIS 6 [facility] B INC INC SURFACE ANTIGEN LOCM Q9966 [facility] 200-299 6 [facility] MG/ML INC INC IODINE [place]TRA [place]X [address] [address] JASON DX/THER 6 MD DOMINGO, SBST PSC EPIDURAL/ SUBRACH CERV/THOR ACIC INJECTION J1040 [facility] FI[facility]DS 6 [facility] METHYLPRE INC INC DNISOLONE ACETATE 80 MG O2 CONC 1 E1390 MAXIMILIAN YAO DEL PORT 6 HOME HOME 85%/>02 MEDICAL MEDICAL CONC AT [facility] FLW [facility]ATE PRTBLE E0431 MAX[facility]IAN YAO GASEOUS 6 HOME HOME O2 SYS MEDICAL MEDICAL RENT; [facility] FLWMTR HUMIDFR&M ASK BLD GLU A4253 GENESIS [...] INC IODINE CONCENTRA [place]ION [place] NJX [address]64 OS[facility] TERRELL JASON DX/THER 6 MD DOMINGO, SBST PSC EPIDURAL/ SUBRACH CERV/THOR ACIC INJECTION J1040 [facility] FI[facility]DS 6 [facility] METHYLPRE INC INC DNISOLONE ACETATE 80 MG RADEX HIP 48908 [facility] FI[facility]DS 6 [facility] UNILATERA INC INC L WITH PELVIS 2-3 VIEWS RADEX 46555 [facility] [place] ALL HIPS 6 MEDICAL BILATERAL IMAGING WITH ASS PELVIS 3-4 VIEWS RADIOLOGI 57235 [facility] FI[facility] C EXAM 6 [facility] CHEST 2 INC INC VIEWS FRONTAL&L ATERAL O2 CONC 1 E1390 MAXIMILIAN YAO DEL PORT 6 HOME HOME 85%/>02 [facility]ICAL [facility] CONC AT [facility] FLW RATE PRTBLE E0431 MAXIMILIAN MAXIMILIAN GASEOUS 6 HOME HOME O2 SYS MEDICAL MEDICAL RENT; [facility] FLWMTR HUMIDFR&[place] NJX 33652 OSWALDO TERRELL JASON DX/THER 6 MD DOMING[place], [...] MEDICAL MEDICAL RENT; [facility] HUMID[facility]&M ASK O2 CONC 1 E1390 MAXIMILIAN YAO DEL PORT 6 HOME HOME 85%/>02 MEDICAL MEDICAL CONC AT [facility] FLW RATE INJECTION 56348 OSWALDO GOMEZ 6 MD DOMING[place], SINGLE/ML PSC T TRIGGER POINT 1/2 MUSCLES INJECTION J1040 DIAMOND DIAMOND 6 [facility] METHYLPRE INC INC DNISOLONE ACETATE 80 MG PHRM Q0513 [facility] DISPENSIN 6 PHARMACY PHARMACY G FEE #591 #591 INHALATIO N RX; PER 30 DAYS LEVALBUTE J7614 [facility] ROL INHAL 6 PHARMACY PHARMACY NON-CP #591 #591 THRU DME U DOSE 0.5 MG PRTBLE E0431 MAXIMILIANGARETT YAO GASEOUS 6 HOME HOME O2 SYS MEDICAL MEDICAL RENT; [facility] HUMIDFR&M ASK O2 CONC 1 E1390 MAXIMILIAN YAO DEL PORT 6 HOME HOME 85%/>02 MEDICAL MEDICAL CONC AT [facility] FLW RATE DSTR 56265 OSWALDO GOMEZ NROLYTC 6 MD [place], AGNT PSC PARVERTEB FCT ADDL CRVCL/THO RA INJECTION J1030 [facility] FIELDS 6 [facility] METHYLPRE INC INC DNISOLONE ACETATE 40 MG DSTR [address] Tea L[address] MD, AGNT PSC PARVERTEB FCT SNGL CRVCL/THO RA DSTR 97857 OSWALDO GOMEZ NROLYTC 6 MD DOM[place], AGNT PSC PARVERTEB FCT SNGL CRVCL/THO RA INJECTION J1030 [facility]OND FIELDS 6 [facility] METHYLPRE INC INC DNISOLONE ACETATE 40 MG DSTR 46284 OSWALDO TERRELL JASON NROLYTC 6 MD [place], AGNT PSC PARVERTEB FCT ADDL CRVCL/THO RA PRTBLE E0431 MAXIMILIAN JOHNSONRELL GASEOUS 6 HOME HOME O2 SYS MEDICAL MEDICAL RENT; [facility] HUMIDFR&M ASK O2 CONC 1 E1390 MAXIMILIAN JOHNSONRELL DEL PORT 6 HOME HOME 85%/>02 MEDICAL MEDICAL CONC AT [facility] FLW RATE [facility] [address] [facility] UN[facility] IMAGING L WITH ASS PELVIS 1 VIEW RADEX HIP 47755 [facility] FIELDS 6 [facility] [place] INC INC L WITH PELVIS 2-3 VIEWS RADEX 19196 [facility] SPINE 6 MEDICAL SANTY LUMBOSACR IMAGING [...] #591 #591 HOME BLD GLU MON-50 NJX 76573 OSWALDO TERRELL JASON DX/THER 6 MD DOMINGO, AGT PVRT PSC FACET JT CRV/THRC 1 LEVEL NJX 20567 OSWALDO TERRELL JASON DX/THER 6 MD [place], AGT PVRT PSC FACET JT CRV/THRC 2ND LEVEL INJECTION J1030 DIAMOND DIAMOND 6 [facility] METHYLPRE INC INC DNISOLONE ACETATE 40 MG COLLECTIO 04290 DIAMOND FIELDS N VENOUS 6 [facility] BLOOD INC INC VENIPUNCT URE OPHTH 72962 [facility] 6 VISION ANG XM&EVAL CENTER COMPRHNSV ESTAB PT 1/> DETERMINA 84491 [facility] SCIFRES TION 6 VISION ANG [facility]IV CENTER E [place] 66771 DIAMOND FIELDS VALERIA 6 [facility] VITAMIN INC INC B-12 PRTBLE E0431 MAXIMILIAN MAXIMILIAN GASEOUS 6 HOME HOME O2 SYS MEDICAL MEDICAL RENT; [facility] FLWM[facility] HUMIDFR&M ASK O2 CONC 1 E1390 MAXIMILIAN YAO DEL PORT 6 HOME HOME 85%/>02 MEDICAL MEDICAL CONC AT [facility] EQU[facility] PRSC FLW RATE THERAPEUT 03406 A Dominique CLINE IC 6 SON ADAIR PROPHYLAC PSC TIC/DX INJECTION SUBQ/IM INJECTION [id number] Janna CLINE VIT B-12 6 SON SWIFT MANA PSC CYANOCOBA VALERIA TO 1000 MCG INJECTION J3420 Janna CLINE VIT B-12 6 SON SWIFT MANA PSC CYANOCOBA VALERIA TO 1000 MCG THERAPEUT 65701 Janna CLINE IC 6 SON SWIFT MANA PROPHYLAC PSC TIC/DX INJECTION SUBQ/IM BRNCDILAT 56851 Janna SAXENA RSPSE 6 SON SWIFT NASIM SPMTRY PSC PRE&POST- BRNCDILAT ADMN COMPREHEN 26784 DIAMOND FIELDS SIVE 6 [facility] [place] [address] DIAMOND FIELDS AMYLASE 6 [place] [address] DIAMOND FIELDS THYROID 6 [facility] STIMULATI INC INC NG HORMONE TSH COLLECTIO 59439 DIAMOND FIELDS N VENOUS 6 [facility] BLOOD INC INC VENIPUNCT URE PROSTATE G0103 DIAMOND FIELDS CANCER 6 [facility] SCREENING INC INC ; PSA TEST BLOOD 02664 DIAMOND FIELDS COUNT 6 [facility] COMPLETE INC INC AUTO&[place] [address] DIAMOND FIELDS LIPASE 6 [place] [address] DIAMOND FIELDS MAGNESIUM 6 [facility] INC INC CYANOCOBA 37980 DIAMOND FIELDS VALERIA 6 [facility] VITAMIN INC INC B-12 LIPID 22721 DIAMOND FIELDS PANEL 6 [facility] INC INC RADIOLOGI 06696 [place] C EXAM 6 MEDICAL EDA CHEST 2 IMAGING VIEWS ASS FRONTAL&L ATERAL INJECTION J1040 DIAMOND FIELDS 6 [facility] METHYLPRE INC INC DNISOLONE ACETATE 80 [place] NJX [address]30 OSWALDO TERRELL JASON DX/THER 6 MD DOMINGO, AGT PVRT PSC FACET JT CRV/THRC 2ND LEVEL NJX 80411 OSWALDOJULIANA TERRELL JASON DX/THER 6 MD DOMINGO, [...] PRSC FLW RATE O2 CONC 1 E1390 MAXIMILINA MOTA PORT 6 HOME HOME 85%/>02 MEDICAL [...] HOME HOME 85%/>02 [facility] [place] J7614 [facility] ROL INHAL 5 PHARMACY PHARMACY NON-CP #591 #591 THRU DME U DOSE 0.5 MG [facility] G0463 [facility] 5 Y Y T [facility]PITAL VISIT ASSESS & MGMT PT [place] J7614 [facility] R[facility] INHAL 5 PHARMACY PHARMACY NON-CP #591 #591 THRU DME U DOSE 0.5 MG PHRM Q0513 [facility] DISPENSIN 5 PHARMACY PHARMACY G FEE #591 #591 INHALATIO N RX; PER 30 DAYS COLLECTIO 11072 DIAMOND FIELDS N VENOUS 5 [facility] BLOOD INC INC VENIPUNCT URE BASIC 77428 DIAMOND FIELDS METABOLIC 5 [facility] PANEL INC INC CALCIUM TOTAL LIPID 13443 DIAMOND FIELDS PANEL 5 [facility] INC INC CT THORAX 37929 DIAMOND FIELDS W/O 5 [facility] CONTRAST INC INC MATERIAL PRTBLE E0431 MAXIMILIAN JOHNSONRELL GASEOUS 5 HOME HOME O2 SYS MEDICAL MEDICAL RENT; EQUIPME EQUIPME FLWMTR HUMIDFR&M ASK O2 CONC 1 E1390 MAXIMILIANGARETT MOTA [facility] 5 HOME HOME 85%/>02 MEDICAL MEDICAL CONC AT [facility] FLW RATE MRI 71199 NEURODIAG MEJIA RON SPINAL 5 NOSTICS CANAL [...] AT EQUIPME EQUIPME PRS FLW RATE DUPLEX 93293 DIAMOND FIELDS SCAN 5 [facility] EXTRACRAN INC INC IAL ART COMPL BI STUDY PRTBLE E0431 MAXIMILIAN YAO GASEOUS 5 HOME HOME O2 SYS MEDICAL MEDICAL RENT; EQUIPME EQUIPME FLWMTR HUMIDFR&M ASK O2 CONC 1 E1390 MAXIMILIAN [place] PORT 5 HOME HOME 85%/>02 MEDICAL MEDICAL CONC AT EQUIPME EQUIPME PRS FLW RATE PHRM Q0513 [employer] DISPENSIN 5 PHARMACY PHARMACY G FEE #591 #591 INHALATIO N RX; PER 30 DAYS LEVALBUTE J7614 [employer] [facility] ROL INHAL 5 PHARMACY PHARMACY NON-CP #591 #591 THRU DME U DOSE 0.5 MG PRTBLE E0431 MAXIMILIAN YAO GASEOUS 5 HOME HOME O2 SYS MEDICAL MEDICAL RENT; EQUIPME EQUIPME FLWMTR HUMIDFR&M ASK O2 CONC 1 E1390 MAXIMILIAN [place] 5 HOME HOME 85%/>02 MEDICAL MEDICAL CONC AT EQUIPME EQUIPME [facility] FLW RATE GAS 50296 DIAMOND FIELDS DILUT/WAS 5 [facility] HOSP HOUT LUNG INC INC VOL W/[place]RIB [place] [address] DIAMOND FIELDS DIFFUSING 5 [facility]OSP CAPACITY INC INC BRNCDILAT 11772 DIAMOND FIELDS RSPSE 5 [facility]OSP SPMTRY INC INC PRE&POST- BRNCDILAT ADMN [...] #591 #591 HOME BLD GLU MON-50 LIPID 61782 DIAMOND FIELDS PANEL 5 [facility] INC INC BASIC 82207 DIAMOND FIELDS METABOLIC 5 [facility] PANEL INC INC CALCIUM TOTAL HEMOGLOBI 12197 DIAMOND FIELDS N 5 [facility] GLYCOSYLA INC INC JUMANA A1C COLLECTIO 47099 DIAMOND FIELDS N VENOUS 5 [facility] [...] RENT; EQUIPME EQUIPME FLWMTR HUMIDFR&M ASK RADEX 59285 [facility] SPINE 5 MEDICAL EDA LUMBOSACR IMAGING AL ASS MINIMUM 4 VIEWS OPHTH 17056 [facility] 5 VISION VISION XM&EVAL CENTER CENTER COMPRHNSV ESTAB PT 1/> DETERMINA 32421 [facility] TION 5 VISION REFRACTIV CENTER E STATE O2 CONC 1 E1390 MAXIMILIAN YAO DEL PORT 5 HOME HOME 85%/>02 MEDICAL MEDICAL CONC AT EQUIPME EQUIPME PRSC FLW RATE PRTBLE E0431 MAXIMILIAN YAO GASEOUS 5 HOME HOME O2 SYS MEDICAL MEDICAL RENT; EQUIPME EQUIPME FLWMTR HUMIDFR&M ASK RADIOLOGI 18513 [facility] EX[facility] 5 MEDICAL EDA CHEST 2 [...] SCREENING INC INC ; PSA TEST COLLECTIO 77898 DIAMOND FIELDS N VENOUS 5 [facility] BLOOD INC INC VENIPUNCT URE HEPATIC 01706 DIAMOND FIELDS FUNCTION 5 [facility] PANEL INC INC LIPID 64899 DIAMOND FIELDS PANEL 5 [facility] INC INC GLUCOSE 84302 DIAMOND FIELDS QUANTITAT 5 [facility] CHALINO BLOOD INC INC XCPT REAGENT STRIP HEMOGLOBI 61470 DIAMOND FIELDS N 5 [facility] GLYCOSYLA INC INC JUMANA A1C BLOOD 17939 DIAMOND FIELDS COUNT 5 [facility] COMPLETE INC INC AUTO&AUTO DIFRNTL WBC RADEX HIP 26012 DIAMOND FIELDS 5 [facility] UNILATERA INC [...] BLD GLU MON-50 ADMN SET A7003 MAXIMILIAN JOHNSONRELL SM VOL 4 HOME HOME NONFILTR MEDICAL MEDICAL PNEUMAT EQUIPME EQUIPME NEBULIZR DISPBL PRTBLE E0431 MAXIMILIAN MAXIMILIAN GASEOUS 4 HOME HOME O2 SYS MEDICAL MEDICAL RENT; EQUIPME EQUIPME FLWMTR HUMIDFR&M ASK LIPID 15403 DIAMOND FIELDS PANEL 4 [facility] INC INC HEPATIC 89735 DIAMOND FIELDS FUNCTION 4 [facility] PANEL INC INC BASIC 83151 DIAMOND FIELDS METABOLIC 4 [facility] PANEL INC INC CALCIUM TOTAL BLOOD 33460 DIAMOND FIELDS COUNT 4 [facility] COMPLETE INC INC AUTO&AUTO DIFRNTL WBC HEMOGLOBI 09901 DIAMOND FIELDS N 4 [facility] GLYCOSYLA INC INC JUMANA A1C COLLECTIO 83548 DIAMOND FIELDS N VENOUS 4 [facility] BLOOD INC INC VENIPUNCT URE PRTBLE E0431 MAXIMILIAN YAO GASEOUS 4 HOME HOME O2 SYS MEDICAL MEDICAL RENT; EQUIPME EQUIPME FLWMTR HUMIDFR&M ASK IPRATROPI J7644 [facility] UM 4 PHARMACY PHARMACY BROMIDE #591 #591 INHAL NON-CP U DOSE PER MG PHRM Q0513 [facility] DISPENSIN 4 PHARMACY PHARMACY G FEE #591 #591 INHALATIO N RX; PER 30 DAYS COLLECTIO 80555 DIAMOND FIELDS N VENOUS 4 [facility] [place]LO[place] [address] DIAMOND FIELDS UREA 4 [facility] NITROGEN INC INC QUANTITAT CHALINO CREATININ 32307 DIAMOND FIELDS E BLOOD 4 [facility] [...] #591 #591 HOME BLD GLU MON-50 LIPID 68467 DIAMOND FIELDS PANEL 4 [facility] INC INC BASIC 49654 DIAMOND FIELDS METABOLIC 4 [facility] PANEL INC INC CALCIUM TOTAL HEMOGLOBI 74282 DIAMOND FIELDS N 4 [facility] GLYCOSYLA INC INC JUMANA A1C COLLECTIO 31659 DIAMOND FIELDS N VENOUS 4 [facility] BLOOD INC INC VENIPUNCT URE PHRM [...] AT EQUIPME EQUIPME PRSC FLW RATE BASIC 36016 LAB BRITTANEY LAB BRITTANEY METABOLIC 4 LITO LITO PANEL [employer] CALCIUM TOTAL RADIOLOGI 38852 [place] C EXAM 4 MEDICAL EDA CHEST 2 IMAGING VIEWS ASS FRONTAL&L ATERAL INJECTION J0696 A Dominique Saldivar 4 SON SWIFT CEFTRIAXO PSC NE SODIUM PER 250 MG THERAPEUT 52366 A Dominique Saldivar IC 4 SON SWIFT [...] SINCALIDE INC INC 5 MICROGRAM S HEPATOBIL 53863 [place] SYST 3 MEDICAL EDA IMAG INC IMAGING GB ASS W/PHARMA INTERVENJ TECHNETIU A9537 DIAMOND Moreno TC-99M 3 [facility] MEBROFENI INC INC N DX UP TO 15 MCI BLD GLU A4253 [facility] TEST/REAG 3 PHARMACY PHARMACY T STRIPS #591 #591 [place] GLU MON-50 [place] [address] [place] ABDOMINAL 3 MEDICAL EDA REAL IMAGING TIME ASS W/IMAGE DOCUMENTA TION PULM G0424 DIAMOND FIELDS REHAB 3 [facility] INCL EXER INC INC 1 HR PER SESS TO 2 PER DAY PULM G0424 DIAMOND FIELDS REHAB 3 [facility] INCL EXER INC INC 1 HR PER SESS TO 2 PER DAY HEMOGLOBI 07251 DIAMOND FIELDS N 3 [facility] GLYCOSYLA INC INC JUMANA A1C GLUCOSE 50631 DIAMOND FIELDS QUANTITAT 3 [facility] CHALINO BLOOD INC INC XCPT REAGENT STRIP LIPID 59488 DIAMOND FIELDS PANEL 3 [facility] INC INC TRANSFERA 21725 DIAMOND FIELDS SE 3 [facility] ASPARTATE INC INC AMINO AST SGOT COLLECTIO 08837 DIAMOND FIELDS N VENOUS 3 [facility] BLOOD INC INC VENIPUNCT URE PROSTATE G0103 DIAMOND FIELDS CANCER 3 [facility] SCREENING INC INC ; PSA TEST COLLECTIO 35348 DIAMOND FIELDS N VENOUS 3 [facility] BLOOD INC INC VENIPUNCT URE HEPATITIS 96451 DIAMOND FIELDS A 3 [facility] ANTIBODY INC INC HAAB HEPATITIS 10985 DIAMOND FIELDS C 3 [facility] [place] [address] DIAMOND FIELDS HEPATITIS 3 [facility] [place] [address] DIAMOND FIELDS THYROID 3 [facility] STIMULATI INC INC NG HORMONE TSH HEPATITIS 22914 DIAMOND Hernandez SURF 3 [facility] ANTIBODY INC INC HBSAB COMPREHEN 79076 DIAMOND FIELDS SIVE 3 [facility] METABOLIC INC INC PANEL HEPATITIS 65922 DIAMOND FIELDS B CORE 3 [facility] ANTIBODY INC INC HBCAB TOTAL CT THORAX 09487 [place] W/O 3 MEDICAL EDA CONTRAST IMAGING MATERIAL ASS 3D 36228 [place] RENDERING 3 MEDICAL EDA IMAGING W/INTERP& ASS POSTPROC DIFF WORK STATION BASIC 95539 DIAMOND FIELDS METABOLIC 3 [facility] PANEL INC INC CALCIUM TOTAL BLOOD 19403 DIAMOND FIELDS COUNT 3 [facility] COMPLETE INC INC AUTO&AUTO DIFRNTL WBC BILIRUBIN 06566 DIAMOND FIELDS DIRECT 3 [facility] INC INC SPMTRY 88378 FRANTZ MADDEN W/VC 3 MEDICAL JAM EXPIRATOR [...] INHALATIO N RX; PER 30 DAYS MANUAL 22438 PROFESSIO CROSSFIEL THERAPY 3 NAL REHAB D SANTY TQS 1/> ASSOC REGIONS PSC EACH 15 MINUTES E-STIM G0283 PROFESSIO CROSSFIEL 1/> AREAS 3 NAL REHAB D [facility]ANTY OTH THAN ASSOC WND CARE PSC PART TX PLAN E-STIM G0283 PROFESSIO CROSSFIEL 1/> AREAS 3 NAL REHAB D SANTY OTH THAN ASSOC WND CARE PSC PART TX PLAN MANUAL 30671 PROFESSIO CROSSFIEL THERAPY 3 NAL REHAB D SANTY TQS 1/> ASSOC REGIONS PSC EACH 15 MINUTES MANUAL 33131 PROFESSIO CROSSFIEL THERAPY 3 NAL REHAB D SANTY TQS 1/> ASSOC REGIONS PSC EACH 15 MINUTES E-STIM G0283 PROFESSIO CROSSFIEL 1/> AREAS 3 NAL REHAB D SANTY OTH THAN ASSOC WND CARE PSC PART TX PLAN E-STIM G0283 PROFESSIO CROSSFIEL 1/> AREAS 3 NAL REHAB D SANTY OTH THAN ASSOC WND CARE PSC PART TX PLAN MANUAL 35821 PROFESSIO CROSSFIEL THERAPY 3 NAL REHAB D SANTY TQS 1/> ASSOC REGIONS PSC EACH 15 MINUTES MANUAL 05084 PROFESSIO CROSSFIEL THERAPY 3 NAL REHAB D [...] WND CARE PSC PART TX PLAN MANUAL 97263 PROFESSIO CROSSFIEL THERAPY 3 NAL REHAB D SANTY TQS 1/> ASSOC REGIONS PSC EACH 15 MINUTES MANUAL 89756 PROFESSIO CROSSFIEL THERAPY 3 NAL REHAB D SANTY TQS 1/> ASSOC REGIONS PSC EACH 15 MINUTES E-STIM G0283 PROFESSIO CROSSFIEL 1/> AREAS 3 NAL REHAB D SANTY OTH THAN ASSOC WND CARE PSC PART TX PLAN E-STIM G0283 PROFESSIO CROSSFIEL 1/> AREAS 3 NAL REHAB D SANTY OTH THAN ASSOC WND CARE PSC PART TX PLAN MANUAL 79222 PROFESSIO CROSSFIEL THERAPY 3 NAL REHAB D SANTY TQS 1/> ASSOC REGIONS PSC EACH 15 MINUTES MANUAL 36300 PROFESSIO CROSSFIEL THERAPY 3 NAL REHAB D SANTY TQS 1/> ASSOC REGIONS PSC EACH 15 MINUTES E-STIM G0283 PROFESSIO CROSSFIEL 1/> AREAS 3 NAL REHAB D SANTY OTH THAN ASSOC WND CARE PSC PART TX PLAN E-STIM G0283 PROFESSIO CROSSFIEL 1/> AREAS 3 NAL REHAB D SANTY OTH THAN ASSOC WND CARE PSC PART TX PLAN MANUAL 88873 PROFESSIO CROSSFIEL THERAPY 3 NAL REHAB D SANTY TQS 1/> ASSOC REGIONS PSC EACH 15 MINUTES PHYSICAL 53872 PROFESSIO CROSSFIEL THERAPY 3 NAL REHAB D SANTY EVALUATIO ASSOC N PSC BLD GLU A4253 [facility] TEST/REAG 3 PHARMACY PHARMACY T STRIPS #591 #591 HOME BLD GLU MON-50 RADIOLOGI 84594 DIAMOND Fox EXAM 3 [facility] CHEST 2 INC INC VIEWS FRONTAL&L ATERAL TENS E0730 EMPI INC EMPI INC DEVICE 3 4/MORE LEADS MULTI NERVE STIMULATI ON O2 CONC 1 E1390 [facility] HOME HOME 85%/>02 MEDICAL MEDICAL CONC AT [facility] FLW RATE THERAPEUT 99349 PROFESSIO CROSSFIEL IC PX 1/> 3 NAL REHAB D SANTY AREAS ASSOC EACH 15 PSC MIN EXERCISES E-STIM G0283 PROFESSIO CROSSFIEL 1/> AREAS 3 NAL REHAB D SANTY OTH THAN ASSOC WND CARE PSC PART TX PLAN MANUAL 58216 PROFESSIO CROSSFIEL THERAPY 3 NAL REHAB D SANTY TQS 1/> ASSOC REGIONS PSC EACH 15 MINUTES MANUAL 25548 PROFESSIO CROSSFIEL THERAPY 3 NAL REHAB D SANTY TQS 1/> ASSOC REGIONS PSC EACH 15 MINUTES E-STIM G0283 PROFESSIO CROSSFIEL 1/> AREAS 3 NAL REHAB D SANTY OTH THAN ASSOC WND CARE PSC PART TX PLAN THERAPEUT 85040 PROFESSIO CROSSFIEL IC PX 1/> 3 NAL REHAB D SANTY AREAS ASSOC EACH 15 PSC MIN EXERCISES O2 CONC 1 E1390 MAXIMILIAN YAO [facility] 3 HOME HOME 85%/>02 [facility] THER[facility]UT 26249 PROFESSIO CROSSFIEL IC PX 1/> 3 NAL REHAB D SANTY AREAS ASSOC EACH 15 PSC MIN EXERCISES MANUAL 40038 PROFESSIO CROSSFIEL THERAPY 3 NAL REHAB D SANTY TQS 1/> ASSOC REGIONS PSC EACH 15 MINUTES MANUAL 99399 PROFESSIO CROSSFIEL THERAPY 3 NAL REHAB D SANTY TQS 1/> ASSOC REGIONS PSC EACH 15 MINUTES TENS E0730 [employer] INC EMPI INC DEVICE 3 4/MORE LEADS MULTI NERVE STIMULATI ON APPLICATI 35031 PROFESSIO CROSSFIEL ON 3 NAL REHAB D [facility]ANT[facility] SURFACE ASSOC NEUROSTIM PSC ULATOR E-STIM G0283 PROFESSIO CROSSFIEL 1/> AREAS 3 NAL REHAB D SANTY OTH THAN ASSOC WND CARE PSC PART TX PLAN MANUAL 51439 PROFESSIO CROSSFIEL THERAPY 3 NAL REHAB D SANTY TQS 1/> ASSOC REGIONS PSC EACH 15 MINUTES MANUAL 37314 PROFESSIO CROSSFIEL THERAPY 3 NAL REHAB D SANTY TQS 1/> ASSOC REGIONS PSC EACH 15 MINUTES E-STIM G0283 PROFESSIO CROSSFIEL 1/> AREAS 3 NAL REHAB D SANTY OTH THAN ASSOC WND CARE PSC PART TX PLAN E-STIM G0283 PROFESSIO CROSSFIEL 1/> AREAS 3 NAL REHAB D SANTY OTH THAN ASSOC WND CARE PSC PART TX PLAN MANUAL 36313 PROFESSIO CROSSFIEL THERAPY 3 NAL REHAB D SANTY TQS 1/> ASSOC REGIONS PSC EACH 15 MINUTES MANUAL 56963 PROFESSIO CROSSFIEL THERAPY 3 NAL REHAB D SANTY TQS 1/> ASSOC REGIONS PSC EACH 15 MINUTES PHYSICAL 40147 PROFESSIO CROSSFIEL THERAPY 3 NAL REHAB D SANTY EVALUATIO ASSOC N PSC E-STIM G0283 PROFESSIO CROSSFIEL 1/> AREAS 3 NAL REHAB D SANTY OTH THAN ASSOC WND CARE PSC PART TX PLAN E-STIM G0283 PROFESSIO CROSSFIEL 1/> AREAS 2 NAL REHAB D SANTY OTH THAN ASSOC WND CARE PSC PART TX PLAN MANUAL 32734 PROFESSIO CROSSFIEL THERAPY 2 NAL REHAB D SANTY TQS 1/> ASSOC REGIONS PSC EACH 15 MINUTES O2 CONC 1 E1390 MAXIMILIAN YAO DEL PORT 2 HOME HOME 85%/>02 MEDICAL MEDICAL CONC AT [facility] FLW RATE MANUAL 77133 PROFESSIO CROSSFIEL THERAPY 2 NAL REHAB D SANTY TQS 1/> ASSOC REGIONS PSC EACH 15 MINUTES E-STIM G0283 PROFESSIO CROSSFIEL 1/> AREAS 2 NAL REHAB D SANTY OTH THAN ASSOC WND CARE PSC PART TX PLAN MANUAL 62120 PROFESSIO CROSSFIEL THERAPY 2 NAL REHAB D SANTY TQS 1/> ASSOC REGIONS PSC EACH 15 MINUTES APPL 81525 PROFESSIO CROSSFIEL MODALITY 2 NAL REHAB D SANTY 1/> AREAS ASSOC TRACTION PSC MECHANICA L APPL 00177 PROFESSIO CROSSFIEL MODALITY 2 NAL REHAB D SANTY 1/> AREAS ASSOC TRACTION PSC MECHANICA L COLLECTIO 75987 DIAMOND DIAMOND N VENOUS 2 [facility] BLOOD INC INC VENIPUNCT URE BASIC 08198 DIAMOND DIAMOND METABOLIC 2 [facility] PANEL INC INC CALCIUM TOTAL LIPID 24250 DIAMOND FIELDS PANEL 2 [facility] INC INC HEPATIC 29726 DIAMOND FIELDS FUNCTION 2 MEM [facility] PANEL INC INC BLOOD 86965 DIAMOND DIAMOND COUNT 2 [facility]OS[facility] COMPLETE INC INC AUTO&AUTO DIFRNTL WBC HEMOGLOBI 44995 DIAMOND DIAMOND N 2 MEM [facility] GLYCOSYLA INC INC JUMANA A1C ADMINISTR G0009 A Dominique Saldivar ATION OF 2 SON SWIFT PNEUMOCOC PSC SUBHASH VACCINE INJ J0702 A Dominique Saldivar BETAMETHA 2 SON SWIFT SONE PSC ACETATE & PHOSPHATE 3 MG THERAPEUT 81916 A Dominique Saldivar IC 2 SON SWIFT PROPHYLAC PSC TIC/DX INJECTION SUBQ/IM PPSV23 48055 A Dominique Saldivar VACCINE 2 2 SON SWIFT YRS OR PSC OLDER FOR SUBQ/IM USE APPL 65566 PROFESSIO CROSSFIEL MODALITY 2 NAL REHAB D SANTY 1/> AREAS ASSOC TRACTION PSC MECHANICA L THERAPEUT 35076 PROFESSIO CROSSFIEL IC PX 1/> 2 NAL REHAB D SANTY AREAS ASSOC EACH 15 PSC MIN EXERCISES THERAPEUT 40129 PROFESSIO CROSSFIEL IC PX 1/> 2 NAL REHAB D SANTY AREAS ASSOC EACH 15 PSC MIN EXERCISES APPL 36909 PROFESSIO CROSSFIEL MODALITY 2 NAL REHAB D SANTY 1/> AREAS ASSOC TRACTION PSC MECHANICA L THERAPEUT 78555 PROFESSIO CROSSFIEL IC PX 1/> 2 NAL REHAB D SANTY AREAS ASSOC EACH 15 PSC MIN EXERCISES MANUAL 79189 PROFESSIO CROSSFIEL THERAPY 2 NAL REHAB D SANTY TQS 1/> ASSOC REGIONS PSC EACH 15 MINUTES PHYSICAL 04270 PROFESSIO CROSSFIEL THERAPY 2 NAL REHAB D SANTY EVALUATIO ASSOC N PSC O2 CONC 1 E1390 MAXIMILIAN YAO DEL PORT 2 HOME HOME 85%/>02 MEDICAL MEDICAL CONC AT [facility] FLW RATE THERAPEUT 28159 Janna Saldivar C IC 2 SON CLINE MD PROPHYLAC PSC PSC TIC/DX INJECTION SUBQ/IM INJ J0702 Janna Saldivar BETAMETHA 2 SON SWIFT SONMaster PSC ACETATE & PHOSPHATE 3 MG MRI 68809 [place] SPINAL 2 MEDICAL EDA CANAL IMAGING CERVICAL ASS W/O CONTRAST MATRL 3D 71175 DIAMOND FIELDS RENDERING 2 [facility] W/INTERP INC INC & POSTPROCE SS SUPERVISI ON THERAPEUT 35390 Janna Saldivar IC 2 SON SWIFT PROPHYLAC PSC TIC/DX INJECTION SUBQ/IM INJECTION J1030 Janna Saldivar 2 SON SWIFT METHYLPRE PSC DNISOLONE ACETATE 40 MG O2 CONC 1 E1390 MAXIMILIAN MAXIMILIAN [facility] PORT 2 HOME HOME 85%/>02 MEDICAL MEDICAL CONC AT [facility] FLW RATE PHRM Q0513 [facility] [...] #591 O2 CONC 1 E1390 MAXIMILIAN YAO [facility] PORT 2 HOME HOME 85%/>02 MEDICAL MEDICAL CONC AT [facility] FLW RATE O2 CONC 1 E1390 MAXIMILIAN MOTA PORT 2 HOME HOME 85%/>02 MEDICAL MEDICAL CONC AT [facility] FLW RATE RPR 1ST 94684 C ELBA KIMBERLYN INGUN 2 KIMBERLYN LEDESMA MD PSC 5 YRS/> REDUCIBLE ANESTHESI 71270 [facility] JENNIE A HERNIA 2 ANESTH REPAIR OF THE LOWER BLUE ABDOMEN NOS ECG 75724 DIAMOND FIELDS ROUTINE 2 [facility] ECG INC INC W/LEAST 12 LDS TRCG ONLY W/O I&[place] [address] DIAMOND FIELDS INFUSION 2 [facility] THERAPY/P INC INC ROPHYLAXI S /DX 1ST TO 1 HR THERAPEUT 75888 DIAMOND FIELDS IC 2 [facility] INJECTION INC INC IV PUSH EACH NEW DRUG INJECTION J2405 DIAMOND FIELDS 2 [facility] ONDANSETR INC INC ON HCL PER 1 [place] [address] DIAMOND FIELDS INFUSION 2 [facility] THERAPY INC INC PROPHYLAX IS/DX EA HOUR COLLECTIO 51490 DIAMOND FIELDS N VENOUS 2 [facility] BLOOD INC INC VENIPUNCT URE BLOOD 61172 DIAMOND FIELDS COUNT 2 [facility] COMPLETE INC INC AUTO&AUTO DIFRNTL WBC BASIC 69138 DIAMOND FIELDS METABOLIC 2 [facility] PANEL INC INC CALCIUM TOTAL PHRM Q0513 [facility] DISPENSIN 2 PHARMACY PHARMACY G FEE #591 #591 INHALATIO N RX; PER 30 DAYS IPRATROPI J7644 [facility] UM 2 PHARMACY PHARMACY BROMIDE #591 #591 INHAL NON-CP U DOSE PER MG O2 CONC 1 E1390 MAXIMILIAN [place] PORT 2 HOME HOME 85%/>02 MEDICAL MEDICAL CONC AT [facility] FLW RATE COLLECTIO 83210 DIAMOND FIELDS N VENOUS 2 [facility] BLOOD INC INC VENIPUNCT URE PROSTATE G0103 DIAMOND FIELDS CANCER 2 [facility] SCREENING INC INC ; PSA TEST BASIC 73082 DIAMOND FIELDS METABOLIC 2 [facility] PANEL INC INC CALCIUM TOTAL LIPID 10947 DIAMOND FIELDS PANEL 2 [facility] INC INC GLUCOSE 30738 DIAMOND FIELDS QUANTITAT 2 [facility] CHALINO BLOOD INC INC XCPT REAGENT STRIP HEMOGLOBI 77632 DIAMOND FIELDS N 2 [facility] GLYCOSYLA INC INC JUMANA A1C RADEX 51262 DIAMOND FIELDS SPINE 2 [facility] CERVICAL INC INC 6 OR MORE VIEWS RADEX 42148 [place] AN[facility] SPINE 2 MEDICAL EDA CERVICAL IMAGING 2 OR 3 ASS VIEWS O2 CONC 1 E1390 MAXIMILIAN JOHNSONRELL DEL PORT 2 HOME HOME 85%/>02 MEDICAL MEDICAL CONC AT EQUIPME EQUIPNJ PRS FLW RATE LIPID 88163 DIAMOND FIELDS PANEL 2 [facility] INC INC HEPATIC 98473 DIAMOND FIELDS FUNCTION 2 [facility] PANEL INC INC BASIC 85814 DIAMOND FIELDS METABOLIC 2 [facility] PANEL INC INC CALCIUM TOTAL COLLECTIO 57689 DIAMOND FIELDS N VENOUS 2 [facility] BLOOD INC INC VENIPUNCT URE O2 CONC 1 E1390 MAXIMILIAN MAXIMILIAN DEL PORT 2 HOME HOME 85%/>02 MEDICAL MEDICAL CONC AT EQUIPME EQUIPNJ PRS FLW RATE LANCETS A4259 [facility] PER BOX 2 [facility] PHARMACY OF 100 #591 #591 PHR Q0513 [facility] DISPENSIN 2 [facility]Y PHARMACY G FEE #591 #591 INHALATIO N RX; PER 30 DAYS IPRATROPI J7644 [facility] UM 2 PHARMACY PHARMACY [place] #591 #591 INHAL NON-CP U DOSE PER MG THERAPEUT 46524 MARTIN MARTIN IC 2 KESHIA KESHIA PROPHYLAC TIC/DX INJECTION SUBQ/IM PRESSURIZ 14905 MARTIN MARTIN ED/NONPRE 2 KESHIA KESHIA SSURIZED INHALATIO N TREATMENT INJECTION J1040 MARTIN MARTIN 2 KESHIA KESHIA METHYLPRE DNISOLONE ACETATE 80 MG SPMTRY 54109 MARTIN MARTIN W/VC 2 KESHIA KESHIA EXPIRATOR Y EMY W/WO MXML VOL VNTJ INJECTION J2010 MARTIN [facility] 2 KESHIA INFUSION [facility] SERVICES N HCL UP TO 300 MG O2 CONC 1 E1390 MAXIMILIAN MAXIMILIAN DEL PORT 2 HOME HOME 85%/>02 MEDICAL MEDICAL CONC AT EQUIPME EQUIPME [facility] FLW RATE O2 CONC 1 E1390 MAXIMILIAN MAXIMILIAN DEL PORT 2 HOME HOME 85%/>02 MEDICAL MEDICAL CONC AT EQUIPME EQUIPME [facility] FLW RATE BRNCDILAT 39798 MARTIN MARTIN RSPSE 2 KESHIA KESHIA SPMTRY PRE&POST- BRNCDILAT ADMN O2 CONC 1 E1390 MAXIMILIAN MAXIMILIAN DEL PORT 2 HOME HOME 85%/>02 [facility] O2 CONC 1 E1390 MAXIMILIAN MAXIMILIAN DEL PORT 1 HOME HOME 85%/>02 [facility] FUNDUS 14235 ELO ELO PHOTOGRAP 1 VISION VISION HY W/INTERPR ETATION & REPORT O2 CONC 1 E1390 [facility] HOME HOME 85%/>02 [facility] PHRM Q0513 [facility] DISPENSIN 1 PHARMACY PHARMACY G FEE #591 #591 INHALATIO N RX; PER 30 DAYS LEVALBUTE J7614 [facility] ROL INHAL 1 PHARMACY PHARMACY NON-CP #591 #591 THRU DME U DOSE 0.5 MG LANCETS A4259 [facility] PER BOX 1 PHARMACY PHARMACY OF [facility] #591 #591 BLD GLU A4253 [facility] TEST/REAG 1 PHARMACY PHARMACY T STRIPS #591 #591 HOME BLD GLU MON-50 HEPATIC 30020 DIAMOND FIELDS FUNCTION 1 [facility] PANEL INC INC LIPID 44214 DIAMOND FIELDS PANEL 1 [facility] INC INC BASIC 93875 DIAMOND FIELDS METABOLIC 1 [facility] PANEL INC INC CALCIUM TOTAL COLLECTIO 95685 DIAMOND FIELDS N VENOUS 1 [facility] BLOOD INC INC VENIPUNCT URE O2 CONC 1 E1390 MAXIMILIANGARETT YAO DEL PORT 1 HOME HOME 85%/>02 MEDICAL MEDICAL CONC AT EQUIPME [facility] FLW RATE LEVALBUTE J7614 [facility] ROL INHAL 1 PHARMACY PHARMACY NON-CP #591 #591 THRU DME U DOSE 0.5 MG PHRM Q0513 [facility] DISPENSIN 1 PHARMACY PHARMACY G FEE #591 #591 INHALATIO N RX; PER 30 DAYS O2 CONC 1 E1390 MAXIMILIANGARETT YAO DEL PORT 1 HOME HOME 85%/>02 MEDICAL MEDICAL CONC AT EQUIPME [facility] FLW RATE O2 CONC 1 E1390 MAXIMILIANGARETT YAO DEL [place] 1 HOME HOME 85%/>02 [facility] 72803 DIAMOND FIELDS NUTRITION 1 [facility] INC INC ASSMT&IVN TJ INDIV EACH 15 UT SPMTRY 04721 MARTIN MARTIN W/VC 1 KESHIA KESHIA EXPIRATOR Y EMY W/WO MXML VOL VNTJ LANCETS A4259 [facility] PER BOX 1 PHARMACY PHARMACY OF 100 #591 #591 BLD GLU A4253 [facility] TEST/REAG 1 PHARMACY PHARMACY T STRIPS #591 #591 HOME BLD GLU MON-50 O2 CONC 1 E1390 MAXIMILIAN [place] 1 HOME HOME 85%/>02 MEDICAL MEDICAL CONC AT EQUIPME [facility] FLW RATE LIPID 80666 DIAMOND DIAMOND PANEL 1 [facility] INC INC BASIC 55975 DIAMOND GREENON METABOLIC 1 [facility] [place] [address] DIAMOND FIELDS PROSTATE 1 [facility] SPECIFIC INC INC ANTIGEN TOTAL COLLECTIO 23083 DIAMOND FIELDS N VENOUS 1 [facility] BLOOD INC INC VENIPUNCT URE O2 CONC 1 E1390 MAXIMILIANGARETT YAO DEL PORT 1 HOME MED HOME MED 85%/>02 EQUIP. L EQUIP. L CONC AT [facility] FLW RATE LEVALBUTE J7614 [facility] ROL INHAL 1 PHARMACY PHARMACY NON-CP #591 #591 THRU DME U DOSE 0.5 MG PHRM Q0513 [facility] DISPENSIN 1 PHARMACY PHARMACY G FEE #591 #591 INHALATIO N RX; PER 30 DAYS O2 CONC 1 E1390 [facility] HOME HOME 85%/>02 MEDICAL MEDICAL CONC AT EQUIPME EQUIPME [facility] FLW RATE O2 CONC 1 E1390 [facility] HOME MED HOME MED 85%/>02 EQUIP. L EQUIP. L CONC AT [facility] FLW RATE BLD GLU A4253 [facility] TEST/REAG 1 PHARMACY PHARMACY T STRIPS #591 #591 HOME BLD GLU MON-50 O2 CONC 1 E1390 [facility] 1 HOME MED HOME MED 85%/>02 EQUIP. L EQUIP. L CONC AT [facility] FLW RATE O2 CONC 1 E1390 [facility] 1 HOME MED HOME MED 85%/>02 EQUIP. L EQUIP. L CONC AT [facility] FLW RATE IM ADM 27051 A Dominique GA PRQ ID 1 SON [...] INHALATIO N RX; PER 30 DAYS SPMTRY 95495 MARTIN MARTIN W/VC 1 KESHIA KESHIA EXPIRATOR Y EMY W/WO MXML VOL VNTJ O2 CONC 1 E1390 MAXIMILIAN [facility] 1 HOME MED HOME MED 85%/>02 EQUIP. L EQUIP. L CONC AT [facility] FLW RATE LANCETS A4259 [facility] PER BOX 1 PHARMACY PHARMACY OF 100 #591 #591 BLD GLU A4253 [facility] TEST/REAG 1 PHARMACY PHARMACY T STRIPS #591 #591 HOME BLD GLU MON-50 CHIROPRAC 36474 [place] TIC 1 ROS MANIPULAT CHIROPRAC [place] TX TIC CENTE SPINAL 3-4 REGIONS LIPID 09628 DIAMOND FIELDS PANEL 1 [facility] INC INC HEMOGLOBI 08835 DIAMOND FIELDS N 1 [facility] GLYCOSYLA INC INC JUMANA A1C GLUCOSE 55415 DIAMOND FIELDS QUANTITAT 1 [facility] CHALINO BLOOD INC INC XCPT REAGENT STRIP TRANSFERA 30581 DIAMOND FIELDS SE 1 [facility] ASPARTATE INC INC AMINO AST SGOT COLLECTIO 27950 DIAMOND FIELDS N VENOUS 1 [facility] BLOOD INC INC VENIPUNCT URE CHIROPRAC 81407 [place] TIC 1 ROS MANIPULAT CHIROPRAC [place] TX TIC CENTE SPINAL 3-4 REGIONS CHIROPRAC 25257 [place] TIC 1 ROS MANIPULAT CHIROPRAC [place] TX TIC CENTE SPINAL 3-4 REGIONS CHIROPRAC 76766 [place] TIC 0 ROS MANIPULAT CHIROPRAC [place] TX TIC CENTE SPINAL 3-4 REGIONS RADEX 30905 [place] SPINE 0 ROS CERVICAL CHIROPRAC 2 OR 3 TIC CENTE VIEWS RADEX 40479 [place] SPINE 0 ROS LUMBOSACR CHIROPRAC AL 2/3 TIC CENTE VIEWS APPL 19707 [place] MODALITY 0 ROS 1/> AREAS CHIROPRAC TRACTION TIC CENTE MECHANICA L LEVALBUTE J7614 [facility] ROL INHAL 0 PHARMACY PHARMACY NON-CP #591 #591 THRU DME U DOSE 0.5 MG PHRM Q0513 [facility] DISPENSIN 0 PHARMACY PHARMACY G FEE #591 #591 INHALATIO N RX; PER 30 DAYS OPHTH 14078 VARNER WILIAM [facility] 0 XM&EVAL COMPRE NEW PT 1/> VST O2 CONC 1 E1390 MAXIMILIAN YAO DEL PORT 0 HOME MED HOME MED 85%/>02 EQUIP. L EQUIP. L CONC AT [facility] FLW RATE NEBULIZER E0570 MAXIMILIAN YAO WITH 0 HOME MED HOME MED COMPRESS[place] [address] DIAMOND FIELDS INFUSION 0 [facility] THERAPY INC INC PROPHYLAX IS/DX EA HOUR COLONOSCO 48577 [place] TATE GENE PY 0 MEDICAL W/BIOPSY SERV SINGLE/[place] [address] PATHOLOGY PATHOLOGY SURG 0 & & PATHOLOGY CYTOLOGY CYTOLOGY LAB LAB GROSS&[place] [address] DIAMOND FIELDS INFUSION 0 [facility] THERAPY/P INC INC ROPHYLAXI S /DX 1ST TO 1 HR O2 CONC 1 E1390 MAXIMILIAN YAO DEL PORT 0 HOME MED HOME MED 85%/>02 EQUIP. L EQUIP. L CONC AT [facility] FLW RATE LEVALBUTE J7614 [facility] [...] 85%/>02 EQUIP. L EQUIP. L CONC AT [facility] FLW RATE ADMINISTR G0008 Janna Saldivar ATION OF 0 SON SWIFT INFLUENZA PSC VIRUS VACCINE IIV 79976 Janna Saldivar VACCINE 0 SON SWIFT PRESERV PSC FREE INCREASED AG CONTENT IM CT PELVIS 70756 [facility] EDA W/CONTRAS IMAGING T ASS MATERIAL COMPREHEN 19731 DIAMOND FIELDS SIVE 0 [facility] [place] [address] DIAMOND FIELDS AMYLASE 0 [facility] INC INC PROTHROMB 28001 DIAMOND FIELDS IN TIME 0 [facility] INC INC PRESSURIZ 49096 DIAMOND FIELDS ED/NONPRE 0 [facility] SSURIZED INC INC INHALATIO N TREATMENT CUL BACT 16475 DIAMOND FIELDS STOOL 0 [facility] AEROBIC INC INC ISOL SALMONELL A&SHIGELL OVA&JOSE RAMON 91849 DIAMOND FIELDS ITES 0 [facility] DIRECT INC INC SMEARS CONCENTRA [place] & [place] [address] DIAMOND FIELDS LIPASE 0 [facility] [place] [address] [place] ANIBAL ABDOMEN 0 MEDICAL EDA W/CONTRAS IMAGING T ASS MATERIAL BLOOD 43500 DI[facility]OND FIELDS OCCULT 0 [facility] PEROXIDAS INC INC E ACTV QUAL FECES 1-3 SPEC BLOOD 32663 DI[facility]OND FIELDS COUNT 0 [facility] COMPLETE INC INC AUTO&AUTO DIFRNTL WBC 3D 43600 DIAMOND FIELDS RENDERING 0 [facility] INC INC W/INTERP& POSTPROC DIFF WORK STATION THERAPEUT 39421 MARTIN MARTIN IC 0 KESHIA KESHIA PROPHYLAC TIC/DX INJECTION SUBQ/IM PRESSURIZ 74185 MARTIN MARTIN ED/NONPRE 0 KESHIA KESHIA SSURIZED INHALATIO N TREATMENT INJECTION J1040 MARTIN MARTIN 0 KESHIA KESHIA METHYLPRE DNISOLONE ACETATE 80 MG BRNCDILAT 40089 MARTIN MARTIN RSPSE 0 KESHIA KESHIA SPMTRY PRE&POST- BRNCDILAT ADMN BUDESONID J7626 MARTIN MARTIN E INHAL 0 KESHIA KESHIA NON-CP UNIT DOSE UP TO 0.5 MG LEVALBUTE J7614 MARTIN MARTIN ROL INHAL 0 [...] 85%/>02 EQUIP. L EQUIP. L CONC AT [facility] FLW RATE PROSTATE G0103 DIAMOND FIELDS CANCER 0 [facility] SCREENING INC INC ; PSA TEST COLLECTIO 20544 DIAMOND FIELDS N VENOUS 0 [facility] BLOOD INC INC VENIPUNCT URE NEBULIZER E0570 MAXIMILIAN YAO WITH 0 HOME MED HOME MED COMPRESSO EQUIP. L EQUIP. L R BASIC 51353 DIAMOND FIELDS METABOLIC 0 [facility]OSP PANEL INC INC CALCIUM TOTAL LIPID 52538 DIAMOND FIELDS PANEL 0 [facility]OSP INC INC O2 CONC 1 E1390 MAXIMILIAN YAO DEL PORT 0 HOME MED HOME MED 85%/>02 EQUIP. L EQUIP. L CONC AT [facility] FLW RATE SPMTRY 43241 MARTIN, MARTIN, W/VC 0 KESHIA B KESHIA B EXPIRATOR Y EMY W/WO MXML VOL VNTJ BLD GLU A4253 [facility] TEST/REAG 0 PHARMACY PHARMACY T STRIPS #591 #591 HOME BLD GLU MON-50 LANCETS A4259 [facility] PER BOX 0 PHARMACY PHARMACY OF 100 #591 #591 NEBULIZER E0570 MAXIMILIAN YAO WITH 0 HOME MED HOME MED COMPRESSO EQUIP. EQUIP. R [facility] O2 CONC 1 E1390 MAXIMILIAN YAO DEL PORT 0 HOME MED HOME MED 85%/>02 EQUIP. EQUIP. CONC AT [facility] FLW RATE PHRM Q0513 [facility] [...] N HCL UP TO 300 MG SPMTRY 53061 MARTIN, MARTIN, W/VC 0 KESHIA B KESHIA B EXPIRATOR Y EMY W/WO MXML VOL VNTJ INJECTION J1020 MARTIN, MARTIN, 0 KESHIA B KESHIA B METHYLPRE DNISOLONE ACETATE 20 MG PRESSURIZ 24033 MARTIN, MARTIN, ED/NONPRE 0 KESHIA B KESHIA B SSURIZED INHALATIO N TREATMENT IM ADM 68766 MARTIN, MARTIN, PRQ ID 0 KESHIA B KESHIA B SUBQ/IM NJXS EA VACCINE IM ADM 53535 MARTIN, MARTIN, PRQ ID 0 KESHIA B KESHIA B SUBQ/IM NJXS 1 VACCINE NEBULIZER E0570 MAXIMILIAN YAO WITH 0 HOME MED HOME MED COMPRESSO EQUIP. EQUIP. R [employer] [facility] O2 CONC 1 E1390 MAXIMILIAN MAXIMILIAN DEL PORT 0 HOME MED HOME MED 85%/>02 EQUIP. EQUIP. CONC AT [employer] [facility] FLW RATE NEBULIZER E0570 MAXIMILIAN YAO WITH 0 HOME MED HOME MED COMPRESSO EQUIP. EQUIP. R [employer] [facility] O2 CONC 1 E1390 MAXIMILIAN MAXIMILIAN DEL PORT 0 HOME MED HOME MED 85%/>02 EQUIP. EQUIP. CONC [employer] [facility] PRSC FLW RATE IM ADM 20714 MARTIN, MARTIN, PRQ ID 0 KESHIA B KESHIA B SUBQ/IM NJXS 1 VACCINE PRESSURIZ 16040 MARTIN, MARTIN, ED/NONPRE 0 KESHIA B KESHIA B SSURIZED INHALATIO N TREATMENT INJECTION J1020 MARTIN, MARTIN, 0 KESHIA B KESHIA B METHYLPRE DNISOLONE ACETATE 20 MG BRNCDILAT 80350 MARTIN, MARTIN, RSPSE 0 KESHIA B KESHIA B SPMTRY PRE&POST- BRNCDILAT ADMN INJECTION J3301 MARTIN, MARTIN, 0 KESHIA B KESHIA B TRIAMCINO LONE ACETONIDE NOS 10 MG COLLECTIO 41968 Janna PERRY N VENOUS 0 SON Fox BLOOD PSC VENIPUNCT URE BLOOD 15225 Janna PERRY COUNT 0 SON Fox COMPLETE PSC AUTO&AUTO DIFRNTL WBC BASIC 49259 LAB BRITTANEY LAB BRITTANEY METABOLIC 0 AMERIC AMERIC PANEL HOLDING HOLDING CALCIUM TOTAL SPMTRY 62838 MARTIN, MARTIN, W/VC 0 KESHIA B KESHIA B EXPIRATOR Y EMY W/WO MXML VOL VNTJ NEBULIZER E0570 MAXIMILIAN YAO WITH 0 HOME MED HOME MED COMPRESSO EQUIP. EQUIP. R [facility] O2 CONC 1 E1390 MAXIMILIAN YAO DEL PORT 0 HOME MED HOME MED 85%/>02 EQUIP. EQUIP. CONC AT [facility] PRSC FLW RATE BRNCDILAT 99224 MARTIN, MARTIN, RSPSE 0 KESHIA B KESHIA B SPMTRY PRE&POST- BRNCDILAT ADMN DEMO&/SARAY 54998 MARTIN SALAZAR, L OF PT 0 KESHIA B KESHIA B UTILIZ AERSL GEN/NEB/I NHLR/IP ADMN SET A7005 MAXIMILIAN YAO W/SM VOL 0 HOME MED HOME MED NONFILTR EQUIP. EQUIP. [facility]BULIZR [facility] NON-DISPB L NEBULIZER E0570 MAXIMILIAN YAO WITH 0 HOME MED HOME MED COMPRESSO EQUIP. EQUIP. R [facility] HEMOGLOBI 78770 [facility]OND FIELDS N 0 [facility] GLYCOSYLA [place] [address] DIAMOND FIELDS TESTOSTER 0 [facility] ONE TOTAL INC INC BLOOD 15596 DI[facility]OND FIELDS COUNT 0 [facility] COMPLETE INC INC AUTO&AUTO DIFRNTL WBC LIPID 24534 [facility] FIELDS PANEL 0 [facility] INC INC HEPATITIS 22244 DIAMOND FIELDS B CORE 0 [facility] ANTIBODY INC INC HBCAB TOTAL COMPREHEN 43134 DI[facility] FIELDS SIVE 0 [facility] METABOLIC INC INC PANEL HEPATITIS 64512 DIAMOND Hernandez SURF 0 [facility] ANTIBODY INC INC HBSAB COLLECTIO 49348 DIAMOND FIELDS N VENOUS 0 [facility] [place] [address] DIAMOND FIELDS HEPATITIS 0 [facility] B INC INC SURFACE ANTIGEN HEPATITIS 14502 [facility] FIELDS A 0 [facility] ANTIBODY INC INC HAAB HEPATITIS 54790 DIAMOND FIELDS C 0 [facility] ANTIBODY INC INC NEBULIZER E0570 MAXIMILIAN YAO WITH 0 HOME MED HOME MED COMPRESSO [facility]IP. [facility] NEBULIZER E0570 MAXIMILIAN YAO WITH 0 HOME MED HOME MED COMPRESSO EQUIP. EQUIP. R [employer] [facility] NEBULIZER E0570 MAXIMILIAN YAO WITH 9 HOME MED HOME MED COMPRESSO EQUIP. [facility]. [facility] NEBULIZER E0570 MAXIMILIAN YAO WITH [...] Date Code Location Performer Type Date OFFICE 59229 FRANTZ MADDEN OUTPATIEN 7 7 MEDICAL T VISIT SERV 25 FOUNDATIO MINUTES N OFFICE 45449 FABIEN SMALLS OUTPATIEN 7 7 HEALTH T NEW 45 MEDICAL MINUTES GROUP OFFICE 95110 [facility] OUTPATIEN 7 7 PHYSICIAN A T VISIT S GROUP 25 MINUTES HOSPITAL [facility] - 7 7 [facility] OUTPATIEN INC T [facility]OSPITAL [facility] - 7 7 [facility] T [facility] - 7 7 [facility]PAT[facility] INC T OFFICE 03899 [facility] OUTPATIEN 7 7 PHYSICIAN T VISIT S GROUP 25 MINUTES HOSPITAL IDAMOND - 7 7 [facility] OUTPATIEN INC [...] 7 [facility] OUTPATIEN INC T OFFICE 62382 [facility] TERRELL OUTPATIEN 7 7 MD DOMINGO, T VISIT PSC 15 MINUTES OFFICE 71064 [facility] OUTPATIEN 7 7 PHYSICIAN ISAEL T NEW 45 S GROUP MINUTES [facility]OSPITAL [facility] - 6 6 [facility] OUTPAT[facility] INC T OFFICE [address] OUTPATIEN 6 6 MD DOMINGO, T VISIT PSC 10 MINUTES HOSPITAL DI[facility] - OTHER 6 6 [facility]PITAL DIAMOND - 6 6 [facility] OUTPATIEN INC T OFFICE 46134 OSWALDO GOMEZ OUTPATIEN 6 6 MD DOMINGO, T VISIT PSC 15 MINUTES [facility]OSPITAL [facility] - 6 6 [facility] OUTPAT[facility] INC [facility] - 6 6 [facility] INC T OFFICE 39746 OSWALDO GOMEZ OUTPATIEN 6 6 MD DOMINGO, T VISIT PSC 15 MINUTES OFFICE 82378 [facility]END[facility] VARNER WILIAM OUTPATIEN 6 6 [facility]ES [facility]PITAL DI[facility]OND - 6 6 [facility] OUTPATIEN [facility] T OFFICE 96710 OSWALDO GOMEZ OUTPATIEN 6 6 MD DOMINGO, T VISIT PSC 15 MINUTES HOSPITAL DI[facility]OND - 6 6 [facility] OUTPATIEN [facility] T OFFICE 68980 OSWALDO GOMEZ OUTPATIEN 6 6 MD DOMINGO, T VISIT PSC 15 MINUTES HOSPITAL DIAMOND - 6 6 [facility] OUTPATIEN [facility] DIAMOND - 6 6 [facility] OUTPATIEN [facility] T OFFICE 47288 OSWALDO MIX OUTPATIEN 6 6 MD DOMINGO, T VISIT PSC 15 MINUTES HOSPITAL DIAMOND - 6 6 [facility] OUTPATIEN [facility] T OFFICE 72328 Janna CLINE OUTPATIEN 6 6 SON ADAIR T VISIT PSC 15 MINUTES HOSPITAL DI[facility]OND - 6 6 [facility] OUTPATIEN [facility] DIAMOND - OTHER 6 6 [facility] INC OFFICE 61126 OSWALDO GOMEZ OUTPATIEN 6 6 MD DOMINGO, T VISIT PSC 15 MINUTES OFFICE 36899 Janna SAXENA OUTPATIEN 6 6 SON ROUSE T VISIT PSC 15 MINUTES HOSPITAL DIAMOND - OTHER 6 6 [facility] DIAMOND - 6 6 [facility] OUTPATIEN [facility] T OFFICE 25999 Janna SAXENA OUTPATITHIAGO 6 6 SON ROUSE T VISIT PSC 15 MINUTES HOSPITAL DIAMOND - 6 6 [facility] OUTPATIEN [facility] T OFFICE 24626 A Dominique SAXENA OUTPATIEN 6 6 SON SWIFT NASIM T VISIT PSC 15 MINUTES OFFICE 49976 OSWALDO QUINONEZ MARIA DEL ROSARIO OUTPATIEN 6 6 MD DOMINGO, T NEW 45 PSC MINUTES OFFICE 58569 A Dominique CLINE OUTPATIEN 6 6 SON ADAIR T VISIT PSC 15 MINUTES OFFICE 29055 A Dominique CLINE OUTPATIEN 5 5 SON ADAIR T VISIT PSC 15 MINUTES HOSPITAL UNIVERSIT - 5 5 [facility] T OFFICE 16457 A Dominique CLINE OUTPATIEN 5 5 SON ADAIR T VISIT PSC 15 MINUTES HOSPITAL DIAMOND - 5 5 [facility] OUTPATIEN [facility] T OFFICE 87335 [place] MADDEN OUTPATIEN 5 5 MEDICAL JAM T VISIT SERV 15 FOUNDATIO MINUTES [facility] DIAMOND - 5 5 [facility] OUTPATIEN [facility] T OFFICE 40999 A Dominique CLINE OUTPATIEN 5 5 SON ADAIR T VISIT PSC 15 MINUTES OFFICE 04215 A Dominique CLINE OUTPATIEN 5 5 SON ADAIR T VISIT PSC 15 MINUTES HOSPITAL DIAMOND - 5 5 [facility] OUTPATIEN [facility] T OFFICE 79372 A Dominique CLINE OUTPATIEN 5 5 SON ADAIR T VISIT PSC 15 MINUTES OFFICE 55851 [place] MARYANNE OUTPATIEN 5 5 MEDICAL JAM T VISIT SERV 25 FOUNDATIO MINUTES [facility] DIAMOND - 5 5 [facility] OUTPATIEN [facility] DIAMOND - 5 5 [facility] OUTPATIEN [facility] T OFFICE 78201 [place] MADDEN OUTPATIEN 5 5 MEDICAL JAM T VISIT SERV 15 FOUNDATIO MINUTES N OFFICE 26868 A C CLINE A OUTPATIEN 5 5 SON SWIFT T VISIT PSC 15 MINUTES HOSPITAL DI[facility]OND - 5 5 [facility] OUTPATIEN INC T OFFICE 37002 A Dominique Saldivar OUTPATIEN 5 5 SON SWIFT T VISIT PSC 15 MINUTES OFFICE 72317 FRANTZ MADDEN OUTPATIEN 5 5 MEDICAL JAM T VISIT SERV 15 FOUNDATIO MINUTES N HOSPITAL DI[facility] - 5 5 [facility] OUTPATIEN INC T OFFICE 48177 A Dominique CLINE OUTPATIEN 5 5 SON ADAIR T VISIT PSC 15 MINUTES HOSPITAL [facility] - 5 5 [facility] OUTPATIEN INC T OFFICE 56064 FRANTZ MADDEN OUTPATIEN 4 4 MEDICAL JAM T VISIT SERV 15 FOUNDATIO MINUTES [facility] DIAMOND - 4 4 [facility] OUTPATIEN INC T OFFICE 56416 PAT PEDRO 4 4 KANDI ELIAS T VISIT PLLC 10 MINUTES OFFICE 32452 PAT PEDRO 4 4 KANDI ELIAS NEW 10 PLLC MINUTES HOSPITAL [facility] - OTHER 4 4 [facility] INC OFFICE 95452 FRANTZ RIVASPATITHIAGO 4 4 MEDICAL JAM T VISIT SERV 15 FOUNDATIO MINUTES [facility]OSPITAL [facility] - OTHER 4 4 [facility] INC OFFICE 75289 A Dominique Saldivar OUTPATIEN 4 4 SON SWIFT T VISIT PSC 15 MINUTES HOSPITAL [facility] - 4 4 [facility] OUTPATIEN INC T OFFICE 06994 A Dominique Saldivar OUTPATIEN 4 4 SON SWIFT T VISIT PSC 15 MINUTES OFFICE 27957 [facility] KIMBERLYN STEWART 3 3 PHYSICIAN WILEY T VISIT S GROUP 10 MINUTES HOSPITAL DI[facility]OND - 3 3 [facility] OUTPATIEN INC T OFFICE 12356 [facility] KIMBERLYN OUTPATIEN 3 3 PHYSICIAN INEZ Wilson VISIT S GROUP 25 MINUTES OFFICE 82774 FRANTZ MADDEN OUTPATIEN 3 3 MEDICAL JAM T VISIT SERV 15 FOUNDATIO [facility] DIAMOND - 3 3 [facility] OUTPATIEN INC [facility] - 3 3 [facility] - 3 3 [facility] OUTPATIEN INC [facility] DIAMOND - 3 3 [facility] OUTPATIEN INC T OFFICE 02176 [place] MARYANNE OUTPATIEN 3 3 MEDICAL JAM T NEW 60 SERV MINUTES [facility] - 3 3 [facility] OUTPATIEN INC [facility] - 2 2 [facility] OUTPATIEN INC T OFFICE 70976 A C CLINE A OUTPATIEN 2 2 SON SWIFT T VISIT [facility] 15 MINUTES OFFICE 00388 A Dominique CLINE A OUTPATIEN 2 2 SON SWIFT T VISIT [facility] 15 MINUTES HOSPITAL DIAMOND - 2 2 [facility] OUTPATIEN INC T OFFICE 01952 A Dominique CLINE A OUTPATIEN 2 2 SON SWIFT T VISIT [facility] 15 MINUTES HOSPITAL DI[facility]OND - 2 2 [facility] OUTPATIEN INC [facility] DI[facility] - 2 2 [facility] OUTPATIEN INC T OFFICE 00852 Dominique SOFIA OUTPATITHIAGO 2 2 KIMBERLYN Smith MD [facility] DIAMOND - 2 2 [facility] OUTPATIEN INC [facility] DIAMOND - 2 2 [facility] OUTPATIEN INC T OFFICE 45451 A Dominique Saldivar OUTPATIEN 2 2 SON SWIFT T VISIT PSC 15 MINUTES [facility]OSPITAL [facility] - 2 2 [facility] OUTPATIEN INC T OFFICE 16937 A Dominique Saldivar OUTPATIEN 2 2 SON SWIFT T VISIT PSC 15 MINUTES OFFICE 16890 MARTIN SALAZAR OUTPATIEN 2 2 KESHIA SCHMITT T VISIT 40 MINUTES OFFICE 03860 MARTIN MARTIN OUTPATIEN 2 2 KESHIA SCHMITT T VISIT 25 MINUTES [facility]OSPITAL [facility] - 1 1 [facility] OUTPATIEN INC T OFFICE 89525 A Dominique Saldivar OUTPATIEN 1 1 SON SWIFT T VISIT PSC 15 MINUTES [facility]OSPITAL [facility] - 1 1 [facility] OUTPATIEN INC T OFFICE 76774 MARTIN RÍOSHBURN OUTPATIEN 1 1 KESHIA SCHMITT T VISIT 15 MINUTES [facility]OSPITAL [facility] - 1 1 [facility] OUTPATIEN INC T OFFICE 65744 A Dominique [place] OUTPATIEN 1 1 SON SWIFT T VISIT PSC 15 MINUTES EMERGENCY 91856 HECTOR YAP RON 1 1 EMERGENCY DEPARTMEN SERVICES T VISIT HIGH/URGE NT SEVERITY OFFICE 19124 A Dominique GA OUTPATIEN 1 1 SON SWIFT T VISIT PSC 15 MINUTES OFFICE 98622 MARTIN SALAZAR OUTPATIEN 1 1 KESHIA SCHMITT T VISIT 15 MINUTES [facility]OSPITAL [facility] - 1 1 [facility] OUTPATIEN INC T OFFICE 52351 [place] CASA OUTPATIEN 0 0 ROS T NEW 30 CHIROPRAC MINUTES TIC CENTE OFFICE 74616 A Dominique Saldivar OUTPATIEN 0 0 SON SWIFT T VISIT PSC 15 MINUTES [facility]OSP[facility] - 0 0 [facility] OUTPATIEN INC T OFFICE 75005 Janna Saldivar OUTPATIEN 0 0 SON SWIFT T VISIT PSC 15 MINUTES EMERGENCY 80381 HECTOR LEHMAN DEPT 0 0 EMERGENCY III TAMARA VISIT SERVICES HIGH SEVERITY& THREAT [facility] DIAMOND - 0 0 [facility] OUTPATIEN INC T EMERGENCY 97633 [facility] 0 0 [facility] INC T VISIT HIGH/URGE NT SEVERITY OFFICE 76752 MARTIN MARTIN OUTPATIEN 0 0 KESHIA KESHIA T VISIT 40 MINUTES HOSPITAL [facility] - 0 0 [facility] OUTPATIEN INC T OFFICE 01202 MICHOACANO SALAZARHBURN, OUTPATIEN 0 0 KESHIA B KESHIA B T VISIT 15 MINUTES OFFICE 15324 MICHOACANO SALAZARHBURN, OUTPATIEN 0 0 KESHIA B KESHIA B T VISIT 25 MINUTES OFFICE 91306 MARTIN, MARTIN, OUTPATIEN 0 0 KESHIA B KESHIA B T VISIT 25 MINUTES OFFICE 71651 Janna PERRY OUTPATIEN 0 0 SON Fox T VISIT [facility] 15 MINUTES OFFICE [id number] MICHOACANO SALAZARHBURN, OUTPATIEN 0 0 KESHIA B KESHIA B T VISIT 15 MINUTES OFFICE [id number] MICHOACANO SALAZARHBURN, OUTPATIEN 0 0 KESHIA B KESHIA B T NEW 45 MINUTES [facility]
--- OUTSIDE RECORDS SUMMARY | 2016-12-13 12:36 | External Medical Summary Rpt | CCD ---
Author Author , ОЛЕГ Organization ОЛЕГ Address Unknown Phone [email or web address] [place] Immunization Name Date Rout CVX Reac Dose Comm Prov Is Faci e tion ent ider Refu lity Give sed n Infl 08-1 Intr 0.5 Hist KHAF No RITE uenz 7-20 amus mL oric PHOEBE AID0 a 17 cula al AYMA 3938 Tri, r Info N Adj rmat ion - Sour ce Unsp ecif ied Infl 08-3 Intr 150 0.5 Hist KHAF No RITE uenz 1-20 amus mL oric PHOEBE AID0 a 16 cula al AYMA 3938 Quad r Info N Inj rmat ion - Sour ce Unsp ecif ied
--- OUTSIDE RECORDS SUMMARY | 2016-12-13 12:36 | External Medical Summary Rpt | CCD ---
Author Author , ОЛЕГ Organization ОЛЕГ Address Unknown Phone [email or web address] Immunization Name Date Rout CVX Reac Dose [...]
--- OUTSIDE RECORDS SUMMARY | 2016-12-13 12:37 | External Medical Summary Rpt ---
Author Author ОЛЕГ Wolf, [employer] Organization [employer] Address Unknown Phone Unavailable Results Basic metabolic panel in Blood Observa Value Referen Units Interpr Notes Date tion ce etation Range Urea 7 - 18 mg/dL Normal No Dec 09 nitrogen informati 2016 [Mass/vol on in 12:40 PM ume] in source Serum or data Plasma Calcium 8.5 - mg/dL Normal No Dec 09 [Mass/vol 10.1 informati 2016 ume] in on in 12:40 PM Serum or source Plasma data Chloride 98 - 107 mmoL/L Normal No Dec 09 [Moles/vo informati 2016 lume] in on in 12:40 PM Serum or source Plasma data Carbon 21.0 - mmoL/L Normal No Dec 09 dioxide, 32.0 informati 2016 total on in 12:40 PM [Moles/vo source lume] in data Serum or Plasma Creatinin 0.70 - mg/dL Normal No Dec 09 e 1.30 informati 2016 [Mass/vol on in 12:40 PM ume] in source Serum or data Plasma Estimated >60 ML/MIN No REFERENCE Dec 09 informati RANGE: 2017 glomerula on in >60 12:40 PM r source ML/MIN/1. filtratio data 73 SQUARE n rate METERSIf (GF this patient is -A merican, then multiply theresult by 1.210. Glucose 74 - 106 mg/dL High No Dec 09 [Mass/vol informati 2016 ume] in on in 12:40 PM Serum or source Plasma data Potassium 3.5 - 5.1 mmoL/L Normal No Dec 09 informati 2016 [Moles/vo on in 12:40 PM lume] in source Serum or data Plasma Sodium 136 - 145 mmoL/L Normal No Dec 09 [Moles/vo informati 2016 lume] in on in 12:40 PM Serum or source Plasma data Lipid 1996 panel in Serum or Plasma Observa Value Referen Units Interpr Notes Date tion ce etation Range Cholester < 200 mg/dL No No Dec 09 ol informati informati 2016 [Moles/vo on in on in 12:40 PM lume] in source source Unspecifi data data ed specimen Cholester 40 - 60 MG/DL Low No Dec 09 ol in HDL inform2016 on in 12:40 PM [Mass/vol source ume] in data Serum or Plasma Cholester 0 - 130 mg/dL Normal No Dec 09 ol in LDL inform2016 on in 12:40 PM [Mass/vol source ume] in data Serum or Plasma by calculati on Triglycer 30 - 200 mg/dL Normal No Dec 09 deandre inform2016 [Moles/vo on in 12:40 PM lume] in source Serum or data Plasma Cholester 0 - 40 No Normal No Dec 09 ol in informati informati 2016 VLDL on in on in 12:40 PM [Mass/vol source source ume] in data data Serum or Plasma Hepatic function 2000 panel in Serum or Plasma Observa Value Referen Units Interpr Notes Date tion ce etation Range Albumin 3.4 - 5.0 gm/dL Normal No Dec 09 [Mass/vol informati 2016 ume] in on in 12:40 PM Serum or source Plasma data Alkaline 46 - 116 U/L Normal No Dec 09 phosphata ati 2016 se on in 12:40 PM [Enzymati source c data activity/ volume] in Serum or Plasma Bilirubin 0.0 - 0.2 mg/dL Normal No Dec 09 .direct informati 2016 [Mass/vol on in 12:40 PM ume] in source Serum or data Plasma Bilirubin 0 - 0.9 mg/dL Normal No Dec 09 .indirect informati 2017 on in 12:40 PM [Mass/vol source ume] in data Serum or Plasma Bilirubin 0.2 - 1.0 mg/dL Normal No Dec 09 .total informati 2017 [Mass/vol on in 12:40 PM ume] in source Serum or data Plasma Aspartate 15 - 37 U/L Normal No Dec 092016 aminotran on in 12:40 PM sferase source [Enzymati data c activity/ volume] in Serum or Plasma Alanine 12 - 78 U/L Normal No Dec 09 aminotran informati 2016 sferase on in 12:40 PM [Enzymati source c data activity/ volume] in Serum or Plasma Protein 6.4 - 8.2 gm/dL Normal No Dec 09 [Mass/vol informati 2016 ume] in on in 12:40 PM Serum or source Plasma data CBC W Auto Differential panel in Blood Observa Value Referen Units Interpr Notes Date tion ce etation Range Basophils 0 - 0.2 K/MM3 Normal No Dec 092016 [#/volume on in 12:40 PM ] in source Blood by data Automated count Basophils 0.1 - 2.0 % Normal No Dec 09 / inform2016 leukocyte on in 12:40 PM s in source Blood by data Automated count Eosinophi 0.0 - 0.4 K/mm3 Normal No Dec 09 ls informati 2016 [#/volume on in 12:40 PM ] in source Blood by data Automated count Eosinophi 0.1 - % Normal No Dec 09 ls/100 12.0 inform2016 leukocyte on in 12:40 PM s in source Blood by data Automated count Granulocy 1.3 - 8.0 K/mm3 Normal No Dec 09 dale 2016 [#/volume on in 12:40 PM ] in source Blood by data Automated count Granulocy 37.0 - % Normal No Dec 09 dale/100 80.0 2016 leukocyte on in 12:40 PM s in source Blood by data Automated count Hematocri 42.0 - % Normal No Dec 09 t [Volume 52.0 ati 2016 on in 12:40 PM Fraction] source of Blood data Hemoglobi 14.1 - g/dL Normal No Dec 09 n 18.0 inform2016 [Mass/vol on in 12:40 PM ume] in source Blood data Lymphocyt 0.7 - 4.5 K/mm3 Normal No Dec 09 es 2016 [#/volume on in 12:40 PM ] in source Unspecifi data ed specimen by Automated count Lymphocyt 10 - 50 % Normal No Dec 09 es 2016 [#/volume on in 12:40 PM ] in source Unspecifi data ed specimen by Automated count Erythrocy 27 - 31.2 pg Normal No Dec 09 te mean 2016 corpuscul on in 12:40 PM ar source hemoglobi data n [Entitic mass] Erythrocy 31.8 - g/dl Normal No Dec 09 te mean 35.4 2016 corpuscul on in 12:40 PM ar source hemoglobi data n concentra tion [Mass/vol ume] by Automated count Erythrocy 82.2 - fl Normal No Dec 09 te mean 97.8 2016 corpuscul on in 12:40 PM ar volume source [Entitic data volume] by Automated count Monocytes 0.1 - 1.0 K/mm3 Normal No Dec 092016 [#/volume on in 12:40 PM ] in source Blood by data Automated count Monocytes 1.7 - 9.3 % Normal No Dec 09 /100 2016 leukocyte on in 12:40 PM s in source Blood by data Automated count Platelet 7.4 - fl Normal No Dec 09 mean 10.4 2016 volume on in 12:40 PM [Entitic source volume] data in Blood by Automated count Platelets 142 - 424 K/mm3 Normal No Dec 092016 [#/volume on in 12:40 PM ] in source Blood data Erythrocy 4.6 - 6.2 M/mm3 Normal No Dec 09 dale 2016 [#/volume on in 12:40 PM ] in source Amniotic data fluid Erythrocy 11.5 - % Normal No Dec 09 te 17.5 2016 distribut on in 12:40 PM ion width source [Entitic data volume] by Automated count Leukocyte 4.8 - K/MM3 Normal No Dec 09 s 10.8 2016 [#/volume on in 12:40 PM ] in source Blood data Lipid 1996 panel in Serum or Plasma Observa Value Referen Units Interpr Notes Date tion ce etation Range Cholester < 200 mg/dL High No Sep 5 ol 2016 [Moles/vo on in 10:20 AM lume] in source Unspecifi data ed specimen Cholester 40 - 60 MG/DL Low No Sep 5 ol in HDL 2016 on in 10:20 AM [Mass/vol source ume] in data Serum or Plasma Cholester 0 - 130 mg/dL High No Sep 5 ol in LDL 2016 on in 10:20 AM [Mass/vol source ume] in data Serum or Plasma by calculati on Triglycer 30 - 200 mg/dL Normal No Sep 5 deandre 2016 [Moles/vo on in 10:20 AM lume] in source Serum or data Plasma Cholester 0 - 40 No Normal No Sep 5 ol in informati 2016 VLDL on in on in 10:20 AM [Mass/vol source source ume] in data data Serum or Plasma Hepatic function 2000 panel in Serum or Plasma Observa Value Referen Units Interpr Notes Date ti ce etation Range Albumin 3.4 - 5.0 gm/dL Normal No Sep 5 [Mass/vol informati 2017 ume] in on in 10:20 AM Serum or source Plasma data Alkaline 46 - 116 U/L Normal No Sep 5 phosphata informati 2017 se on in 10:20 AM [Enzymati source c data activity/ volume] in Serum or Plasma Bilirubin 0.0 - 0.2 mg/dL Normal No Sep 5 .direct informati 2017 [Mass/vol on in 10:20 AM ume] in source Serum or data Plasma Bilirubin 0 - 0.9 mg/dL Normal No Sep 5 .indirect informati 2017 on in 10:20 AM [Mass/vol source ume] in data Serum or Plasma Bilirubin 0.2 - 1.0 mg/dL Normal No Sep 5 .total informati 2017 [Mass/vol on in 10:20 AM ume] in source Serum or data Plasma Aspartate 15 - 37 U/L Low No Sep 5 inform2016 aminotran on in 10:20 AM sferase source [Enzymati data c activity/ volume] in Serum or Plasma Alanine 12 - 78 U/L Normal No Sep 5 aminotran informati 2016 sferase on in 10:20 AM [Enzymati source c data activity/ volume] in Serum or Plasma Protein 6.4 - 8.2 gm/dL Normal No Sep 5 [Mass/vol informati 2017 ume] in on in 10:20 AM Serum or source Plasma data Activated clotting time in Blood by Coagulation assay Observa Value Referen Units Interpr Notes ti ce etation Range Activated 74 - 125 SEC High No Aug 31 clotting alert ati 2016 9:40 time in on in AM Blood by source Coagulati data on assay CBC W Auto Differential panel in Blood Observa Value Referen Units Interpr Notes Date ti ce etation Range Basophils 0 - 0.2 K/MM3 Normal No Aug 31 informati 2016 8:06 [#/volume on in AM ] in source Blood by data Automated count Basophils 0.1 - 2.0 % Normal No Aug 31 informati 2016 8:06 leukocyte on in AM s in source Blood by data Automated count Eosinophi 0.0 - 0.4 K/mm3 Normal No Aug 31 ls ati 2016 8:06 [#/volume on in AM ] in source Blood by data Automated count Eosinophi 0.1 - % Normal No Aug 31 ls/100 12.0 informati 2016 8:06 leukocyte on in AM s in source Blood by data Automated count Granulocy 1.3 - 8.0 K/mm3 Normal No Aug 31 dale informati 2016 8:06 [#/volume on in AM ] in source Blood by data Automated count Granulocy 37.0 - % Normal No Aug 31 dale/100 80.0 informati 2016 8:06 leukocyte on in AM s in source Blood by data Automated count Hematocri 42.0 - % Normal No Aug 31 t [Volume 52.0 informati 2016 8:06 on in AM Fraction] source of Blood data Hemoglobi 14.1 - g/dL Normal No Aug 31 n 18.0 informati 2016 8:06 [Mass/vol on in AM ume] in source Blood data Lymphocyt 0.7 - 4.5 K/mm3 Normal No Aug 31 es informati 2016 8:06 [#/volume on in AM ] in source Unspecifi data ed specimen by Automated count Lymphocyt 10 - 50 % Normal No Aug 31 es informati 2016 8:06 [#/volume on in AM ] in source Unspecifi data ed specimen by Automated count Erythrocy 27 - 31.2 pg Low No Aug 31 te mean informati 2016 8:06 corpuscul on in AM ar source hemoglobi data n [Entitic mass] Erythrocy 31.8 - g/dl Normal No Aug 31 te mean 35.4 informati 2016 8:06 corpuscul on in AM ar source hemoglobi data n concentra tion [Mass/vol ume] by Automated count Erythrocy 82.2 - fl Low No Aug 31 te mean 97.8 informati 2016 8:06 corpuscul on in AM ar volume source [Entitic data volume] by Automated count Monocytes 0.1 - 1.0 K/mm3 Normal No Aug 31 informati 2016 8:06 [#/volume on in AM ] in source Blood by data Automated count Monocytes 1.7 - 9.3 % Normal No Aug 31 informati 2016 8:06 leukocyte on in AM s in source Blood by data Automated count Platelet 7.4 - fl Normal No Aug 31 mean 10.4 informati 2016 8:06 volume on in AM [Entitic source volume] data in Blood by Automated count Platelets 142 - 424 K/mm3 Normal No Aug 31 informati 2016 8:06 [#/volume on in AM ] in source Blood data Erythrocy 4.6 - 6.2 M/mm3 Normal No Aug 31 dale informati 2016 8:06 [#/volume on in AM ] in source Amniotic data fluid Erythrocy 11.5 - % Normal No Aug 31 te 17.5 informati 2017 8:06 distribut on in AM ion width source [Entitic data volume] by Automated count Leukocyte 4.8 - K/MM3 Normal No Aug 31 s 10.8 informati 2016 8:06 [#/volume on in AM ] in source Blood data Basic metabolic panel in Blood Observa Value Referen Units Interpr Notes Date tion ce etation Range Urea 7 - 18 mg/dL High No Aug 31 nitrogen informati 2016 8:06 [Mass/vol on in AM ume] in source Serum or data Plasma Calcium 8.5 - mg/dL Normal No Aug 31 [Mass/vol 10.1 informati 2016 8:06 ume] in on in AM Serum or source Plasma data Chloride 98 - 107 mmoL/L Normal No Aug 31 [Moles/vo informati 2016 8:06 lume] in on in AM Serum or source Plasma data Carbon 21.0 - mmoL/L Normal No Aug 31 dioxide, 32.0 informati 2016 8:06 total on in AM [Moles/vo source lume] in data Serum or Plasma Creatinin 0.70 - mg/dL Normal No Aug 31 e 1.30 informati 2017 8:06 [Mass/vol on in AM ume] in source Serum or data Plasma Estimated >60 ML/MIN No REFERENCE Aug 31 informati RANGE: 2017 8:06 glomerula on in >60 AM r source ML/MIN/1. filtratio data 73 SQUARE n rate METERSIf (GF this patient is -A merican, then multiply theresult by 1.210. Glucose 74 - 106 mg/dL High No Aug 31 [Mass/vol informati 2016 8:06 ume] in on in AM Serum or source Plasma data Potassium 3.5 - 5.1 mmoL/L Normal No Aug 31 informati 2016 8:06 [Moles/vo on in AM lume] in source Serum or data Plasma Sodium 136 - 145 mmoL/L Normal No Aug 31 [Moles/vo informati 2016 8:06 lume] in on in AM Serum or source Plasma data
--- NOTE | 2016-12-13 13:01 | Urgent Treatment Center Report ---
History of Present Issue Date/Time Seen by Provider 12/13/16 1240 Visit Reason Pt arrived:Walked Presenting Problem:PT WOKE UP WITH LEFT EAR NUMB AND LEFT HAND NUMB. FEELING HAS RETURNED IN HIS HAND. Location if Accident: Onset of symptoms date/time:/ or onset unknown for:MEDICAL HX UNKNOWN Have you (or family members/close friends) recently traveled outside the [place]? N If Yes, where/when: Have you had exposure to infectious disease within the past month? TB? Other? Specify: Patient state that he woke up this morning and his left hand felt numb. States that he rubbed it and then the feeling came back State that he rolled over and went back to sleep and then the other hand did the same thing and when he woke up good he rubbed it and the feeling returned State that now he is no longer having any numbness and he has done this before because of the bulging disks in his back pinching a nerve but came here to see the Alignment Mechanic who sent him to see the Neurologist and she could not work him in today so they told him he could come be seen down here and he thought we may be able to get him in to the neurologist sooner ALLERGIES Coded Allergies: Horse Serum Proteins (05/22/15) Tetanus Vaccines and Toxoid (Tetanus Vaccines & Toxoid) (05/22/15) Home Medications Active Scripts Gabapentin 300 MG PO TID #90 TAB Prov: 02/09/16 Reported Medications FLUTICASONE/SALMETEROL (Advair 250-50 Diskus) 1 PUFF IN BID Tiotropium [place] (Spiriva) 1 PUFF IH DAILY Celecoxib (Celebrex 200MG) 200 MG PO DAILY Lisinopril 20 MG PO DAILY Fenofibrate 145 MG NG QHS TAMSULOSIN HCL (Flomax 0.4MG) 0.4 MG PO QHS History Medical History General CAD? No Angina: No AR: No Hypertension? Yes Hyperlipidemia? No CHF? No DVT? No PE? No COPD? Yes Asthma? Yes Anemia? No GERD? No Gastric ulcers? No GI Bleed? No Hernia? No Thyroid Problems? No Hypothyroidism? No CVA? No Seizures? No Diabetes? No Renal Insuffiency? No UTI? No Stones? No BPH? No GB Disease: No Nephritic Syndrome? No Asplenia? No Hepatitis? No Sickle Cell Disease? No Arthritis? Yes Migraines? No Cataracts? No Glaucoma? No MRSA? No HIV? No TB? No Anxiety? No Depression? No Cancer? No More? No Immunization HX DT/Tetanus UNKNOWN Flu THISFLUSEA Pneumonia NEVER Surgical Hx Previous Surgery?Y TONSILS COLONOSCOPY RIGHT BIG TOE Hernia Repair Family History Family HX Diabetes Yes CAD No Hypertension No Hyperlipidemia No Cancer Yes TB No Social History Smoking Hx Smoker: Never Smoker Tobacco: No Packs/day N/A Alcohol Alcohol: No Review of Systems All Other Systems Reviewed and Negative Psychiatric/Neurological denies headache, numbness, denies seizure, denies tingling Comment Awoke this morning with numbness in left hand that returned minutes after awaking and position change with rubbing his hand. Went back to sleep and when he woke up second time numbness returned but came back after getting up and rubbing his hands Denies facial numbness, denies headache, denies stroke like symptoms Physical Exam Vital Signs Vital Signs Date Time Temp Pulse Resp B/P Pulse O2 O2 Flow FiO2 Ox Delivery Rate 12/13 1334 97.0 74 20 141/64 96 12/13 1221 97.0 74 20 141/64 96 General Appearance normal appearance, WD/WN, no apparent distress Eye Exam - bilateral eye normal exam, bilateral eye PERRL Respiratory Status Yes: trachea midline, chest symmetrical, non tender chest. No: respiratory distress. Cardiovascular normal exam, regular rate/rhythm Back Reports history of back problems and buldging disks Extremities Numbness in his hands earlier that has now gone, good cap refill, good pulses, touch and sharp feeling sensation in all digits Neurologic alert, normal exam, oriented x 3 Medical Decision Making LABS/Meds/Orders Pt receiving controlled substance in ED? No Departure Departure Time of Disposition 1329 Disposition DC Home or Self Care(routine) Clinical Impression Primary Impression: Hand problems Condition STABLE Referrals Jaden SWIFT,A.C. (PCP/Family): Tomorrow-Call Office Patient Instructions DI for Numbness/tingling Additional Instructions Follow up tomorrow with family doctor as advised Keep appointment with Neurology as scheduled As advised in the IAC today if symptoms persists go straight to ER REturn if needed Discharge Counseling Counseled pt/family regarding diagnosis, home care, follow up needs at 2053
[2016-12-13 13:34] VITALS: BP 141/64
== END 2016-12-13 13:34 | disposition home or self-care (01) ==
LOC: UTC 12:12
DX: R20.0 Anesthesia of skin (principal); I10 Essential (primary) hypertension; J44.9 Chronic obstructive pulmonary disease, unspecified